=== PATIENT | female | born 1945 | race Caucasian/White ===

== ENCOUNTER 2020-01-17 14:00 | Inpatient (IN) | payer MEDICARE, SELFPAY ==
[2019-12-26 13:03] VITALS: BMI 31.5
--- NOTE | 2020-01-17 15:28 | PCM.HP.STD ---
Problem List (1) Debility Status: Acute (2) Fall with injury Status: Acute (3) Dislocation of right shoulder joint Status: Acute (4) Femur fracture, right Status: Acute (5) Muscle weakness Status: Acute (6) Breast cancer, left Status: Chronic (7) Hypertension Status: Chronic (8) Anemia Status: Chronic (9) Hypokalemia Status: Chronic History of Present Illness Date of Admission: 01/17/20 Chief Complaint: Here for rehabilitation, strengthening, radiation treatments, prior to discharge home alone. The patient is a 74 year old Female with below past medical history significant for left breast cancer status post surgery, status post chemotherapy, undergoing radiation treatments. Fell at home, tangled with dog, resulting in Right shoulder fracture/dislocation, treated with sling, nonweightbearing status. Right hip fracture status post open reduction internal fixation. Admitted to [facility] for PT/OT. 01/17/2020 Admit to TCU with debility, here for rehabilitation, strengthening. Transferred to TCU because logistically more convenient to have radiation treatment for left breast cancer. Past Medical History Past Medical History (Chronic Problems): Chronic Problems (Last Updated 12/26/19 @ 13:04 by Blanca Chapmion RN) Breast cancer, left (Chronic) Hypertension (Chronic) Anemia (Chronic) Hypokalemia (Chronic) Medical History: Medical History (Last Updated 12/26/19 @ 13:04 by Blanca Champion RN) Breast cancer C50.919 Allergies bacitracin [From Neosporin (mva-asl-ajbbm)] Allergy (Verified 12/26/19 13:02) Rash neomycin [From Neosporin (prn-oyj-zhami)] Allergy (Verified 12/26/19 13:02) Rash polymyxin B [From Neosporin (hpi-jjb-mimnk)] Allergy (Verified 12/26/19 13:02) Rash Home Medications: Ambulatory Orders Medication Instructions Recorded Calcium Carbonate [Calcium] 500 mg PO 12/26/19 Multivit-Minerals/Folic Acid 200 mcg PO 12/26/19 [Adult Multi Gummies] Potassium Chloride [K-Dur] 10 meq PO DAILY 12/26/19 Ascorbic Acid [Vitamin C] 500 mg PO DAILY 01/17/20 Enoxaparin Sodium [Lovenox] 30 mg SQ DAILY 01/17/20 Ferrous Sulfate 325 mg PO DAILY 01/17/20 Metoprolol Tartrate 12.5 mg PO BID 01/17/20 Multivitamin with Minerals 1 ea PO DAILY 01/17/20 [Multivitamins with Minerals] Oxycodone HCl 5 mg PO Q4H PRN PRN 01/17/20 Surgical History: Surgical History (Last Updated 12/26/19 @ 13:05 by Blanca Champion RN) H/O mastectomy Z90.10 H/O: hysterectomy Z90.710 1998 . FULL OF BENIGN TUMORS Tubal ligation status Z98.51 Surgical History: hysterectomy, mastectomy - Left., - - Tubal ligation, Right hip ORIF. 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 MUSIC history Lives: Alone Smoking Status: Current every day smoker Tobacco Use: Cigarettes Alcohol: None Drugs: None - *Family History Maternal Family History: Family History (Last Updated 12/26/19 @ 13:06 by Blanca Champion RN) Sister Breast cancer Sister Breast cancer Sister Breast cancer Sister Breast cancer History Items: Cancer Paternal Family History: Family History (Last Updated 12/26/19 @ 13:06 by Blanca Champion RN) Sister Breast cancer Sister Breast cancer Sister Breast cancer Sister Breast cancer History Items: No pertinent history Review of Systems Constitutional: Denies: Chills, Fever, Weight Change HEENT: Denies: Head Aches, Sinus Congestion, Sinus Drainage Cardiovascular: Denies: Chest Pain, Palpitations Respiratory: Denies: Cough, Shortness of breath at rest, Sputum production Gastrointestinal: Denies: Abdominal Pain, Nausea, Vomiting Genitourinary: Denies: Dysuria Musculoskeletal: Denies: Joint Pain, Joint Tenderness Skin: Denies: Rash, Wounds Neurological: Denies: Numbness, Tingling, Focal weakness Psychiatric: Denies: Anxiety, Depression, Homicidal Ideations, Suicidal Ideations Hematologic/ Lymphatic: Denies: Easy Bruising, Easy Bleeding VTE Information - Inpt Only VTE Present on Admission: No VTE Mechan Device Prophylaxis: Knee High RAEANN Hose VTE Pharm Prophylaxis ordered?: Yes Patient Problems: Active and Suspected Problems (Last Updated 12/26/19 @ 13:04 by Blanca Champion RN) Debility (Acute) Fall with injury (Acute) Dislocation of right shoulder joint (Acute) Femur fracture, right (Acute) Muscle weakness (Acute) - Physical Exam General: Alert, Oriented x3, Cooperative HEENT: Atraumatic, PERRLA, EOMI, Normocephalic Neck: Supple, No JVD, Negative Carotid Bruits Lungs: Clear to auscultation, Normal air movement Cardiovascular: Regular rate, No murmurs Abdomen: Bowel Sounds Present, Soft, Non Tender Extremities: No edema, Capillary Refill Less than 3 Seconds, - - Right upper extremity sling. Skin: No rashes, No breakdown Musculoskeletal: No Tenderness to Palpation of Joints or Extremities Neurological: Cranial nerves II-XII grossly intact Psych/Mental Status: Normal Affect, Appropriate Current Medications Ascorbic Acid (Vitamin C) 500 mg PO DAILY [facility] Calamine/Phenol (Calmoseptine Ointment) 1 applic TOPICAL DAILY [facility]; Protocol Enoxaparin Sodium (Lovenox) 30 mg SC DAILY [facility] Ferrous Sulfate (Ferrous Sulfate) 325 mg PO DAILYCM [facility] Metoprolol Tartrate (Lopressor (Beta Yvan)) 12.5 mg PO BID [facility] Multivitamins/Minerals (Multivitamin With Minerals (Bkc)) 1 tablet PO DAILY@0800 [facility] Oxycodone HCl (Oxyir) 5 mg PO Q4H PRN PRN PRN Reason: Pain Score 1-10/10 Potassium Chloride (K-Dur) 10 meq PO DAILY [facility] Tuberculin PPD (Tubersol, Aplisol, Ppd) 5 tu ID X1 ONE Stop: 01/17/20 17:01 Assessment/Plan All Active Problems (Last Updated 12/26/19 @ 13:04 by Blanca Champion RN) Debility (Acute) Fall with injury (Acute) Dislocation of right shoulder joint (Acute) Femur fracture, right (Acute) Muscle weakness (Acute) 74 year old female with below past medical history significant for left breast cancer, hospitalized for right shoulder fracture/dislocation, right femur fracture, underwent ORIF right hip, admitted to TCU with debility, here for rehabilitation, strengthening, radiation treatments, prior to discharge home alone. Debility - PT/OT. Pain - Tylenol 1000MG Q6H PRN pain (1-3), Oxycodone 5MG Q4H PRN pain (4-10). Bowel - Miralax 17GM daily, Senna/colace 1 tablet BID, Dulcolax 10MG daily PRN. Adult immunization - Administer Prevnar 13, Pneumovax 23, Fluzone as appropriate. DVT prophylaxis - Lovenox 30MG SC daily. Vitamin C deficiency - Vitamin C 500MG daily. Iron deficiency anemia - Ferrex 150MG daily. Skin irritation - Calmoseptine daily. Hypertension - Metoprolol 12.5MG twice daily. Nutrition - MVI daily. Hypokalemia - KCL 10MEQ daily. Left Breast cancer - Radiation per Dr. Noah Craig.
[2020-01-17 15:33] VITALS: BMI 30.3
[2020-01-17 15:36] VITALS: BMI 30.4
[2020-01-17 16:00] VITALS: BP 155/74; PULSE 70; RESP 16; TEMP 36.9; O2SAT 94
--- NOTE | 2020-01-17 17:02 | CASEMGMT ---
Social Work Reviewed and agreed with social work documentation on this date. Naty Dang, UPPER SHAPER SWIMMING COACH OR INSTRUCTOR
[2020-01-17] MEDS: Menthol/Lanolin/Calamine/Znox 113 GM Tube 1 APPLIC TOPICAL (17:36)
[2020-01-17 17:37] VITALS: PULSE 70
[2020-01-17] MEDS: Senna/Docusate Sodium 1 Tablet PO (17:37)
[2020-01-17] MEDS: Metoprolol Tartrate 25 MG Tablet 12.5 MG PO (17:37)
[2020-01-17] MEDS: Tuberculin,Purif.prot.deriv. 50 TU/ML Vial 5 ML ID (17:37)
[2020-01-18 06:07] VITALS: BP 146/52; PULSE 92
[2020-01-18] MEDS: Ascorbic Acid 500 MG Tablet PO (06:07)
[2020-01-18] MEDS: Polyethylene Glycol 3350 17 GM PACKET PO (06:07)
[2020-01-18] MEDS: Metoprolol Tartrate 25 MG Tablet 12.5 MG PO ×2 (06:07→22:52)
[2020-01-18] MEDS: Senna/Docusate Sodium 1 Tablet PO (06:07)
[2020-01-18] MEDS: Enoxaparin 30 MG/0.3 ML Syringe SC (06:08)
[2020-01-18] MEDS: Menthol/Lanolin/Calamine/Znox 113 GM Tube 1 APPLIC TOPICAL (06:09)
[2020-01-18 07:46] LABS: Anion Gap 2 (5-15); BUN 16 mg/dL (7-18); BUN/Creat Ratio 25.7 RATIO (10-20); Calcium,Total 9.4 mg/dL (8.5-10.1); Chloride 107 mmol/L (98-107); Creatinine, Serum 0.62 mg/dL (0.55-1.02); EST Glomerular Filtration Rate 100 mL/min (>60); Est Glom Filt Rate - Afr Amer 121 mL/min (>60); Estimated Creatinine Clearance 54.73 ml/min; Glucose 107 mg/dL (74-106); Potassium 4.2 mmol/L (3.5-5.1); Sodium Level 139 mmol/L (136-145)
[2020-01-18 07:58] LABS: Absolute Lymphocyte Count 1.25 X10^3/uL (0.83-4.51); Absolute Neutrophil Count 4.9 X10^3/uL (2.0-7.7); Basophil# 0.02 X10^3/uL; Basophil% 0.3 % (0-1); Eosinophil# 0.17 X10^3/uL; Eosinophils% 2.5 % (0-5); Hematocrit 34.6 % (37-47); Hemoglobin 10.8 g/dL (12.0-15.0); Lymphocyte # 1.25 X10^3/ul (4.0); Lymphocyte % 18.3 % (19-41); Mean Corp Hgb Conc 31.2 g/dL (32-36); Mean Corpuscular Hgb 29.8 pg (27.0-32.0); Mean Corpuscular Volume 95.3 fL (81-99); Mean Platelet Vol. 10.6 fl (6.2-12.0); Monocyte# 0.47 X10^3/uL; Monocyte% 6.9 % (0-10); NRBC Flagged by Analyzer 0 % (0-5); Neutrophil # 4.88 X10^3/uL (2.7-7.7); Neutrophil % 71.4 % (47-70); Platelet Count 189 K/mm3 (150-450); RBC Distribution Width CV 16.8 % (11.6-14.6); RBC Distribution Width SD 57.6 fl (35.1-43.9); Red Blood Count 3.63 M/mm3 (4.2-5.4); White Blood Count 6.8 K/mm3 (4.4-11.0)
[2020-01-18] MEDS: Multivitamins,Ther W-Minerals Tablet 1 TABLET PO (08:15)
[2020-01-18] MEDS: Iron Polysaccharide Complex 150 MG CAPSULE PO (08:15)
[2020-01-18 15:00] VITALS: BP 92/52; PULSE 108; RESP 16; TEMP 37.1; O2SAT 94
[2020-01-18 15:06] VITALS: PULSE 100; RESP 18; O2SAT 94
[2020-01-18 22:52] VITALS: BP 131/61; PULSE 96
[2020-01-19] MEDS: Menthol/Lanolin/Calamine/Znox 113 GM Tube 1 APPLIC TOPICAL (06:01)
[2020-01-19] MEDS: Enoxaparin 30 MG/0.3 ML Syringe SC (06:01)
[2020-01-19] MEDS: Ascorbic Acid 500 MG Tablet PO (06:01)
[2020-01-19 06:02] VITALS: BP 147/74; PULSE 90
[2020-01-19] MEDS: Metoprolol Tartrate 25 MG Tablet 12.5 MG PO ×2 (06:02→20:01)
[2020-01-19] MEDS: Iron Polysaccharide Complex 150 MG CAPSULE PO (07:53)
[2020-01-19] MEDS: Multivitamins,Ther W-Minerals Tablet 1 TABLET PO (07:53)
[2020-01-19 15:00] VITALS: BP 153/85; PULSE 93; RESP 24; TEMP 36.3; O2SAT 100
[2020-01-19] MEDS: Senna/Docusate Sodium 1 Tablet PO (17:19)
[2020-01-19 20:01] VITALS: BP 178/69; PULSE 84
[2020-01-19] MEDS: Acetaminophen 500 MG Tablet 1000 MG PO (20:01)
[2020-01-20 05:42] VITALS: BP 174/69; PULSE 86
[2020-01-20] MEDS: Enoxaparin 30 MG/0.3 ML Syringe SC (05:42)
[2020-01-20] MEDS: Ascorbic Acid 500 MG Tablet PO (05:42)
[2020-01-20] MEDS: Senna/Docusate Sodium 1 Tablet PO ×2 (05:42→17:25)
[2020-01-20] MEDS: Metoprolol Tartrate 25 MG Tablet 12.5 MG PO ×2 (05:42→21:05)
[2020-01-20] MEDS: Menthol/Lanolin/Calamine/Znox 113 GM Tube 1 APPLIC TOPICAL (05:44)
[2020-01-20] MEDS: Iron Polysaccharide Complex 150 MG CAPSULE PO (07:58)
[2020-01-20] MEDS: Multivitamins,Ther W-Minerals Tablet 1 TABLET PO (07:58)
[2020-01-20 10:00] VITALS: RESP 16
--- NOTE | 2020-01-20 15:58 | NURSING ---
Addendum entered by Cori Olmos 01/20/20 16:12: The order is to remove the brad to the R leg not the R arm. Original Note: Spoke with Dr. Moses's nurse. Received order to remove the brad to R arm on 01/27/20. She will speak with Dr. Moses and call us on back on the patient's weight bearing status. Will notify Dr. Harris
[2020-01-20 16:00] VITALS: BP 134/75; PULSE 84; RESP 16; TEMP 36.6; O2SAT 92
--- NOTE | 2020-01-20 18:26 | NURSING ---
Notified patient's daughter of appointment on 01/29 at 3:30
[2020-01-20 21:05] VITALS: BP 116/57; PULSE 99
[2020-01-21 06:10] VITALS: BP 149/81; PULSE 86
[2020-01-21] MEDS: Metoprolol Tartrate 25 MG Tablet 12.5 MG PO ×2 (06:10→20:05)
[2020-01-21] MEDS: Enoxaparin 30 MG/0.3 ML Syringe SC (06:11)
[2020-01-21] MEDS: Ascorbic Acid 500 MG Tablet PO (06:11)
[2020-01-21] MEDS: Menthol/Lanolin/Calamine/Znox 113 GM Tube 1 APPLIC TOPICAL (06:15)
--- NOTE | 2020-01-21 09:03 | PCM.PN.RX ---
<RhondaAureliano pearcei - Last Filed: 01/21/20 09:03> Progress Note - Pharmacy Subjective: TCU Admission Objective: Allergies bacitracin [From Neosporin (yjc-erj-pibow)] Allergy (Verified 12/26/19 13:02) Rash neomycin [From Neosporin (ris-xqr-szhlv)] Allergy (Verified 12/26/19 13:02) Rash polymyxin B [From Neosporin (cjn-jdw-rntvq)] Allergy (Verified 12/26/19 13:02) Rash Current Medications Generic Name Dose Route Start Last Admin Trade Name Freq PRN Reason Stop Dose Admin Acetaminophen 1,000 mg 01/17/20 15:44 01/19/20 20:01 Tylenol PO 1,000 mg Q6H PRN Administration Pain Score 1-3/10 Ascorbic Acid 500 mg 01/18/20 06:00 01/21/20 06:11 Vitamin C PO 500 mg DAILY [facility] Administration Bisacodyl 10 mg 01/17/20 15:45 Dulcolax PO DAILY PRN Constipation Calamine/Phenol 1 applic 01/17/20 15:00 01/21/20 06:15 Calmoseptine Ointment TOPICAL 1 applicatio DAILY [facility] Administration Protocol Enoxaparin Sodium 30 mg 01/18/20 06:00 01/21/20 06:11 Lovenox SC 30 mg DAILY [facility] Administration Metoprolol Tartrate 12.5 mg 01/18/20 21:00 01/21/20 06:10 Lopressor (Beta Yvan) PO 12.5 mg 0600,2100 [facility] Administration Multivitamins/Minerals 1 tablet 01/18/20 08:00 01/20/20 07:58 Multivitamin With Minerals (Bkc) PO 1 tablet DAILY@0800 [facility] Administration Oxycodone HCl 5 mg 01/17/20 14:36 Oxyir PO Q4H PRN PRN Pain Score 4-10/10 Polyethylene Glycol 17 gm 01/18/20 06:00 01/21/20 06:11 Miralax PO Not Given DAILY [facility] Polysaccharide Iron Complex 150 mg 01/18/20 08:00 01/20/20 07:58 Ferrex 150 PO 150 mg DAILYCM [facility] Administration Potassium Chloride 10 meq 01/18/20 06:00 01/21/20 06:11 K-Dur PO 10 meq DAILY [facility] Administration Senna/Docusate Sodium 1 tablet 01/17/20 18:00 01/21/20 06:11 Senokot-S, Alanis-Colace PO Not Given BID [facility] Problem List (Last Updated 12/26/19 @ 13:04 by Blanca Champion RN) Debility (Acute) Fall with injury (Acute) Dislocation of right shoulder joint (Acute) Femur fracture, right (Acute) Muscle weakness (Acute) Breast cancer, left (Chronic) Hypertension (Chronic) Anemia (Chronic) Hypokalemia (Chronic) Vital Signs Temp Pulse Resp BP Pulse Ox 97.8 F 86 16 149/81 H 92 01/20/20 16:00 01/21/20 06:10 01/20/20 16:00 01/21/20 06:10 01/20/20 16:00 Oxygen Delivery Method Room Air Weight: 68.181 kg Body Mass Index (BMI) 30.3 Sodium 139 mmol/L (136-145) 01/18/20 07:11 Potassium 4.2 mmol/L (3.5-5.1) 01/18/20 07:11 Chloride 107 mmol/L (98-107) 01/18/20 07:11 Carbon Dioxide 30.0 mmol/L (21.0-32.0) 01/18/20 07:11 Anion Gap 2 (5-15) L 01/18/20 07:11 BUN 16 mg/dL (7-18) 01/18/20 07:11 Creatinine 0.62 mg/dL (0.55-1.02) 01/18/20 07:11 Est GFR (MDRD) Af Amer 121 mL/min (>60) 01/18/20 07:11 Est GFR (MDRD) Non-Af 100 mL/min (>60) 01/18/20 07:11 BUN/Creatinine Ratio 25.7 RATIO (10-20) H 01/18/20 07:11 Glucose 107 mg/dL (74-106) H 01/18/20 07:11 Assessment/Plan: 1. Pain: acetaminophen 1000mg PO Q6H PRN pain (1-3/10) and oxycodone 5mg PO Q4H PRN pain (4-10/10). Please continue to monitor for increased pain and PRN usage. 2. DVT prophylaxis: enoxaparin 40mg SC daily. Increased from 30mg SC daily due to CrCl >30ml/min. Please continue to monitor for S/S of bleeding/DVT, renal function and platelets. 3. Hypertension: metoprolol tartrate 12.5mg PO BID. Please continue to monitor HR and BP. 4. Iron deficiency anemia: Ferrex 150mg PO DAILYCM. Please continue to monitor hemoglobin and for dark stools. 5. Hypokalemia: potassium chloride 10mEq PO daily. Please continue to monitor potassium levels. 6. Vitamin C deficiency/nutrition: ascorbic acid 500mg PO daily and multivitamin with minerals 1T PO daily. Please continue to monitor. Psychotropic Medications: None Unnecessary Medications: None *Bowel Regimen: Miralax 17gm PO daily, senna/docusate 1T PO BID, bisacodyl 10mg PO daily PRN constipation. Patient has refused 3/4 doses of Miralax. Please consider changing from scheduled to PRN constipation. Thanks. Please continue to monitor for constipation and PRN usage. Date of Note:: 01/21/20 - Provider Comments Provider responsibility: Provider responsible to enter orders to implement recommendations <Fish Harris Chi - Last Filed: 01/21/20 17:28> Progress Note - Pharmacy Subjective: [] Objective: Allergies bacitracin [From Neosporin (qry-lki-ytuzq)] Allergy (Verified 12/26/19 13:02) Rash neomycin [From Neosporin (vzg-nag-jpohn)] Allergy (Verified 12/26/19 13:02) Rash polymyxin B [From Neosporin (ajs-xri-usfiw)] Allergy (Verified 12/26/19 13:02) Rash Current Medications Generic Name Dose Route Start Last Admin Trade Name Freq PRN Reason Stop Dose Admin Acetaminophen 1,000 mg 01/17/20 15:44 01/19/20 20:01 Tylenol PO 1,000 mg Q6H PRN Administration Pain Score 1-3/10 Ascorbic Acid 500 mg 01/18/20 06:00 01/21/20 06:11 Vitamin C PO 500 mg DAILY [facility] Administration Bisacodyl 10 mg 01/17/20 15:45 Dulcolax PO DAILY PRN Constipation Calamine/Phenol 1 applic 01/17/20 15:00 01/21/20 06:15 Calmoseptine Ointment TOPICAL 1 applicatio DAILY [facility] Administration Protocol Enoxaparin Sodium 40 mg 01/22/20 06:00 Lovenox SC DAILY@0600 [facility] Metoprolol Tartrate 12.5 mg 01/18/20 21:00 01/21/20 06:10 Lopressor (Beta Yvan) PO 12.5 mg 0600,2100 [facility] Administration Multivitamins/Minerals 1 tablet 01/18/20 08:00 01/21/20 09:07 Multivitamin With Minerals (Bkc) PO 1 tablet DAILY@0800 [facility] Administration Oxycodone HCl 5 mg 01/17/20 14:36 Oxyir PO Q4H PRN PRN Pain Score 4-10/10 Polyethylene Glycol 17 gm 01/18/20 06:00 01/21/20 06:11 Miralax PO Not Given DAILY [facility] Polysaccharide Iron Complex 150 mg 01/18/20 08:00 01/21/20 09:07 Ferrex 150 PO 150 mg DAILYCM [facility] Administration Potassium Chloride 10 meq 01/18/20 06:00 01/21/20 06:11 K-Dur PO 10 meq DAILY [facility] Administration Senna/Docusate Sodium 1 tablet 01/17/20 18:00 01/21/20 06:11 Senokot-S, Alanis-Colace PO Not Given BID [facility] Problem List (Last Updated 12/26/19 @ 13:04 by Blanca Champion RN) Debility (Acute) Fall with injury (Acute) Dislocation of right shoulder joint (Acute) Femur fracture, right (Acute) Muscle weakness (Acute) Breast cancer, left (Chronic) Hypertension (Chronic) Anemia (Chronic) Hypokalemia (Chronic) Vital Signs Temp Pulse Resp BP Pulse Ox 98.2 F 105 H 16 156/84 H 95 01/21/20 14:40 01/21/20 14:40 01/21/20 14:40 01/21/20 14:40 01/21/20 14:40 Oxygen Delivery Method Room Air Weight: 68.719 kg Body Mass Index (BMI) 30.3 Sodium 139 mmol/L (136-145) 01/18/20 07:11 Potassium 4.2 mmol/L (3.5-5.1) 01/18/20 07:11 Chloride 107 mmol/L (98-107) 01/18/20 07:11 Carbon Dioxide 30.0 mmol/L (21.0-32.0) 01/18/20 07:11 Anion Gap 2 (5-15) L 01/18/20 07:11 BUN 16 mg/dL (7-18) 01/18/20 07:11 Creatinine 0.62 mg/dL (0.55-1.02) 01/18/20 07:11 Est GFR (MDRD) Af Amer 121 mL/min (>60) 01/18/20 07:11 Est GFR (MDRD) Non-Af 100 mL/min (>60) 01/18/20 07:11 BUN/Creatinine Ratio 25.7 RATIO (10-20) H 01/18/20 07:11 Glucose 107 mg/dL (74-106) H 01/18/20 07:11 Assessment/Plan: Psychotropic Medications: Unnecessary Medications: Bowel Regimen: - Provider Comments Provider responsibility: Provider responsible to enter orders to implement recommendations Provider Comments to Recommendations by Pharmacy: Agree
[2020-01-21] MEDS: Multivitamins,Ther W-Minerals Tablet 1 TABLET PO (09:07)
[2020-01-21] MEDS: Iron Polysaccharide Complex 150 MG CAPSULE PO (09:07)
--- NOTE | 2020-01-21 09:54 | CASEMGMT ---
Social Work Met with pt to discuss insurance setting a DC date for 01/24. Discussed with pt her appeal rights. Therapy recommending giovanni-walker. Pt to have daughter or sister transport at DC. Provided pt with list of [facility]. Pt requesting [facility]-PT/OT, referral made. Plan: DC home 01/24, giovanni walker, [facility]-PT/OT Ashly Forrest, social work product management internship Naty Dang, CRIME SPECIALIST ELECTRICIAN SUPERVISOR
--- NOTE | 2020-01-21 10:03 | CASEMGMT ---
Social Work Reviewed and agreed with social work documentation on this date. Naty Dang, SLITTING MACHINE FEEDER SENIOR PAINTER
--- NOTE | 2020-01-21 11:38 | RAD_ITS ---
STUDY: X-RAY - RIGHT SHOULDER REASON FOR EXAM: Female, 74 years old. Fracture follow up, right shoulder pain TECHNIQUE: 2 view(s) of the shoulder. COMPARISON: CT thorax 02/13/2019. FINDINGS: Normal glenohumeral articulation. There is degenerative arthrosis of the acromioclavicular joint without inferior osseous spur formation. Normal acromion. Generalized osteoporosis. Right internal jugular approach port. There is a sclerosed irregular fracture line through the humeral head/neck with fragmentation along the superior and medial humeral cortex. The humeral acromial distance is enlarged. Minimal indistinct fracture fragments particularly medial to the humeral head. The soft tissue structures are unremarkable. Normal visualized pulmonary apex. RAD/Shoulder min 2 Views IMPRESSION: Interval development of a fracture of the humeral head with avulsion injury involving the posterior medial cortex with indistinct contours. There is interposition of fragments causing widening of the humeral acromial distance. Degenerative changes. No dislocation. Electronically Signed: Amanda Funez MD at 5:53 EST , Service support ,
--- NOTE | 2020-01-21 11:45 | NURSING ---
received call from Dr. Micki Moses's office with n/o for 2 view R femur and 2 view shoulder. requesting images be sent to [facility] [id number] [facility] [id number]
--- NOTE | 2020-01-21 13:07 | CASEMGMT ---
Social Work IDT met with pt and pt daughter for care plan meeting. Pt able to walk 135ft with hemiwalker-CGA, pt transfers at SBA, pt abl to do 5 stairs with 1 HR-CGA. Pt able to do bathing at min assist, UE and LE dressing at mod assist. Toileting and clothing tasks at min assist. Discussed pt DC plans 01/24 to go home alone, daughter to set up friends/family to come in and help pt. HHC discussed, pt choosing [facility] PT/OT. Palliative care discussed, pt agreeable, referral made. Transport resources given to daughter. Ashly Forrest, social work internist medical doctor md Naty Dang, RETAIL BEAUTY SPECIALIST CVOR NURSE
--- NOTE | 2020-01-21 14:08 | CASEMGMT ---
Social Work Reviewed and agreed with social work internal review and audit compliance documentation on this date. Naty Dang, ELECTRICAL ACCESSORIES II ASSEMBLER BED TEACHER
[2020-01-21 14:40] VITALS: BP 156/84; PULSE 105; RESP 16; TEMP 36.8; O2SAT 95
--- NOTE | 2020-01-21 14:44 | CASEMGMT ---
Social Work [facility] palliative followed up with pt and pt daughter about palliative care. Pt and daughter chose to not use services at this time. Ashly Forrest, social work fashion buying internship Naty Dang, MIREYA WEB APPLICATIONS DEVELOPER
--- NOTE | 2020-01-21 15:00 | NURSING ---
Addendum entered by Lulu Conway 01/21/20 15:44: pt returned to room Original Note: pt off floor for Xray
--- NOTE | 2020-01-21 15:05 | RAD_ITS ---
STUDY: X-RAY - RIGHT FEMUR REASON FOR STUDY: Female, 74 years old. surgical follow up right femur TECHNIQUE: 4 view(s) of the femur. COMPARISON: None. FINDINGS: Postop changes status post open reduction internal fixation of intertrochanteric fracture with fracture fragments in anatomic alignment and position. There is callus deposition noted consistent with early healing. RAD/Femur Min 2 Views IMPRESSION: Early healing intertrochanteric fracture right hip status post ORIF Electronically Signed: Lm Salinas MD at 16:29 EST , Service support ,
[2020-01-21] MEDS: Acetaminophen 500 MG Tablet 1000 MG PO (17:40)
[2020-01-21 20:05] VITALS: BP 122/50; PULSE 94
--- NOTE | 2020-01-21 20:19 | DCINST_ITS ---
- Discharge Diagnoses Current Active Problems: Current Active and Chronic Problems (Last Updated 12/26/19 @ 13:04 by Blanca Champion RN) Debility (Acute) Fall with injury (Acute) Dislocation of right shoulder joint (Acute) Femur fracture, right (Acute) Muscle weakness (Acute) Breast cancer, left (Chronic) Hypertension (Chronic) Anemia (Chronic) Hypokalemia (Chronic) You will use the following diet at home:: No restrictions, Regular Your food should be the consistency of: Regular Your liquids should be the consistency of: Regular/Thin Discharge Activity: Return to Normal Activity, May Shower, Use Walker Weight Bearing Status: Weight bearing as tolerated Call your doctor if you observe: Fever of 101 or Higher, Inability to urinate, Inability to have a bowel movement, Shortness of breath, Chest pain, Uncontrolled pain Allergies/Adverse Reactions: Allergies bacitracin [From Neosporin ([id number]-[id number])] Allergy (Verified 12/26/19 13:02) Rash neomycin [From Neosporin (hif-com-soaxf)] Allergy (Verified 12/26/19 13:02) Rash polymyxin B [From Neosporin (kyj-cox-jznkx)] Allergy (Verified 12/26/19 13:02) Rash Medications to take at Discharge Ascorbic Acid [Vitamin C] 500 mg PO DAILY 01/17/20 Acetaminophen [Tylenol] 1,000 mg PO Q6H PRN tab 01/21/20 Iron Polysaccharide Complex [Ferrex 150] 150 mg PO DAILYCM #30 cap 01/21/20 Menthol/Lanolin/Calamine/Znox [Calmoseptine Ointment] 1 applic TOPICAL DAILY tube 01/21/20 Metoprolol Tartrate 12.5 mg PO BID #30 tab 01/21/20 Potassium Chloride [K-Dur] 10 meq PO DAILY #30 tab 01/21/20 The following prescriptions were given: Iron Polysaccharide Complex [Ferrex 150] 150 mg PO DAILYCM #30 cap Prescription Printed Potassium Chloride [K-Dur] 10 meq PO DAILY #30 tab Prescription Printed Metoprolol Tartrate 12.5 mg PO BID #30 tab Prescription Printed Primary Care Physician: Fish Harris Chi, MD [COURTESY STAFF PHYSICIAN] - Please follow up with your Primary Care Physician in: 1 week. Test Results: Test results from this visit will be discussed in further detail at your follow- up appointment, if applicable. Please Follow Up With: Giuliana Moses When: As scheduled. Please Follow Up With: Radiation When: As scheduled. Proposed Discharge Date: 01/24/20
--- NOTE | 2020-01-21 20:21 | PCM.DC.SUM ---
Discharge Date and Diagnosis - Problem List Patient Problems: Active and Suspected Problems (Last Updated 12/26/19 @ 13:04 by Blanca Champion RN) Debility (Acute) Fall with injury (Acute) Dislocation of right shoulder joint (Acute) Femur fracture, right (Acute) Muscle weakness (Acute) Date of Admission: 01/17/20 Date of Discharge: 01/24/20 - Primary Discharge Diagnosis Active and Suspected Problems (Last Updated 12/26/19 @ 13:04 by Blanca Champion RN) Debility (Acute) Fall with injury (Acute) Dislocation of right shoulder joint (Acute) Femur fracture, right (Acute) Muscle weakness (Acute) - Secondary Discharge Diagnosis Chronic Problems (Last Updated 12/26/19 @ 13:04 by Blanca Champion RN) Breast cancer, left (Chronic) Hypertension (Chronic) Anemia (Chronic) Hypokalemia (Chronic) Hospital Course and Treatment Imaging Results: 01/21/20 11:38 Xray Shoulder [Shoulder min 2 Views] [RAD] Routine 01/21/20 15:05 Femur Min 2 Views [RAD] Routine 01/17/20 14:57 Diet: Regular Diet Food consistency:: Regular Liquid Consistency:: Regular/Thin Clinical Impression(s) from Imaging Studies Femur X-Ray 01/21/20 15:05 IMPRESSION: Early healing intertrochanteric fracture right hip status post ORIF Electronically Signed: Lm Salinas MD at 16:29 EST , Service support , Consultations 01/18/20 15:03 Consult: Onc/Wound/outreach analyst Routine Comment: Reason for Consult:: LT buttock wound Operations: None Procedures: None Summary of Care Provided: The patient is a 74 year old Female with below past medical history significant for left breast cancer, hospitalized for right shoulder fracture/dislocation, right femur fracture, underwent ORIF right hip, admitted to TCU with debility, here for rehabilitation, strengthening, radiation treatments, prior to discharge home alone. Discharge home alone, daughter to set up friends/family to come in and help, [facility] for PT/OT. Patient Problems: Active and Suspected Problems (Last Updated 12/26/19 @ 13:04 by Blanca Champion RN) Debility (Acute) Fall with injury (Acute) Dislocation of right shoulder joint (Acute) Femur fracture, right (Acute) Muscle weakness (Acute) - Physical Exam Vitals/I&O's: Vital Signs Temp Pulse Resp BP Pulse Ox 98.2 F 94 16 122/50 H 95 01/21/20 14:40 01/21/20 20:05 01/21/20 14:40 01/21/20 20:05 01/21/20 14:40 Oxygen Delivery Method Room Air Weight: 68.719 kg Body Mass Index (BMI) 30.3 Intake and Output for Last 24 Hours 01/19/20 01/20/20 01/21/20 23:59 23:59 23:59 Intake Total 960 / 960 940 / 940 300 / 300 Balance 960 / 960 940 / 940 300 / 300 Current Medications Acetaminophen (Tylenol) 1,000 mg PO Q6H PRN PRN Reason: Pain Score 1-3/10 Last Admin: 01/21/20 17:40 Dose: 1,000 mg Documented by: Ascorbic Acid (Vitamin C) 500 mg PO DAILY [facility] Last Admin: 01/21/20 06:11 Dose: 500 mg Documented by: Bisacodyl (Dulcolax) 10 mg PO DAILY PRN PRN Reason: Constipation Calamine/Phenol (Calmoseptine Ointment) 1 applic TOPICAL DAILY [facility]; Protocol Last Admin: 01/21/20 06:15 Dose: 1 applicatio Documented by: Enoxaparin Sodium (Lovenox) 40 mg SC DAILY@0600 [facility] Metoprolol Tartrate (Lopressor (Beta Yvan)) 12.5 mg PO 0600,2100 [facility] Last Admin: 01/21/20 20:05 Dose: 12.5 mg Documented by: Multivitamins/Minerals (Multivitamin With Minerals (Bkc)) 1 tablet PO DAILY@0800 [facility] Last Admin: 01/21/20 09:07 Dose: 1 tablet Documented by: Oxycodone HCl (Oxyir) 5 mg PO Q4H PRN PRN PRN Reason: Pain Score 4-10/10 Polyethylene Glycol (Miralax) 17 gm PO DAILY [facility] Last Admin: 01/21/20 06:11 Dose: Not Given Documented by: [facility]accharide [facility] Last Admin: 02/25/20 09:07 Dose: 150 mg Documented by: Potassium Chloride (K-Dur) 10 meq PO DAILY [facility] Last Admin: 01/21/20 06:11 Dose: 10 meq Documented by: Senna/Docusate Sodium (Senokot-S, Alanis-Colace) 1 tablet PO BID [facility] Last Admin: 01/21/20 17:38 Dose: Not Given Documented by: Discharge Diet: No Restrictions Discharge Activity: Return to Normal Activity, May Shower, Use Walker Weight Bearing Status: Weight bearing as tolerated Call your doctor if you observe: Fever of 101 or Higher, Inability to urinate, Inability to have a bowel movement, Shortness of breath, Chest pain, Uncontrolled pain Home Medications: Medications to take at Discharge Ascorbic Acid [Vitamin C] 500 mg PO DAILY 01/17/20 Acetaminophen [Tylenol] 1,000 mg PO Q6H PRN tab 01/21/20 Iron Polysaccharide Complex [Ferrex 150] 150 mg PO DAILYCM #30 cap 01/21/20 Menthol/Lanolin/Calamine/Znox [Calmoseptine Ointment] 1 applic TOPICAL DAILY tube 01/21/20 Metoprolol Tartrate 12.5 mg PO BID #30 tab 01/21/20 Potassium Chloride [K-Dur] 10 meq PO DAILY #30 tab 01/21/20 Following Prescrptions Were Given to Patient: Iron Polysaccharide Complex [Ferrex 150] 150 mg PO DAILYCM #30 cap Prescription Printed Potassium Chloride [K-Dur] 10 meq PO DAILY #30 tab Prescription Printed Metoprolol Tartrate 12.5 mg PO BID #30 tab Prescription Printed Primary Care Physician: Fish Harris Chi, MD [COURTESY STAFF PHYSICIAN] - Please follow up with your Primary Care Physician in: 1 week. Please Follow Up With: Giuliana Moses When: As scheduled. Please Follow Up With: Radiation When: As scheduled. Disposition: Home with Home Health Minutes spent on discharge:: 35 Patient Condition:: Stable Medical Necessity - Tobacco Use Smoking Status: Light Smoker (<10/day) Tobacco Use: Cigarettes Meaningful Use Info Meaningful Use Diagnoses (Choose all that apply): None applicable
[2020-01-22] MEDS: Acetaminophen 500 MG Tablet 1000 MG PO ×2 (06:21→20:22)
[2020-01-22 06:22] VITALS: BP 136/84; PULSE 87
[2020-01-22] MEDS: Metoprolol Tartrate 25 MG Tablet 12.5 MG PO ×2 (06:22→20:18)
[2020-01-22] MEDS: Ascorbic Acid 500 MG Tablet PO (06:23)
[2020-01-22] MEDS: Enoxaparin 40 MG/0.4 ML Syringe SC (06:23)
[2020-01-22] MEDS: Menthol/Lanolin/Calamine/Znox 113 GM Tube 1 APPLIC TOPICAL (06:25)
[2020-01-22] MEDS: Multivitamins,Ther W-Minerals Tablet 1 TABLET PO (07:46)
[2020-01-22] MEDS: Iron Polysaccharide Complex 150 MG CAPSULE PO (07:46)
[2020-01-22 14:06] VITALS: BP 150/79; PULSE 91; RESP 18; TEMP 36.2; O2SAT 96
[2020-01-22 20:18] VITALS: PULSE 100
[2020-01-23 05:08] VITALS: BP 131/62; PULSE 89
[2020-01-23] MEDS: Menthol/Lanolin/Calamine/Znox 113 GM Tube 1 APPLIC TOPICAL (05:08)
[2020-01-23] MEDS: Ascorbic Acid 500 MG Tablet PO (05:08)
[2020-01-23] MEDS: Metoprolol Tartrate 25 MG Tablet 12.5 MG PO ×2 (05:08→19:54)
[2020-01-23] MEDS: Enoxaparin 40 MG/0.4 ML Syringe SC (05:13)
[2020-01-23] MEDS: Multivitamins,Ther W-Minerals Tablet 1 TABLET PO (07:48)
[2020-01-23] MEDS: Iron Polysaccharide Complex 150 MG CAPSULE PO (07:48)
--- NOTE | 2020-01-23 11:05 | NURSING ---
off unit to radiation via WC
--- NOTE | 2020-01-23 11:22 | NURSING ---
Addendum entered by Mary Ivory 01/23/20 13:27: new order WBAT RLE, but NWB to RT Upper arm. ok to remove brad 01/24 on TCU before DC home. Original Note: Left message with Dr Moses @ [facility] [phone] regarding pt WT bearing status of RT upper arm and RT femur fracture. Awaiting return call.
[2020-01-23 14:32] VITALS: BP 146/70; PULSE 85; RESP 16; TEMP 36.5; O2SAT 90
[2020-01-23] MEDS: Senna/Docusate Sodium 1 Tablet PO (17:18)
[2020-01-23 19:54] VITALS: BP 127/79; PULSE 105
[2020-01-23 19:56] VITALS: PULSE 105
[2020-01-24 05:37] VITALS: BP 114/69; PULSE 89
[2020-01-24] MEDS: Enoxaparin 40 MG/0.4 ML Syringe SC (05:37)
[2020-01-24] MEDS: Metoprolol Tartrate 25 MG Tablet 12.5 MG PO (05:37)
[2020-01-24] MEDS: Ascorbic Acid 500 MG Tablet PO (05:37)
[2020-01-24] MEDS: Menthol/Lanolin/Calamine/Znox 113 GM Tube 1 APPLIC TOPICAL (05:38)
--- NOTE | 2020-01-24 05:46 | NURSING ---
Per orders brad removed from RLE at this time. 15 brad removed. Patient tolerated procedure well.
[2020-01-24] MEDS: Iron Polysaccharide Complex 150 MG CAPSULE PO (07:49)
[2020-01-24] MEDS: Multivitamins,Ther W-Minerals Tablet 1 TABLET PO (07:49)
[2020-01-24 07:50] VITALS: PULSE 77; RESP 18; O2SAT 96
--- NOTE | 2020-01-24 09:36 | CASEMGMT ---
Social Work Reviewed and agreed with social work internship coordinator documentation on this date. Naty Dang, HEALTHCARE FACILITY ADMINISTRATOR ERECTOR OPERATOR
[2020-01-24 10:03] VITALS: BP 150/77; PULSE 83; RESP 18; TEMP 37.1; O2SAT 92
--- NOTE | 2020-01-24 11:56 | NURSING ---
mepilex removed from buttocks before dc home, pt had old healing pressure injury to LT buttocks. Left ANALY. pt advised to keep pressure offer area for continued healing and use of sana at home. pt & sister verbalized understanding.
--- NOTE | 2020-01-27 16:38 | CASEMGMT ---
Social Work Reviewed and agreed with social work manager internet documentation on this date. Naty Dang, VENETIAN BLIND MECHANIC VISION THERAPIST
--- NOTE | 2020-01-28 14:25 | MDS.RN ---
Information for the mds was obtained from review of the clinical record, interview of resident, staff, and direct observation of resident's care.
== END 2020-01-24 11:58 | disposition home health service (06) | DRG 561 ==
PROVIDERS: Admitting Provider Family Medicine Geriatric Medicine; Referring Provider Family Medicine Geriatric Medicine; Visit Provider Family Medicine Geriatric Medicine
DX: S72.001D Fracture of unspecified part of neck of right femur, subsequent encounter for closed fracture with routine healing (principal); S42.91XD Fracture of right shoulder girdle, part unspecified, subsequent encounter for fracture with routine healing; W19.XXXD Unspecified fall, subsequent encounter; C50.912 Malignant neoplasm of unspecified site of left female breast; I10 Essential (primary) hypertension; F17.210 Nicotine dependence, cigarettes, uncomplicated; D50.9 Iron deficiency anemia, unspecified; E87.6 Hypokalemia
CPT/HCPCS: 36415; 73030; 73552; 80048; 85025; 97110; 97116; 97162; 97165; 97530; 97535; 99406

== ENCOUNTER → 2020-08-11 15:52 | Outpatient (CLI) | payer MEDICARE, SELFPAY ==
[2019-12-26 13:03] VITALS: BMI 31.5
[2020-02-19 10:52] VITALS: BMI 30.1
[2020-08-11 17:08] LABS: Absolute Lymphocyte Count 1.59 X10^3/uL (0.83-4.51); Absolute Neutrophil Count 4.5 X10^3/uL (2.0-7.7); Basophil# 0.03 X10^3/uL; Basophil% 0.4 % (0-1); Eosinophil# 0.19 X10^3/uL; Eosinophils% 2.8 % (0-5); Hematocrit 42.9 % (37-47); Hemoglobin 14.1 g/dL (12.0-15.0); Lymphocyte # 1.59 X10^3/ul (4.0); Lymphocyte % 23.1 % (19-41); Mean Corp Hgb Conc 32.9 g/dL (32-36); Mean Corpuscular Hgb 30.7 pg (27.0-32.0); Mean Corpuscular Volume 93.5 fL (81-99); Mean Platelet Vol. 11.3 fl (6.2-12.0); Monocyte# 0.55 X10^3/uL; NRBC Flagged by Analyzer 0 % (0-5); Neutrophil % 65.3 % (47-70); Platelet Count 151 K/mm3 (150-450); RBC Distribution Width CV 13.8 % (11.6-14.6); RBC Distribution Width SD 47.2 fl (35.1-43.9); Red Blood Count 4.59 M/mm3 (4.2-5.4); White Blood Count 6.9 K/mm3 (4.4-11.0)
[2020-08-11 17:31] LABS: Vitamin D,25 Hydroxy 30.3 ng/mL
[2020-08-11 17:37] LABS: AST(SGOT) 24 U/L (15-37); Alanine Aminotransfer ALT/SGPT 31 U/L (13-56); Albumin, Serum 3.9 g/dL (3.2-5.0); Alkaline Phosphatase 95 U/L (45-117); Anion Gap 7 (5-15); BUN 17 mg/dL (7-18); BUN/Creat Ratio 23.6 RATIO (10-20); Calcium,Total 9.6 mg/dL (8.5-10.1); Chloride 108 mmol/L (98-107); Creatinine, Serum 0.72 mg/dL (0.55-1.02); EST Glomerular Filtration Rate 84 mL/min (>60); Est Glom Filt Rate - Afr Amer 102 mL/min (>60); Globulin 4.1 g/dL (2.2-4.2); Glucose 105 mg/dL (74-106); Potassium 3.7 mmol/L (3.5-5.1); Sodium Level 141 mmol/L (136-145); Thyroid Stim Hormone (TSH) 3.84 uIU/mL (0.358-3.74)
== END ==
PROVIDERS: PCP Family Medicine Geriatric Medicine; Visit Provider Family Medicine Geriatric Medicine
DX: E55.9 Vitamin D deficiency, unspecified (principal); I10 Essential (primary) hypertension
CPT/HCPCS: 36415; 80053; 82306; 84443; 85025

== ENCOUNTER → 2021-03-02 10:51 | Outpatient (CLI) | payer MEDICARE, SELFPAY ==
[2019-12-26 13:03] VITALS: BMI 31.5
[2020-02-19 10:52] VITALS: BMI 30.1
[2021-03-02 12:27] LABS: Absolute Lymphocyte Count 1.35 X10^3/uL (0.83-4.51); Absolute Neutrophil Count 2.7 X10^3/uL (2.0-7.7); Basophil# 0.04 X10^3/uL; Basophil% 0.8 % (0-1); Eosinophil# 0.21 X10^3/uL; Eosinophils% 4.3 % (0-5); Hemoglobin 12.4 g/dL (12.0-15.0); Lymphocyte # 1.35 X10^3/ul (4.0); Lymphocyte % 27.6 % (19-41); Mean Corp Hgb Conc 32.6 g/dL (32-36); Mean Corpuscular Hgb 31.4 pg (27.0-32.0); Mean Corpuscular Volume 96.2 fL (81-99); Mean Platelet Vol. 12.8 fl (6.2-12.0); Monocyte# 0.45 X10^3/uL; Monocyte% 9.2 % (0-10); NRBC Flagged by Analyzer 1.6 % (0-5); Neutrophil # 2.72 X10^3/uL (2.7-7.7); Neutrophil % 55.4 % (47-70); POSITIVE COUNT YES; Platelet Count 90 K/mm3 (150-450); RBC Distribution Width CV 15.3 % (11.6-14.6); RBC Distribution Width SD 50.7 fl (35.1-43.9); Red Blood Count 3.95 M/mm3 (4.2-5.4); White Blood Count 4.9 K/mm3 (4.4-11.0)
[2021-03-02 12:32] LABS: Differential Indicated SCAN CRITERIA MET
[2021-03-02 12:42] LABS: Vitamin D,25 Hydroxy 28.8 ng/mL
[2021-03-02 12:53] LABS: AST(SGOT) 31 U/L (15-37); Alanine Aminotransfer ALT/SGPT 40 U/L (13-56); Alkaline Phosphatase 74 U/L (45-117); Anion Gap 6 (5-15); BUN 17 mg/dL (7-18); BUN/Creat Ratio 19.3 RATIO (10-20); Chloride 103 mmol/L (98-107); Creatinine, Serum 0.88 mg/dL (0.55-1.02); EST Glomerular Filtration Rate 67 mL/min (>60); Est Glom Filt Rate - Afr Amer 81 mL/min (>60); Globulin 3.9 g/dL (2.2-4.2); Glucose 114 mg/dL (74-106); Potassium 4.2 mmol/L (3.5-5.1); Protein, Total 7.9 g/dL (6.4-8.2); Sodium Level 139 mmol/L (136-145); Thyroid Stim Hormone (TSH) 3.89 uIU/mL (0.358-3.74)
[2021-03-02 12:55] LABS: Platelet Estimate MOD DEC (ADEQ)
== END ==
PROVIDERS: PCP Family Medicine Geriatric Medicine; Visit Provider Family Medicine Geriatric Medicine
DX: E03.9 Hypothyroidism, unspecified (principal)
CPT/HCPCS: 36415; 80053; 82306; 84443; 85025

== ENCOUNTER → 2021-03-10 08:09 | Outpatient (CLI) | payer MEDICARE, SELFPAY ==
[2019-12-26 13:03] VITALS: BMI 31.5
[2020-02-19 10:52] VITALS: BMI 30.1
--- NOTE | 2021-03-10 08:17 | CT_ITS ---
STUDY: LOW DOSE CT LUNG CANCER SCREENING REASON FOR EXAM: Female, 75 years old. Smoking history. One pack per day for 40 years. History of breast cancer with left mastectomy RADIATION DOSAGE (If Supplied By Facility): CTDIvol = ( 3.02 ) mGy, DLP = ( 97.42 ) mGycm TECHNIQUE: No contrast was administered. Low dose technique was utilized (average mAS-38 and kVp 120). 1.25 mm axial source images with a slice interval of 1.25-mm were reconstructed in lung windows. 2.5 mm axial source images with a slice interval of 2.5-mm were reconstructed in lung windows. 5.0 mm axial source images with a slice interval of 5.0-mm were reconstructed in soft tissue windows. Nodule measured using lung windows on PACS and/or independent workstation with automated measurement of minimum and maximum diameter. Nodule measurement reported as average diameter rounded to the nearest whole number. Growth is defined as an increase ins size of greater than 1.5 mm. COMPARISON: CT chest 01/14/2020 and 02/13/2019. FINDINGS: Lung nodules Stable 3 mm peripheral right upper lobe nodule on series 2 image 101. Stable 2 mm posterior left upper lobe nodule on image 31. No new or enlarging pulmonary nodule. There is mild atelectasis in the posterior right lower lobe and left costophrenic angle. Lungs COPD: Mild. Fibrosis: There is mild biapical pleural-parenchymal scarring. Lymph nodes: None. Other findings: None. Pleural space Effusion: None. Calcification: None. Thickening: None. Heart Heart size: Normal. There is dense mitral annular calcification. There are calcifications of the aortic root. Mild aortic atherosclerotic disease. Coronary calcification: Mild. Pericardial effusion: None. Other findings: There is a right anterior chest wall Yatoye-p-Uipt with its tip in the SVC. There are surgical clips in the left axilla. There has been left mastectomy. There is no mediastinal or axillary adenopathy. Upper abdomen: There is a partially visualized left renal cyst. Thorax: Multilevel degenerative disc disease and exaggerated thoracic kyphosis. There is chronic fracture and/or collapse of the right humeral head. Base of neck: None. CT/Low Dose CT Lung Screening IMPRESSION: Lung-RADS category 2 - Continue annual screening with LDCT in 12 months. Chronic findings are described above. IMPORTANT NOTES FOR USE: ACR Lung-RADS Version 1.0 Assessment Categories Release Date: March 24, 2014 Category: Coded 0-4 bases on nodule(s) with highest degree of suspicion. Negative screen is defined as categories 1 and 2; a positive screen is defined as categories 3 and 4. Category 3 and 4A nodules that are unchanged on interval CT should be coded as category 2, and individuals returned to screening in 12 months. Category 4X: Category 3 or 4 nodules with additional imaging findings that increase the suspicion of lung cancer, such as spiculation, GGN that doubles in size in 1 year, enlarged lymph notes, etc. Category Modifiers: S (significant finding unrelated to lung cancer) and C (prior history of treated lung cancer) may be added to the 0-4 Lung-RADS Electronically Signed: Humera Peña MD at 10:42 EDT Tel , Service support ,
== END ==
PROVIDERS: PCP Family Medicine Geriatric Medicine; Referring Provider Family Medicine Geriatric Medicine; Visit Provider Family Medicine Geriatric Medicine
DX: Z12.2 Encounter for screening for malignant neoplasm of respiratory organs (principal); F17.210 Nicotine dependence, cigarettes, uncomplicated
CPT/HCPCS: 71271

== ENCOUNTER 2022-02-16 09:17 | Outpatient (CLI) | payer MEDICARE, SELFPAY ==
[2019-12-26 13:03] VITALS: BMI 31.5
[2022-02-16 12:29] LABS: Absolute Lymphocyte Count 0.76 X10^3/uL (0.83-4.51); Absolute Neutrophil Count 4.6 X10^3/uL (2.0-7.7); Basophil# 0.04 X10^3/uL; Basophil% 0.6 % (0-1); Eosinophil# 0.35 X10^3/uL; Eosinophils% 5.5 % (0-5); Hematocrit 40.8 % (37-47); Hemoglobin 14.1 g/dL (12.0-15.0); Lymphocyte # 0.76 X10^3/ul (0.83-4.51); Mean Corp Hgb Conc 34.6 g/dL (32-36); Mean Corpuscular Hgb 31.1 pg (27.0-32.0); Mean Corpuscular Volume 90.1 fL (81-99); Mean Platelet Vol. 12.3 fl (6.2-12.0); Monocyte# 0.51 X10^3/uL; Monocyte% 8.1 % (0-10); NRBC Flagged by Analyzer 0 % (0-5); Platelet Count 112 K/mm3 (150-450); RBC Distribution Width CV 13.7 % (11.6-14.6); RBC Distribution Width SD 44.8 fl (35.1-43.9); Red Blood Count 4.53 M/mm3 (4.2-5.4); White Blood Count 6.3 K/mm3 (4.4-11.0)
[2022-02-16 12:43] LABS: Vitamin D,25 Hydroxy 37.4 ng/mL
[2022-02-16 13:04] LABS: ALB/GLOB Ratio 0.8 RATIO (0.9-2.4); AST(SGOT) 18 U/L (15-37); Alanine Aminotransfer ALT/SGPT 23 U/L (13-56); Albumin, Serum 3.4 g/dL (3.2-5.0); Alkaline Phosphatase 85 U/L (45-117); Anion Gap 6 (5-15); BUN 16 mg/dL (7-18); BUN/Creat Ratio 17.9 RATIO (10-20); Calcium,Total 9.8 mg/dL (8.5-10.1); Chloride 104 mmol/L (98-107); Creatinine, Serum 0.89 mg/dL (0.55-1.02); EST Glomerular Filtration Rate 66 mL/min (>60); Est Glom Filt Rate - Afr Amer 79 mL/min (>60); Globulin 4.2 g/dL (2.2-4.2); Glucose 115 mg/dL (74-106); Potassium 4.4 mmol/L (3.5-5.1); Protein, Total 7.6 g/dL (6.4-8.2); Sodium Level 137 mmol/L (136-145); Thyroid Stim Hormone (TSH) 3.74 uIU/mL (0.358-3.74)
== END 2022-02-16 23:59 | disposition home or self-care (01) ==
LOC: POLAB3 09:19
PROVIDERS: PCP Family Medicine Geriatric Medicine; Visit Provider Family Medicine Geriatric Medicine
DX: I10 Essential (primary) hypertension (principal); E55.9 Vitamin D deficiency, unspecified; N39.0 Urinary tract infection, site not specified
CPT/HCPCS: 36415; 80053; 82306; 84443; 85025; 87086; 87088

== ENCOUNTER 2022-03-03 10:06 | Outpatient (CLI) | payer MEDICARE, SELFPAY ==
[2019-12-26 13:03] VITALS: BMI 31.5
[2022-03-03 11:55] LABS: Absolute Lymphocyte Count 1.35 X10^3/uL (0.83-4.51); Absolute Neutrophil Count 2.5 X10^3/uL (2.0-7.7); Basophil# 0.02 X10^3/uL; Basophil% 0.5 % (0-1); Eosinophil# 0.14 X10^3/uL; Eosinophils% 3.2 % (0-5); Hematocrit 41.6 % (37-47); Lymphocyte # 1.35 X10^3/ul (0.83-4.51); Lymphocyte % 30.9 % (19-41); Mean Corp Hgb Conc 33.7 g/dL (32-36); Mean Corpuscular Hgb 30.4 pg (27.0-32.0); Mean Corpuscular Volume 90.4 fL (81-99); Mean Platelet Vol. 11.8 fl (6.2-12.0); Monocyte# 0.32 X10^3/uL; Monocyte% 7.3 % (0-10); NRBC Flagged by Analyzer 0.5 % (0-5); Neutrophil # 2.52 X10^3/uL (2.7-7.7); Neutrophil % 57.6 % (47-70); POSITIVE COUNT YES; Platelet Count 93 K/mm3 (150-450); RBC Distribution Width CV 14.5 % (11.6-14.6); RBC Distribution Width SD 45.7 fl (35.1-43.9); White Blood Count 4.4 K/mm3 (4.4-11.0)
[2022-03-03 12:03] LABS: Vitamin D,25 Hydroxy 31.8 ng/mL
[2022-03-03 12:17] LABS: ALB/GLOB Ratio 0.9 RATIO (0.9-2.4); AST(SGOT) 25 U/L (15-37); Alanine Aminotransfer ALT/SGPT 31 U/L (13-56); Albumin, Serum 3.8 g/dL (3.2-5.0); Alkaline Phosphatase 71 U/L (45-117); Anion Gap 5 (5-15); BUN 16 mg/dL (7-18); BUN/Creat Ratio 19.7 RATIO (10-20); Calcium,Total 9.6 mg/dL (8.5-10.1); Chloride 104 mmol/L (98-107); Creatinine, Serum 0.81 mg/dL (0.55-1.02); EST Glomerular Filtration Rate 73 mL/min (>60); Est Glom Filt Rate - Afr Amer 89 mL/min (>60); Globulin 4.2 g/dL (2.2-4.2); Glucose 114 mg/dL (74-106); Potassium 4.3 mmol/L (3.5-5.1); Sodium Level 138 mmol/L (136-145); Thyroid Stim Hormone (TSH) 3.84 uIU/mL (0.358-3.74)
== END 2022-03-03 23:59 | disposition home or self-care (01) ==
LOC: POLAB3 10:07
PROVIDERS: PCP Family Medicine Geriatric Medicine; Visit Provider Family Medicine Geriatric Medicine
DX: I10 Essential (primary) hypertension (principal); E55.9 Vitamin D deficiency, unspecified
CPT/HCPCS: 36415; 80053; 82306; 84443; 85025

== ENCOUNTER → 2022-07-22 | Outpatient (CLI) | payer MEDICARE, SELFPAY ==
[2019-12-26 13:03] VITALS: BMI 31.5
== END | disposition home or self-care (01) ==
LOC: POLAB3 10:30 → LABSPEC 10:31
PROVIDERS: PCP Family Medicine Geriatric Medicine; Visit Provider Family Medicine Geriatric Medicine
DX: N39.0 Urinary tract infection, site not specified (principal)
CPT/HCPCS: 87086; 87088; 87186

== ENCOUNTER 2022-08-10 13:54 | Inpatient (IN) | payer MEDICARE, SELFPAY ==
[2019-12-26 13:03] VITALS: BMI 31.5
[2022-08-10] VITALS (14 sets, daily range): BP systolic 93–139; BP diastolic 47–118; PULSE 77–131; RESP 17–25; TEMP 36.4–37.7; O2SAT 87–93; BMI 31.8
--- NOTE | 2022-08-10 14:04 | EKG12_ITS ---
Test Reason : FEVER Blood Pressure : / mmHG Vent. Rate : 121 BPM Atrial Rate : 121 BPM P-R Int : 136 ms QRS Dur : 078 ms QT Int : 334 ms P-R-T Axes : 065 033 089 degrees QTc Int : 474 ms Sinus tachycardia Left ventricular hypertrophy with repolarization abnormality ( Sokolow-Sheets ) Abnormal ECG Confirmed by BERONICA GRIMES, GUILLERMINA ([id number]), market editor MARY LOW ([id number]) on 08/12/2022 10:02:25 AM Referred By: MIA Confirmed By:GUILLERMINA LOCO MD
--- NOTE | 2022-08-10 14:10 | RAD_ITS ---
STUDY: X-RAY CHEST REASON FOR EXAM: Female, 77 years old. SOB TECHNIQUE: Single AP portable view of the chest. COMPARISON: None. FINDINGS: A right-sided kelley catheter seen with the tip at the junction of the superior vena cava and right atrium. Surgical clips are seen in the left axillary region. The patient is status post prior left mastectomy. Hyperinflation. Mild increased markings at the right lung base suggests a possible early right lower lobe infiltrate. Follow-up is recommended. There is no demonstrated pleural abnormality. Normal size heart. Normal mediastinum and annika. Normal visualized pulmonary arteries. There is atherosclerotic calcification of the aortic arch with tortuosity. There are diffuse degenerative changes of the visualized thoracic spine. Deformity of the right humeral head. Metastasis should be ruled out. There is no demonstrated abnormality of the visualized soft tissue structures of the upper abdomen. RAD/Chest 1 View (Portable) IMPRESSION: Increased markings at the right lung base suggestive of early right basilar infiltrate. Electronically Signed: Saeed Lam MD at 14:46 EDT ,
[2022-08-10 14:18] LABS: Absolute Lymphocyte Count 0.45 X10^3/uL (0.83-4.51); Absolute Neutrophil Count 3.3 X10^3/uL (2.0-7.7); Basophil# 0.04 X10^3/uL; Eosinophils% 2.4 % (0-5); Hematocrit 37.2 % (37-47); Hemoglobin 12.3 g/dL (12.0-15.0); Lymphocyte # 0.45 X10^3/ul (0.83-4.51); Lymphocyte % 10.7 % (19-41); Mean Corp Hgb Conc 33.1 g/dL (32-36); Mean Corpuscular Hgb 32.9 pg (27.0-32.0); Mean Corpuscular Volume 99.5 fL (81-99); Monocyte# 0.32 X10^3/uL; Monocyte% 7.6 % (0-10); NRBC Flagged by Analyzer 0.7 % (0-5); Neutrophil # 3.25 X10^3/uL (2.7-7.7); Neutrophil % 77.1 % (47-70); POSITIVE COUNT YES; POSITIVE DIFFERENTIAL YES; Platelet Count 94 K/mm3 (150-450); RBC Distribution Width CV 17.2 % (11.6-14.6); RBC Distribution Width SD 61.2 fl (35.1-43.9); Red Blood Count 3.74 M/mm3 (4.2-5.4); White Blood Count 4.2 K/mm3 (4.4-11.0)
[2022-08-10 14:21] LABS: Differential Indicated SCAN CRITERIA MET
--- NOTE | 2022-08-10 14:25 | EX.ED.DYSGE1 ---
HPI History of Present Illness Chief Complaint: Fever Narrative Narrative: 77-year-old female presenting with a fever that started this morning. She took Tylenol for this and it went away. She states she has chills and body aches as well. She tried to drink coffee and her morning toast but vomited this up. She does have a mild headache. She states she does not have a significant cough but does feel little short of breath. She does not have chest pain. She does not have abdominal pain. No urinary complaints. [facility] Medical History Breast cancer Home Medications ascorbic acid (vitamin C) 500 mg capsule 500 mg PO DAILY supplement 01/17/20 [History Last Taken 08/09/22] acetaminophen 500 mg tablet 1,000 mg PO Q6H PRN Pain Score 1-3/10 01/21/20 [Rx Last Taken 08/10/22] metoprolol tartrate 25 mg tablet 12.5 mg PO BID BP #30 tabs 01/21/20 [Rx Last Taken 08/09/22] polysaccharide iron complex 150 mg iron capsule 150 mg PO DAILYCM #30 caps 01/21/20 [Rx Last Taken 08/09/22] potassium chloride 10 mEq tablet,extended release(part/cryst) 10 meq PO DAILY supplement #30 tabs 01/21/20 [Rx Last Taken 08/09/22] levothyroxine 50 mcg tablet (Synthroid) 50 mcg PO DAILY 08/10/22 [History Last Taken 08/09/22] multivitamin 1 tab PO DAILY 08/10/22 [History Last Taken 08/09/22] Allergy/AdvReac Type Severity Reaction Status Date / Time bacitracin Allergy Rash Verified 08/10/22 14:03 [From Neosporin ([id number])] neomycin Allergy Rash Verified 08/10/22 14:03 [From Neosporin ([id number])] polymyxin B Allergy Rash Verified 08/10/22 14:03 [From Neosporin ([id number])] Family History Sister Breast cancer Sister Breast cancer Sister Breast cancer Sister Breast cancer Surgical History H/O mastectomy H/O: hysterectomy Tubal ligation status Social History Smoking Status: Current every day smoker tobacco type: cigarettes ROS ROS ED Constitutional Constitutional ED: Reports chills and fever(s) Eyes Eyes: Denies change in vision or diplopia ENT ENT ED: Denies rhinorrhea or sore throat Cardiovascular Cardiovascular: Reports palpitations; Denies chest pain Respiratory/Chest Respiratory/Chest: Reports dyspnea Gastrointestinal Gastrointestinal: Reports nausea and vomiting; Denies abdominal pain Genitourinary Genitourinary ED: Denies dysuria or hematuria Musculoskeletal Musculoskeletal: Reports myalgias; Denies arthralgias Integumentary Denies abscess or Abrasions Neurologic Neurologic: Reports headache(s); Denies paresthesias or weakness Psychiatric Psychiatric: Denies anxiety or depression EXAM Physical Exam Const Vital Signs: 08/10/22 13:55 08/10/22 13:59 08/10/22 14:00 Temperature 99.2 F H 99.2 F H Temperature Source Oral Oral Pulse Rate 131 H 131 H Respiratory Rate 17 17 Respiratory Pattern Irregular Blood Pressure 139/118 H 113/62 Blood Pressure Mean 125 79 Pulse Ox 92 92 Oxygen Delivery Method Room Air Room Air 08/10/22 15:59 08/10/22 15:59 08/10/22 16:14 Temperature 98.2 F 98.2 F 98.3 F Temperature Source Oral Oral Oral Pulse Rate 116 H 116 H 119 H Respiratory Rate 23 H 23 H 25 H Respiratory Pattern Blood Pressure 106/47 L 106/47 L 104/51 L Blood Pressure Mean 66 66 68 Pulse Ox 92 92 90 Oxygen Delivery Method Room Air Room Air Room Air 08/10/22 16:34 08/10/22 16:34 08/10/22 17:20 Temperature 98.4 F Temperature Source Oral Pulse Rate 118 H Respiratory Rate 25 H Respiratory Pattern Blood Pressure 93/59 L Blood Pressure Mean 70 Pulse Ox 87 90 92 Oxygen Delivery Method Room Air Room Air 08/10/22 18:07 08/10/22 18:07 Temperature 97.5 F L 97.5 F L Temperature Source Temporal Temporal Pulse Rate 125 H 123 H Respiratory Rate 24 H 23 H Respiratory Pattern Blood Pressure 125/59 H 125/59 H Blood Pressure Mean 81 81 Pulse Ox 90 90 Oxygen Delivery Method Room Air Room Air Positive well nourished General Appearance ED: NAD; Negative for pallor HEENT Reports moist mucous membranes Negative for trauma Eyes PERRL and EOMs intact bilaterally Chest Wall inspection of chest normal and palpation of chest normal Resp normal respiratory effort and clear to auscultation bilaterally Auscultation: Negative for rales, rhonchi or wheezes Cardio regular rhythm Rate: tachycardic GI normal to inspection, nondistended, normoactive bowel sounds Extremity normal to inspection General Extremety ED: Negative for edema or tenderness General Extremity: Negative for edema Neuro oriented x3, CN's II-XII intact bilaterally and no sensory deficits noted Sensorium / Orientation: alert Motor Exam: strength 5/5 throughout Psych mental status grossly normal Skin no rashes or lesions noted, no wounds and skin turgor normal General Skin Exam: Negative for jaundice or pallor MDM MDM MDM Narrative Medical decision making narrative: Patient presenting with a fever earlier today which resolved with Tylenol. She was tachycardic with a rate of 131. She does not have any chest pain but does feel like she is dyspneic. EKG was obtained which shows a sinus tachycardia with a ventricular rate of 121 bpm on my interpretation. There are some depressions noted in leads V3 through V6. There are no previous EKGs for comparison. Chest x-ray interpreted by myself shows atelectasis versus infiltrate. The radiologist interpretation is right lower lobe infiltrate. Patient's CBC shows leukopenia and lymphopenia. Hemoglobin hematocrit are stable. Platelet count slightly low at 94. Renal function electrolytes are normal. High-sensitivity troponin is 20. Urinalysis is normal. Rapid COVID was negative. Patient ambulated on room air and desatted to 87%. Because of this COVID PCR was sent. Lactic acid within normal limits. Coagulation studies normal. Blood cultures and urine culture were obtained and are pending. I discussed this with the hospitalist for admission and he recommended a CTA of the chest. D-dimer age-adjusted is negative however. CTA was obtained and does not unify any pulmonary emboli or infiltrate. Her COVID PCR test came back negative. Given that she is still hypoxic she will need to be admitted to the hospital. Impression: 1. Hypoxic respiratory failure 2. Generalized weakness 3. Leukopenia 4. Lymphopenia Lab Data Attestation: I reviewed the patient's lab results. Labs: Laboratory Results - last 24 hr 08/10/22 08/10/22 08/10/22 14:07 14:07 14:07 WBC 4.2 L RBC 3.74 L Hgb 12.3 Hct 37.2 MCV 99.5 H MCH 32.9 H MCHC 33.1 RDW Std Deviation 61.2 H RDW Coeff of Kylie 17.2 H Plt Count 94 L Immature Gran % (Auto) 1.200 H Neut % (Auto) 77.1 H Lymph % (Auto) 10.7 L Mellette % (Auto) 7.6 Eos % (Auto) 2.4 Baso % (Auto) 1.0 Absolute Neuts (auto) 3.3 Absolute Lymphs (auto) 0.45 L Nucleated RBC % 0.7 Differential Comment Diff Path Review May foll Platelet Estimate MOD DEC RBC Morphology N CHROM Anisocytosis 1+ Ovalocytes 1+ PT INR D-Dimer Quant (PE/DVT) Sodium 135 L Potassium 3.9 Chloride 98 Carbon Dioxide 29.0 Anion Gap 8 BUN 15 Creatinine 0.96 Estim Creat Clear Calc 57.23 Est GFR (MDRD) Af Amer 73 Est GFR (MDRD) Non-Af 60 BUN/Creatinine Ratio 15.7 Glucose 159 H Lactic Acid Calcium 9.9 Troponin I High Sens 20 Urine Color Urine Clarity Urine pH Ur Specific [place] Urine Protein Urine Glucose (UA) Urine Ketones Urine Occult Blood Urine Nitrite Urine Bilirubin Urine Urobilinogen Ur Leukocyte Esterase Urine RBC Urine WBC Ur Squamous Epith Cells Urine Bacteria Urine Mucus COVID-19 (LISA) 08/10/22 08/10/22 08/10/22 14:07 15:21 15:30 WBC RBC Hgb Hct MCV MCH MCHC RDW Std Deviation RDW Coeff of Kylie Plt Count Immature Gran % (Auto) Neut % (Auto) Lymph % (Auto) Mellette % (Auto) Eos % (Auto) Baso % (Auto) Absolute Neuts (auto) Absolute Lymphs (auto) Nucleated RBC % Differential Comment Diff Path Review Platelet Estimate RBC Morphology Anisocytosis Ovalocytes PT INR D-Dimer Quant (PE/DVT) 0.60 H* Sodium Potassium Chloride Carbon Dioxide Anion Gap BUN Creatinine Estim Creat Clear Calc Est GFR (MDRD) Af Amer Est GFR (MDRD) Non-Af BUN/Creatinine Ratio Glucose Lactic Acid Calcium Troponin I High Sens Urine Color Straw Urine Clarity Clear Urine pH 6.0 Ur Specific [place] 1.010 Urine Protein Negative Urine Glucose (UA) Normal Urine Ketones Negative Urine Occult Blood 10 H Urine Nitrite Negative Urine Bilirubin Negative Urine Urobilinogen Normal Ur Leukocyte Esterase Negative Urine RBC 0-5 SEEN Urine WBC 0 SEEN Ur Squamous Epith Cells 0-5 SEEN Urine Bacteria RARE Urine Mucus 0 SEEN COVID-19 (LISA) Not Detected 08/10/22 08/10/22 15:40 15:57 WBC RBC Hgb Hct MCV MCH MCHC RDW Std Deviation RDW Coeff of Kylie Plt Count Immature Gran % (Auto) Neut % (Auto) Lymph % (Auto) Mellette % (Auto) Eos % (Auto) Baso % (Auto) Absolute Neuts (auto) Absolute Lymphs (auto) Nucleated RBC % Differential Comment Diff Path Review Platelet Estimate RBC Morphology Anisocytosis Ovalocytes PT 15.4 H INR 1.3 D-Dimer Quant (PE/DVT) Sodium Potassium Chloride Carbon Dioxide Anion Gap BUN Creatinine Estim Creat Clear Calc Est GFR (MDRD) Af Amer Est GFR (MDRD) Non-Af BUN/Creatinine Ratio Glucose Lactic Acid 1.2 Calcium Troponin I High Sens Urine Color Urine Clarity Urine pH Ur Specific [place] Urine Protein Urine Glucose (UA) Urine Ketones Urine Occult Blood Urine Nitrite Urine Bilirubin Urine Urobilinogen Ur Leukocyte Esterase Urine RBC Urine WBC Ur Squamous Epith Cells Urine Bacteria Urine Mucus COVID-19 (LISA) Radiography Diagnostic Testing: Clinical Impression(s) from Imaging Studies Chest X-Ray 08/10/22 14:10 IMPRESSION: Increased markings at the right lung base suggestive of early right basilar infiltrate. Electronically Signed: Saeed Lam MD at 14:46 EDT , Chest CTA 08/10/22 17:29 IMPRESSION: No demonstrated pulmonary embolism or arterial dissection. Electronically Signed: Ricky Banuelos MD at 18:13 EDT , Discharge Plan Disposition Disposition: Acute Care Hospital [facility] Discharge Date/Time: 08/10/22 18:40
[2022-08-10 14:28] LABS: Anion Gap 8 (5-15); BUN 15 mg/dL (7-18); BUN/Creat Ratio 15.7 RATIO (10-20); Calcium,Total 9.9 mg/dL (8.5-10.1); Chloride 98 mmol/L (98-107); Creatinine, Serum 0.96 mg/dL (0.55-1.02); EST Glomerular Filtration Rate 60 mL/min (>60); Est Glom Filt Rate - Afr Amer 73 mL/min (>60); Estimated Creatinine Clearance 57.23 ml/min; Glucose 159 mg/dL (74-106); Potassium 3.9 mmol/L (3.5-5.1); Sodium Level 135 mmol/L (136-145)
[2022-08-10 14:48] LABS: Anisocytosis 1+; Ovalocyte 1+; Platelet Estimate MOD DEC (ADEQ); Red Cell Morphology N CHROM NORMAL (NORM C&C)
[2022-08-10] MEDS: 0.9% Normal Saline 1,000 ML 999 ML IV (14:55)
[2022-08-10 14:57] LABS: Troponin-I HS 20 pg/mL (3.0-54.0)
[2022-08-10 15:30] LABS: Mucous, Urine 0 SEEN /hpf (<or=2+); White Blood Cells 0 SEEN /hpf (0-5)
[2022-08-10 15:32] LABS: Color, Urine Straw (Yellow); Glucose, Dipstick Normal (Normal); Ketone-Dipstick Negative (Negative); Leukocyte Esterase-Dipstick Negative /ul (Negative); Nitrite-Dipstick Negative (Negative); Occult Blood-Urine 10 /ul (Negative); Protein-Dipstick Negative (Negative); Urine Bilirubin Dipstick Negative (Negative); Urine Clarity Clear (Clear); Urine Urobilinogen Normal (Normal)
[2022-08-10 15:48] LABS: Bacteria RARE /hpf (None Seen); Red Blood Cells-Urine 0-5 SEEN /hpf (0-5); Squamous Epithelial Cells - UA 0-5 SEEN /hpf (5-10)
[2022-08-10 16:18] LABS: Lactic Acid 1.2 mmol/L (0.4-1.9)
[2022-08-10 16:20] LABS: International Normalized Ratio 1.3; Prothrombin Time (Protime)PT. 15.4 SECONDS (11.7-14.9)
--- NOTE | 2022-08-10 17:07 | NURSING ---
DR MOODY FOR DR FAIR
--- NOTE | 2022-08-10 17:16 | NURSING ---
PCU OBS TERELETSKY HYPOXIC RESP FAILURE
[2022-08-10] MEDS: dexAMETHasone 10 MG/ML Vial 6 MG IV (17:25)
--- NOTE | 2022-08-10 17:29 | CT_ITS ---
EXAM: CT ANGIOGRAPHY CHEST WITHOUT AND WITH INTRAVENOUS CONTRAST CLINICAL INDICATION: hypoxia TECHNIQUE: Helically acquired angiography images were obtained of the chest without and with intravenous contrast. This CT exam was performed using one or more of the following dose reduction techniques: automated exposure control, adjustment of the mA and/or kV according to patient size, and/or use of iterative reconstruction technique. This report was created using Rescale report generation technology. MIP reconstructed images were created and reviewed. CONTRAST: IV 100mL [id number]-[id number] RADIATION DOSE: CTDIvol = 9.57 mGy, DLP = 409.56 mGy-cm COMPARISON: 03/10/2021. FINDINGS: PULMONARY ARTERIES: No demonstrated pulmonary embolism or arterial dissection. AORTA: There is atherosclerotic calcification of the aortic arch with tortuosity and elongation of the aortic arch and descending thoracic aorta. Normal in caliber. No evidence of dissection. GREAT VESSELS OF AORTIC ARCH: Unremarkable. Normal in caliber. No evidence of dissection. LUNGS AND PLEURAL SPACES: There are scattered blebs and bullae. This can be seen in pulmonary emphysema. No mass. No pleural effusion or thickening. No pneumothorax. HEART: There are calcifications of the coronary arteries. No pericardial effusion. No signs of right heart strain, ratio of right ventricle to left ventricle measures less than 1. MEDIASTINUM: Unremarkable. No mediastinal or hilar adenopathy. Esophagus is unremarkable. No hiatal hernia. THYROID: Unremarkable. No thyroid lesions. BONES/JOINTS: There are degenerative changes of the shoulders. There are multi-level degenerative changes of the thoracic spine. No suspicious lytic or blastic abnormality. TUBES, LINES AND DEVICES: There is a right Port-A-Cath and/or mediport in place. The tip is in the superior vena cava. CT/CTA Chest W/WO Contrast IMPRESSION: No demonstrated pulmonary embolism or arterial dissection. Electronically Signed: Ricky Banuelos MD at 18:13 EDT ,
[2022-08-10] MEDS: Acetaminophen 500 MG Tablet 1000 MG PO (18:31)
--- NOTE | 2022-08-10 18:51 | HP.PCM_ITS ---
Documented by User: KIANA Ferrer 08/10/22 19:00 HPI - General General Date of Admission: 08/10/22 Date of Service: 08/10/22 Chief Complaint: SOB, Hypoxia HPI Narrative REBEKAH AVITIA, is a 77 F who presents with complaints of dyspnea. Patient was noted to be hypoxic in the ER with a pulse ox of 87% on room air. Patient states that she has been feeling unwell for past couple days and patient reports that she had a fever this morning however patient is afebrile at time of evaluation. Patient states that she generally feels unwell and has body aches. Patient COVID antigen and PCR negative in ER. Patient does not have a history of COPD however patient has been a smoker and continues to smoke 4 c igarettes/day. Patient reports a medical history of breast cancer which has been in remission for some time, hypothyroidism, hypertension. [facility] Medical History Breast cancer Home Medications ascorbic acid (vitamin C) 500 mg capsule 500 mg PO DAILY supplement 01/17/20 [History Last Taken 08/09/22] acetaminophen 500 mg tablet 1,000 mg PO Q6H PRN Pain Score 1-3/10 01/21/20 [Rx Last Taken 08/10/22] metoprolol tartrate 25 mg tablet 12.5 mg PO BID BP #30 tabs 01/21/20 [Rx Last Taken 08/09/22] polysaccharide iron complex 150 mg iron capsule 150 mg PO DAILYCM #30 caps 01/21/20 [Rx Last Taken 08/09/22] potassium chloride 10 mEq tablet,extended release(part/cryst) 10 meq PO DAILY supplement #30 tabs 01/21/20 [Rx Last Taken 08/09/22] levothyroxine 50 mcg tablet (Synthroid) 50 mcg PO DAILY 08/10/22 [History Last Taken 08/09/22] multivitamin 1 tab PO DAILY 08/10/22 [History Last Taken 08/09/22] Allergy/AdvReac Type Severity Reaction Status Date / Time bacitracin Allergy Rash Verified 08/10/22 14:03 [From Neosporin ([id number])] neomycin Allergy Rash Verified 08/10/22 14:03 [From Neosporin ([id number])] polymyxin B Allergy Rash Verified 08/10/22 14:03 [From Neosporin ([id number])] Family History Sister Breast cancer Sister Breast cancer Sister Breast cancer Sister Breast cancer Surgical History H/O mastectomy H/O: hysterectomy Tubal ligation status Social History Smoking Status: Current every day smoker tobacco type: cigarettes ROS Constitutional Constitutional: Reports chills, fever(s) and malaise; Denies anorexia or weakness Cardiovascular Cardiovascular: Denies chest pain, edema or syncope Respiratory/Chest Respiratory/Chest: Reports cough, shortness of breath at rest, shortness of breath with exertion and wheezing Gastrointestinal Gastrointestinal: Reports vomiting; Denies abdominal pain, constipation or diarrhea Genitourinary Genitourinary: Denies dysuria Musculoskeletal Musculoskeletal: Denies back pain, extremity pain or joint pain Integumentary Integumentary: Denies dry skin Neurologic Neurologic: Denies abnormal gait, abnormal speech or confusion Psychiatric Psychiatric: Denies anxiety or depression Endocrine Endocrinology: Denies change in body appearance Hematologic/Lymphatic Hematologic/Lymphatic: Denies anemia Vital Signs Vital Signs Vital Signs: 08/10/22 13:55 08/10/22 13:59 08/10/22 14:00 Temperature 99.2 F H 99.2 F H Temperature Source Oral Oral Pulse Rate 131 H 131 H Respiratory Rate 17 17 Respiratory Pattern Irregular Blood Pressure 139/118 H 113/62 Blood Pressure Mean 125 79 Pulse Ox 92 92 Oxygen Delivery Method Room Air Room Air 08/10/22 15:59 08/10/22 15:59 08/10/22 16:14 Temperature 98.2 F 98.2 F 98.3 F Temperature Source Oral Oral Oral Pulse Rate 116 H 116 H 119 H Respiratory Rate 23 H 23 H 25 H Respiratory Pattern Blood Pressure 106/47 L 106/47 L 104/51 L Blood Pressure Mean 66 66 68 Pulse Ox 92 92 90 Oxygen Delivery Method Room Air Room Air Room Air 08/10/22 16:34 08/10/22 16:34 08/10/22 17:20 Temperature 98.4 F Temperature Source Oral Pulse Rate 118 H Respiratory Rate 25 H Respiratory Pattern Blood Pressure 93/59 L Blood Pressure Mean 70 Pulse Ox 87 90 92 Oxygen Delivery Method Room Air Room Air 08/10/22 18:07 08/10/22 18:07 Temperature 97.5 F L 97.5 F L Temperature Source Temporal Temporal Pulse Rate 125 H 123 H Respiratory Rate 24 H 23 H Respiratory Pattern Blood Pressure 125/59 H 125/59 H Blood Pressure Mean 81 81 Pulse Ox 90 90 Oxygen Delivery Method Room Air Room Air Weight Weight: 157 lb 13.616 oz Body Mass Index (BMI) 31.8 Physical Exam Const alert, oriented x3 and no apparent distress General Appearance: cooperative HEENT HEENT Narrative: Hard of hearing Eyes conjunctivae normal and no scleral icterus Neck no lymphadenopathy and supple General: trachea midline Resp normal respiratory effort Effort and Inspection: tachypneic Auscultation: wheezes expiratory wheezes, anterior, posterior and throughout Cardio regular rate, regular rhythm, S1 normal heart sound, S2 normal heart sound and peripheral pulses 2+ throughout Rate: tachycardic GI normal to inspection, nondistended, normoactive bowel sounds, soft to palpation and non-tender Extremity normal capillary refill and no clubbing, cyanosis or edema Skin General Skin Exam: no breakdown Lesions: no lesions Rashes: no rashes Neuro no focal motor deficits and no sensory deficits noted Speech: speech normal Psych thought process normal, cooperative and affect normal Results Lab / Micro Data Result Diagrams: 08/10/22 14:07 08/10/22 14:07 Labs: Laboratory Results - last 24 hr 08/10/22 14:07: WBC 4.2 L, RBC 3.74 L, Hgb 12.3, Hct 37.2, MCV 99.5 H, MCH 32.9 H, MCHC 33.1, RDW Std Deviation 61.2 H, RDW Coeff of Kylie 17.2 H, Plt Count 94 L, Immature Gran % (Auto) 1.200 H, Neut % (Auto) 77.1 H, Lymph % (Auto) 10.7 L, [place] % (Auto) 7.6, Eos % (Auto) 2.4, Baso % (Auto) 1.0, Absolute Neuts (auto) 3.3, Absolute Lymphs (auto) 0.45 L, Nucleated RBC % 0.7, Differential Comment , Diff Path Review May foll, Platelet Estimate MOD DEC, RBC Morphology N CHROM, Anisocytosis 1+, Ovalocytes 1+ 08/10/22 14:07: Sodium 135 L, Potassium 3.9, Chloride 98, Carbon Dioxide 29.0, Anion Gap 8, BUN 15, Creatinine 0.96, Estim Creat Clear Calc 57.23, Est GFR (MDRD) Af Amer 73, Est GFR (MDRD) Non-Af 60, BUN/Creatinine Ratio 15.7, Glucose 159 H, Calcium 9.9 08/10/22 14:07: Troponin I High Sens 20 08/10/22 14:07: D-Dimer Quant (PE/DVT) 0.60 H* 08/10/22 15:21: Urine Color Straw, Urine Clarity Clear, Urine pH 6.0, Ur Specific [place] 1.010, Urine Protein Negative, Urine Glucose (UA) Normal, Urine Ketones Negative, Urine Occult Blood 10 H, Urine Nitrite Negative, Urine Bilirubin Negative, Urine Urobilinogen Normal, Ur Leukocyte Esterase Negative, Urine RBC 0-5 SEEN, Urine WBC 0 SEEN, Ur Squamous Epith Cells 0-5 SEEN, Urine Bacteria RARE, Urine Mucus 0 SEEN 08/10/22 15:30: COVID-19 (LISA) Not Detected 08/10/22 15:40: Lactic Acid 1.2 08/10/22 15:57: PT 15.4 H, INR 1.3 Micro: Microbiology 08/10/22 14:58 Nasal Secretion SARS-CoV-2 Antigen (Rapid) - Final Radiology Impression Chest X-Ray 08/10/22 14:10 IMPRESSION: Increased markings at the right lung base suggestive of early right basilar infiltrate. Electronically Signed: Saeed Lam MD at 14:46 EDT , Chest CTA 08/10/22 17:29 IMPRESSION: No demonstrated pulmonary embolism or arterial dissection. Electronically Signed: Ricky Banuelos MD at 18:13 EDT , Assessment & Plan Assessment/Plan (1) COPD exacerbation: PLAN: Plan 1. COPD exacerbation with hypoxia -Admit to [facility] -Oxygen per protocol -Scheduled DuoNeb nebulizer treatments along with as needed albuterol ordered -Encourage incentive spirometry and Pep therapy -CBC and BMP ordered in a.m. -Respiratory panel ordered, COVID antigen and PCR negative -Twice daily Mucinex ordered -IV Solu-Medrol -Consult pulmonary medicine 2. Elevated D-dimer -Normal when adjusted for age -CTA negative for PE 3. Leukopenia -Unclear etiology -CBC daily 4. Hypothyroidism -Continue Synthroid 5. Hypertension -Vital signs per protocol, currently stable -Continue metoprolol 6. Chronic anemia -Currently stable -Continue ferrous sulfate and vitamin C 7. History of breast cancer with mastectomy -In remission DVT prophylaxis-subcu Lovenox This patient was seen by Suyapa Perez NP-C under the supervision of Dr. Dyer. 30 minutes spent in clinical coordination of patient's plan of care. Documented by User: Dr. Ottoniel Dyer DO 08/10/22 22:16 HPI - General General Date of Admission: 08/10/22 [facility] Medical History Breast cancer Home Medications ascorbic acid (vitamin C) 500 mg capsule 500 mg PO DAILY supplement 01/17/20 [History Last Taken 08/09/22] acetaminophen 500 mg tablet 1,000 mg PO Q6H PRN Pain Score 1-301/21/20 [Rx Last Taken 08/10/22] metoprolol tartrate 25 mg tablet 12.5 mg PO BID BP #30 tabs 01/21/20 [Rx Last Taken 08/09/22] polysaccharide iron complex 150 mg iron capsule 150 mg PO DAILYCM #30 caps 01/21/20 [Rx Last Taken 08/09/22] potassium chloride 10 mEq tablet,extended release(part/cryst) 10 meq PO DAILY supplement #30 tabs 01/21/20 [Rx Last Taken 08/09/22] levothyroxine 50 mcg tablet (Synthroid) 50 mcg PO DAILY 08/10/22 [History Last Taken 08/09/22] multivitamin 1 tab PO DAILY 08/10/22 [History Last Taken 08/09/22] Allergy/AdvReac Type Severity Reaction Status Date / Time bacitracin Allergy Rash Verified 08/10/22 14:03 [From Neosporin ([id number])] neomycin Allergy Rash Verified 08/10/22 14:03 [From Neosporin ([id number])] polymyxin B Allergy Rash Verified 08/10/22 14:03 [From Neosporin ([id number])] Family History Sister Breast cancer Sister Breast cancer Sister Breast cancer Sister Breast cancer Surgical History H/O mastectomy H/O: hysterectomy Tubal ligation status Social History Smoking Status: Current every day smoker tobacco type: cigarettes Results Lab / Micro Data Result Diagrams: 08/10/22 14:07 08/10/22 14:07 Assessment & Plan Assessment/Plan (1) COPD exacerbation: Charges/Coding Addendum Addendum: Patient was seen and examined independently of Kajal Perez, she came to the emergency room today with complaints of fever, chills, and body aches. Patient also complained of slight shortness of breath. Work-up in the emergency room revealed her pulse ox to be 87% on room air, chest x-ray was performed which showed an area of infiltrate or atelectasis at the right lung base, patient's white blood cell count was slightly neutropenic. Patient's COVID antigen test was negative, patient's D-dimer was slightly elevated, she underwent a CTA of her chest which showed no evidence of PE but showed evidence of emphysematous changes. On examination she appeared in good health and spirits, she does not appear to be in any distress. Vital signs as documented. Skin warm and dry and without overt rashes. Neck without JVD, thyroid appears normal, trachea is midline, neck is supple. Lungs-expiratory wheezes were noted bilaterally, normal air movement was noted. Heart exam notable for regular rhythm, there was noted to be a significant 3/6 systolic murmur at the patient's left sternal border, right sternal border, and apex, rubs or gallops. Abdomen unremarkable and without evid ence of organomegaly, masses, or abdominal aortic enlargement, bowel sounds are present in all 4 quadrants, no abdominal tenderness was noted. Extremities nonedematous, no cyanosis was noted, no clubbing was noted. Neuro: Cranial nerves II through XII are grossly intact, no focal motor deficits were noted, sensation to light touch and pinprick is intact, motor exam 5/5 throughout. Psych: Patient is alert and oriented x3, she does not appear anxious or depressed, she does not appear agitated. Impression: #1 COPD exacerbation-patient will be placed into observation status on MedSurg 3, she will be given IV corticosteroids and aerosol treatments, pulse ox will be monitored. #2 hypoxia-secondary to #1, pulse ox will be monitored #3 systolic heart murmur-I am suspicious patient may have significant valvular heart disease such as mitral regurg or aortic stenosis, echocardiogram will be obtained #4 essential hypertension-continue patient's blood pressure medications #5 hypothyroidism-patient is on Synthroid, continue medication I have reviewed Kajal Perez's history and physical including her medical assessment and plan of care and endorse it with the above additions. Total clinical time spent by myself addressing the patient's medical issues, reviewing the data, and collaborating with patient's care team: 45 minutes Visit Charges OBSV E&M: 85868 Initial observation care L3
--- NOTE | 2022-08-10 20:00 | ECHOD_ITS ---
Reason For Study: MURMUR Procedure This was a 2D Doppler, Color Flow transthoracic echocardiogram. Exam performed portable in patient room. Left Ventricle Normal left ventricle. Left ventricular systolic function is normal. The estimated ejection fraction is 55-60 %. Right Ventricle Normal right ventricle. Normal systolic function. Atria Normal left atrium. Normal right atrium. Mitral Valve There is moderate to severe mitral annular calcification. Tricuspid Valve Normal tricuspid valve. Mild tricuspid valve insufficiency. Aortic Valve Moderate diffuse aortic valve calcification. SUDHEER 1.9 cm2 Peak systolic gradient 25.3 mmhg Ao mean PG 14.9 mmhg Calcific AV,No valvular vegetation seen. Pulmonic Valve The pulmonic valve is not well visualized. Great Vessels Normal aortic root. Pericardium/Pleural No pericardial effusion. MMode/2D Measurements & Calculations LVIDd: 4.6 cm IVSd: 0.86 cm LVOT diam: 2.0 cm LVIDs: 3.1 cm LVPWd: 0.98 cm LVOT area: 3.0 cm2 RVDd: 2.9 cm FS: 32.0 % Ao root diam: 3.0 cm LAV(MOD-bp): 63.8 ml LA A4 area: 19.3 cm2 LAV(MOD-bp) Indexed: 38.3 ml/m2 LAV(MOD-sp2): 65.1 ml LAV(MOD-sp4): 58.4 ml LA dimension(2D): 3.5 cm RA A4 area: 11.7 cm2 Doppler Measurements & Calculations Lat Peak E' Brandan: 2.7 cm/sec Med Peak E' Brandan: 3.8 cm/sec MV V2 max: 235.9 cm/sec MV max P.3 mmHg MV V2 mean: 142.3 cm/sec MV mean P.3 mmHg MV V2 VTI: 45.1 cm MVA(VTI): 1.9 cm2 Ao V2 max: 251.1 cm/sec LV V1 max: 163.1 cm/sec SV(LVOT): 84.2 ml Ao max P.3 mmHg LV V1 max P.6 mmHg Ao V2 mean: 183.8 cm/sec LV V1 mean P.1 mmHg Ao mean P.9 mmHg LV V1 mean: 116.9 cm/sec Ao V2 VTI: 43.4 cm LV V1 VTI: 27.7 cm SUDHEER(I,D): 1.9 cm2 SUDHEER(V,D): 2.0 cm2 PA V2 max: 106.2 cm/sec ECHO/Echo Complete Interpretation Summary The estimated ejection fraction is 55-60 %. SUDHEER 1.9 cm2 Peak systolic gradient 25.3 mmhg Ao mean PG 14.9 mmhg Calcific AV,No valvular vegetation seen Ordering Physician: Suyapa Perez Referring Physician: Fish Harris Chi Performed By: Sandra Alcala, SIA, RVT
[2022-08-10] MEDS: Ipratropium/Albuterol Sulfate 3 ML AMPUL.NEB INHALATION ×2 (20:01→23:12)
[2022-08-10] MEDS: Metoprolol Tartrate 25 MG Tablet 12.5 MG PO (21:32)
[2022-08-10] MEDS: guaiFENesin 1,200 MG Tablet 1200 MG PO (21:32)
[2022-08-11] VITALS (17 sets, daily range): BP systolic 109–135; BP diastolic 52–71; PULSE 78–108; RESP 16–22; TEMP 36.1–36.7; O2SAT 86–97
[2022-08-11] MEDS: Ipratropium/Albuterol Sulfate 3 ML AMPUL.NEB INHALATION ×6 (02:49→23:20)
[2022-08-11 05:07] LABS: Absolute Lymphocyte Count 0.41 X10^3/uL (0.83-4.51); Absolute Neutrophil Count 2.7 X10^3/uL (2.0-7.7); Hematocrit 35.3 % (37-47); Hemoglobin 11.4 g/dL (12.0-15.0); Lymphocyte # 0.41 X10^3/ul (0.83-4.51); Lymphocyte % 12.3 % (19-41); Mean Corp Hgb Conc 32.3 g/dL (32-36); Mean Corpuscular Hgb 32.8 pg (27.0-32.0); Mean Corpuscular Volume 101.4 fL (81-99); Monocyte# 0.18 X10^3/uL; Monocyte% 5.4 % (0-10); NRBC Flagged by Analyzer 0.6 % (0-5); Neutrophil # 2.69 X10^3/uL (2.7-7.7); Neutrophil % 80.8 % (47-70); POSITIVE COUNT YES; POSITIVE DIFFERENTIAL YES; POSITIVE MORPHOLOGY YES; Platelet Count 84 K/mm3 (150-450); RBC Distribution Width CV 17.2 % (11.6-14.6); RBC Distribution Width SD 62.5 fl (35.1-43.9); Red Blood Count 3.48 M/mm3 (4.2-5.4); White Blood Count 3.3 K/mm3 (4.4-11.0)
[2022-08-11 05:10] LABS: Differential Indicated SCAN CRITERIA MET
[2022-08-11 05:33] LABS: Anion Gap 5 (5-15); BUN 15 mg/dL (7-18); BUN/Creat Ratio 19.5 RATIO (10-20); Calcium,Total 9.1 mg/dL (8.5-10.1); Chloride 105 mmol/L (98-107); Creatinine, Serum 0.77 mg/dL (0.55-1.02); EST Glomerular Filtration Rate 78 mL/min (>60); Est Glom Filt Rate - Afr Amer 94 mL/min (>60); Estimated Creatinine Clearance 54.94 ml/min; Glucose 180 mg/dL (74-106); Potassium 4.2 mmol/L (3.5-5.1); Sodium Level 138 mmol/L (136-145)
[2022-08-11 05:51] LABS: Anisocytosis 1+; Differential Comment SCANNED; Macrocytosis RARE; Microcytosis RARE; Ovalocyte 1+; Platelet Estimate MOD DEC (ADEQ)
--- NOTE | 2022-08-11 05:53 | PCM.PN.BLA ---
Progress Note Two blood cultures positive for gram-positive cocci in chains. Patient with low-grade fever overnight. Also with leukopenia. Will start patient on ceftriaxone. Will obtain urine Streptococcus pneumoniae antigen
[2022-08-11] MEDS: Ceftriaxone 1 GM/50 ML BAG IV ×2 (06:23→21:15)
[2022-08-11] MEDS: Levothyroxine 50 MCG Tablet PO (06:23)
--- NOTE | 2022-08-11 08:34 | PN.HOSP_ITS ---
Subjective Subjective Feeling a little bit better but she still on 3 L nasal cannula when she does not wear any oxygen at home. Objective Data Objective Data Vital Signs: Vital Signs Temp Pulse Resp BP Pulse Ox O2 Del Method O2 Flow Rate 98 F 96 16 123/64 H 91 Nasal Cannula 3 08/11/22 07:40 08/11/22 07:40 08/11/22 07:40 08/11/22 07:40 08/11/22 07:40 08/11/22 07:40 08/11/22 07:40 Oxygen Flow Rate (L/min) 3 Oxygen Delivery Method Nasal Cannula Weight: 157 lb 13.616 oz Body Mass Index (BMI) 31.8 Intake & Output: Intake and Output for Last 24 Hours 08/10/22 08/11/22 08/12/22 03:59 03:59 03:59 Intake Total 1500 / 1500 200 / 200 Balance 1500 / 1500 200 / 200 Lab / Micro Data Result Diagrams: 08/11/22 03:46 08/11/22 03:46 Labs: Laboratory Results - last 24 hr 08/10/22 14:07: WBC 4.2 L, RBC 3.74 L, Hgb 12.3, Hct 37.2, MCV 99.5 H, MCH 32.9 H, MCHC 33.1, RDW Std Deviation 61.2 H, RDW Coeff of Kylie 17.2 H, Plt Count 94 L, Immature Gran % (Auto) 1.200 H, Neut % (Auto) 77.1 H, Lymph % (Auto) 10.7 L, [place] % (Auto) 7.6, Eos % (Auto) 2.4, Baso % (Auto) 1.0, Absolute Neuts (auto) 3.3, Absolute Lymphs (auto) 0.45 L, Nucleated RBC % 0.7, Differential Comment , Diff Path Review May foll, Platelet Estimate MOD DEC, RBC Morphology N CHROM, Anisocytosis 1+, Ovalocytes 1+ 08/10/22 14:07: Sodium 135 L, Potassium 3.9, Chloride 98, Carbon Dioxide 29.0, Anion Gap 8, BUN 15, Creatinine 0.96, Estim Creat Clear Calc 57.23, Est GFR (MDRD) Af Amer 73, Est GFR (MDRD) Non-Af 60, BUN/Creatinine Ratio 15.7, Glucose 159 H, Calcium 9.9 08/10/22 14:07: Troponin I High Sens 20 08/10/22 14:07: D-Dimer Quant (PE/DVT) 0.60 H* 08/10/22 15:21: Urine Color Straw, Urine Clarity Clear, Urine pH 6.0, Ur Specific [place] 1.010, Urine Protein Negative, Urine Glucose (UA) Normal, Urine Ketones Negative, Urine Occult Blood 10 H, Urine Nitrite Negative, Urine Bilirubin Negative, Urine Urobilinogen Normal, Ur Leukocyte Esterase Negative, Urine RBC 0-5 SEEN, Urine WBC 0 SEEN, Ur Squamous Epith Cells 0-5 SEEN, Urine Bacteria RARE, Urine Mucus 0 SEEN 08/10/22 15:30: COVID-19 (LISA) Not Detected 08/10/22 15:40: Lactic Acid 1.2 08/10/22 15:57: PT 15.4 H, INR 1.3 08/11/22 03:46: WBC 3.3 L, RBC 3.48 L, Hgb 11.4 L, Hct 35.3 L, MCV 101.4 H, MCH 32.8 H, MCHC 32.3, RDW Std Deviation 62.5 H, RDW Coeff of Kylie 17.2 H, Plt Count 84 L, MPV TNP, Immature Gran % (Auto) 1.500 H, Neut % (Auto) 80.8 H, Lymph % (Auto) 12.3 L, [place] % (Auto) 5.4, Eos % (Auto) 0.0, Baso % (Auto) 0.0, Absolute Neuts (auto) 2.7, Absolute Lymphs (auto) 0.41 L, Nucleated RBC % 0.6, Differential Comment SCANNED, Diff Path Review May lori, Platelet Estimate MOD DEC, Anisocytosis 1+, Microcytosis RARE, Macrocytosis RARE, Ovalocytes 1+ 08/11/22 03:46: Sodium 138, Potassium 4.2, Chloride 105, Carbon Dioxide 28.0, Anion Gap 5, BUN 15, Creatinine 0.77, Estim Creat Clear Calc 54.94, Est GFR (MDRD) Af Amer 94, Est GFR (MDRD) Non-Af 78, BUN/Creatinine Ratio 19.5, Glucose 180 H, Calcium 9.1 Micro: Microbiology 08/10/22 15:25 Urine, Clean Catch Streptococcus pneumoniae Antigen (M - Final 08/10/22 15:45 Blood Culture (Wb) - Left Hand Blood Culture - Preliminary 08/10/22 15:40 Blood Culture (Wb) - Anticubital Left Blood Culture - Preliminary 08/10/22 19:57 Interface Orders Respiratory Panel (PCR) - Final 08/10/22 14:58 Nasal Secretion SARS-CoV-2 Antigen (Rapid) - Final Radiography Diagnostic Testing: Radiology Impression Chest X-Ray 08/10/22 14:10 IMPRESSION: Increased markings at the right lung base suggestive of early right basilar infiltrate. Electronically Signed: Saeed Lam MD at 14:46 EDT , Chest CTA 08/10/22 17:29 IMPRESSION: No demonstrated pulmonary embolism or arterial dissection. Electronically Signed: Ricky Banuelos MD at 18:13 EDT , Physical Exam Narrative General: Alert, Oriented x3, Cooperative, No apparent distress HEENT: Atraumatic, PERRLA, EOMI, Normocephalic Oral: Moist Mucosa Neck: Supple, No JVD Lungs: Diminished, poor air movement, No rhonchi, No wheeze, No rales Cardiovascular: Regular rate, Regular Rhythm, Normal S1, Normal S2, No murmurs Abdomen: Soft, Non Tender, Non-Distended, No Hepato-splenomegaly Extremities: No edema, Capillary Refill Less than 3 Seconds Skin: No rashes, No breakdown Musculoskeletal: No Tenderness to Palpation of Joints or Extremities Neurological: Cranial nerves II-XII grossly intact, Motor Exam 5/5 strength th roughout, Sensory exam intact to light touch and pain Psych/Mental Status: Normal Affect, Appropriate Assessment & Plan Assessment/Plan (1) COPD exacerbation: PLAN: Plan 1. Acute hypoxic respiratory failure secondary to COPD exacerbation ? She did have an elevated D-dimer on admission so CTA was obtained which was negative for PE ? 3-4 blood culture vials recommend back positive for gram-positive cocci in chains, she was started on Rocephin overnight ? The strep pneumonia antigen is negative ? Continue with breathing treatments and steroids Pulmonology has been consulted 2. Hypothyroidism ? Stable ? Continue with Synthroid 3. Hypertension ? Stable ? Continue with her home blood pressure medications 4. Chronic anemia -Currently stable -Continue ferrous sulfate and vitamin C 5. History of breast cancer with mastectomy -In remission DVT: Lovenox Charges/Coding Visit Charges OBSV E&M: 80215 Subsequent observation care L2
[2022-08-11] MEDS: Ascorbic Acid 500 MG Tablet PO (09:13)
[2022-08-11] MEDS: Metoprolol Tartrate 25 MG Tablet 12.5 MG PO ×2 (09:13→21:15)
[2022-08-11] MEDS: Iron Polysaccharide Complex 150 MG CAPSULE PO (09:14)
[2022-08-11] MEDS: guaiFENesin 1,200 MG Tablet 1200 MG PO ×2 (09:14→21:15)
[2022-08-11] MEDS: Multivitamins,Therapeutic Tablet 1 TABLET PO (09:14)
[2022-08-11] MEDS: Potassium Chloride Oral Tablet 10 MEQ PO (09:14)
--- NOTE | 2022-08-11 09:39 | EX.PCM.CONCC ---
Assessment & Plan Assessment/Plan (1) COPD exacerbation: PLAN: Plan RECOMMENDATIONS: 1. Repeat blood cultures 2. Await echocardiogram for possible vegetation 3. Wean supplemental oxygen as tolerated. Keep saturations between 90 and 94% 4. Agree with mucolytic, bronchodilators and steroid therapy 5. Walking oximetry prior to discharge. ABG as needed for decreased mental status 6. Outpatient complete PFT and probable sleep study IMPRESSIONS: 1. Acute hypoxic respiratory insufficiency secondary to possible COPD exacerbation Patient does have significant emphysematous changes, especially in the right upper lobe, on CT scan. Patient has not been seen by geophysical prospecting surveyor or had pulmonary function test, so baseline status is unclear at this time. Patient is not reporting significant change in sputum, but does have hypoxia and shortness of breath. Reasonable to initiate bronchodilators, mucolytic and steroid therapy for now. Outpatient work-up for quantification clarification of lung function would be appropriate. Cannot exclude relatively advanced disease requiring supplemental oxygen with exertion at baseline. Await echocardiogram to evaluate for pulmonary artery pressures. No PE has been noted despite patient's history of cancer. Do not believe patient requires systemic anticoagulation. Patient does have an elevated bicarbonate, so CO2 retention is likely present at baseline. No indication for BiPAP at this time, but would keep saturations between 90 and 94% to avoid CO2 retention. No transfer to the intensive care unit at this time. 2. Positive blood cultures Clinical suspicion for skin contamination. However, patient does have a murmur on exam and subacute endocarditis cannot be excluded. Patient does not have a pattern suggestive of embolic pneumonia on CT scan. We will repeat blood cultures. Would not recommend addition of vancomycin at this time unless patient has a change in clinical status. If blood cultures remain positive, ANNA may be necessary for definitive assessment. No clear source for bacteremia at this time. 3. Hypothyroidism/hypertension/chronic anemia/breast cancer status postmastectomy/advanced age/anemia Complicates care, management, recovery and prognosis. Okay to continue with baseline medications from my perspective. Patient would likely benefit from iron supplementation. Work-up for iron deficiency anemia as an outpatient would be reasonable. Blood pressure appears to be well controlled at this time. Would not recommend thyroid work-up as continuation of Synthroid is likely appropriate. High clinical suspicion for obstructive sleep apnea, but this would have to be addressed as an outpatient. HPI Consult Data Date of Consult: 08/11/22 HPI Narrative Reason for Consultation: COPD exacerbation HPI Narrative: REBEKAH AVITIA is a 77 F, with past medical history listed below, who presents to [facility] on 08/10/2022 secondary to waking with a fever. Patient reportedly had taken Tylenol with good response. However, patient had some body aches, chills and emesis following breakfast. Patient also reported a mild headache. Patient reported some shortness of breath with exertion, but denied cough or chest pain. No abdominal or urinary complaints were reported. Patient does not use supplemental oxygen at baseline. In the ER, patient was noted to have a temperature of 99.2 ?F and tachycardic at 131 bpm. Patient did have an elevated blood pressure and was tolerating room air initially. Laboratory work-up showed a white blood cell count of 4.2, hemoglobin of 12.3 and platelets of 94. Chemistries were relatively unremarkable except for an elevated bicarbonate of 29 and glucose of 159. Troponins were within normal limits. COVID-19 testing was negative along with lactic acid and normal coagulation studies. A chest x-ray showed possible early right basilar infiltrate. However, a subsequent CT of the chest showed no PE, emphysematous changes and no infiltrates. Patient did have an EKG that demonstrated sinus tachycardia. During the ER stay, patient started to become hypoxic, so she was placed on supplemental oxygen and admitted to the hospital for further evaluation. Since being in the hospital, patient feels subjectively improved. Patient has required nasal cannula oxygen intermittently to maintain saturations. Patient is very hard of hearing and obtaining a history is somewhat difficult. Patient reports that she has smoked for over 28 years and recently started to cut back secondary to shortness of breath. Patient does report a cough productive of clear to white sputum on a daily basis. This is not significantly changed from baseline. Patient is not reporting any chest pain, hemoptysis or epistaxis. Patient denies any recent trauma. Patient has not seen a geophysical prospecting surveyor or had a pulmonary function test previously. Patient does not routinely check her oxygen saturations. Patient does report that she has been told that she has a murmur for quite some time. Patient does have a history of previous left breast cancer. Patient denies any occupational or environmental pulmonary insults. 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 Review of systems otherwise negative from a constitutional, HEENT, respiratory, cardiovascular, GI, genitourinary, musculoskeletal, skin, neurologic, psychiatric and hematologic system unless stated above. [facility] Medical History Breast cancer Home Medications ascorbic acid (vitamin C) 500 mg capsule 500 mg PO DAILY supplement 01/17/20 [History Last Taken 08/09/22] acetaminophen 500 mg tablet 1,000 mg PO Q6H PRN Pain Score 1-3/10 01/21/20 [Rx Last Taken 08/10/22] metoprolol tartrate 25 mg tablet 12.5 mg PO BID BP #30 tabs 01/21/20 [Rx Last Taken 08/09/22] polysaccharide iron complex 150 mg iron capsule 150 mg PO DAILYCM #30 caps 01/21/20 [Rx Last Taken 08/09/22] potassium chloride 10 mEq tablet,extended release(part/cryst) 10 meq PO DAILY supplement #30 tabs 01/21/20 [Rx Last Taken 08/09/22] levothyroxine 50 mcg tablet (Synthroid) 50 mcg PO DAILY 08/10/22 [History Last Taken 08/09/22] multivitamin 1 tab PO DAILY 08/10/22 [History Last Taken 08/09/22] Allergy/AdvReac Type Severity Reaction Status Date / Time bacitracin Allergy Rash Verified 08/10/22 14:03 [From Neosporin ([id number])] neomycin Allergy Rash Verified 08/10/22 14:03 [From Neosporin ([id number])] polymyxin B Allergy Rash Verified 08/10/22 14:03 [From Neosporin ([id number])] Family History Sister Breast cancer Sister Breast cancer Sister Breast cancer Sister Breast cancer Surgical History H/O mastectomy H/O: hysterectomy Tubal ligation status Social History Smoking Status: Current every day smoker tobacco type: cigarettes ROS ROS Narrative See HPI Physical Exam Const alert, oriented x3 and no apparent distress General Appearance: cooperative HEENT HEENT Narrative: Mallampati 3 General Ear: hearing grossly impaired diffuse Eyes conjunctivae normal and no scleral icterus Neck no lymphadenopathy and supple General: trachea midline Chest Chest: abnormal inspection of the chest increased A-P diameter Resp normal respiratory effort and no use of accessory muscles Resp Narrative: On 3 L nasal cannula during my evaluation Effort and Inspection: able to speak in complete sentences Auscultation: wheezes expiratory wheezes, anterior, posterior and throughout and diminished lung sounds; Negative for rhonchi Cardio regular rate, regular rhythm, S1 normal heart sound, S2 normal heart sound and peripheral pulses 2+ throughout Rate: tachycardic GI normal to inspection, nondistended, normoactive bowel sounds, soft to palpation and non-tender Extremity normal capillary refill and no clubbing, cyanosis or edema Skin General Skin Exam: no breakdown Lesions: no lesions Rashes: no rashes Neuro no focal motor deficits and no sensory deficits noted Speech: speech normal Psych thought process normal, cooperative and affect normal Lab / Micro Data Attestation: I reviewed the patient's lab results. Result Diagrams: 08/11/22 03:46 08/11/22 03:46 Labs: Laboratory Results - last 24 hr 08/10/22 14:07: WBC 4.2 L, RBC 3.74 L, Hgb 12.3, Hct 37.2, MCV 99.5 H, MCH 32.9 H, MCHC 33.1, RDW Std Deviation 61.2 H, RDW Coeff of Kylie 17.2 H, Plt Count 94 L, Immature Gran % (Auto) 1.200 H, Neut % (Auto) 77.1 H, Lymph % (Auto) 10.7 L, [place] % (Auto) 7.6, Eos % (Auto) 2.4, Baso % (Auto) 1.0, Absolute Neuts (auto) 3.3, Absolute Lymphs (auto) 0.45 L, Nucleated RBC % 0.7, Differential Comment , Diff Path Review May foll, Platelet Estimate MOD DEC, RBC Morphology N CHROM, Anisocytosis 1+, Ovalocytes 1+ 08/10/22 14:07: Sodium 135 L, Potassium 3.9, Chloride 98, Carbon Dioxide 29.0, Anion Gap 8, BUN 15, Creatinine 0.96, Estim Creat Clear Calc 57.23, Est GFR (MDRD) Af Amer 73, Est GFR (MDRD) Non-Af 60, BUN/Creatinine Ratio 15.7, Glucose 159 H, Calcium 9.9 08/10/22 14:07: Troponin I High Sens 20 08/10/22 14:07: D-Dimer Quant (PE/DVT) 0.60 H* 08/10/22 15:21: Urine Color Straw, Urine Clarity Clear, Urine pH 6.0, Ur Specific [place] 1.010, Urine Protein Negative, Urine Glucose (UA) Normal, Urine Ketones Negative, Urine Occult Blood 10 H, Urine Nitrite Negative, Urine Bilirubin Negative, Urine Urobilinogen Normal, Ur Leukocyte Esterase Negative, Urine RBC 0-5 SEEN, Urine WBC 0 SEEN, Ur Squamous Epith Cells 0-5 SEEN, Urine Bacteria RARE, Urine Mucus 0 SEEN 08/10/22 15:30: COVID-19 (LISA) Not Detected 08/10/22 15:40: Lactic Acid 1.2 08/10/22 15:57: PT 15.4 H, INR 1.3 08/11/22 03:46: WBC 3.3 L, RBC 3.48 L, Hgb 11.4 L, Hct 35.3 L, MCV 101.4 H, MCH 32.8 H, MCHC 32.3, RDW Std Deviation 62.5 H, RDW Coeff of Kylie 17.2 H, Plt Count 84 L, MPV TNP, Immature Gran % (Auto) 1.500 H, Neut % (Auto) 80.8 H, Lymph % (Auto) 12.3 L, [place] % (Auto) 5.4, Eos % (Auto) 0.0, Baso % (Auto) 0.0, Absolute Neuts (auto) 2.7, Absolute Lymphs (auto) 0.41 L, Nucleated RBC % 0.6, Differential Comment SCANNED, Diff Path Review May foll, Platelet Estimate MOD DEC, Anisocytosis 1+, Microcytosis RARE, Macrocytosis RARE, Ovalocytes 1+ 08/11/22 03:46: Sodium 138, Potassium 4.2, Chloride 105, Carbon Dioxide 28.0, Anion Gap 5, BUN 15, Creatinine 0.77, Estim Creat Clear Calc 54.94, Est GFR (MDRD) Af Amer 94, Est GFR (MDRD) Non-Af 78, BUN/Creatinine Ratio 19.5, Glucose 180 H, Calcium 9.1 Micro: Microbiology 08/10/22 15:25 Urine, Clean Catch Streptococcus pneumoniae Antigen (M - Final 08/10/22 15:45 Blood Culture (Wb) - Left Hand Blood Culture - Preliminary 08/10/22 15:40 Blood Culture (Wb) - Anticubital Left Blood Culture - Preliminary 08/10/22 19:57 Interface Orders Respiratory Panel (PCR) - Final 08/10/22 14:58 Nasal Secretion SARS-CoV-2 Antigen (Rapid) - Final Rhythm Strip Rhythm Strip: Sinus Rhythm Rate: 78 Radiology Impression Chest X-Ray 08/10/22 14:10 IMPRESSION: Increased markings at the right lung base suggestive of early right basilar infiltrate. Electronically Signed: Saeed Lam MD at 14:46 EDT , Chest CTA 08/10/22 17:29 IMPRESSION: No demonstrated pulmonary embolism or arterial dissection. Electronically Signed: Ricky Banuelos MD at 18:13 EDT , Charges/Coding Visit Charges Inpatient E&M: 48494 Init Hosp L3
--- NOTE | 2022-08-11 09:55 | CASEMGMT ---
RN CM Face to Face with patient for initial transition planning/care coordination assessment. RN CM introduced self and role at [facility]. Patient sitting in chair, alert and oriented. Patient willing to participate in assessment and is able to answer all questions appropriately. Care providers, pharmacy, and demographics verified. Patient wishes to discharge home, denies need for home health at this time. Patient states she has no further needs or concerns at this time. CM to follow for discharge planning needs that may arise. PCP: Steven Specialists: Oncologist in [place] Preferred Pharmacy: [facility]; [facility] retail at discharge. Insurance: [employer] [facility] [place] Prescription Benefit: yes Living Will/HPOA: yes, daughter Aisha Rondon LNOK: daughter Living Arrangements: Patient lives alone in a mobile home with 3 steps and railing to enter. Patient states she is independent at home. Transportation: self, daughter DME/HHC: patient states she has POC that son purchased, cane, and shower chair. Patient states she has been SNF in [place] in the past. Patient denies previous HHC Disposition Plan: Patient to discharge home with family support and follow-up plans in place. Rosenda COPELAND, RN, CM
--- NOTE | 2022-08-11 11:39 | CASEMGMT ---
RITU ROBISON NOTE: Pt currently on 3 l/m O2. Pt does not have her own home O2. Pt was provided with list of DME providers consistent with the patient's preferred geographic region, medical needs, and insurance network. Pt made aware [facility] is an affiliate of [facility] and she states [employer]. Pt states she does not have a pulse ox either. Kristy COPELAND RN CM
[2022-08-11 15:10] LABS: Pathologist Review Reviewed
[2022-08-11 15:13] LABS: Pathologist Review Reviewed
--- NOTE | 2022-08-11 15:58 | CASEMGMT ---
Social Work SW in to confirm AD with pt. Pt has LW on file but no HCPOA. Informed pt of this. Pt does not have copies of the documents but will check with family. Named Aisha Issa as agent. LORETTA Dominguez
--- NOTE | 2022-08-11 16:16 | CHAPLAIN ---
Type of Pastoral Visit _x__ Initial Visit ___ Follow-up Visit ___ On-call Visit ___ General Patient Visit ___ Spiritual Assessment ___ Family Conference ___ Bereavement ___ Rapid Response ___ Code Blue ___ Other (describe below) Pastoral Care Referral From _x__ Patient ___ Family ___ Nurse ___ Physician ___ Brine Purifier ___ Elevator Operator ___ Other (describe below) Sacrament/Intervention _x__ Active listening ___ Anointing ___ Buddhism ___ Bereavement ___ Communion ___ Tiffany exploration ___ ___ Life review ___ Prayer ___ Reconciliation ___ Sacrament of Sick ___ Supportive presence ___ Wedding ___ Other (describe below) Pastoral Comments patient did not address any particular needs and stated that she was 100% better now; pt says there are no concerns or anxiety; pt does talk about life and family and of casual matters;
[2022-08-11] MEDS: 0.9% Saline Lock 10 ML Syringe IV (21:16)
[2022-08-12] VITALS (14 sets, daily range): BP systolic 119–134; BP diastolic 56–73; PULSE 78–106; RESP 16–20; TEMP 36.6–37.1; O2SAT 85–96
[2022-08-12] MEDS: Ipratropium/Albuterol Sulfate 3 ML AMPUL.NEB INHALATION ×4 (03:48→19:34)
[2022-08-12] MEDS: 0.9% Saline Lock 10 ML Syringe IV ×2 (05:44→20:53)
[2022-08-12] MEDS: Levothyroxine 50 MCG Tablet PO (05:44)
[2022-08-12 06:07] LABS: Hematocrit 32.8 % (37-47); Hemoglobin 10.7 g/dL (12.0-15.0); Mean Corp Hgb Conc 32.6 g/dL (32-36); Mean Corpuscular Hgb 33.3 pg (27.0-32.0); Mean Corpuscular Volume 102.2 fL (81-99); POSITIVE COUNT YES; POSITIVE DIFFERENTIAL YES; POSITIVE MORPHOLOGY YES; Platelet Count 83 K/mm3 (150-450); RBC Distribution Width CV 17.1 % (11.6-14.6); RBC Distribution Width SD 63.2 fl (35.1-43.9); Red Blood Count 3.21 M/mm3 (4.2-5.4); White Blood Count 5.3 K/mm3 (4.4-11.0)
[2022-08-12 06:17] LABS: Differential Indicated MANUAL DIFF
[2022-08-12 06:29] LABS: Anion Gap 7 (5-15); BUN 24 mg/dL (7-18); BUN/Creat Ratio 30.7 RATIO (10-20); Calcium,Total 8.6 mg/dL (8.5-10.1); Chloride 106 mmol/L (98-107); Creatinine, Serum 0.78 mg/dL (0.55-1.02); EST Glomerular Filtration Rate 76 mL/min (>60); Est Glom Filt Rate - Afr Amer 92 mL/min (>60); Estimated Creatinine Clearance 54.94 ml/min; Glucose 164 mg/dL (74-106); Potassium 4.5 mmol/L (3.5-5.1); Sodium Level 140 mmol/L (136-145)
[2022-08-12 06:39] LABS: Metamyelocyte 1 % (0-1); Myelocyte 2 % (0-0); Neutrophil-Band 11 % (0-5); Neutrophil-Segmented 72 % (47-70); Total Cells Counted 100 (MANUAL DIFF)
[2022-08-12 06:40] LABS: Lymphocyte 10 % (19-41); Monocyte 4 % (0-10); Platelet Estimate MOD DEC (ADEQ)
[2022-08-12 06:41] LABS: Absolute Lymphocyte Count 0.53 X10^3/uL (0.83-4.51); Absolute Neutrophil Count 4.4 X10^3/uL (2.0-7.7); Anisocytosis 1+; Lymphocyte # 0.53 X10^3/ul (0.83-4.51); Macrocytosis RARE; Microcytosis RARE; Neutrophil # 4.37 X10^3/uL (2.7-7.7); Ovalocyte 1+
--- NOTE | 2022-08-12 08:17 | PCM.PN.INT ---
Assessment & Plan Assessment/Plan (1) COPD exacerbation: PLAN: Plan RECOMMENDATIONS: 1. Await repeat blood cultures 2. Transition to prednisone therapy and wean over 12 to 14 days 3. Wean supplemental oxygen as tolerated. Keep saturations between 90 and 94%. Obtain walking oximetry 4. Agree with mucolytic, bronchodilators. These can be continued as an outpatient 5. Walking oximetry prior to discharge. ABG as needed for decreased mental status 6. Outpatient complete PFT and probable sleep study 7. Follow-up with nurse practitioner 2 weeks after discharge IMPRESSIONS: 1. Acute hypoxic respiratory insufficiency secondary to possible COPD exacerbation Patient does have significant emphysematous changes, especially in the right upper lobe, on CT scan. Patient has not been seen by drawstring knotter or had pulmonary function test, so baseline status is unclear at this time. Patient is not reporting significant change in sputum, but does have hypoxia and shortness of breath. Reasonable to continue bronchodilators and mucolytic. Patient doing well, so we will transition to prednisone therapy and wean over the next 12 to 14 days.. Outpatient work-up for quantification clarification of lung function would be appropriate. Cannot exclude relatively advanced disease requiring supplemental oxygen with exertion at baseline. Echocardiogram did not suggest vegetation or increased pulmonary artery pressures. No PE has been noted despite patient's history of cancer. Do not believe patient requires systemic anticoagulation. Patient does have an elevated bicarbonate, so CO2 retention is likely present at baseline. No indication for BiPAP at this time, but would keep saturations between 90 and 94% to avoid CO2 retention. 2. Positive blood cultures Clinical suspicion for skin contamination. However, patient does have a murmur on exam and subacute endocarditis cannot be excluded. Patient does not have a pattern suggestive of embolic pneumonia on CT scan. We will repeat blood cultures. Would not recommend addition of vancomycin at this time unless patient has a change in clinical status. If blood cultures remain positive, ANNA may be necessary for definitive assessment. No clear source for bacteremia at this time. 3. Hypothyroidism/hypertension/chronic anemia/breast cancer status postmastectomy/advanced age/anemia Complicates care, management, recovery and prognosis. Okay to continue with baseline medications from my perspective. Patient would likely benefit from iron supplementation. Work-up for iron deficiency anemia as an outpatient would be reasonable. Blood pressure appears to be well controlled at this time. Would not recommend thyroid work-up as continuation of Synthroid is likely appropriate. High clinical suspicion for obstructive sleep apnea, but this would have to be addressed as an outpatient if patient is agreeable. Subjective Subjective Patient did well overnight. No acute issues were reported patient states she feels the best I have in a while. Patient does report a cough productive of clear to white sputum. No fevers or hemodynamic instability noted overnight. Objective Data Objective Data Vital Signs: Vital Signs Temp Pulse Resp BP Pulse Ox O2 Del Method O2 Flow Rate 36.7 C 106 H 20 H 119/60 92 Nasal Cannula 1 08/12/22 03:00 08/12/22 07:00 08/12/22 07:00 08/12/22 03:00 08/12/22 07:05 08/12/22 07:05 08/12/22 07:05 Oxygen Flow Rate (L/min) 1 Oxygen Delivery Method Nasal Cannula Weight: 71.6 kg Body Mass Index (BMI) 31.8 Intake & Output: Intake and Output for Last 24 Hours 08/10/22 08/11/22 08/12/22 23:59 23:59 23:59 Intake Total 1000 / 1500 1440 / 1590 150 / 150 Balance 1000 / 1500 1440 / 1590 150 / 150 Lab / Micro Data Attestation: I reviewed the patient's lab results. Result Diagrams: 08/12/22 05:20 08/12/22 05:20 Labs: Laboratory Results - last 24 hr 08/10/22 14:07: Diff Path Review Reviewed 08/11/22 03:46: Diff Path Review Reviewed 08/12/22 05:20: WBC 5.3, RBC 3.21 L, Hgb 10.7 L, Hct 32.8 L, MCV 102.2 H, MCH 33.3 H, MCHC 32.6, RDW Std Deviation 63.2 H, RDW Coeff of Kylie 17.1 H, Plt Count 83 L, MPV TNP, Neut % (Auto) Not Reportable, Absolute Neuts (auto) 4.4, Absolute Lymphs (auto) 0.53 L, Total Counted 100, Neutrophils % (Manual) 72 H, Band Neutrophils % 11 H, Lymphocytes % (Manual) 10 L, Monocytes % (Manual) 4, Metamyelocytes % 1, Myelocytes % 2 H, Diff Path Review May foll, Platelet Estimate MOD DEC, Anisocytosis 1+, Microcytosis RARE, Macrocytosis RARE, Ovalocytes 1+ 08/12/22 05:20: Sodium 140, Potassium 4.5, Chloride 106, Carbon Dioxide 27.0, Anion Gap 7, BUN 24 H, Creatinine 0.78, Estim Creat Clear Calc 54.94, Est GFR (MDRD) Af Amer 92, Est GFR (MDRD) Non-Af 76, BUN/Creatinine Ratio 30.7 H, Glucose 164 H, Calcium 8.6 Micro: Microbiology 08/10/22 15:25 Urine, Clean Catch Urine Culture - Preliminary Mixed Gram Positive Organisms 08/10/22 15:45 Blood Culture (Wb) - Left Hand Bacteria Detection (PCR) - Final Strep not Strep pneumo 08/10/22 15:45 Blood Culture (Wb) - Left Hand Blood Culture - Preliminary 08/10/22 15:25 Urine, Clean Catch Streptococcus pneumoniae Antigen (M - Final 08/10/22 15:40 Blood Culture (Wb) - Anticubital Left Blood Culture - Preliminary 08/10/22 19:57 Interface Orders Respiratory Panel (PCR) - Final 08/10/22 14:58 Nasal Secretion SARS-CoV-2 Antigen (Rapid) - Final Radiography Diagnostic Testing: Radiology Impression Echocardiogram 08/10/22 20:00 Interpretation Summary The estimated ejection fraction is 55-60 %. SUDHEER 1.9 cm2 Peak systolic gradient 25.3 mmhg Ao mean PG 14.9 mmhg Calcific AV,No valvular vegetation seen Ordering Physician: Suyapa Perez Referring Physician: Fish Harris Chi Performed By: Sandra Alcala, SIA, RVT Rhythm Strip Rhythm Strip: Sinus Rhythm Rate: 95 Physical Exam Const alert, oriented x3 and no apparent distress Constitutional Narrative: No conversational dyspnea. Nasal cannula in place General Appearance: cooperative HEENT normocephalic and head/scalp atraumatic General Ear: hearing grossly impaired diffuse Eyes conjunctivae normal and no scleral icterus Neck no lymphadenopathy and supple General: trachea midline Chest Chest: abnormal inspection of the chest increased A-P diameter Resp normal respiratory effort and no use of accessory muscles Resp Narrative: On 1L nasal cannula during my evaluation Effort and Inspection: able to speak in complete sentences Auscultation: wheezes expiratory wheezes, anterior, posterior and throughout and diminished lung sounds; Negative for rales or rhonchi Cardio regular rate, regular rhythm, S1 normal heart sound, S2 normal heart sound and peripheral pulses 2+ throughout GI normal to inspection, nondistended, normoactive bowel sounds, soft to palpation and non-tender Extremity normal capillary refill and no clubbing, cyanosis or edema Skin General Skin Exam: no breakdown Lesions: no lesions Rashes: no rashes Neuro no focal motor deficits and no sensory deficits noted Speech: speech normal Psych thought process normal, cooperative and affect normal Charges/Coding Visit Charges Inpatient E&M: 85896 Subs Hosp L2
--- NOTE | 2022-08-12 09:33 | CASEMGMT ---
Addendum entered by Soila Bauer 08/12/22 13:55: Green sheet on chart for oxygen and pox. Original Note: Referral to [facility] as pt is declining HHC at this time.
--- NOTE | 2022-08-12 09:43 | PN.HOSP_ITS ---
Subjective Subjective Doing well, no issues overnight. Breathing well today, she is down to room air. We will obtain an ambulatory pulse ox. Objective Data Objective Data Vital Signs: Vital Signs Temp Pulse Resp BP Pulse Ox O2 Del Method O2 Flow Rate 98.1 F 106 H 20 H 119/60 92 Nasal Cannula 1 08/12/22 03:00 08/12/22 07:00 08/12/22 07:00 08/12/22 03:00 08/12/22 07:05 08/12/22 07:05 08/12/22 07:05 Oxygen Flow Rate (L/min) 1 Oxygen Delivery Method Nasal Cannula Weight: 157 lb 13.616 oz Body Mass Index (BMI) 31.8 Intake & Output: Intake and Output for Last 24 Hours 08/11/22 08/12/22 08/13/22 03:59 03:59 03:59 Intake Total 1500 / 1500 1090 / 1090 Balance 1500 / 1500 1090 / 1090 Lab / Micro Data Result Diagrams: 08/12/22 05:20 08/12/22 05:20 Labs: Laboratory Results - last 24 hr 08/10/22 14:07: Diff Path Review Reviewed 08/11/22 03:46: Diff Path Review Reviewed 08/12/22 05:20: WBC 5.3, RBC 3.21 L, Hgb 10.7 L, Hct 32.8 L, MCV 102.2 H, MCH 33.3 H, MCHC 32.6, RDW Std Deviation 63.2 H, RDW Coeff of Kylie 17.1 H, Plt Count 83 L, MPV TNP, Neut % (Auto) Not Reportable, Absolute Neuts (auto) 4.4, Absolute Lymphs (auto) 0.53 L, Total Counted 100, Neutrophils % (Manual) 72 H, Band Neutrophils % 11 H, Lymphocytes % (Manual) 10 L, Monocytes % (Manual) 4, Metamyelocytes % 1, Myelocytes % 2 H, Diff Path Review May foll, Platelet Estimate MOD DEC, Anisocytosis 1+, Microcytosis RARE, Macrocytosis RARE, Ovalocytes 1+ 08/12/22 05:20: Sodium 140, Potassium 4.5, Chloride 106, Carbon Dioxide 27.0, Anion Gap 7, BUN 24 H, Creatinine 0.78, Estim Creat Clear Calc 54.94, Est GFR (MDRD) Af Amer 92, Est GFR (MDRD) Non-Af 76, BUN/Creatinine Ratio 30.7 H, Glucose 164 H, Calcium 8.6 Micro: Microbiology 08/10/22 15:40 Blood Culture (Wb) - Anticubital Left Blood Culture - Preliminary Alpha Hemolytic Streptococcus 08/10/22 15:45 Blood Culture (Wb) - Left Hand Bacteria Detection (PCR) - Final Strep not Strep pneumo 08/10/22 15:45 Blood Culture (Wb) - Left Hand Blood Culture - Preliminary Alpha Hemolytic Streptococcus 08/10/22 15:25 Urine, Clean Catch Urine Culture - Preliminary Mixed Gram Positive Organisms 08/10/22 15:25 Urine, Clean Catch Streptococcus pneumoniae Antigen (M - Fi nal 08/10/22 19:57 Interface Orders Respiratory Panel (PCR) - Final 08/10/22 14:58 Nasal Secretion SARS-CoV-2 Antigen (Rapid) - Final Radiography Diagnostic Testing: Radiology Impression Echocardiogram 08/10/22 20:00 Interpretation Summary The estimated ejection fraction is 55-60 %. SUDHEER 1.9 cm2 Peak systolic gradient 25.3 mmhg Ao mean PG 14.9 mmhg Calcific AV,No valvular vegetation seen Ordering Physician: Suyapa Perez Referring Physician: Fish Harris Chi Performed By: Sandra Alcala, SIA, RVT Rhythm Strip Rhythm Strip: Sinus Rhythm Rate: 95 Physical Exam Narrative General: Alert, Oriented x3, Cooperative, No apparent distress HEENT: Atraumatic, PERRLA, EOMI, Normocephalic Oral: Moist Mucosa Neck: Supple, No JVD Lungs: Diminished, normal air movement, No rhonchi, wheeze, No rales Cardiovascular: Regular rate, Regular Rhythm, Normal S1, Normal S2, No murmurs Abdomen: Soft, Non Tender, Non-Distended, No Hepato-splenomegaly Extremities: No edema, Capillary Refill Less than 3 Seconds Skin: No rashes, No breakdown Musculoskeletal: No Tenderness to Palpation of Joints or Extremities Neurological: Cranial nerves II-XII grossly intact, Motor Exam 5/5 strength throughout, Sensory exam intact to light touch and pain Psych/Mental Status: Normal Affect, Appropriate Assessment & Plan Assessment/Plan (1) COPD exacerbation: PLAN: Plan 1. Acute hypoxic respiratory failure secondary to COPD exacerbation/strep bacteremia ? She did have an elevated D-dimer on admission so CTA was obtained which was negative for PE ? 3-4 blood culture vials came back positive for gram-positive cocci in chains, she was started on Rocephin overnight, repeat blood cultures are pending ? The strep pneumonia antigen is negative ? Continue with breathing treatments and steroids ?Pulmonology has been consulted 2. Hypothyroidism ? Stable ? Continue with Synthroid 3. Hypertension ? Stable ? Continue with her home blood pressure medications 4. Chronic anemia -Currently stable -Continue ferrous sulfate and vitamin C 5. History of breast cancer with mastectomy -In remission DVT: Lovenox Charges/Coding Visit Charges Inpatient E&M: 50408 Subs Hosp L2
[2022-08-12] MEDS: Potassium Chloride Oral Tablet 10 MEQ PO (10:16)
[2022-08-12] MEDS: Iron Polysaccharide Complex 150 MG CAPSULE PO (10:16)
[2022-08-12] MEDS: Enoxaparin 40 MG/0.4 ML Syringe SC (10:16)
[2022-08-12] MEDS: Multivitamins,Therapeutic Tablet 1 TABLET PO (10:16)
[2022-08-12] MEDS: Metoprolol Tartrate 25 MG Tablet 12.5 MG PO ×2 (10:17→20:53)
[2022-08-12] MEDS: predniSONE 20 MG Tablet 40 MG PO (10:17)
[2022-08-12] MEDS: guaiFENesin 1,200 MG Tablet 1200 MG PO ×2 (10:18→20:53)
[2022-08-12] MEDS: Ascorbic Acid 500 MG Tablet PO (10:18)
[2022-08-12] MEDS: Ceftriaxone 1 GM/50 ML BAG IV (20:56)
[2022-08-13] VITALS (10 sets, daily range): BP systolic 117–138; BP diastolic 63–76; PULSE 82–111; RESP 17–20; TEMP 36.6–36.7; O2SAT 87–99
[2022-08-13] MEDS: Levothyroxine 50 MCG Tablet PO (05:14)
[2022-08-13] MEDS: Ipratropium/Albuterol Sulfate 3 ML AMPUL.NEB INHALATION ×2 (07:24→11:20)
[2022-08-13] MEDS: Potassium Chloride Oral Tablet 10 MEQ PO (08:54)
[2022-08-13] MEDS: Iron Polysaccharide Complex 150 MG CAPSULE PO (08:54)
[2022-08-13] MEDS: Enoxaparin 40 MG/0.4 ML Syringe SC (08:55)
[2022-08-13] MEDS: guaiFENesin 1,200 MG Tablet 1200 MG PO (08:55)
[2022-08-13] MEDS: Ascorbic Acid 500 MG Tablet PO (08:55)
[2022-08-13] MEDS: Metoprolol Tartrate 25 MG Tablet 12.5 MG PO (08:55)
[2022-08-13] MEDS: Multivitamins,Therapeutic Tablet 1 TABLET PO (08:56)
[2022-08-13] MEDS: predniSONE 20 MG Tablet 40 MG PO (08:56)
--- NOTE | 2022-08-13 12:51 | DCINST_ITS ---
Discharge Instructions Diet Discharge Diet: Low fat / Low cholesterol Activity Discharge Activity: Return to Normal Activity Dressing / Incision Call your doctor if you observe: Fever of 101 or Higher, Shortness of breath, Dizziness, Fainting spells, Swelling in the ankles, Chest pain and Increased palpitations (irregular heartbeat) Follow Up Care Test Results: Test results from this visit will be discussed in further detail at your follow- up appointment, if applicable. Discharge Plan Admission Admit Date/Time: 08/11/22 12:28 Attending Provider: Nima Heller Primary Care Provider: Fish Harris Chi Consulting Providers: Aric Pressley ; Ottoniel Dyer Discharge Orders/Prescriptions Prescriptions: New prednisone 20 mg Tablet 40 mg PO BREAKFAST Qty: 14 0RF cephalexin 500 mg capsule 500 mg PO TID 7 Days Qty: 21 0RF albuterol sulfate 90 mcg/actuation HFA aerosol inhaler 2 puff inhalation Q6H PRN (Reason: shortness of breath or wheezing) Qty: 8.5 0RF Continued ascorbic acid (vitamin C) 500 MG capsule 500 mg PO DAILY polysaccharide iron complex 150 MG capsule 150 mg PO DAILYCM Qty: 30 0RF acetaminophen 500 MG tablet 1,000 mg PO Q6H PRN (Reason: Pain Score 1-3/10) 0RF potassium chloride 10 MEQ tablet 10 meq PO DAILY Qty: 30 0RF metoprolol tartrate 25 MG tablet 12.5 mg PO BID Qty: 30 0RF Rx Instructions: Giv3e 12.5 every morning and at bedtime related to essential (primary) hypertension, check b/p before administering, hold for SBP <100 or HR <60 multivitamin Tablet 1 tab PO DAILY levothyroxine [Synthroid] 50 mcg tablet 50 mcg PO DAILY Label Comments: TAKE 1 TABLET ORALLY ONCE PER DAY FOR 90 DAYS Referrals / Follow Up: Fish Harris Chi, MD [Primary Care Provider] - Within 1 Week Disposition Disposition (needs filled in before D/C Order can be placed): Home, Self Care
--- NOTE | 2022-08-13 13:17 | DS.PCM_ITS ---
Providers Date of Admission: 08/11/22 Primary Care Physician: Dr. 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 Acute hypoxic respiratory failure secondary to COPD exacerbation/strep bacteremia ? She did have an elevated D-dimer on admission so CTA was obtained which was negative for PE ? 3-4 blood culture vials came back positive for gram-positive cocci in chains, she was started on Rocephin overnight, repeat blood cultures are pending ? The strep pneumonia antigen is negative ? Continue with breathing treatments and steroids ?Pulmonology has been consulted 2. Hypothyroidism ? Stable ? Continue with Synthroid 3. Hypertension ? Stable ? Continue with her home blood pressure medications 4. Chronic anemia -Currently stable -Continue ferrous sulfate and vitamin C 5. History of breast cancer with mastectomy -In remission DVT: Lovenox Medications at Discharge Home Medications ascorbic acid (vitamin C) 500 mg capsule 500 mg PO DAILY supplement 01/17/20 acetaminophen 500 mg tablet 1,000 mg PO Q6H PRN Pain Score 1-3/10 01/21/20 metoprolol tartrate 25 mg tablet 12.5 mg PO BID BP #30 tabs 01/21/20 polysaccharide iron complex 150 mg iron capsule 150 mg PO DAILYCM #30 caps 01/21 potassium chloride 10 mEq tablet,extended release(part/cryst) 10 meq PO DAILY supplement #30 tabs 01/21/20 levothyroxine 50 mcg tablet (Synthroid) 50 mcg PO DAILY 08/10/22 multivitamin 1 tab PO DAILY 08/10/22 albuterol sulfate 90 mcg/actuation aerosol inhaler 2 puff inhalation Q6H PRN shortness of breath or wheezing #8.5 grams 08/13/22 cephalexin 500 mg capsule 500 mg PO TID 7 days #21 caps 08/13/22 prednisone 20 mg tablet 40 mg PO BREAKFAST #14 tabs 08/13/22 Hospital Course Operations None Procedures 2-D Echocardiogram Summary of Care Provided Minutes Spent on Discharge: 38 Hospital Course: Per HPI: REBEKAH AVITIA, is a 77 F who presents with complaints of dyspnea.? Patient was noted to be hypoxic in the ER with a pulse ox of 87% on room air.? Patient states that she has been feeling unwell for past couple days and patient reports that she had a fever this morning however patient is afebrile at time of evaluation.? Patient states that she generally feels unwell and has body aches.? Patient COVID antigen and PCR negative in ER.? Patient does not have a history of COPD however patient has been a smoker and continues to smoke 4 cigarettes/day.? Patient reports a medical history of breast cancer which has been in remission for some time, hypothyroidism, hypertension. Hospital Course: 1.? Acute hypoxic respiratory failure secondary to COPD exacerbation/strep bacteremia ? She did have an elevated D-dimer on admission so CTA was obtained which was negative for PE ? 3-4 blood culture vials came back positive for gram-positive cocci in chains, she was started on Rocephin repeat blood cultures are negative ? The strep pneumonia antigen is negative ? Continue with breathing treatments and steroids ? I discussed with her and her daughter the plan for discharge today but they both expressed understanding of the risk benefits going home and would like to g o home today. I discussed with the daughter the issue of the blood cultures, and she felt that she would feel better if she was on some antibiotics to complete a 10-day course, we did discuss that alphahemolytic strep is generally a contaminant, however she should keep an eye on any fever curves at home once antibiotics are completed. She did have an echo during her stay secondary to her heart murmur which did show some aortic stenosis but otherwise EF was normal at 55 to 60%. I do recommend outpatient follow-up with her PCP and potentially transition to pulmonology as an outpatient for her COPD. She has not needed any oxygen with ambulation or at rest. We will provide her with 7 days of prednisone as well as an albuterol inhaler. 2.? Hypothyroidism ? Stable ? Continue with Synthroid 3.? Hypertension ? Stable ? Continue with her home blood pressure medications 4.? Chronic anemia -Currently stable -Continue ferrous sulfate and vitamin C 5.? History of breast cancer with mastectomy -In remission Physical Exam Narrative General: Alert, Oriented x3, Cooperative, No apparent distress HEENT: Atraumatic, PERRLA, EOMI, Normocephalic Oral: Moist Mucosa Neck: Supple, No JVD Lungs: Diminished, normal air movement, No rhonchi, wheeze, No rales Cardiovascular: Regular rate, Regular Rhythm, Normal S1, Normal S2, aortic stenosis murmur Abdomen: Soft, Non Tender, Non-Distended, No Hepato-splenomegaly Extremities: No edema, Capillary Refill Less than 3 Seconds Skin: No rashes, No breakdown Musculoskeletal: No Tenderness to Palpation of Joints or Extremities Neurological: Cranial nerves II-XII grossly intact, Motor Exam 5/5 strength throughout, Sensory exam intact to light touch and pain Psych/Mental Status: Normal Affect, Appropriate Weight / BMI Weight Weight: 157 lb 13.616 oz Body Mass Index (BMI) 31.8 ABG / Lab / Microbiology Data Result Diagrams: 08/12/22 05:20 08/12/22 05:20 Microbiology: Microbiology 08/11/22 10:10 Blood Culture (Wb) - Right Hand Blood Culture - Preliminary No growth in 48 hours. 08/11/22 09:59 Blood Culture (Wb) - Right Hand Blood Culture - Preliminary No growth in 48 hours. 08/10/22 15:25 Urine, Clean Catch Urine Culture - Final Mixed Gram Positive Organisms 08/10/22 15:40 Blood Culture (Wb) - Anticubital Left Blood Culture - Preliminary Alpha Hemolytic Streptococcus 08/10/22 15:45 Blood Culture (Wb) - Left Hand Bacteria Detection (PCR) - Final Strep not Strep pneumo 08/10/22 15:45 Blood Culture (Wb) - Left Hand Blood Culture - Preliminary Alpha Hemolytic Streptococcus 08/10/22 15:25 Urine, Clean Catch Streptococcus pneumoniae Antigen (M - Final 08/10/22 19:57 Interface Orders Respiratory Panel (PCR) - Final 08/10/22 14:58 Nasal Secretion SARS-CoV-2 Antigen (Rapid) - Final D/C Instructions Discharge Diet: Low fat / Low cholesterol Call your doctor if you observe: Fever of 101 or Higher, Shortness of breath, Dizziness, Fainting spells, Swelling in the ankles, Chest pain and Increased palpitations (irregular heartbeat) Meaningful Use Info Meaningful Use Diagnoses (Choose all that apply): None applicable Discharge Plan Admission Admit Date/Time: 08/11/22 12:28 Attending Provider: Nima Heller Primary Care Provider: Fish Harris Chi Consulting Providers: Aric Pressley ; Ottoniel Dyer Discharge Orders/Prescriptions Prescriptions: New prednisone 20 mg Tablet 40 mg PO BREAKFAST Qty: 14 0RF cephalexin 500 mg capsule 500 mg PO TID 7 Days Qty: 21 0RF albuterol sulfate 90 mcg/actuation HFA aerosol inhaler 2 puff inhalation Q6H PRN (Reason: shortness of breath or wheezing) Qty: 8.5 0RF Continued ascorbic acid (vitamin C) 500 MG capsule 500 mg PO DAILY polysaccharide iron complex 150 MG capsule 150 mg PO DAILYCM Qty: 30 0RF acetaminophen 500 MG tablet 1,000 mg PO Q6H PRN (Reason: Pain Score 1-3/10) 0RF potassium chloride 10 MEQ tablet 10 meq PO DAILY Qty: 30 0RF metoprolol tartrate 25 MG tablet 12.5 mg PO BID Qty: 30 0RF Rx Instructions: Giv3e 12.5 every morning and at bedtime related to essential (primary) hypertension, check b/p before administering, hold for SBP <100 or HR <60 multivitamin Tablet 1 tab PO DAILY levothyroxine [Synthroid] 50 mcg tablet 50 mcg PO DAILY Label Comments: TAKE 1 TABLET ORALLY ONCE PER DAY FOR 90 DAYS Referrals / Follow Up: Fish Harris Chi, MD [Primary Care Provider] - Within 1 Week Disposition Disposition (needs filled in before D/C Order can be placed): Home, Self Care Charges/Coding Visit Charges Inpatient E&M: 05106 Disch Hosp
[2022-08-15 09:03] LABS: Pathologist Review Reviewed
== END 2022-08-13 13:50 | disposition home or self-care (01) | DRG 192 ==
LOC: ED 18:32 → MS3 19:11
PROVIDERS: Nurse Practitioner Family; Admitting Provider Internal Medicine; Emergency Provider Student in an Organized Health Care Education/Training Program; PCP Family Medicine Geriatric Medicine; Visit Provider Family Medicine
DX: J44.1 Chronic obstructive pulmonary disease with (acute) exacerbation (principal); D64.9 Anemia, unspecified; E03.9 Hypothyroidism, unspecified; I10 Essential (primary) hypertension; I35.0 Nonrheumatic aortic (valve) stenosis; F17.210 Nicotine dependence, cigarettes, uncomplicated; D72.819 Decreased white blood cell count, unspecified; Z90.12 Acquired absence of left breast and nipple; Z79.899 Other long term (current) drug therapy; Z85.3 Personal history of malignant neoplasm of breast; R09.02 Hypoxemia
CPT/HCPCS: 36415; 71045; 71275; 80048; 81001; 83605; 84484; 85025; 85379; 85610; 87040; 87077; 87086; 87088; 87149; 87186; 87449; 87633; 87635; 87811; 93005; 93306; 94640; 94667; 94668; 94762; 97161; 97166; 99251; 99285; 99406; J7050; Q9967; A4216; G0463; U0003; U0005

== ENCOUNTER → 2022-09-08 | Outpatient (CLI) | payer MEDICARE, SELFPAY ==
[2019-12-26 13:03] VITALS: BMI 31.5
[2022-09-08 12:23] LABS: Basophil# 0.02 X10^3/uL; Basophil% 0.6 % (0-1); Eosinophil# 0.17 X10^3/uL; Eosinophils% 5.3 % (0-5); Hematocrit 33.2 % (37-47); Lymphocyte % 23.5 % (19-41); Mean Corp Hgb Conc 33.1 g/dL (32-36); Mean Corpuscular Hgb 34.1 pg (27.0-32.0); Mean Corpuscular Volume 102.8 fL (81-99); Monocyte# 0.27 X10^3/uL; Monocyte% 8.4 % (0-10); NRBC Flagged by Analyzer 1.9 % (0-5); Neutrophil % 55.4 % (47-70); POSITIVE COUNT YES; POSITIVE MORPHOLOGY YES; Platelet Count 98 K/mm3 (150-450); RBC Distribution Width CV 18.8 % (11.6-14.6); RBC Distribution Width SD 68.4 fl (35.1-43.9); Red Blood Count 3.23 M/mm3 (4.2-5.4)
[2022-09-08 12:42] LABS: Vitamin D,25 Hydroxy 41.1 ng/mL
[2022-09-08 12:48] LABS: ALB/GLOB Ratio 0.9 RATIO (0.9-2.4); AST(SGOT) 24 U/L (15-37); Alanine Aminotransfer ALT/SGPT 32 U/L (13-56); Albumin, Serum 3.5 g/dL (3.2-5.0); Alkaline Phosphatase 64 U/L (45-117); Anion Gap 5 (5-15); BUN 11 mg/dL (7-18); BUN/Creat Ratio 12.4 RATIO (10-20); Calcium,Total 9.4 mg/dL (8.5-10.1); Chloride 104 mmol/L (98-107); Creatinine, Serum 0.89 mg/dL (0.55-1.02); EST Glomerular Filtration Rate 66 mL/min (>60); Est Glom Filt Rate - Afr Amer 80 mL/min (>60); Globulin 3.7 g/dL (2.2-4.2); Glucose 132 mg/dL (74-106); Potassium 4.3 mmol/L (3.5-5.1); Protein, Total 7.2 g/dL (6.4-8.2); Sodium Level 138 mmol/L (136-145); Thyroid Stim Hormone (TSH) 5.58 uIU/mL (0.358-3.74)
[2022-09-08 13:48] LABS: Anisocytosis 2+; Eosinophil 6 % (0-5); Lymphocyte 35 % (19-41); Metamyelocyte 2 % (0-1); Monocyte 4 % (0-10); Myelocyte 1 % (0-0); Neutrophil-Band 10 % (0-5); Neutrophil-Segmented 42 % (47-70); Nucleated Red Bld Cells,Manual 9 % (0-5); Total Cells Counted 100 (MANUAL DIFF)
[2022-09-08 13:49] LABS: Auer Rods 1+; Ovalocyte RARE; Platelet Estimate SLT DEC (ADEQ); Rouleaux 1+
[2022-09-08 13:50] LABS: Neutrophil # 1.56 X10^3/uL (2.7-7.7)
[2022-09-08 13:51] LABS: Absolute Lymphocyte Count 1.05 X10^3/uL (0.83-4.51); Absolute Neutrophil Count 1.6 X10^3/uL (2.0-7.7); Lymphocyte # 1.05 X10^3/ul (0.83-4.51)
[2022-09-09 12:51] LABS: Pathologist Review Reviewed
== END | disposition home or self-care (01) ==
LOC: POLAB3 09:25
PROVIDERS: PCP Family Medicine Geriatric Medicine; Visit Provider Family Medicine Geriatric Medicine
DX: E55.9 Vitamin D deficiency, unspecified (principal); I10 Essential (primary) hypertension
CPT/HCPCS: 36415; 80053; 82306; 84443; 85025

== ENCOUNTER 2023-01-03 14:45 | Observation (INO) | payer MEDICARE, SELFPAY ==
[2019-12-26 13:03] VITALS: BMI 31.5
[2023-01-03] VITALS (13 sets, daily range): BP systolic 97–140; BP diastolic 49–117; PULSE 80–135; RESP 17–26; TEMP 36.1–37.6; O2SAT 92–97; BMI 27.6; BMI 26.1
--- NOTE | 2023-01-03 15:01 | RAD_ITS ---
STUDY: X-RAY CHEST REASON FOR EXAM: Female, 77 years old. Nonproductive cough, wheezing and shortness of edvin TECHNIQUE: PA and lateral views of the chest. COMPARISON: Comparison is made with prior study dated 08/10/2022. FINDINGS: A right-sided kelley catheter seen with the tip at the junction of the superior vena cava and right atrium. EKG electrodes are seen. Surgical clips are seen in the left axilla. The patient is status post left mastectomy. New small left pleural effusion with left basilar atelectasis. Normal size heart. Normal mediastinum and annika. Normal visualized pulmonary arteries. There is atherosclerotic calcification of the aortic arch with tortuosity. There are diffuse degenerative changes of the visualized thoracic spine. Normal visualized ribs, clavicles, and shoulders. There is no demonstrated abnormality of the visualized soft tissue structures of the upper abdomen. RAD/Chest PA and Lateral IMPRESSION: New small left pleural effusion with left basilar atelectasis. Status post left mastectomy and left axillary node dissection. Electronically Signed: Saeed Lam MD at 15:34 EST ,
--- NOTE | 2023-01-03 15:02 | EKG12_ITS ---
Test Reason : SOB Blood Pressure : / mmHG Vent. Rate : 128 BPM Atrial Rate : 128 BPM P-R Int : 130 ms QRS Dur : 080 ms QT Int : 330 ms P-R-T Axes : 065 046 091 degrees QTc Int : 481 ms Sinus tachycardia Possible Left atrial enlargement Left ventricular hypertrophy with repolarization abnormality ( Sokolow-Sheets ) Abnormal ECG Confirmed by BERONICA GRIMES, GUILLERMINA ([id number]), desk editor MARY LOW ([id number]) on 01/05/2023 11:36:52 AM Referred By: FRANCK Confirmed By:GUILLERMINA LOCO MD
--- NOTE | 2023-01-03 15:03 | EDS_ITS ---
HPI History of Present Illness Chief Complaint: Shortness of Breath Detail of Chief Complaint: Shortness of breath, nonproductive cough, wheezing and home oxygen Informant: patient Onset/Context/Timing Onset: Days (Onset 2 days ago) Context: sudden Timing: Continuous Quality: Positive for Dyspnea on exertion and Wheezing; Negative for Orthopnea or PND Current Severity: Mild Maximum Severity: Moderate Associated Symptoms cough, rhinorrhea and post nasal drip; Negative for ear pain, fever, sore throat, subjective, chills, sweats, clear sputum, white sputum, yellow sputum or green sputum Chest Pain: Positive for None Narrative Narrative: Patient is a 77-year-old woman with COPD on continuous oxygen at home 2 L. Patient stated shortness of breath got worse when her oxygen compressor malfunctioned. She does have history of breast cancer status post mastectomy on the left October 10, 2020. Patient denies history of PE or DVT. Patient denies fever or chills. She states the drainage and redness involving her eyes are due to allergies. She apparently has been out of her medication. She attributes the nasal congestion and rhinorrhea due to allergies as well. She denies sore throat. She denies myalgias or arthralgias. Denies joint swelling. She does endorse nonproductive cough, dyspnea and dyspnea on exertion. She denies orthopnea. She does endorse nausea without vomiting or diarrhea. She denies dysuria, frequency, urgency or hematuria. She denies leg pain, swelling or discoloration. She denies symptoms of claudication. She denies history of coronary artery disease. PE Risk Factors: Positive for Cancer; Negative for OCP + Smoking + > 35, Prior DVT or PE, Recent immobilization, Recent surgery or Recent travel Prior similar symptoms: Yes (COPD) Recent Illness/Hospitalization: No [facility] Medical History Breast cancer Home Medications ascorbic acid (vitamin C) 500 mg capsule 500 mg PO DAILY supplement 01/17/20 [History Last Taken 08/09/22] acetaminophen 500 mg tablet 1,000 mg PO Q6H PRN Pain Score 1-3/10 01/21/20 [Rx Last Taken 08/10/22] metoprolol tartrate 25 mg tablet 12.5 mg PO BID BP #30 tabs 01/21/20 [Rx Last Taken 08/09/22] polysaccharide iron complex 150 mg iron capsule 150 mg PO DAILYCM #30 caps 01/21/20 [Rx Last Taken 08/09/22] potassium chloride 10 mEq tablet,extended release(part/cryst) 10 meq PO DAILY supplement #30 tabs 01/21/20 [Rx Last Taken 08/09/22] levothyroxine 50 mcg tablet (Synthroid) 50 mcg PO DAILY 08/10/22 [History Last Taken 08/09/22] multivitamin 1 tab PO DAILY 08/10/22 [History Last Taken 08/09/22] albuterol sulfate 90 mcg/actuation aerosol inhaler 2 puff inhalation Q6H PRN shortness of breath or wheezing #8.5 grams 08/13/22 [Rx Last Taken Unknown] cephalexin 500 mg capsule 500 mg PO TID 7 days #21 caps 08/13/22 [Rx Last Taken Unknown] prednisone 20 mg tablet 40 mg PO BREAKFAST #14 tabs 08/13/22 [Rx Last Taken Unknown] Allergy/AdvReac Type Severity Reaction Status Date / Time bacitracin Allergy Rash Verified 08/10/22 14:03 [From Neosporin ([id number])] neomycin Allergy Rash Verified 08/10/22 14:03 [From Neosporin ([id number])] polymyxin B Allergy Rash Verified 08/10/22 14:03 [From Neosporin ([id number])] Family History Sister Breast cancer Sister Breast cancer Sister Breast cancer Sister Breast cancer Surgical History H/O mastectomy H/O: hysterectomy Tubal ligation status Social History (Updated 01/03/23 @ 15:[address] Alessandro Tomas MD) household members: none Smoking Status: Current every day smoker tobacco type: cigarettes substance use type: does not use ROS ROS ED Review of Systems ROS Unobtainable: other Details: Questions had to be repeated several times. Patient is very hard of hearing. Constitutional Constitutional ED: Denies chills, fever(s), sweats, weight loss or other Eyes Eyes: Reports other Details: Watery drainage due to allergies. ; Denies blurry vision, change in vision or diplopia ENT ENT ED: Reports rhinorrhea and sore throat; Denies ear pain Cardiovascular Cardiovascular: Denies chest pain, orthopnea, palpitations, paroxysmal nocturnal dyspnea or racing heartbeat Respiratory/Chest Respiratory/Chest: Reports cough, dyspnea and dyspnea on exertion; Denies orthopnea, paroxysmal nocturnal dyspnea or sputum Gastrointestinal Gastrointestinal: Reports nausea; Denies abdominal pain, constipation, diarrhea, melena or vomiting Genitourinary Genitourinary ED: Denies dysuria, hematuria or urinary frequency Musculoskeletal Musculoskeletal: Denies arthralgias, back pain, myalgias or neck pain Integumentary Denies abscess, Abrasions or rash Neurologic Neurologic: Denies headache(s), paresthesias or weakness Endocrine Endocrinology: Denies cold intolerance or heat intolerance Hematologic/Lymphatic Hematologic/Lymphatic: Denies easy bleeding or easy bruising EXAM Physical Exam Const Vital Signs: 01/03/23 14:48 01/03/23 14:53 01/03/23 14:54 Temperature 97 F L Temperature Source Temporal Pulse Rate 135 H 80 Respiratory Rate 19 H Respiratory Effort Short of Breath Labored Blood Pressure 140/117 H Blood Pressure Mean 124 Pulse Ox 92 Oxygen Delivery Method Room Air Nasal Cannula Oxygen Flow Rate (L/min) 2 01/03/23 15:51 01/03/23 15:48 01/03/23 15:57 Temperature 99.5 F H Temperature Source Oral Pulse Rate 131 H 131 H 120 H Respiratory Rate 24 H 24 H 17 Respiratory Effort Blood Pressure 126/58 H 126/58 H Blood Pressure Mean 80 80 Pulse Ox 97 96 Oxygen Delivery Method Nasal Cannula Nasal Cannula Oxygen Flow Rate (L/min) 2 2 01/03/23 15:57 01/03/23 16:48 01/03/23 18:05 Temperature 99.6 F H Temperature Source Oral Pulse Rate 126 H 126 H Respiratory Rate 22 H 26 H Respiratory Effort Blood Pressure 117/49 L 111/67 Blood Pressure Mean 71 81 Pulse Ox 97 97 97 Oxygen Delivery Method Nasal Cannula Nasal Cannula Nasal Cannula Oxygen Flow Rate (L/min) 2 2 2 Positive well developed and unkempt Constitutional Narrative: Patient is tachypneic at rest. She is not hypoxic. There is minimal use of accessory muscles. She is tachycardic. She is not hypoxic on 2 L of nasal cannula. General Appearance ED: unkempt, well developed and pallor HEENT Reports dry mucous membranes HEENT Narrative: Head is atraumatic normocephalic. Ears are normal. Nares patent with slight clear drainage. Posterior pharynx erythema or exudate. Uvula is midline. There is no erythema or exudate noted. Mouth ED: Yes dry mucous membranes Mouth: dry mucous membranes Eyes PERRL and EOMs intact bilaterally Eyes Narrative: Sclera is injected on the left. Conjunctive a is injected on the left. There is clear drainage bilateral. General Eye ED: Yes pale conjunctiva; Negative for scleral icterus Neck no lymphadenopathy, supple, no meningeal signs and no JVD Neck Narrative: Treat is midline. There is no cervical lymphadenopathy. Resp No normal respiratory effort Resp Narrative: Was increased expiratory phase with decreased air movement and expiratory wheezing noted throughout. There is end inspiratory rales noted at the bases. Cardio regular rhythm, S1 normal heart sound, S2 normal heart sound and no murmurs Rate: tachycardic GI non-tender, non-distended and no masses GI Narrative: There is no palpable pulsatile mass. There is no abdominal bruit. There is no hepatosplenomegaly. Auscultation: hypoactive bowel sounds Palpation: soft Back/Spine no CVA tenderness and normal to inspection Extremity Extremity Narrative: There is no asymmetry, swelling, discoloration, leg vein distention, palpable cords or tenderness along the distribution of the deep venous system. Patient has absence of hair on her toes. DP pulses palpable bilateral and 2+. Neuro oriented x3, CN's II-XII intact bilaterally and no sensory deficits noted Torrey Coma Scale: document GCS findings Spontaneous Obeys Commands Oriented 15 Sensorium / Orientation: alert Psych mental status grossly normal Appearance: unkempt Skin no wounds and skin turgor normal Skin Narrative: Patient is noted to have bruises to her torso. General Skin Exam: pallor; Negative for jaundice MDM MDM MDM Narrative Medical decision making narrative: Patient has exacerbation of COPD. Since she was recently on prednisone we will treat with IV Solu-Medrol. She also received DuoNeb and 3 albuterol treatments. Chest x-ray was obtained to evaluate for pneumonia. CBC to assess H&H since she has history of anemia as well as white count differential. BMP to assess renal function if a CTA of the test is needed. EKG was obtained that she is tachycardic and rule out cardiac ischemia. Patient has similar presentation in July 2022 and required admission for exacerbation COPD. She does have history of anemia. There is also history of hypothyroidism which she failed to mention. There is also history of hypertension. Prior records indicate that her breast cancer is in remission. Case was discussed with oncologist at [facility] Dr. Bejarano. She has more recent laboratory results that are available at [facility]. Last hemoglobin was 7.2. She believes this is due to her MDS and current infection. She also noted because of her core morbidities she is not a candidate for aggressive chemo induction. Treatment would be as an outpatient. In light of this information will contact hospitalist. She also recommended transfusing the patient. Lab Data Attestation: I reviewed the patient's lab results. Lab results narrative: Patient is anemic with an H&H of 6.9 and 22.6. There is a significant drop from prior. Defer ventral arc of 4 6% blasts, 6% nuke red, metamyelocytes, myelocytes and eosinophilia. According to daughter she has a history of MDS is. She is treated by Dr. Joyner at [facility]. Call was placed to him since patient require transfer. If she cannot be excepted at [facility] we will try [facility]. Basic metabolic panel is marked for creatinine of 1.31 with a GFR of 42. Like to know Stool for Hemoccult was negative. Labs: Laboratory Results - last 24 hr 01/03/23 01/03/23 01/03/23 15:45 15:45 15:45 WBC Cancelled Corrected WBC Cancelled RBC Cancelled Hgb Cancelled Hct Cancelled MCV Cancelled MCH Cancelled MCHC Cancelled RDW Std Deviation Cancelled RDW Coeff of Kylie Cancelled Plt Count Cancelled MPV Cancelled Immature Gran % (Auto) Cancelled Neut % (Auto) Cancelled Lymph % (Auto) Cancelled Independence % (Auto) Cancelled Eos % (Auto) Cancelled Baso % (Auto) Cancelled Absolute Neuts (auto) Cancelled Absolute Lymphs (auto) Cancelled Total Counted Cancelled Neutrophils % (Manual) Cancelled Band Neutrophils % Cancelled Lymphocytes % (Manual) Cancelled Monocytes % (Manual) Cancelled Eosinophils % (Manual) Cancelled Basophils % (Manual) Cancelled Metamyelocytes % Cancelled Myelocytes % Cancelled Promyelocytes % Cancelled Blast Cells % Cancelled Plasma Cell % (Manual) Cancelled Other Cells % Cancelled Nucleated RBC % Cancelled Nucleated RBCs/100 WBC Cancelled Differential Comment Cancelled Diff Path Review Cancelled Hypersegmented Neuts Cancelled Atypical Lymphocytes Cancelled Reactive Lymphocytes Cancelled Smudge Cells Cancelled Toxic Granulation Cancelled Toxic Vacuolation Cancelled Dohle Bodies Cancelled Valeria Rods Cancelled Platelet Estimate Cancelled Plt Morphology Comment Cancelled RBC Morphology Cancelled Polychromasia Cancelled Hypochromasia Cancelled Poikilocytosis Cancelled Basophilic Stippling Cancelled Anisocytosis Cancelled Microcytosis Cancelled Macrocytosis Cancelled Spherocytes Cancelled Sickle Cells Cancelled Target Cells Cancelled Tear Drop Cells Cancelled Ovalocytes Cancelled Stomatocytes Cancelled Tai-Shorter Bodies Cancelled Melody Cells Cancelled Bite Cells Cancelled Crenated Cell Cancelled Acanthocytes (Spur) Cancelled Rouleaux Cancelled Schistocytes Cancelled Sodium 136 Potassium 3.8 Chloride 100 Carbon Dioxide 26.0 Anion Gap 10 BUN 22 H Creatinine 1.31 H Estim Creat Clear Calc 26.65 Est GFR (MDRD) Af Amer 51 L Est GFR (MDRD) Non-Af 42 L BUN/Creatinine Ratio 16.8 Glucose 142 H Lactic Acid 1.9 Calcium 8.8 Blood Type Antibody Screen Crossmatch 01/03/23 01/03/23 15:45 16:24 WBC 6.1 Corrected WBC RBC 1.98 L Hgb 6.9 L Hct 22.6 L MCV 114.1 H MCH 34.8 H MCHC 30.5 L RDW Std Deviation 119.2 H RDW Coeff of Kylie 29.8 H Plt Count 89 L MPV Immature Gran % (Auto) Neut % (Auto) Not Reportable Lymph % (Auto) Independence % (Auto) Eos % (Auto) Baso % (Auto) Absolute Neuts (auto) 3.9 Absolute Lymphs (auto) 1.41 Total Counted 100 Neutrophils % (Manual) 38 L Band Neutrophils % 7 H Lymphocytes % (Manual) 23 Monocytes % (Manual) 1 Eosinophils % (Manual) 7 H Basophils % (Manual) Metamyelocytes % 6 H Myelocytes % 12 H Promyelocytes % Blast Cells % 6 H* Plasma Cell % (Manual) Other Cells % Nucleated RBC % Nucleated RBCs/100 WBC 6 H Differential Comment Diff Path Review May foll Hypersegmented Neuts Atypical Lymphocytes Reactive Lymphocytes Smudge Cells Toxic Granulation Toxic Vacuolation Dohle Bodies Valeria Rods Platelet Estimate MOD DEC Plt Morphology Comment RBC Morphology Polychromasia 1+ Hypochromasia Poikilocytosis Basophilic Stippling Anisocytosis 3+ Microcytosis 1+ Macrocytosis 1+ Spherocytes Sickle Cells Target Cells Tear Drop Cells Ovalocytes 1+ Stomatocytes Tai-Shorter Bodies [place] Cells Bite Cells Crenated Cell Acanthocytes (Spur) Rouleaux Schistocytes Sodium Potassium Chloride Carbon Dioxide Anion Gap BUN Creatinine Estim Creat Clear Calc Est GFR (MDRD) Af Amer Est GFR (MDRD) Non-Af BUN/Creatinine Ratio Glucose Lactic Acid Calcium Blood Type B POSITIVE Antibody Screen NEGATIVE Crossmatch See Detail Radiography Chest X-Ray - ED: 2 View and Read by ED Physician (2 view chest x-ray reveals port right side. Surgical clips left axillary region. Patient has an absent left breast. There is a small effusion noted on the left. There is atelectasis. There is increased interstitial markings on the right we will compare to prior films. There is no evidence of p) Diagnostic Testing: Clinical Impression(s) from Imaging Studies Chest X-Ray 01/03/23 15:01 IMPRESSION: New small left pleural effusion with left basilar atelectasis. Status post left mastectomy and left axillary node dissection. Electronically Signed: Saeed Lam MD at 15:34 EST , Rhythm Strip Rhythm Strip: Sinus Tach Rate: 129 Ectopy: None EKG Initial EKG: Attestation: I personally reviewed and interpreted this EKG as follows: Interpretation: Sinus Tachycardia (Rate is 128. NJ interval is 130 ms. Cures duration 80 ms. QT duration 330 ms. Britton is normal. There is evidence of left atrial enlargement. 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, Acute exacerbation of chronic obstructive pulmonary disease, Acute anemia, Acute bronchospasm, History of myelodysplastic syndrome, Sinus tachycardia, Symptomatic anemia, Signs and symptoms of anemia Prescriptions: No Action ascorbic acid (vitamin C) 500 MG capsule 500 mg PO DAILY polysaccharide iron complex 150 MG capsule 150 mg PO DAILYCM Qty: 30 0RF acetaminophen 500 MG tablet 1,000 mg PO Q6H PRN (Reason: Pain Score 1-3/10) 0RF potassium chloride 10 MEQ tablet 10 meq PO DAILY Qty: 30 0RF metoprolol tartrate 25 MG tablet 12.5 mg PO BID Qty: 30 0RF Rx Instructions: Giv3e 12.5 every morning and at bedtime related to essential (primary) hypertension, check b/p before administering, hold for SBP <100 or HR <60 multivitamin Tablet 1 tab PO DAILY levothyroxine [Synthroid] 50 mcg tablet 50 mcg PO DAILY Label Comments: TAKE 1 TABLET ORALLY ONCE PER DAY FOR 90 DAYS prednisone 20 mg Tablet 40 mg PO BREAKFAST Qty: 14 0RF cephalexin 500 mg capsule 500 mg PO TID 7 Days Qty: 21 0RF albuterol sulfate 90 mcg/actuation HFA aerosol inhaler 2 puff inhalation Q6H PRN (Reason: shortness of breath or wheezing) Qty: 8.5 0RF Primary Care Provider: Fish Harris Chi Referrals: Fish Harris Chi, MD [Primary Care Provider] - Disposition Disposition: Acute Care Hospital [facility]
[2023-01-03] MEDS: Ipratropium/Albuterol Sulfate 3 ML AMPUL.NEB INHALATION (15:35)
[2023-01-03] MEDS: Albuterol 2.5 MG/3 ML VIAL.NEB. INHALATION ×3 (15:35)
[2023-01-03] MEDS: MethylPREDNISolone 125 MG/2 ML Vial 60 MG IV (15:57)
[2023-01-03 16:16] LABS: Anion Gap 10 (5-15); BUN 22 mg/dL (7-18); BUN/Creat Ratio 16.8 RATIO (10-20); Calcium,Total 8.8 mg/dL (8.5-10.1); Chloride 100 mmol/L (98-107); Creatinine, Serum 1.31 mg/dL (0.55-1.02); EST Glomerular Filtration Rate 42 mL/min (>60); Est Glom Filt Rate - Afr Amer 51 mL/min (>60); Estimated Creatinine Clearance 26.65 ml/min; Glucose 142 mg/dL (74-106); Potassium 3.8 mmol/L (3.5-5.1); Sodium Level 136 mmol/L (136-145)
[2023-01-03 16:32] LABS: Lactic Acid 1.9 mmol/L (0.4-1.9)
[2023-01-03 16:34] LABS: Hematocrit 22.6 % (37-47); Hemoglobin 6.9 g/dL (12.0-15.0); Mean Corp Hgb Conc 30.5 g/dL (32-36); Mean Corpuscular Hgb 34.8 pg (27.0-32.0); Mean Corpuscular Volume 114.1 fL (81-99); POSITIVE COUNT YES; POSITIVE MORPHOLOGY YES; Platelet Count 89 K/mm3 (150-450); RBC Distribution Width CV 29.8 % (11.6-14.6); Red Blood Count 1.98 M/mm3 (4.2-5.4); White Blood Count 6.1 K/mm3 (4.4-11.0)
[2023-01-03 17:05] LABS: Blast 6 % (0-0); Eosinophil 7 % (0-5); Lymphocyte 23 % (19-41); Metamyelocyte 6 % (0-1); Monocyte 1 % (0-10); Myelocyte 12 % (0-0); Neutrophil-Band 7 % (0-5); Neutrophil-Segmented 38 % (47-70); Nucleated Red Bld Cells,Manual 6 % (0-5); Total Cells Counted 100 (MANUAL DIFF)
[2023-01-03 17:10] LABS: Differential Indicated MANUAL DIFF; RBC Distribution Width SD 119.2 fl (35.1-43.9)
[2023-01-03 17:12] LABS: Ovalocyte 1+; Platelet Estimate MOD DEC (ADEQ)
[2023-01-03 17:13] LABS: Anisocytosis 3+; Macrocytosis 1+; Microcytosis 1+
[2023-01-03 17:14] LABS: Polychromasia 1+
[2023-01-03 17:16] LABS: Absolute Neutrophil Count 3.9 X10^3/uL (2.0-7.7); Neutrophil # 3.86 X10^3/uL (2.7-7.7)
[2023-01-03 17:17] LABS: Absolute Lymphocyte Count 1.41 X10^3/uL (0.83-4.51); Lymphocyte # 1.41 X10^3/ul (0.83-4.51)
--- NOTE | 2023-01-03 19:26 | PCM.HP.STD ---
HPI - General General Date of Admission: 01/03/23 Date of Service: 01/03/23 Chief Complaint: sob HPI Narrative REBEKAH AVITIA, is a 77 F with a significant history of MDS and oxygen dependence COPD of 2 to 3 L who presents emergency department with 2-day history of shortness of breath. She reported her shortness of breath was actually improved. She reports runny nose and sore throat in the house since resolved. She denies fever or chills. She has a good appetite. At the emergency department she was found to be anemic. However patient denies any bloody discharge. Her stools are brown. A blast and other immature cells was found in patient's CBC. Emergency Department doctor discussed the case with Dr. Bejarano, oncologist at [facility] who stated that patient's current symptoms may be from infection and from MDS and the patient is not in a blast crisis. Patient reports mild dry cough. Emergency department and reports that patient was wheezing on auscultation. On presentation patient was on her normal home oxygen of 2 to 3 L. Reportedly patient was having tachycardia and tachypnea. [facility] Medical History Breast cancer Home Medications ascorbic acid (vitamin C) 500 mg capsule 500 mg PO DAILY supplement 01/17/20 [History Last Taken 08/09/22] acetaminophen 500 mg tablet 1,000 mg PO Q6H PRN Pain Score 1-3/10 01/21/20 [Rx Last Taken 08/10/22] metoprolol tartrate 25 mg tablet 12.5 mg PO BID BP #30 tabs 01/21/20 [Rx Last Taken 08/09/22] polysaccharide iron complex 150 mg iron capsule 150 mg PO DAILYCM #30 caps 01/21/20 [Rx Last Taken 08/09/22] potassium chloride 10 mEq tablet,extended release(part/cryst) 10 meq PO DAILY supplement #30 tabs 01/21/20 [Rx Last Taken 08/09/22] levothyroxine 50 mcg tablet (Synthroid) 50 mcg PO DAILY 08/10/22 [History Last Taken 08/09/22] multivitamin 1 tab PO DAILY 08/10/22 [History Last Taken 08/09/22] albuterol sulfate 90 mcg/actuation aerosol inhaler 2 puff inhalation Q6H PRN shortness of breath or wheezing #8.5 grams 08/13/22 [Rx Last Taken Unknown] cephalexin 500 mg capsule 500 mg PO TID 7 days #21 caps 08/13/22 [Rx Last Taken Unknown] prednisone 20 mg tablet 40 mg PO BREAKFAST #14 tabs 08/13/22 [Rx Last Taken Unknown] Allergy/AdvReac Type Severity Reaction Status Date / Time bacitracin Allergy Rash Verified 08/10/22 14:03 [From Neosporin ([id number])] neomycin Allergy Rash Verified 08/10/22 14:03 [From Neosporin ([id number])] polymyxin B Allergy Rash Verified 08/10/22 14:03 [From Neosporin ([id number])] Family History Sister Breast cancer Sister Breast cancer Sister Breast cancer Sister Breast cancer Surgical History H/O mastectomy H/O: hysterectomy Tubal ligation status Social History household members: none Smoking Status: Current every day smoker tobacco type: cigarettes substance use type: does not use ROS ROS Narrative Pertinent positives and pertinent negatives as noted in HPI. All other systems were reviewed and are negative Vital Signs Vital Signs Vital Signs: 01/03/23 14:48 01/03/23 14:53 01/03/23 14:54 Temperature 97 F L Temperature Source Temporal Pulse Rate 135 H 80 Respiratory Rate 19 H Respiratory Effort Short of Breath Labored Blood Pressure 140/117 H Blood Pressure Mean 124 Pulse Ox 92 Oxygen Delivery Method Room Air Nasal Cannula Oxygen Flow Rate (L/min) 2 01/03/23 15:51 01/03/23 15:48 01/03/23 15:57 Temperature 99.5 F H Temperature Source Oral Pulse Rate 131 H 131 H 120 H Respiratory Rate 24 H 24 H 17 Respiratory Effort Blood Pressure 126/58 H 126/58 H Blood Pressure Mean 80 80 Pulse Ox 97 96 Oxygen Delivery Method Nasal Cannula Nasal Cannula Oxygen Flow Rate (L/min) 2 2 01/03/23 15:57 01/03/23 16:48 01/03/23 18:05 Temperature 99.6 F H Temperature Source Oral Pulse Rate 126 H 126 H Respiratory Rate 22 H 26 H Respiratory Effort Blood Pressure 117/49 L 111/67 Blood Pressure Mean 71 81 Pulse Ox 97 97 97 Oxygen Delivery Method Nasal Cannula Nasal Cannula Nasal Cannula Oxygen Flow Rate (L/min) 2 2 2 Weight Weight: 64.3 kg Body Mass Index (BMI) 27.6 Physical Exam Narrative Physical exam: General: Well-nourished, well-developed. Head: Normocephalic, atraumatic, no tenderness Eyes: Vision is grossly intact. Conjunctival injection of the left eye. EOMI ENT, no trauma, dry mucous membranes, no rhinorrhea Neck: Nontender, No thyromegaly. CVS: Regular rate and rhythm. S1-S2 present. No murmur, gallop or rub. Respiratory : Diminished, chest wall nontender, no wheezing Abdomen: Soft, nontender, nondistended, normal bowel sounds, no masses : Deferred Back: Nontender, no CVA tenderness Extremities: Nontender full range of motion, no trauma Skin: Pale, no trauma, abrasions Neuro: Alert, oriented, cranial nerves II through XII grossly intact. Psychiatry: Normal mood. Normal affect. Not depressed. Not anxious. Results Lab / Micro Data Result Diagrams: 01/03/23 15:45 01/03/23 15:45 Labs: Laboratory Results - last 24 hr 01/03/23 15:45: WBC Cancelled, Corrected WBC Cancelled, RBC Cancelled, Hgb Cancelled, Hct Cancelled, MCV Cancelled, MCH Cancelled, MCHC Cancelled, RDW Std Deviation Cancelled, RDW Coeff of Kylie Cancelled, Plt Count Cancelled, MPV Cancelled, Immature Gran % (Auto) Cancelled, Neut % (Auto) Cancelled, Lymph % (Auto) Cancelled, [place] % (Auto) Cancelled, Eos % (Auto) Cancelled, Baso % (Auto) Cancelled, Absolute Neuts (auto) Cancelled, Absolute Lymphs (auto) Cancelled, Total Counted Cancelled, Neutrophils % (Manual) Cancelled, Band Neutrophils % Cancelled, Lymphocytes % (Manual) Cancelled, Monocytes % (Manual) Cancelled, Eosinophils % (Manual) Cancelled, Basophils % (Manual) Cancelled, Metamyelocytes % Cancelled, Myelocytes % Cancelled, Promyelocytes % Cancelled, Blast Cells % Cancelled, Plasma Cell % (Manual) Cancelled, Other Cells % Cancelled, Nucleated RBC % Cancelled, Nucleated RBCs/100 WBC Cancelled, Differential Comment Cancelled, Diff Path Review Cancelled, Hypersegmented Neuts Cancelled, Atypical Lymphocytes Cancelled, Reactive Lymphocytes Cancelled, Smudge Cells Cancelled, Toxic Granulation Cancelled, Toxic Vacuolation Cancelled, Dohle Bodies Cancelled, Valeria Rods Cancelled, Platelet Estimate Cancelled, Plt Morphology Comment Cancelled, RBC Morphology Cancelled, Polychromasia Cancelled, Hypochromasia Cancelled, Poikilocytosis Cancelled, Basophilic Stippling Cancelled, Anisocytosis Cancelled, Microcytosis Cancelled, Macrocytosis Cancelled, Spherocytes Cancelled, Sickle Cells Cancelled, Target Cells Cancelled, Tear Drop Cells Cancelled, Ovalocytes Cancelled, Stomatocytes Cancelled, [place] Bodies Cancelled, [place] Cells Cancelled, Bite Cells Cancelled, Crenated Cell Cancelled, Acanthocytes (Spur) Cancelled, Rouleaux Cancelled, Schistocytes Cancelled 01/03/23 15:45: Sodium 136, Potassium 3.8, Chloride 100, Carbon Dioxide 26.0, Anion Gap 10, BUN 22 H, Creatinine 1.31 H, Estim Creat Clear Calc 26.65, Est GFR (MDRD) Af Amer 51 L, Est GFR (MDRD) Non-Af 42 L, BUN/Creatinine Ratio 16.8, Glucose 142 H, Calcium 8.8 01/03/23 15:45: Lactic Acid 1.9 01/03/23 15:45: WBC 6.1, RBC 1.98 L, Hgb 6.9 L, Hct 22.6 L, MCV 114.1 H, MCH 34.8 H, MCHC 30.5 L, RDW Std Deviation 119.2 H, RDW Coeff of Kylie 29.8 H, Plt Count 89 L, Neut % (Auto) Not Reportable, Absolute Neuts (auto) 3.9, Absolute Lymphs (auto) 1.41, Total Counted 100, Neutrophils % (Manual) 38 L, Band Neutrophils % 7 H, Lymphocytes % (Manual) 23, Monocytes % (Manual) 1, Eosinophils % (Manual) 7 H, Metamyelocytes % 6 H, Myelocytes % 12 H, Blast Cells % 6 H*, Nucleated RBCs/100 WBC 6 H, Diff Path Review May foll, Platelet Estimate MOD DEC, Polychromasia 1+, Anisocytosis 3+, Microcytosis 1+, Macrocytosis 1+, Ovalocytes 1+ 01/03/23 16:24: Blood Type B POSITIVE, Antibody Screen NEGATIVE, Crossmatch See Detail Micro: Microbiology 01/03/23 16:20 Stool Stool Occult Blood (ECHO) - Final 01/03/23 15:46 Nasal Secretion SARS-CoV-2 & FLU Antigen (Rapid) - Final Rhythm Strip Rhythm Strip: Sinus Tach Rate: 129 Ectopy: None Radiology Impression Chest X-Ray 01/03/23 15:01 IMPRESSION: New small left pleural effusion with left basilar atelectasis. Status post left mastectomy and left axillary node dissection. Electronically Signed: Saeed Lam MD at 15:34 EST , Assessment & Plan Assessment/Plan (1) Symptomatic anemia: (2) ANALI (acute kidney injury): (3) COPD exacerbation: (4) MDS (myelodysplastic syndrome): PLAN: Plan Symptomatic anemia/MDS Review of CBC showed hemoglobin of 6.9. Reportedly patient's hemoglobin was 7.2 about a month ago in the [facility] system as reported by oncologist to emergency department doctor. Patient's hemoglobin in our hospital system ([facility]) in 2021 range from 10.7-14.1. Bandemia of 7%. Presence of metamyelocytes and myelocytes. Blast cells of 6 presents. Per recommendation from oncologist detailed emergency department Patient will be accepted to the hospital on observation status and transfusion of 2 units of blood. H&H 1 hour after transfusion. Trend CBC. COPD exacerbation Impression of chest x-ray by radiologist: New small left pleural effusion with left basilar atelectasis. Status post left mastectomy and left axillary node dissection. Chest x-ray was visualized and independently interpreted and I agree with radiologist interpretation. Doxycycline started at the emergency department and continue. As needed albuterol inhaler ordered. DuoNeb and Solu-Medrol around the clock ordered ordered. Continue oxygen supplementation to keep oxygen saturations at least 90% ANALI on CKD stage IIIa Patient with dry mucous membranes. Anemic. Creatinine presentation was 1.31. Baseline creatinine is around 0.9. Blood transfusion as above. Gentle IV hydration. Trend BMP. Chronic Thrombocytopenia Likely from MDS. Stable Trend CBC. DVT prophylaxis: SCDs ordered. Charges/Coding Visit Charges Inpatient E&M: 93450 Init Hosp L3
[2023-01-03] MEDS: Doxycycline 100 MG CAPSULE PO (20:46)
[2023-01-04] VITALS (15 sets, daily range): BP systolic 100–128; BP diastolic 42–66; PULSE 78–122; RESP 14–22; TEMP 36.4–37.1; O2SAT 20–98
[2023-01-04] MEDS: 0.9% Saline Lock 10 ML Syringe IV (00:13)
[2023-01-04] MEDS: 0.9% Normal Saline 1,000 ML 75 ML IV (02:26)
[2023-01-04 06:06] LABS: Hematocrit 29.7 % (37-47); Hemoglobin 9.4 g/dL (12.0-15.0); Mean Corp Hgb Conc 31.6 g/dL (32-36); POSITIVE COUNT YES; POSITIVE MORPHOLOGY YES; Platelet Count 92 K/mm3 (150-450); RBC Distribution Width CV 25.9 % (11.6-14.6); RBC Distribution Width SD 75.5 fl (35.1-43.9); Red Blood Count 2.94 M/mm3 (4.2-5.4)
[2023-01-04 06:10] LABS: Differential Indicated MANUAL DIFF
[2023-01-04 06:41] LABS: Anion Gap 8 (5-15); BUN 24 mg/dL (7-18); BUN/Creat Ratio 32.4 RATIO (10-20); Calcium,Total 8.8 mg/dL (8.5-10.1); Chloride 107 mmol/L (98-107); Creatinine, Serum 0.74 mg/dL (0.55-1.02); EST Glomerular Filtration Rate 81 mL/min (>60); Est Glom Filt Rate - Afr Amer 98 mL/min (>60); Estimated Creatinine Clearance 34.91 ml/min; Glucose 246 mg/dL (74-106); Sodium Level 141 mmol/L (136-145)
[2023-01-04 06:52] LABS: Anisocytosis 3+; Macrocytosis 1+; Platelet Estimate MOD DEC (ADEQ)
[2023-01-04 06:59] LABS: Absolute Lymphocyte Count 1.15 X10^3/uL (0.83-4.51); Absolute Neutrophil Count 4.5 X10^3/uL (2.0-7.7)
[2023-01-04 07:00] LABS: Blast 6 % (0-0); Lymphocyte 15 % (19-41); Monocyte 12 % (0-10); Myelocyte 8 % (0-0); Neutrophil-Band 13 % (0-5); Neutrophil-Segmented 46 % (47-70); Total Cells Counted 106 (MANUAL DIFF)
[2023-01-04 07:01] LABS: Atypical Lymphocyte 2+ %; Corrected WBC 7.7 K/mm3 (4.4-11.0); Nucleated Red Bld Cells,Manual 6 % (0-5)
[2023-01-04] MEDS: Ipratropium/Albuterol Sulfate 3 ML AMPUL.NEB INHALATION (07:03)
--- NOTE | 2023-01-04 07:35 | PN.HOSP_ITS ---
Reason for Visit Reason for Visit: Diagnoses Myelodysplastic syndrome, unspecified (01/03/23) Anemia, unspecified (01/03/23) Chronic obstructive pulmonary disease with (acute) exacerbation (01/03/23) Acute kidney failure, unspecified (01/03/23) Subjective Subjective Patient is a 77-year-old lady with history of myelodysplastic syndrome who prese nted with shortness of breath found to be anemic with hemoglobin of 6.9 Objective Data Objective Data Vital Signs: Vital Signs Temp Pulse Resp BP Pulse Ox O2 Del Method O2 Flow Rate 97.9 F 116 H 22 H 125/54 H 96 Nasal Cannula 2 01/04/23 02:16 01/04/23 02:16 01/04/23 02:30 01/04/23 02:16 01/04/23 02:16 01/04/23 02:30 01/04/23 02:30 Oxygen Flow Rate (L/min) 2 Oxygen Delivery Method Nasal Cannula Weight: 60.583 kg Body Mass Index (BMI) 26.1 Intake & Output: Intake and Output for Last 24 Hours 01/02/23 01/03/23 01/04/23 23:59 23:59 23:59 Intake Total 0 / 0 400 / 400 Balance 0 / 0 400 / 400 Lab / Micro Data Result Diagrams: 01/04/23 05:30 01/04/23 05:30 Labs: Laboratory Results - last 24 hr 01/03/23 15:45: WBC Cancelled, Corrected WBC Cancelled, RBC Cancelled, Hgb Cancelled, Hct Cancelled, MCV Cancelled, MCH Cancelled, MCHC Cancelled, RDW Std Deviation Cancelled, RDW Coeff of Kylie Cancelled, Plt Count Cancelled, MPV Cancelled, Immature Gran % (Auto) Cancelled, Neut % (Auto) Cancelled, Lymph % (Auto) Cancelled, [place] % (Auto) Cancelled, Eos % (Auto) Cancelled, Baso % (Auto) Cancelled, Absolute Neuts (auto) Cancelled, Absolute Lymphs (auto) Cancelled, Total Counted Cancelled, Neutrophils % (Manual) Cancelled, Band Neutrophils % Cancelled, Lymphocytes % (Manual) Cancelled, Monocytes % (Manual) Cancelled, Eosinophils % (Manual) Cancelled, Basophils % (Manual) Cancelled, Metamyelocytes % Cancelled, Myelocytes % Cancelled, Promyelocytes % Cancelled, Blast Cells % Cancelled, Plasma Cell % (Manual) Cancelled, Other Cells % Cancelled, Nucleated RBC % Cancelled, Nucleated RBCs/100 WBC Cancelled, Differential Comment Cancelled, Diff Path Review Cancelled, Hypersegmented Neuts Cancelled, Atypical Lymphocytes Cancelled, Reactive Lymphocytes Cancelled, Smudge Cells Cancelled, Toxic Granulation Cancelled, Toxic Vacuolation Cancelled, Dohle Bodies Cancelled, Valeria Rods Cancelled, Platelet Estimate Cancelled, Plt Morphology Comment Cancelled, RBC Morphology Cancelled, Polychromasia Cancelled, Hypochromasia Cancelled, Poikilocytosis Cancelled, Basophilic Stippling Cancelled, Anisocytosis Cancelled, Microcytosis Cancelled, Macrocytosis Cancelled, Spherocytes Cancelled, Sickle Cells Cancelled, Target Cells Cancelled, Tear Drop Cells Cancelled, Ovalocytes Cancelled, Stomatocytes Cancelled, [place] Bodies Cancelled, [place] Cells Cancelled, Bite Cells Can celled, Crenated Cell Cancelled, Acanthocytes (Spur) Cancelled, Rouleaux Cancelled, Schistocytes Cancelled 01/03/23 15:45: Sodium 136, Potassium 3.8, Chloride 100, Carbon Dioxide 26.0, Anion Gap 10, BUN 22 H, Creatinine 1.31 H, Estim Creat Clear Calc 26.65, Est GFR (MDRD) Af Amer 51 L, Est GFR (MDRD) Non-Af 42 L, BUN/Creatinine Ratio 16.8, Glucose 142 H, Calcium 8.8 01/03/23 15:45: Lactic Acid 1.9 01/03/23 15:45: WBC 6.1, RBC 1.98 L, Hgb 6.9 L, Hct 22.6 L, MCV 114.1 H, MCH 34.8 H, MCHC 30.5 L, RDW Std Deviation 119.2 H, RDW Coeff of Kylie 29.8 H, Plt Count 89 L, Neut % (Auto) Not Reportable, Absolute Neuts (auto) 3.9, Absolute Lymphs (auto) 1.41, Total Counted 100, Neutrophils % (Manual) 38 L, Band Neutrophils % 7 H, Lymphocytes % (Manual) 23, Monocytes % (Manual) 1, Eosinophils % (Manual) 7 H, Metamyelocytes % 6 H, Myelocytes % 12 H, Blast Cells % 6 H*, Nucleated RBCs/100 WBC 6 H, Diff Path Review May foll, Platelet Estimate MOD DEC, Polychromasia 1+, Anisocytosis 3+, Microcytosis 1+, Macrocytosis 1+, Ovalocytes 1+ 01/03/23 16:24: Blood Type B POSITIVE, Antibody Screen NEGATIVE, Crossmatch See Detail 01/04/23 05:30: WBC AUTO CAMP ATTENDANT, Corrected WBC 7.7, RBC 2.94 L, Hgb 9.4 L, Hct 29.7 L, MCV 101.0 H D, MCH 32.0, MCHC 31.6 L, RDW Std Deviation 75.5 H, RDW Coeff of Kylie 25.9 H, Plt Count 92 L, Neut % (Auto) Not Reportable, Absolute Neuts (auto) 4.5, Absolute Lymphs (auto) 1.15, Total Counted 106, Neutrophils % (Manual) 46 L, Band Neutrophils % 13 H, Lymphocytes % (Manual) 15 L, Monocytes % (Manual) 12 H, Myelocytes % 8 H, Blast Cells % 6 H*, Nucleated RBCs/100 WBC 6 H, Diff Path Review May lori, Atypical Lymphocytes 2+, Platelet Estimate MOD DEC, Anisocytosis 3+, Macrocytosis 1+ 01/04/23 05:30: Sodium 141, Potassium 4.0, Chloride 107, Carbon Dioxide 26.0, Anion Gap 8, BUN 24 H, Creatinine 0.74, Estim Creat Clear Calc 34.91, Est GFR (MDRD) Af Amer 98, Est GFR (MDRD) Non-Af 81, BUN/Creatinine Ratio 32.4 H, Glucose 246 H, Calcium 8.8 Micro: Microbiology 01/03/23 16:20 Stool Stool Occult Blood (ECHO) - Final 01/03/23 15:46 Nasal Secretion SARS-CoV-2 & FLU Antigen (Rapid) - Final Radiography Diagnostic Testing: Radiology Impression Chest X-Ray 01/03/23 15:01 IMPRESSION: New small left pleural effusion with left basilar atelectasis. Status post left mastectomy and left axillary node dissection. Electronically Signed: Saeed Lam MD at 15:34 EST , Rhythm Strip Rhythm Strip: Sinus Tach Rate: 129 Ectopy: None Physical Exam Narrative GENERAL: cooperative HEENT: Atraumatic; normocephalic EYES; Anicteric, Normal Conjunctiva NECK; supple, normal thyroid, RESPIRATORY: Diminished to auscultation CARDIOVASCULAR: Regular S1 S2, GI: soft, normoactive bowel sounds, : No Renal angle tenderness; EXTREMITIES: No edema, no clubbing, MUSCULOSKELETAL: no muscle wasting NEURO: Awake; no lateralizing signs. SKIN: No Rash PSYCH; Flat affect Assessment & Plan Assessment/Plan (1) Symptomatic anemia: (2) ANALI (acute kidney injury): (3) COPD exacerbation: (4) MDS (myelodysplastic syndrome): PLAN: Plan Patient is a 77-year-old lady with history of myelodysplastic syndrome who presented with shortness of breath found to be anemic with hemoglobin of 6.9 1. Symptomatic anemia ? Secondary to myelodysplastic syndrome. Admitted to regular nursing floor. An order was given for patient to be transfused with 2 unit PRBC. Post transfusion H&H ordered 2. COPD ? With acute exacerbation management aerosol treatment, systemic steroid and antibiotic therapy. Patient was also placed on supplemental oxygen titrated to keep saturation greater than 90 3. Acute kidney injury ? Creatinine on admission was 1.31 rehydrated back to baseline 0.74 4. Chronic thrombocytopenia ? Secondary to myelodysplastic syndrome monitoring with daily CBC with differential 5. Hypertension - Blood pressure controlled, home medications continued with dose adjustment as needed 6. DVT prophylaxis ? SCDs Time spent in the patient's overall evaluation,decision-making process, review of diagnostic data, adjustment of management, discussion with other providers, nursing nursing and ancillary staff involved in patient's care documentation, 38 Minutes Charges/Coding Visit Charges Inpatient E&M: 46475 Disch Hosp >30min
--- NOTE | 2023-01-04 08:12 | PN_ITS ---
Progress Note The patient would qualify for Outpatient Pulmonary Rehabilitation Services based on her current diagnosis and previous pulmonary history. The HI services would need to be ordered by her PCP or terrazzo grinder at the time of discharge. Thank you. MIGUEL Bello STRIPER SPRAY GUN, DINKEY BRAKEMAN Clinical Production Broacher Cardio-Pulmonary Rehabilitation
--- NOTE | 2023-01-04 08:12 | PCM.PN.BLA ---
Progress Note The patient would qualify for Outpatient Pulmonary Rehabilitation Services based on her current diagnosis and previous pulmonary history. The MO services would need to be ordered by her PCP or gear technician at the time of discharge. Thank you. MIGUEL Bello PAPER BALING MACHINE OPERATOR, CRA OFFICER Clinical [place] [facility] Lab Technician Cardio-Pulmonary Rehabilitation
--- NOTE | 2023-01-04 09:16 | DS.PCM_ITS ---
Providers Date of Admission: 01/03/23 Date of Discharge: 01/04/23 Primary Care Physician: Dr. Fish Harris MD Reason For Visit: COPD EXACERBATION Diagnosis Discharge Diagnosis (1) Symptomatic anemia: Status: Acute Code(s): D64.9 - Anemia, unspecified (2) ANALI (acute kidney injury): Status: Acute Code(s): N17.9 - Acute kidney failure, unspecified (3) COPD exacerbation: Status: Chronic Code(s): J44.1 - Chronic obstructive pulmonary disease with (acute) exacerbation (4) MDS (myelodysplastic syndrome): Status: Acute Code(s): D46.9 - Myelodysplastic syndrome, unspecified Plan Patient is a 77-year-old lady with history of myelodysplastic syndrome who presented with shortness of breath found to be anemic with hemoglobin of 6.9 1. Symptomatic anemia ? Secondary to myelodysplastic syndrome. Admitted to regular nursing floor. An order was given for patient to be transfused with 2 unit PRBC. Post transfusion H&H ordered 2. COPD ? With acute exacerbation management aerosol treatment, systemic steroid and antibiotic therapy. Patient was also placed on supplemental oxygen titrated to keep saturation greater than 90 3. Acute kidney injury ? Creatinine on admission was 1.31 rehydrated back to baseline 0.74 4. Chronic thrombocytopenia ? Secondary to myelodysplastic syndrome monitoring with daily CBC with differential 5. Hypertension - Blood pressure controlled, home medications continued with dose adjustment as needed 6. DVT prophylaxis ? SCDs Time spent in the patient's overall evaluation,decision-making process, review o f diagnostic data, adjustment of management, discussion with other providers, nursing nursing and ancillary staff involved in patient's care documentation, 38 Minutes Medications at Discharge Home Medications ascorbic acid (vitamin C) 500 mg capsule 500 mg PO DAILY supplement 01/17/20 acetaminophen 500 mg tablet 1,000 mg PO Q6H PRN Pain Score 1-3/10 01/21/20 metoprolol tartrate 25 mg tablet 12.5 mg PO BID BP #30 tabs 01/21/20 polysaccharide iron complex 150 mg iron capsule 150 mg PO DAILYCM #30 caps 01/21/20 potassium chloride 10 mEq tablet,extended release(part/cryst) 10 meq PO DAILY supplement #30 tabs 01/21/20 multivitamin 1 tab PO DAILY 08/10/22 albuterol sulfate 90 mcg/actuation aerosol inhaler 2 puff inhalation Q6H PRN shortness of breath or wheezing #8.5 grams 08/13/22 doxycycline monohydrate 100 mg capsule 100 mg PO BID #10 caps 01/04/23 prednisone 20 mg tablet 20 mg PO BID #10 tabs 01/04/23 Hospital Course Summary of Care Provided Minutes Spent on Discharge: 38 Physical Exam Narrative GENERAL: cooperative HEENT: Atraumatic; normocephalic EYES; Anicteric, Normal Conjunctiva NECK; supple, normal thyroid, RESPIRATORY: Diminished to auscultation CARDIOVASCULAR: Regular S1 S2, GI: soft, normoactive bowel sounds, : No Renal angle tenderness; EXTREMITIES: No edema, no clubbing, MUSCULOSKELETAL: no muscle wasting NEURO: Awake; no lateralizing signs. SKIN: No Rash PSYCH; Flat affect Weight / BMI Weight Weight: 60.583 kg Body Mass Index (BMI) 26.1 ABG / Lab / Microbiology Data Result Diagrams: 01/04/23 05:30 01/04/23 05:30 Laboratory: Laboratory Results - last 24 hr 01/03/23 15:45: WBC Cancelled, Corrected WBC Cancelled, RBC Cancelled, Hgb Cancelled, Hct Cancelled, MCV Cancelled, MCH Cancelled, MCHC Cancelled, RDW Std Deviation Cancelled, RDW Coeff of Kylie Cancelled, Plt Count Cancelled, MPV Cancelled, Immature Gran % (Auto) Cancelled, Neut % (Auto) Cancelled, Lymph % (Auto) Cancelled, [place] % (Auto) Cancelled, Eos % (Auto) Cancelled, Baso % (Auto) Cancelled, Absolute Neuts (auto) Cancelled, Absolute Lymphs (auto) Cancelled, Total Counted Cancelled, Neutrophils % (Manual) Cancelled, Band Neutrophils % Cancelled, Lymphocytes % (Manual) Cancelled, Monocytes % (Manual) Cancelled, Eosinophils % (Manual) Cancelled, Basophils % (Manual) Cancelled, Metamyelocytes % Cancelled, Myelocytes % Cancelled, Promyelocytes % Cancelled, Blast Cells % Ca ncelled, Plasma Cell % (Manual) Cancelled, Other Cells % Cancelled, Nucleated RBC % Cancelled, Nucleated RBCs/100 WBC Cancelled, Differential Comment Cancelled, Diff Path Review Cancelled, Hypersegmented Neuts Cancelled, Atypical Lymphocytes Cancelled, Reactive Lymphocytes Cancelled, Smudge Cells Cancelled, Toxic Granulation Cancelled, Toxic Vacuolation Cancelled, Dohle Bodies Cancelled, Valeria Rods Cancelled, Platelet Estimate Cancelled, Plt Morphology Comment Cancelled, RBC Morphology Cancelled, Polychromasia Cancelled, Hypochromasia Cancelled, Poikilocytosis Cancelled, Basophilic Stippling Ca ncelled, Anisocytosis Cancelled, Microcytosis Cancelled, Macrocytosis Cancelled, Spherocytes Cancelled, Sickle Cells Cancelled, Target Cells Cancelled, Tear Drop Cells Cancelled, Ovalocytes Cancelled, Stomatocytes Cancelled, Tai-Violet Bodies Cancelled, Trimont Cells Cancelled, Bite Cells Cancelled, Crenated Cell Cancelled, Acanthocytes (Spur) Cancelled, Rouleaux Cancelled, Schistocytes Cancelled 01/03/23 15:45: Sodium 136, Potassium 3.8, Chloride 100, Carbon Dioxide 26.0, Anion Gap 10, BUN 22 H, Creatinine 1.31 H, Estim Creat Clear Calc 26.65, Est GFR (MDRD) Af Amer 51 L, Est GFR (MDRD) Non-Af 42 L, BUN/Creatinine Ratio 16.8, Glucose 142 H, Calcium 8.8 01/03/23 15:45: Lactic Acid 1.9 01/03/23 15:45: WBC 6.1, RBC 1.98 L, Hgb 6.9 L, Hct 22.6 L, MCV 114.1 H, MCH 34.8 H, MCHC 30.5 L, RDW Std Deviation 119.2 H, RDW Coeff of Kylie 29.8 H, Plt Count 89 L, Neut % (Auto) Not Reportable, Absolute Neuts (auto) 3.9, Absolute Lymphs (auto) 1.41, Total Counted 100, Neutrophils % (Manual) 38 L, Band Neutrophils % 7 H, Lymphocytes % (Manual) 23, Monocytes % (Manual) 1, Eosinophils % (Manual) 7 H, Metamyelocytes % 6 H, Myelocytes % 12 H, Blast Cells % 6 H*, Nucleated RBCs/100 WBC 6 H, Diff Path Review March foll, Platelet Estimate MOD DEC, Polychromasia 1+, Anisocytosis 3+, Microcytosis 1+, Macrocytosis 1+, Ovalocytes 1+ 01/03/23 16:24: Blood Type B POSITIVE, Antibody Screen NEGATIVE, Crossmatch See Detail 01/04/23 05:30: WBC TRAFFIC SIGN ERECTION SUPERVISOR, Corrected WBC 7.7, RBC 2.94 L, Hgb 9.4 L, Hct 29.7 L, MCV 101.0 H D, MCH 32.0, MCHC 31.6 L, RDW Std Deviation 75.5 H, RDW Coeff of Kylie 25.9 H, Plt Count 92 L, Neut % (Auto) Not Reportable, Absolute Neuts (auto) 4.5, Absolute Lymphs (auto) 1.15, Total Counted 106, Neutrophils % (Manual) 46 L, Band Neutrophils % 13 H, Lymphocytes % (Manual) 15 L, Monocytes % (Manual) 12 H, Myelocytes % 8 H, Blast Cells % 6 H*, Nucleated RBCs/100 WBC 6 H, Diff Path Review May foll, Atypical Lymphocytes 2+, Platelet Estimate MOD DEC, Aniso cytosis 3+, Macrocytosis 1+ 01/04/23 05:30: Sodium 141, Potassium 4.0, Chloride 107, Carbon Dioxide 26.0, Anion Gap 8, BUN 24 H, Creatinine 0.74, Estim Creat Clear Calc 34.91, Est GFR (MDRD) Af Amer 98, Est GFR (MDRD) Non-Af 81, BUN/Creatinine Ratio 32.4 H, Glucose 246 H, Calcium 8.8 Microbiology: Microbiology 01/03/23 16:20 Stool Stool Occult Blood (ECHO) - Final 01/03/23 15:46 Nasal Secretion SARS-CoV-2 & FLU Antigen (Rapid) - Final Radiography Diagnostic Testing: Radiology Impression Chest X-Ray 01/03/23 15:01 IMPRESSION: New small left pleural effusion with left basilar atelectasis. Status post left mastectomy and left axillary node dissection. Electronically Signed: Saeed Lam MD at 15:34 EST , D/C Instructions Discharge Diet: No restrictions Discharge Activity: Return to Normal Activity Call your doctor if you observe: Fever of 101 or Higher, Shortness of breath, Fainting spells and Chest pain Meaningful Use Info Meaningful Use Diagnoses (Choose all that apply): None applicable Discharge Plan Admission Admit Date/Time: 01/03/23 19:14 Attending Provider: Gary Guerra Primary Care Provider: Fish Harris Chi Consulting Providers: Sukhjinder Wade Discharge Orders/Prescriptions Prescriptions: New doxycycline monohydrate 100 mg Capsule 100 mg PO BID Qty: 10 0RF prednisone 20 mg tablet 20 mg PO BID Qty: 10 0RF Continued ascorbic acid (vitamin C) 500 MG capsule 500 mg PO DAILY polysaccharide iron complex 150 MG capsule 150 mg PO DAILYCM Qty: 30 0RF acetaminophen 500 MG tablet 1,000 mg PO Q6H PRN (Reason: Pain Score 1-3/10) 0RF potassium chloride 10 MEQ tablet 10 meq PO DAILY Qty: 30 0RF metoprolol tartrate 25 MG tablet 12.5 mg PO BID Qty: 30 0RF Rx Instructions: Giv3e 12.5 every morning and at bedtime related to essential (primary) hypertension, check b/p before administering, hold for SBP <100 or HR <60 multivitamin Tablet 1 tab PO DAILY albuterol sulfate 90 mcg/actuation HFA aerosol inhaler 2 puff inhalation Q6H PRN (Reason: shortness of breath or wheezing) Qty: 8.5 0RF Discontinued cephalexin 500 mg capsule 500 mg PO TID 7 Days Qty: 21 0RF Referrals / Follow Up: Fish Harris Chi, MD [Primary Care Provider] - Disposition Disposition (needs filled in before D/C Order can be placed): Home, Self Care Charges/Coding Visit Charges Inpatient E&M: 07972 Disch Hosp >30min
[2023-01-04] MEDS: Furosemide 100 MG/10 ML Vial 60 MG IV (10:17)
[2023-01-04] MEDS: Doxycycline 100 MG CAPSULE PO (10:17)
--- NOTE | 2023-01-04 10:56 | PHA.DC.MC ---
Pharmacy Service has performed discharge medication reconciliation and counseling for this patient. 1. DOXYCYCLINE 100MG PO BID X 5 DAYS 2. PREDNISONE 20MG PO BID X 5 DAYS The patient's discharge medication list was reviewed for discrepancies and discrepancies were resolved. Home Medications ascorbic acid (vitamin C) 500 mg capsule 500 mg PO DAILY supplement 01/17/20 acetaminophen 500 mg tablet 1,000 mg PO Q6H PRN Pain Score 1-3/10 01/21/20 metoprolol tartrate 25 mg tablet 12.5 mg PO BID BP #30 tabs 01/21/20 polysaccharide iron complex 150 mg iron capsule 150 mg PO DAILYCM #30 caps 01/21/20 potassium chloride 10 mEq tablet,extended release(part/cryst) 10 meq PO DAILY supplement #30 tabs 01/21/20 multivitamin 1 tab PO DAILY 08/10/22 albuterol sulfate 90 mcg/actuation aerosol inhaler 2 puff inhalation Q6H PRN shortness of breath or wheezing #8.5 grams 08/13/22 doxycycline monohydrate 100 mg capsule 100 mg PO BID #10 caps 01/04/23 prednisone 20 mg tablet 20 mg PO BID #10 tabs 01/04/23 The patient was counseled on the following discharge medications and changes in medications for homegoing were reviewed. The Reason for Use, instructions for use, and potential side effects were reviewed for all new medications. The patient's questions regarding all of their medications were answered. The patient was able to verbally demonstrate an understanding of their discharge medications.
--- NOTE | 2023-01-04 13:15 | CASEMGMT ---
Addendum entered by Carla Nolen 01/04/23 14:19: Home ambulatory oxygen testing completed. Pt does not qualify for home O2. Per Samara, pulse ox maintained 95/96% on RA w/ambulation. Dr Guerra was notified pt does not have home O2 orders and that she was using her late 's oxygen. He was also made aware ambulatory O2 testing completed and pt does not qualify for Home O2 at this time. Original Note: RITU ROBISON NOTE: Pt being discharged home. RITU ROBISON to room. Met w/pt and dtr, Aisha, who is at bedside. Introduced self and role. Pt lives alone in a mobile home w/3 steps to enter. She is active w/[facility]. Call to Livia @ [facility], who states pt receives SN and PT. Discharge summary faxed to [facility] at this time, per Livia request. Per pt and dtr, pt is doing well @ home. Pt states she drives and does her own grocery shopping. Pt states she wears oxygen @ home. RITU ROBISON inquired what physician ordered the oxygen and what co she gets her oxygen thru. Initially pt stated they bought the tank, but then dtr stated pt has been using her late 's oxygen and they do not have orders from a physician for oxygen. Dtr states she does not know if pt even needs to wear it. Pt will need home ambulatory oxygen testing completed. Samara CHANEY, made aware. Pt does not have a pulse ox, but they would like to her to have one. Dtr states she is on a limited/fixed income. She was made aware one can be provided to her. Samara CHANEY, to provide to pt and instruct them on use. Pt and dtr made aware of [facility] and provided information/contact card. They were made aware this may be beneficial to pt after [facility] has discharged pt. Dtr states will consider it and voices appreciation. Pt and dtr deny having other discharge planning needs or concerns. Kristy RIVERAN RITU ROBISON
[2023-01-05 13:37] LABS: Pathologist Review Reviewed
[2023-01-05 13:38] LABS: Pathologist Review Reviewed
== END 2023-01-04 14:16 | disposition home or self-care (01) ==
LOC: ED 19:19 → MS3 20:37
PROVIDERS: Admitting Provider Hospitalist; Emergency Provider Emergency Medicine; PCP Family Medicine Geriatric Medicine; Visit Provider Internal Medicine
DX: D46.9 Myelodysplastic syndrome, unspecified (principal); C92.10 Chronic myeloid leukemia, BCR/ABL-positive, not having achieved remission; N17.9 Acute kidney failure, unspecified; J44.1 Chronic obstructive pulmonary disease with (acute) exacerbation; D69.6 Thrombocytopenia, unspecified; N18.31 Chronic kidney disease, stage 3a; F17.210 Nicotine dependence, cigarettes, uncomplicated; J98.01 Acute bronchospasm; I12.9 Hypertensive chronic kidney disease with stage 1 through stage 4 chronic kidney disease, or unspecified chronic kidney disease; Z79.899 Other long term (current) drug therapy; Z99.81 Dependence on supplemental oxygen; E03.9 Hypothyroidism, unspecified; Z79.890 Hormone replacement therapy; D63.1 Anemia in chronic kidney disease
CPT/HCPCS: 36415; 36430; 71046; 80048; 82274; 83605; 85025; 86850; 86900; 86901; 86920; 86922; 87428; 93005; 94640; 96361; 96374; 96375; 96376; 99221; 99285; J7030; J7040; P9016; A4216; G0378; J1940

== ENCOUNTER → 2023-01-19 | Outpatient (CLI) | payer MEDICARE, SELFPAY ==
[2019-12-26 13:03] VITALS: BMI 31.5
== END | disposition home or self-care (01) ==
LOC: POLAB3 14:05
PROVIDERS: PCP Family Medicine Geriatric Medicine; Visit Provider Family Medicine Geriatric Medicine
DX: E03.9 Hypothyroidism, unspecified (principal)
CPT/HCPCS: 36415; 84443

== ENCOUNTER → 2023-01-25 | Outpatient (CLI) | payer MEDICARE, SELFPAY ==
[2019-12-26 13:03] VITALS: BMI 31.5
== END | disposition home or self-care (01) ==
LOC: POLAB3 13:44
PROVIDERS: PCP Family Medicine Geriatric Medicine; Visit Provider Family Medicine Geriatric Medicine
DX: K92.1 Melena (principal)
CPT/HCPCS: 36415

== ENCOUNTER 2023-01-28 05:17 | Inpatient (IN) | payer MEDICARE, SELFPAY ==
[2019-12-26 13:03] VITALS: BMI 31.5
[2023-01-28] VITALS (19 sets, daily range): BP systolic 95–129; BP diastolic 37–71; PULSE 104–150; RESP 18–34; TEMP 36.3–37.2; O2SAT 94–153; BMI 28.2; BMI 26.9
--- NOTE | 2023-01-28 05:36 | EKG12_ITS ---
Test Reason : DYSRHYTHMIA Blood Pressure : / mmHG Vent. Rate : 149 BPM Atrial Rate : 149 BPM P-R Int : 122 ms QRS Dur : 068 ms QT Int : 332 ms P-R-T Axes : 067 037 086 degrees QTc Int : 522 ms Sinus tachycardia with occasional Premature ventricular complexes Left ventricular hypertrophy with repolarization abnormality Abnormal ECG Confirmed by LUIS GRIMES, THOMAS ([id number]), supervising editor news reel MARY LOW ([id number]) on 01/30/2023 1:46:18 PM Referred By: JEANINE Confirmed By:THOMAS SMITH MD
--- NOTE | 2023-01-28 05:37 | ED.VIS.DYS ---
HPI History of Present Illness Chief Complaint: Shortness of Breath Narrative Narrative: 77-year-old female, past medical history of COPD wears oxygen at home per nasal cannula presents via EMS with increased shortness of breath over the last 3-1/2 hours. She states it started around 2 AM. She felt very short of breath. She has a headache. She is requesting an aspirin to help with her headache. History and physical is limited secondary to her being hard of hearing. She denies any chest pain. She feels short of breath. No fevers or chills. No cough. It was reported by EMS that she was hypoxic on her home oxygen of 6 L at 82%., And not satting well on nonrebreather. Patient states she sees a vp product management but cannot remember his name. [facility] Medical History Breast cancer Cancer Chronic pain Former smoker Hypothyroidism Irregular heart beat Kidney stones Osteoporosis Symptomatic anemia Home Medications ascorbic acid (vitamin C) 500 mg capsule 500 mg PO DAILY supplement 01/17/20 [History Last Taken 01/28/23] acetaminophen 500 mg tablet 1,000 mg PO Q6H PRN Pain Score 1-3/10 01/21/20 [Rx Last Taken 08/10/22] metoprolol tartrate 25 mg tablet 12.5 mg PO BID BP #30 tabs 01/21/20 [Rx Last Taken 01/28/23] polysaccharide iron complex 150 mg iron capsule 150 mg PO DAILYCM #30 caps 01/21/20 [Rx Last Taken 01/28/23] potassium chloride 10 mEq tablet,extended release(part/cryst) 10 meq PO DAILY supplement #30 tabs 01/21/20 [Rx Last Taken 01/28/23] multivitamin 1 tab PO DAILY 08/10/22 [History Last Taken 01/28/23] albuterol sulfate 90 mcg/actuation aerosol inhaler 2 puff inhalation Q6H PRN shortness of breath or wheezing #8.5 grams 08/13/22 [Rx Last Taken 01/28/23] fluticasone 250 mcg-salmeterol 50 mcg/dose blistr powdr for inhalation 1 inh inhalation BID . 01/28/23 [History Last Taken 01/28/23] levothyroxine 50 mcg tablet 50 mcg PO DAILY THYROID 01/28/23 [History Last Taken 01/28/23] pantoprazole 20 mg tablet,delayed release 20 mg PO DAILY GERD 01/28/23 [History Last Taken 01/28/23] prednisone 10 mg tablet See Rx Instructions .Route .COMPLEX . 01/28/23 [History Last Taken 01/28/23] Allergy/AdvReac Type Severity Reaction Status Date / Time bacitracin Allergy Rash Verified 08/10/22 14:03 [From Neosporin ([id number])] neomycin Allergy Rash Verified 08/10/22 14:03 [From Neosporin ([id number])] polymyxin B Allergy Rash Verified 08/10/22 14:03 [From Neosporin ([id number])] Family History Sister Breast cancer Sister Breast cancer Sister Breast cancer Sister Breast cancer Surgical History H/O mastectomy H/O: hysterectomy Tubal ligation status Social History household members: none Smoking Status: Current every day smoker tobacco type: cigarettes substance use type: does not use ROS ROS ED ROS Narrative Constitutional: No fever, no chills. HEENT: No sore throat. No neck pain. No loss of vision. No rhinorrhea. Cardiovascular: No chest pain. No palpitations. No pedal edema. Respiratory: No cough, positive shortness of breath. Abdominal: No abdominal pain. No nausea. No vomiting. Genitourinary: No dysuria. No hematuria. Musculoskeletal: No myalgias. No arthralgias. Neurologic: Positive headaches. No dizziness. No lightheadedness. Skin: No rash. No change in color. Psychiatric: No depression. No anxiety. EXAM Physical Exam Narrative Exam Narrative: Afebrile. Vital signs noted. HEENT: Normocephalic. Atraumatic. PERRL, EOMI. Neck soft and supple. No point tenderness or step off. Cardiovascular: Regular rate and rhythm. No murmurs, rubs, or gallops appreciated. Respiratory: No tachypnea. Decreased breath sounds bilateral bases. Moving a fair amount of air. Gastrointestinal: Abdomen soft, nontender, with normoactive bowel sounds. No rebound or guarding. Neurological: Awake. Alert. Nonfocal, nonlateralizing. Skin: No rash. Normal color. No pallor. Musculoskeletal: No pedal edema. Full range of motion extremities. Const Vital Signs: 01/28/23 05:18 01/28/23 05:18 01/28/23 05:23 Temperature 98.7 F Temperature Source Temporal Pulse Rate 150 H Respiratory Rate 22 H Respiratory Effort Labored Respiratory Depth Respiratory Pattern Blood Pressure Blood Pressure Mean Pulse Ox 153 99 Oxygen Delivery Method Nasal Cannula Room Air Nasal Cannula Oxygen Flow Rate (L/min) 6 01/28/23 05:53 01/28/23 05:53 01/28/23 07:26 Temperature Temperature Source Pulse Rate 149 H 137 H Respiratory Rate 30 H 34 H 24 H Respiratory Effort Short of Breath Labored Accessory Muscle Use Respiratory Depth Shallow Respiratory Pattern Tachypnea Tachypnea Blood Pressure 106/55 L Blood Pressure Mean 72 Pulse Ox 94 98 Oxygen Delivery Method Nasal Cannula Nasal Cannula Oxygen Flow Rate (L/min) 6 6 MDM MDM MDM Narrative Medical decision making narrative: According to the RN, she was placed back on her 6 L nasal cannula and is doing well with her oxygen saturation at 94%. Patient was given an aerosol treatment and Solu-Medrol 125 mg intravenously. I reviewed her laboratory work, she has a normal white count of 8.3, hemoglobin stable at 8.6, she has a chronic anemia. I do not feel that she requires transfusion as her hemoglobin is not less than 7. Platelet count normal at 202. She does have metamyelocytes and myelocytes elevated at 12 and 5, but in review of her problem list, she does have myelodysplastic disease. I reviewed her BMP and she has an elevated glucose of 132 with a normal anion gap of 7. Normal sodium of 138, normal potassium of 4.3. Her EKG was obtained and interpreted by myself as sinus tachycardia with occasional PVCs at 149 bpm, no acute ST changes. BNP is elevated at 565. She was given Lasix 40 mg intravenously, but I do feel that this may be more of a COPD exacerbation with reported hypoxia. My interpretation of her chest x-ray in 1 view shows COPD, but no discrete infiltrate, no significant change from previous with exception of decrease in left pleural effusion. Radiology report was reviewed which states that in the right lower lobe there is interstitial edema versus infiltration. I will defer antibiotics as she does not have a fever or an elevated white count currently. Given her tachycardia and reported hypoxia, and the fact that she lives alone, I will discuss patient with the hospitalist for at least observation. I discussed the patient with Dr. Heller who is familiar with the patient, and recall that the patient was down to 2 L nasal cannula oxygen. She was recently discharged the beginning of December. It was not felt that patient required antibiotics, but she will continue receiving aerosol treatments and steroids. She will be admitted to the medical surgical floor. Patient is in stable condition currently. History & Record Review Discussion w/independent historian: Patient Additional record(s) reviewed:: Prior ED visit Lab Data Attestation: I reviewed the patient's lab results. Labs: Laboratory Results - last 24 hr 01/28/23 01/28/23 01/28/23 05:44 05:44 05:44 WBC 8.3 RBC 2.85 L Hgb 8.6 L Hct 29.8 L MCV 104.6 H MCH 30.2 MCHC 28.9 L RDW Std Deviation 79.5 H RDW Coeff of Kylie 22.8 H Plt Count 202 MPV TNP Neut % (Auto) Not Reportable Absolute Neuts (auto) 5.2 Absolute Lymphs (auto) 1.08 Total Counted 100 Neutrophils % (Manual) 38 L Band Neutrophils % 25 H Lymphocytes % (Manual) 13 L Monocytes % (Manual) 5 Eosinophils % (Manual) 1 Metamyelocytes % 12 H Myelocytes % 5 H Nucleated RBCs/100 WBC 1 Differential Comment COMMENT Diff Path Review May foll Atypical Lymphocytes RARE Smudge Cells RARE Toxic Vacuolation 1+ Platelet Estimate ADEQUATE Plt Morphology Comment LARGE Hypochromasia 2+ Anisocytosis 2+ Microcytosis 1+ Macrocytosis 1+ Spherocytes RARE H Schistocytes RARE Sodium 138 Potassium 4.3 Chloride 101 Carbon Dioxide 30.0 Anion Gap 7 BUN 14 Creatinine 0.83 Estim Creat Clear Calc 42.07 Est GFR (MDRD) Af Amer 87 Est GFR (MDRD) Non-Af 72 BUN/Creatinine Ratio 16.9 Glucose 132 H Calcium 9.1 B-Natriuretic Peptide 565.5 H Radiography Diagnostic Testing: Clinical Impression(s) from Imaging Studies Chest X-Ray 01/28/23 06:45 IMPRESSION: Interval decrease in the small left pleural effusion. Left lower lobe subsegmental atelectasis. Interstitial edema or infiltration within the right lung. Electronically Signed: Dennis Singh MD at 7:48 EST , Discharge Plan Dx/Rx/DC Orders Clinical Impression: COPD exacerbation, Tachycardia, Elevated brain natriuretic peptide (BNP) level, Hypoxia Disposition Disposition: Acute Care Hospital [facility]
[2023-01-28 05:52] LABS: Hematocrit 29.8 % (37-47); Hemoglobin 8.6 g/dL (12.0-15.0); Mean Corp Hgb Conc 28.9 g/dL (32-36); Mean Corpuscular Hgb 30.2 pg (27.0-32.0); Mean Corpuscular Volume 104.6 fL (81-99); POSITIVE COUNT YES; POSITIVE MORPHOLOGY YES; Platelet Count 202 K/mm3 (150-450); RBC Distribution Width CV 22.8 % (11.6-14.6); RBC Distribution Width SD 79.5 fl (35.1-43.9); Red Blood Count 2.85 M/mm3 (4.2-5.4); White Blood Count 8.3 K/mm3 (4.4-11.0)
[2023-01-28] MEDS: Ipratropium/Albuterol Sulfate 3 ML AMPUL.NEB INHALATION (05:53)
[2023-01-28 05:54] LABS: Differential Indicated MANUAL DIFF
[2023-01-28 06:03] LABS: Anion Gap 7 (5-15); BUN 14 mg/dL (7-18); BUN/Creat Ratio 16.9 RATIO (10-20); Calcium,Total 9.1 mg/dL (8.5-10.1); Chloride 101 mmol/L (98-107); Creatinine, Serum 0.83 mg/dL (0.55-1.02); EST Glomerular Filtration Rate 72 mL/min (>60); Est Glom Filt Rate - Afr Amer 87 mL/min (>60); Estimated Creatinine Clearance 42.07 ml/min; Glucose 132 mg/dL (74-106); Potassium 4.3 mmol/L (3.5-5.1); Sodium Level 138 mmol/L (136-145)
[2023-01-28 06:06] LABS: BNP,B-Type NATRIURETIC PEPTIDE 565.5 pg/mL (0-100)
[2023-01-28] MEDS: MethylPREDNISolone 125 MG/2 ML Vial IV (06:09)
[2023-01-28 06:19] LABS: Neutrophil-Band 25 % (0-5); Neutrophil-Segmented 38 % (47-70); Total Cells Counted 100 (MANUAL DIFF)
[2023-01-28 06:20] LABS: Eosinophil 1 % (0-5); Lymphocyte 13 % (19-41); Metamyelocyte 12 % (0-1); Monocyte 5 % (0-10); Myelocyte 5 % (0-0); Nucleated Red Bld Cells,Manual 1 % (0-5); Smudge Cells RARE; Vacuolated Cells 1+
[2023-01-28 06:21] LABS: Atypical Lymphocyte RARE %
[2023-01-28 06:25] LABS: Platelet Estimate ADEQUATE (ADEQ); Platelet Morphology LARGE
[2023-01-28 06:26] LABS: Anisocytosis 2+; Hypochromasia 2+; Macrocytosis 1+; Microcytosis 1+; Schistocytes RARE
[2023-01-28 06:27] LABS: Absolute Lymphocyte Count 1.08 X10^3/uL (0.83-4.51); Absolute Neutrophil Count 5.2 X10^3/uL (2.0-7.7); Neutrophil # 5.22 X10^3/uL (2.7-7.7)
[2023-01-28 06:28] LABS: Lymphocyte # 1.08 X10^3/ul (0.83-4.51)
[2023-01-28 06:31] LABS: Spherocyte RARE
--- NOTE | 2023-01-28 06:45 | RAD_ITS ---
EXAM: XR CHEST, 1 VIEW CLINICAL INDICATION: Shortness of Breath TECHNIQUE: Frontal view of the chest. This report was created using [employer] report generation technology. COMPARISON: XR Chest dated 01/03/2023 FINDINGS: LUNGS AND PLEURAL SPACES: Small left pleural effusion has decreased in size. Atelectatic change present at the left lung base. Mild interstitial thickening of the right lung which may represent edema or fibrosis. No pneumothorax. HEART: Normal heart size. MEDIASTINUM: No mediastinal or hilar mass. BONES/JOINTS: Deformity of the proximal right humeral head and glenoid process which is suggestive of arthritic change related to prior trauma. SOFT TISSUES: Surgical changes of left mastectomy and axillary node dissection again seen. TUBES, LINES AND DEVICES: Right IJ infusion catheter remains in place with the tip along the proximal superior vena cava. RAD/Chest 1 View (Portable) IMPRESSION: Interval decrease in the small left pleural effusion. Left lower lobe subsegmental atelectasis. Interstitial edema or infiltration within the right lung. Electronically Signed: Dennis Singh MD at 7:48 EST ,
[2023-01-28] MEDS: Furosemide 40 MG/4 ML Vial IV ×2 (07:23→17:24)
--- NOTE | 2023-01-28 07:58 | HP.PCM.HOS_ITS ---
HPI - General General Date of Admission: 01/28/23 HPI Narrative REBEKAH AVITIA, is a 77 F who presents to the hospital with increased lower dry extremity swelling as well as increased shortness of breath. She says that the leg swelling started about a week ago and the shortness of breath started this morning prior to admission. She does have a history of COPD but no formal diagnosis of heart failure. Her BNP was elevated to 565. She did have an echo back in July with a normal EF and no mention of diastolic dysfunction though given her age and current findings she likely does have diastolic dysfunction. She denies any fevers or chills or any cough to indicate an infection. She would did receive a dose of Lasix in the ER. [facility] Medical History (Updated 01/28/23 @ 09:02 by Viviana Pizano) Breast cancer Cancer Chronic pain Former smoker Hypothyroidism Irregular heart beat Kidney stones Osteoporosis Symptomatic anemia Home Medications ascorbic acid (vitamin C) 500 mg capsule 500 mg PO DAILY supplement 01/17/20 [History Last Taken 01/28/23] acetaminophen 500 mg tablet 1,000 mg PO Q6H PRN Pain Score 1-3/10 01/21/20 [Rx Last Taken 08/10/22] metoprolol tartrate 25 mg tablet 12.5 mg PO BID BP #30 tabs 01/21/20 [Rx Last Taken 01/28/23] polysaccharide iron complex 150 mg iron capsule 150 mg PO DAILYCM #30 caps 01/21/20 [Rx Last Taken 01/28/23] potassium chloride 10 mEq tablet,extended release(part/cryst) 10 meq PO DAILY supplement #30 tabs 01/21/20 [Rx Last Taken 01/28/23] multivitamin 1 tab PO DAILY 08/10/22 [History Last Taken 01/28/23] albuterol sulfate 90 mcg/actuation aerosol inhaler 2 puff inhalation Q6H PRN shortness of breath or wheezing #8.5 grams 08/13/22 [Rx Last Taken 01/28/23] fluticasone 250 mcg-salmeterol 50 mcg/dose blistr powdr for inhalation 1 inh inhalation BID . 01/28/23 [History Last Taken 01/28/23] levothyroxine 50 mcg tablet 50 mcg PO DAILY THYROID 01/28/23 [History Last Taken 01/28/23] pantoprazole 20 mg tablet,delayed release 20 mg PO DAILY GERD 01/28/23 [History Last Taken 01/28/23] prednisone 10 mg tablet See Rx Instructions .Route .COMPLEX . 01/28/23 [History Last Taken 01/28/23] Allergy/AdvReac Type Severity Reaction Status Date / Time bacitracin Allergy Rash Verified 08/10/22 14:03 [From Neosporin ([id number])] neomycin Allergy Rash Verified 08/10/22 14:03 [From Neosporin ([id number])] polymyxin B Allergy Rash Verified 08/10/22 14:03 [From Neosporin ([id number])] Family History Sister Breast cancer Sister Breast cancer Sister Breast cancer Sister Breast cancer Surgical History H/O mastectomy H/O: hysterectomy Tubal ligation status Social History household members: none Smoking Status: Former smoker substance use type: does not use ROS Constitutional Constitutional: Denies chills, fatigue, fever(s) or malaise Eyes Eyes: Denies blurry vision ENT HEENT: Denies headache(s) or nasal discharge Cardiovascular Cardiovascular: Reports edema; Denies chest pain, dyspnea on exertion or syncope Respiratory/Chest Respiratory/Chest: Reports shortness of breath at rest and shortness of breath with exertion; Denies cough Gastrointestinal Gastrointestinal: Denies constipation, diarrhea, nausea or vomiting Genitourinary Genitourinary: Denies dysuria Neurologic Neurologic: Denies focal weakness, numbness or tremor(s) Psychiatric Psychiatric: Denies anxiety or depression Vital Signs Vital Signs Vital Signs: 01/28/23 05:18 01/28/23 05:18 01/28/23 05:23 Temperature 98.7 F Temperature Source Temporal Pulse Rate 150 H Respiratory Rate 22 H Respiratory Effort Labored Respiratory Depth Respiratory Pattern Blood Pressure Blood Pressure Mean Pulse Ox 153 99 Oxygen Delivery Method Nasal Cannula Room Air Nasal Cannula Oxygen Flow Rate (L/min) 6 01/28/23 05:53 01/28/23 05:53 01/28/23 07:26 Temperature Temperature Source Pulse Rate 149 H 137 H Respiratory Rate 30 H 34 H 24 H Respiratory Effort Short of Breath Labored Accessory Muscle Use Respiratory Depth Shallow Respiratory Pattern Tachypnea Tachypnea Blood Pressure 106/55 L Blood Pressure Mean 72 Pulse Ox 94 98 Oxygen Delivery Method Nasal Cannula Nasal Cannula Oxygen Flow Rate (L/min) 6 6 Weight Weight: 144 lb 6.444 oz Body Mass Index (BMI) 28.2 Physical Exam Narrative General: Alert, Oriented x3, Cooperative, No apparent distress HEENT: Atraumatic, PERRLA, EOMI, Normocephalic, hard of hearing Oral: Moist Mucosa Neck: Supple, No JVD Lungs: Diminished, poor air movement, No rhonchi, No wheeze, No rales Cardiovascular: Regular rate, Regular Rhythm, Normal S1, Normal S2, No murmurs Abdomen: Soft, Non Tender, Non-Distended, No Hepato-splenomegaly Extremities: Bilateral 1+ pitting edema, Capillary Refill Less than 3 Seconds Skin: No rashes, No breakdown Musculoskeletal: No Tenderness to Palpation of Joints or Extremities Neurological: Cranial nerves II-XII grossly intact, Motor Exam 5/5 strength throughout, Sensory exam intact to light touch and pain Psych/Mental Status: Normal Affect, Appropriate Results Lab / Micro Data Result Diagrams: 01/28/23 05:44 01/28/23 05:44 Labs: Laboratory Results - last 24 hr 01/28/23 05:44: WBC 8.3, RBC 2.85 L, Hgb 8.6 L, Hct 29.8 L, MCV 104.6 H, MCH 30.2, MCHC 28.9 L, RDW Std Deviation 79.5 H, RDW Coeff of Kylie 22.8 H, Plt Count 202, MPV TNP, Neut % (Auto) Not Reportable, Absolute Neuts (auto) 5.2, Absolute Lymphs (auto) 1.08, Total Counted 100, Neutrophils % (Manual) 38 L, Band Neutrophils % 25 H, Lymphocytes % (Manual) 13 L, Monocytes % (Manual) 5, Eosinophils % (Manual) 1, Metamyelocytes % 12 H, Myelocytes % 5 H, Nucleated RBCs/100 WBC 1, Differential Comment COMMENT, Diff Path Review May foll, Atypical Lymphocytes RARE, Smudge Cells RARE, Toxic Vacuolation 1+, Platelet Estimate ADEQUATE, Plt Morphology Comment LARGE, Hypochromasia 2+, Anisocytosis 2+, Microcytosis 1+, Macrocytosis 1+, Spherocytes RARE H, Schistocytes RARE 01/28/23 05:44: Sodium 138, Potassium 4.3, Chloride 101, Carbon Dioxide 30.0, Anion Gap 7, BUN 14, Creatinine 0.83, Estim Creat Clear Calc 42.07, Est GFR (MDRD) Af Amer 87, Est GFR (MDRD) Non-Af 72, BUN/Creatinine Ratio 16.9, Glucose 132 H, Calcium 9.1 01/28/23 05:44: B-Natriuretic Peptide 565.5 H Micro: Microbiology 01/28/23 06:25 Nasal Secretion SARS-CoV-2 & FLU Antigen (Rapid) - Final Radiology Impression Chest X-Ray 01/28/23 06:45 IMPRESSION: Interval decrease in the small left pleural effusion. Left lower lobe subsegmental atelectasis. Interstitial edema or infiltration within the right lung. Electronically Signed: Dennis Singh MD at 7:48 EST , Assessment & Plan Assessment/Plan (1) Acute exacerbation of chronic obstructive pulmonary disease: (2) Hypoxia: PLAN: Plan 1.? Acute on chronic hypoxic secondary to COPD exacerbation ? Continue with breathing treatments and steroids ? We will obtain an echo given her new swelling and place her on Lasix twice daily ? In the ER she was requiring 6 L nasal cannula to maintain her oxygen sats but after the dose of Lasix we were able to titrate her back down to 3 L nasal cannula, her baseline oxygen is 2 to 3 L nasal cannula at all times 2.? Hypothyroidism ? Stable ? Continue with Synthroid 3.? Hypertension ? Stable ? Continue with her home blood pressure medications 4.? Chronic anemia/GERD -Currently stable -Continue ferrous sulfate and vitamin C ? Continue with PPI 5.? History of breast cancer with mastectomy -In remission DVT: Lovenox Charges/Coding Visit Charges Inpatient E&M: 92347 Init Hosp L2
--- NOTE | 2023-01-28 08:49 | NURSING ---
pt arrived to unit on Er cart. noted to be very KASHIA. noted on 6lnc spo2 96% HR 130's. pt states normally wears 3lnc. O2 decreased to 3lnc. pt transferred to bed. spo2 noted to maintain 94% at lowest. HR maintained in 130's. SOB noted but pt able to complete short sentences. pt states was just in [facility] for same.
--- NOTE | 2023-01-28 09:06 | ECHOD_ITS ---
Reason For Study: CHF Procedure This was a 2D Doppler, Color Flow transthoracic echocardiogram. The study was technically difficult. Due to scarring from left mastectomy. Exam performed portable in patient room. Left Ventricle Normal LV size. Mild concentric left ventricular hypertrophy. Left ventricular systolic function is hyperdynamic. The estimated ejection fraction is 75 %. Diastolic function is indeterminate. No regional wall motion abnormalities noted. Right Ventricle Normal RV size. Normal systolic function. Atria The left atrium is mildly enlarged. Normal right atrium. No doppler evidence for ASD. Mitral Valve There is moderate to severe mitral annular calcification. Extension of the mitral annular calcification onto the base of the mitral valve leaflets. Mild (1+) mitral valve insufficiency. Tricuspid Valve Normal tricuspid valve. Mild tricuspid valve insufficiency. Right ventricular systolic pressure estimated to be 61 mmHg. Severe pulmonary hypertension. Aortic Valve Trisinus/trileaflet aortic valve. Moderate diffuse aortic valve calcification. Moderate aortic stenosis. Pulmonic Valve The pulmonic valve is not well visualized. Great Vessels Normal sized aortic root. Pericardium/Pleural No pericardial effusion. MMode/2D Measurements & Calculations LVIDd: 3.4 cm IVSd: 1.4 cm LVOT diam: 2.0 cm LVIDs: 2.4 cm LVPWd: 1.4 cm LVOT area: 3.1 cm2 RVDd: 3.2 cm FS: 27.3 % Ao root diam: 3.2 cm LAV(MOD-bp): 85.2 ml LA A4 area: 24.7 cm2 LAV(MOD-bp) Indexed: 52.0 ml/m2 LAV(MOD-sp2): 81.5 ml LAV(MOD-sp4): 84.1 ml LA dimension(2D): 5.1 cm RA A4 area: 14.7 cm2 Doppler Measurements & Calculations Lat Peak E' Brandan: 10.2 cm/sec Med Peak E' Brandan: 7.4 cm/sec MV V2 max: 234.7 cm/sec MV max P.1 mmHg MV V2 mean: 164.4 cm/sec MV mean P.0 mmHg MV V2 VTI: 48.0 cm MVA(VTI): 1.8 cm2 Ao V2 max: 346.8 cm/sec LV V1 max: 167.3 cm/sec SV(LVOT): 84.7 ml Ao max P.1 mmHg LV V1 max P.2 mmHg Ao V2 mean: 268.0 cm/sec LV V1 mean P.2 mmHg Ao mean P.1 mmHg LV V1 mean: 104.1 cm/sec Ao V2 VTI: 60.7 cm LV V1 VTI: 27.4 cm AV (velocity ratio): 0.45 SUDHEER(I,D): 1.4 cm2 SUDHEER(V,D): 1.5 cm2 PA V2 max: 121.1 cm/sec TR max brandan: 365.2 cm/sec TR max P.3 mmHg ECHO/Echo Complete Interpretation Summary Left ventricular systolic function is hyperdynamic. The estimated ejection fraction is 75 %. Mild concentric left ventricular hypertrophy. The left atrium is mildly enlarged. There is moderate to severe mitral annular calcification. Extension of the mitral annular calcification onto the base of the mitral valve leaflets. Mild (1+) mitral valve insufficiency. Mild tricuspid valve insufficiency. Moderate diffuse aortic valve calcification. Moderate aortic stenosis. Right ventricular systolic pressure estimated to be 61 mmHg. Severe pulmonary hypertension. Diastolic function is indeterminate. Ordering Physician: Nima Heller Referring Physician: Fish Harris Chi Performed By: Sandra Alcala, BRADLEYCS, RVT
[2023-01-28] MEDS: Enoxaparin 40 MG/0.4 ML Syringe SC (09:29)
[2023-01-28] MEDS: Metoprolol Tartrate 25 MG Tablet 12.5 MG PO ×2 (09:29→21:01)
[2023-01-28] MEDS: Iron Polysaccharide Complex 150 MG CAPSULE PO (09:30)
[2023-01-28] MEDS: Levothyroxine 50 MCG Tablet PO (09:33)
--- NOTE | 2023-01-28 11:20 | CASEMGMT ---
Addendum entered by Soila Bauer 01/28/23 12:37: Referral sent to [facility] via careport at this time. Original Note: RITU ROBISON Assessment: Face to Face with pt for initial transition planning/care coordination assessment. RN RICKI introduced self and role at [facility], pt voices understanding and consents to assessment. Pt is A/O x4 and answers all questions appropriately at this time. Pt sitting up in bed with oxygen on in no distress. Pt dtr at bedside. Care providers, pharmacy, and demographics verified/updated. Admitting Dx: COPD exac PCP:Steven Specialists:jax Joyner Preferred Pharmacy: [facility] Retail Insurance: [employer] Prescription Benefit: yes LNOK: Aisha Rondon, dtr Living Arrangements: Pt lives alone in a mobile home with 3 steps to enter with 2 rails. Pt reports that she sometimes needs help with ADL's and her dtr or sister assists. Pt inquires on [employer] added to [facility], will add. Transportation: Pt drives self and denies concerns with transportation. DME/HHC/SNF: Pt is using her late 's oxygen, she did not qualify for oxygen at last dc. Pt has a pox. She does not have any AD at home and denies need for. Pt states she is active with [facility] with SN and PT and would like to resume this. She denies need for a list of other agencies. Pt has been to a SNF in [place] but cannot recall the name. Pt states no concerns with going home at time of dc. Discussed oxygen need and that pt will be tested upon dc. Provided pt with a verbal local in network of DME companies, pt chose [employer]. Discussed homegoing oxygen process should she qualify. Pt verbalizes understanding. Green sheet on the chart for oxygen. Pt states no further concerns/needs. CM to follow. Advised pt to ask CM if any further question/concerns/needs arise, voices understanding. Pt Goal: Home with [facility] Plan: Home with [facility]
[2023-01-28 11:27] LABS: Ferritin 472 ng/mL (8-252); Iron 22 ug/dL (50-170); Iron Binding Capacity,Total 335 ug/dL (250-450); PERCENT IRON SATURATION 6.6 % (15.0-55.0)
[2023-01-28] MEDS: Albuterol 2.5 MG/3 ML VIAL.NEB. INHALATION ×2 (13:49→19:51)
[2023-01-28] MEDS: 0.9% Saline Lock 10 ML Syringe IV ×3 (14:19→21:02)
[2023-01-28] MEDS: Acetaminophen 325 MG Tablet 650 MG PO (21:02)
[2023-01-29] VITALS (12 sets, daily range): BP systolic 102–140; BP diastolic 48–85; PULSE 92–115; RESP 16–24; TEMP 36.3–36.8; O2SAT 93–98
[2023-01-29] MEDS: 0.9% Saline Lock 10 ML Syringe IV ×3 (05:50→17:58)
[2023-01-29] MEDS: Levothyroxine 50 MCG Tablet PO (05:50)
[2023-01-29 07:02] LABS: Hematocrit 24.9 % (37-47); Hemoglobin 7.4 g/dL (12.0-15.0); Mean Corp Hgb Conc 29.7 g/dL (32-36); Mean Corpuscular Hgb 30.6 pg (27.0-32.0); Mean Corpuscular Volume 102.9 fL (81-99); POSITIVE COUNT YES; POSITIVE DIFFERENTIAL YES; POSITIVE MORPHOLOGY YES; Platelet Count 143 K/mm3 (150-450); RBC Distribution Width CV 22.4 % (11.6-14.6); Red Blood Count 2.42 M/mm3 (4.2-5.4); White Blood Count 6.1 K/mm3 (4.4-11.0)
[2023-01-29] MEDS: Albuterol 2.5 MG/3 ML VIAL.NEB. INHALATION ×3 (07:05→20:00)
[2023-01-29 07:14] LABS: Differential Indicated MANUAL DIFF
[2023-01-29 07:36] LABS: Anion Gap 6 (5-15); BUN 27 mg/dL (7-18); BUN/Creat Ratio 43.5 RATIO (10-20); Calcium,Total 8.7 mg/dL (8.5-10.1); Chloride 103 mmol/L (98-107); Creatinine, Serum 0.62 mg/dL (0.55-1.02); EST Glomerular Filtration Rate 99 mL/min (>60); Est Glom Filt Rate - Afr Amer 120 mL/min (>60); Estimated Creatinine Clearance 34.91 ml/min; Glucose 168 mg/dL (74-106); Potassium 4.3 mmol/L (3.5-5.1); Sodium Level 143 mmol/L (136-145)
[2023-01-29 08:59] LABS: Eosinophil 1 % (0-5); Lymphocyte 14 % (19-41); Metamyelocyte 4 % (0-1); Monocyte 12 % (0-10); Myelocyte 3 % (0-0); Neutrophil-Band 15 % (0-5); Neutrophil-Segmented 51 % (47-70); Total Cells Counted 100 (MANUAL DIFF)
[2023-01-29 09:00] LABS: Anisocytosis 2+; Hypochromasia 1+; Platelet Estimate ADEQUATE (ADEQ); Platelet Morphology LARGE
[2023-01-29 09:01] LABS: Macrocytosis 1+; Microcytosis 1+
[2023-01-29 09:02] LABS: Absolute Lymphocyte Count 0.85 X10^3/uL (0.83-4.51)
[2023-01-29] MEDS: Enoxaparin 40 MG/0.4 ML Syringe SC (09:22)
[2023-01-29] MEDS: Iron Polysaccharide Complex 150 MG CAPSULE PO (09:22)
[2023-01-29] MEDS: Potassium Chloride Oral Tablet 10 MEQ PO (09:22)
[2023-01-29] MEDS: Pantoprazole Sodium 20 MG Tablet PO (09:23)
[2023-01-29] MEDS: Metoprolol Tartrate 25 MG Tablet 12.5 MG PO ×2 (09:23→22:00)
[2023-01-29] MEDS: Furosemide 40 MG/4 ML Vial IV ×2 (09:35→17:58)
--- NOTE | 2023-01-29 09:47 | PCM.PN.HOSP ---
Subjective Subjective Feels like she is breathing a little bit better today Objective Data Objective Data Vital Signs: Vital Signs Temp Pulse Resp BP Pulse Ox O2 Del Method O2 Flow Rate 97.4 F L 108 H 24 H 114/51 L 95 Nasal Cannula 2 01/29/23 05:00 01/29/23 09:23 01/29/23 05:00 01/29/23 09:23 01/29/23 05:00 01/29/23 05:00 01/29/23 09:29 Oxygen Flow Rate (L/min) 2 Oxygen Delivery Method Nasal Cannula Weight: 137 lb 12.8 oz Body Mass Index (BMI) 26.9 Intake & Output: Intake and Output for Last 24 Hours 01/28/23 01/29/23 01/30/23 03:59 03:59 03:59 Intake Total 400 / 400 400 / 400 Output Total 1900 / 1900 600 / 600 Balance -1500 / -1500 -200 / -200 Lab / Micro Data Result Diagrams: 01/29/23 05:50 01/29/23 05:50 Labs: Laboratory Results - last 24 hr 01/28/23 05:44: Iron 22 L, TIBC 335, Iron Saturation 6.6 L, Ferritin 472 H 01/29/23 05:50: WBC 6.1, RBC 2.42 L, Hgb 7.4 L, Hct 24.9 L, MCV 102.9 H, MCH 30.6, MCHC 29.7 L, RDW Std Deviation 78.0 H, RDW Coeff of Kylie 22.4 H, Plt Count 143 L, Neut % (Auto) Not Reportable, Absolute Neuts (auto) 4.0, Absolute Lymphs (auto) 0.85, Total Counted 100, Neutrophils % (Manual) 51, Band Neutrophils % 15 H, Lymphocytes % (Manual) 14 L, Monocytes % (Manual) 12 H, Eosinophils % (Manual) 1, Metamyelocytes % 4 H, Myelocytes % 3 H, Diff Path Review May , Platelet Estimate ADEQUATE, Plt Morphology Comment LARGE, Hypochromasia 1+, Anisocytosis 2+, Microcytosis 1+, Macrocytosis 1+ 01/29/23 05:50: Sodium 143, Potassium 4.3, Chloride 103, Carbon Dioxide 34.0 H, Anion Gap 6, BUN 27 H, Creatinine 0.62, Estim Creat Clear Calc 34.91, Est GFR (MDRD) Af Amer 120, Est GFR (MDRD) Non-Af 99, BUN/Creatinine Ratio 43.5 H, Glucose 168 H, Calcium 8.7 Micro: Microbiology 01/28/23 06:25 Nasal Secretion SARS-CoV-2 & FLU Antigen (Rapid) - Final Radiography Diagnostic Testing: Radiology Impression Echocardiogram 01/28/23 09:06 Interpretation Summary Left ventricular systolic function is hyperdynamic. The estimated ejection fraction is 75 %. Mild concentric left ventricular hypertrophy. The left atrium is mildly enlarged. There is moderate to severe mitral annular calcification. Extension of the mitral annular calcification onto the base of the mitral valve leaflets. Mild (1+) mitral valve insufficiency. Mild tricuspid valve insufficiency. Moderate diffuse aortic valve calcification. Moderate aortic stenosis. Right ventricular systolic pressure estimated to be 61 mmHg. Severe pulmonary hypertension. Diastolic function is indeterminate. Ordering Physician: Nima Heller Referring Physician: Fish Harris Chi Performed By: Sandra Alcala RDCS, RVT Physical Exam Narrative General: Alert, Oriented x3, Cooperative, No apparent distress HEENT: Atraumatic, PERRLA, EOMI, Normocephalic, hard of hearing Oral: Moist Mucosa Neck: Supple, No JVD Lungs: Diminished, poor air movement, No rhonchi, No wheeze, No rales Cardiovascular: Regular rate, Regular Rhythm, Normal S1, Normal S2, No murmurs Abdomen: Soft, Non Tender, Non-Distended, No Hepato-splenomegaly Extremities: Bilateral 1+ pitting edema, Capillary Refill Less than 3 Seconds Skin: No rashes, No breakdown Musculoskeletal: No Tenderness to Palpation of Joints or Extremities Neurological: Cranial nerves II-XII grossly intact, Motor Exam 5/5 strength throughout, Sensory exam intact to light touch and pain Psych/Mental Status: Normal Affect, Appropriate Assessment & Plan Assessment/Plan (1) Acute exacerbation of chronic obstructive pulmonary disease: (2) Hypoxia: PLAN: Plan 1.? Acute on chronic hypoxia secondary to COPD exacerbation complicated by pulmonary hypertension ? Continue with breathing treatments and steroids ?Will place her on Lasix twice daily ? In the ER she was requiring 6 L nasal cannula to maintain her oxygen sats but after the dose of Lasix we were able to titrate her back down to 3 L nasal cannula, her baseline oxygen is 2 to 3 L nasal cannula at all times ? Echo demonstrates normal EF with an RVSP of 61 mmHg consistent with severe pulmonary hypertension she will need outpatient follow-up with pulmonology or cardiology 2.? Hypothyroidism ? Stable ? Continue with Synthroid 3.? Hypertension ? Stable ? Continue with her home blood pressure medications 4.? Chronic anemia/GERD -Currently stable -Continue ferrous sulfate and vitamin C ? Continue with PPI, will check a stool guaiac as she continues to drop below 8 5.? History of breast cancer with mastectomy -In remission DVT: SCDs Charges/Coding Visit Charges Inpatient E&M: 86128 Subs Hosp L2
--- NOTE | 2023-01-29 18:13 | NURSING ---
pt's daughter charley called in and wanting to talk with dr. nguyen regarding pt dc jennifer d/t not wanting to miss sched injection for her myleodyspastic syndrome per brush finisher dr. velez at [facility]. pt's daughter a nurse and very involved in care. will be here at 1200 to pick her up. dr. nguyen asked to pass it on to oncoming drJc davis thinks is approp if o2 baseline and does not need more o2 poss could be dc'd. daughter frustrated and not hearing that was in chf or that could be anything other than circulatory problem from her MDs and not pulmonary despite being read echo report.
[2023-01-30] VITALS (10 sets, daily range): BP systolic 109–158; BP diastolic 46–66; PULSE 118–123; RESP 24–32; TEMP 36.7–37.6; O2SAT 87–97
[2023-01-30] MEDS: Acetaminophen 325 MG Tablet 650 MG PO (02:20)
[2023-01-30] MEDS: Albuterol 2.5 MG/3 ML VIAL.NEB. INHALATION ×2 (02:42→07:16)
--- NOTE | 2023-01-30 03:04 | EKG12_ITS ---
Test Reason : TACHY/SOB Blood Pressure : / mmHG Vent. Rate : 117 BPM Atrial Rate : 117 BPM P-R Int : 126 ms QRS Dur : 078 ms QT Int : 316 ms P-R-T Axes : 055 025 065 degrees QTc Int : 440 ms Sinus tachycardia Left ventricular hypertrophy Abnormal ECG When compared with ECG of 28-JAN-2023 05:48, MANUAL COMPARISON REQUIRED, DATA IS UNCONFIRMED Confirmed by BERONICA GRIMES, GUILLERMINA ([id number]), story editor MARY LOW ([id number]) on 01/31/2023 8:02:48 AM Referred By: DR BOWER Confirmed By:GUILLERMINA LOCO MD
--- NOTE | 2023-01-30 03:06 | RAD_ITS ---
EXAM: XR CHEST, 1 VIEW CLINICAL INDICATION: sob TECHNIQUE: Frontal view of the chest. This report was created using [employer] report generation technology. COMPARISON: 01/28/2023 FINDINGS: LUNGS AND PLEURAL SPACES: Small left pleural effusion and left basilar airspace disease. No pneumothorax. HEART: Unremarkable. Cardiac silhouette not enlarged. MEDIASTINUM: Central airways and mediastinal contour are unremarkable. BONES/JOINTS: Degenerative changes of the right shoulder. SOFT TISSUES: Surgical clips in the left axilla. TUBES, LINES AND DEVICES: Right chest port. RAD/Chest 1 View (Portable) IMPRESSION: Small left pleural effusion and left basilar airspace disease. Findings may indicate atelectasis or infection. Electronically Signed: Ricky Murray MD at 4:14 EST ,
[2023-01-30] MEDS: LORazepam 1 MG Tablet PO (03:21)
[2023-01-30] MEDS: Levothyroxine 50 MCG Tablet PO (03:22)
[2023-01-30 03:58] LABS: Hematocrit 26.9 % (37-47); Mean Corp Hgb Conc 29.7 g/dL (32-36); Mean Corpuscular Hgb 30.2 pg (27.0-32.0); Mean Corpuscular Volume 101.5 fL (81-99); POSITIVE COUNT YES; POSITIVE MORPHOLOGY YES; Platelet Count 168 K/mm3 (150-450); RBC Distribution Width CV 23.1 % (11.6-14.6); RBC Distribution Width SD 79.1 fl (35.1-43.9); Red Blood Count 2.65 M/mm3 (4.2-5.4); White Blood Count 8.8 K/mm3 (4.4-11.0)
[2023-01-30 04:01] LABS: Differential Indicated MANUAL DIFF
[2023-01-30 04:03] LABS: Anion Gap 8 (5-15); BUN 31 mg/dL (7-18); BUN/Creat Ratio 41.4 RATIO (10-20); Calcium,Total 8.3 mg/dL (8.5-10.1); Chloride 96 mmol/L (98-107); Creatinine, Serum 0.75 mg/dL (0.55-1.02); EST Glomerular Filtration Rate 80 mL/min (>60); Est Glom Filt Rate - Afr Amer 97 mL/min (>60); Estimated Creatinine Clearance 34.91 ml/min; Glucose 90 mg/dL (74-106); Potassium 3.9 mmol/L (3.5-5.1); Sodium Level 137 mmol/L (136-145)
[2023-01-30 04:06] LABS: Allen Test Positive; Base Excess 11 mmol/L (-2 to +2); Bicarbonate 33.5 mmol/L (22-26); Blood Gas Specimen Type ART; O2 Delivery Device Cannula; PO2 82 mmHG (75-100); SITE R Radial; SO2 97 % (95-99); Total Carbon Dioxide 35 mmol/L; pCO2 41.4 mmHg (35-45); pH 7.52 (7.35-7.45)
[2023-01-30 04:29] LABS: Anisocytosis 3+; Macrocytosis 1+; Microcytosis 1+; Platelet Estimate ADEQUATE (ADEQ)
[2023-01-30 04:30] LABS: Absolute Lymphocyte Count 2.45 X10^3/uL (0.83-4.51); Absolute Neutrophil Count 4.5 X10^3/uL (2.0-7.7); Lymphocyte 28 % (19-41); Myelocyte 8 % (0-0); Neutrophil-Band 12 % (0-5); Neutrophil-Segmented 39 % (47-70); Promyelocyte 1 % (0-0); Total Cells Counted 100 (MANUAL DIFF)
[2023-01-30 04:31] LABS: Atypical Lymphocyte 2+ %; Eosinophil 4 % (0-5); Monocyte 7 % (0-10)
[2023-01-30] MEDS: Ceftriaxone 1 GM/50 ML BAG IV (05:49)
--- NOTE | 2023-01-30 05:56 | PCM.PN.BLA ---
Progress Note Antibiotics started for possible pneumonia at the left base.
[2023-01-30] MEDS: levoFLOXacin IV 750 MG/150 ML BAG 100 MG IV (06:20)
--- NOTE | 2023-01-30 08:07 | DCINST_ITS ---
Discharge Instructions Diet Discharge Diet: No restrictions Activity Discharge Activity: Return to Normal Activity Weight Bearing Status: Weight bearing as tolerated Dressing / Incision Call your doctor if you observe: Fever of 101 or Higher, Coldness, Increased Pain, Numbness or Tingling, Change in Color, Inability to urinate, Inability to have a bowel movement, Using more than 1 pad per hour, Shortness of breath, Dizziness, Fainting spells, Swelling in the ankles, Chest pain, Prolonged hiccupping, Increased palpitations (irregular heartbeat) and Calf discomfort Follow Up Care When: IN 2 WEEKS Test Results: Test results from this visit will be discussed in further detail at your follow- up appointment, if applicable. Discharge Plan Admission Admit Date/Time: 01/28/23 07:55 Primary Reason for Your Visit: COPD exacerbation Attending Provider: Geronimo Mackey Primary Care Provider: Fish Harris Chi Consulting Providers: Nima Heller Discharge Orders/Prescriptions Prescriptions: New levofloxacin 500 mg tablet 500 mg PO DAILY Qty: 6 0RF dextromethorphan-guaifenesin [Mucinex DM] 60-1,200 mg tablet extended release 12 hr 1 tab PO Q12H Qty: 14 0RF prednisone 10 mg tablet See Taper PO DAILY Qty: 30 0RF Taper: Prednisone Taper 40 mg WITH BREAKFAST for 3 Days and 0 Hour 30 mg WITH BREAKFAST for 3 Days and 0 Hour 20 mg WITH BREAKFAST for 3 Days and 0 Hour 10 mg WITH BREAKFAST for 3 Days and 0 Hour Rx Instructions: 40 mg with breakfast for 3 Days; 30 mg for 3 Days; 20 mg for 3 Days; 10 mg for 3 Days pantoprazole [Protonix] 40 mg tablet,delayed release (DR/EC) 40 mg PO DAILY Qty: 30 2RF Continued ascorbic acid (vitamin C) 500 MG capsule 500 mg PO DAILY polysaccharide iron complex 150 MG capsule 150 mg PO DAILYCM Qty: 30 0RF acetaminophen 500 MG tablet 1,000 mg PO Q6H PRN (Reason: Pain Score 1-3/10) 0RF potassium chloride 10 MEQ tablet 10 meq PO DAILY Qty: 30 0RF metoprolol tartrate 25 MG tablet 12.5 mg PO BID Qty: 30 0RF Rx Instructions: Giv3e 12.5 every morning and at bedtime related to essential (primary) hypertension, check b/p before administering, hold for SBP <100 or HR <60 multivitamin Tablet 1 tab PO DAILY albuterol sulfate 90 mcg/actuation HFA aerosol inhaler 2 puff inhalation Q6H PRN (Reason: shortness of breath or wheezing) Qty: 8.5 0RF fluticasone propion-salmeterol 250-50 mcg/dose blister with device 1 inh INHALATION BID levothyroxine 50 mcg tablet 50 mcg PO DAILY Label Comments: TAKE 1 TABLET BY MOUTH EVERY DAY Discontinued prednisone 10 mg tablet See Rx Instructions .ROUTE .COMPLEX Label Comments: TAKE 3 TABS BY MOUTH DAILY FOR 2 DAYS, 2 TABS DAILY FOR 2 DAYS, 1 TAB DAILY FOR 2 DAYS, THEN STOP. Rx Instructions: TAKE 3 TABS BY MOUTH DAILY FOR 2 DAYS, 2 TABS DAILY FOR 2 DAYS, 1 TAB DAILY FOR 2 DAYS, THEN STOP. START DATE 01/25 pantoprazole 20 mg tablet,delayed release (DR/EC) 20 mg PO DAILY Label Comments: TAKE 1 TABLET BY MOUTH EVERY DAY Referrals / Follow Up: Fish Harris Chi, MD [Primary Care Provider] - Gautam Cloud DO [Med Staff - Active Staff] - Within 2 Weeks Disposition Disposition (needs filled in before D/C Order can be placed): Home, Self Care
[2023-01-30] MEDS: predniSONE 20 MG Tablet 40 MG PO (08:48)
[2023-01-30] MEDS: Potassium Chloride Oral Tablet 10 MEQ PO (08:49)
[2023-01-30] MEDS: Iron Polysaccharide Complex 150 MG CAPSULE PO (08:49)
[2023-01-30 09:47] LABS: M R Staph aureus DNA By PCR Negative (Negative); Probe Check PASS; Specimen Processing Control PASS
[2023-01-30] MEDS: Pantoprazole Sodium 20 MG Tablet PO (11:03)
[2023-01-30] MEDS: Metoprolol Tartrate 25 MG Tablet 12.5 MG PO (11:03)
[2023-01-30] MEDS: Furosemide 40 MG/4 ML Vial IV (11:04)
--- NOTE | 2023-01-30 11:45 | DS.PCM_ITS ---
Providers Date of Admission: 01/28/23 Date of Discharge: 01/30/23 Primary Care Physician: Dr. Fish Harris MD Reason For Visit: COPD EXACERBATION Diagnosis Discharge Diagnosis (1) Acute exacerbation of chronic obstructive pulmonary disease: Status: Chronic Code(s): J44.1 - Chronic obstructive pulmonary disease with (acute) exacerbation (2) Hypoxia: Status: Acute Code(s): R09.02 - Hypoxemia Plan This is 77-year-old female was admitted with progressive worsening of shortness of breath, increased lower extremity swelling started about 1 week ago. BNP was elevated 565. Patient was further admitted. 1.? Acute on chronic hypoxia secondary to COPD exacerbation, precipitated by right lower lobe pneumonia, complicated by pulmonary hypertension and acute on chronic HFpEF ? Continue with breathing treatments and steroids, incentive spirometry and Pep. Patient was treated with Lasix. Her shortness of breath and oxygen requirement improved with Lasix from 6 L to 2 to 3 L oxygen, her baseline requirement. Ch est x-ray shows interstitial edema in right lung with interval decrease in the small left pleural effusion. Left lower lobe subsegmental atelectasis. Repeat chest x-ray shows left lower lobe atelectasis/pneumonia. Patient was given prescription of Levaquin.Rapid SARS-CoV-2 and flu antigen negative. 2. Acute on chronic HFpEF and pulmonary hypertension and right lower lobe pneumonia: Prescription for Lasix given with holding parameter. ? Echo demonstrates normal EF with an RVSP of 61 mmHg consistent with severe pulmonary hypertension. Follow-up cardiology as an outpatient 3.? Hypothyroidism ? Stable ? Continue with Synthroid 3.? Hypertension ? Stable ? Continue with her home blood pressure medications 4.? Chronic anemia/GERD She has chronic macrocytic anemia with hemoglobin 8, improved from 7.4. -Continue ferrous sulfate and vitamin C ? Continue with PPI 5.? History of breast cancer with mastectomy -In remission DVT: SCDs The patient is discharged on Levaquin for total of 7 days, tapering dose of prednisone, pantoprazole and Lasix. Patient on iron supplement and ascorbic acid. Discharge medication reconciliation done. Discharge follow-up instructions completed. Discharge process discussed with the patient and all questions were answered to patient's satisfaction. Total time spent, exact 35 minutes on discharge meds reconciliation, examination, coordination of care with nurses and ancillary staff, review of imaging and blood test and discussion with the patient on follow-up instructions. Medications at Discharge Home Medications ascorbic acid (vitamin C) 500 mg capsule 500 mg PO DAILY supplement 01/17/20 acetaminophen 500 mg tablet 1,000 mg PO Q6H PRN Pain Score 1-3/10 01/21/20 metoprolol tartrate 25 mg tablet 12.5 mg PO BID BP #30 tabs 01/21/20 polysaccharide iron complex 150 mg iron capsule 150 mg PO DAILYCM #30 caps 01/21/20 potassium chloride 10 mEq tablet,extended release(part/cryst) 10 meq PO DAILY supplement #30 tabs 01/21/20 multivitamin 1 tab PO DAILY 08/10/22 albuterol sulfate 90 mcg/actuation aerosol inhaler 2 puff inhalation Q6H PRN shortness of breath or wheezing #8.5 grams 08/13/22 fluticasone 250 mcg-salmeterol 50 mcg/dose blistr powdr for inhalation 1 inh inhalation BID . 01/28/23 levothyroxine 50 mcg tablet 50 mcg PO DAILY THYROID 01/28/23 dextromethorphan-guaifenesin ER 60 mg-1,200 mg tab,extend release,12hr (Mucinex DM) 1 tab PO Q12H #14 tabs 01/30/23 furosemide 40 mg tablet 40 mg PO DAILY #30 tabs 01/30/23 levofloxacin 500 mg tablet 500 mg PO DAILY #6 tabs 01/30/23 pantoprazole 40 mg tablet,delayed release (Protonix) 40 mg PO DAILY #30 tabs 01/30/23 prednisone 10 mg tablet See Taper PO DAILY #30 tabs 01/30/23 Physical Exam Narrative Seen and examined. Physical exam General: Alert, Oriented x3, Cooperative HEENT: Atraumatic, PERRLA, EOMI, Normocephalic Oral: No Gingival or Mucosal Lesions/ Ulcerations Neck: Supple, No JVD, Negative Carotid Bruits Lungs: Air entry diminished in bilateral lung bases. Mild bibasilar expiratory rhonchi. Cardiovascular: Regular rate, Regular Rhythm, Normal S1, Normal S2, No murmurs Abdomen: Bowel Sounds Present, Soft, Non Tender, Non-Distended : No renal angle tenderness. No suprapubic tenderness. Extremities: Pedal edema has improved capillary Refill Less than 3 Seconds Skin: No rashes, No breakdown Musculoskeletal: No Tenderness to Palpation of Joints or Extremities, muscle strength 4+/5 at major lower extremity joints. Neurological: Cranial nerves II-XII grossly intact, DTR 2+/4 and Symmetrical, Neuro grossly intact Psych/Mental Status: Flat affect. Weight / BMI Weight Weight: 137 lb 12.8 oz Body Mass Index (BMI) 26.9 ABG / Lab / Microbiology Data Result Diagrams: 01/30/23 01:33 01/30/23 01:33 Laboratory: Laboratory Results - last 24 hr 01/30/23 01:33: WBC 8.8, RBC 2.65 L, Hgb 8.0 L, Hct 26.9 L, MCV 101.5 H, MCH 30.2, MCHC 29.7 L, RDW Std Deviation 79.1 H, RDW Coeff of Kylie 23.1 H, Plt Count 168, Neut % (Auto) Not Reportable, Absolute Neuts (auto) 4.5, Absolute Lymphs (auto) 2.45, Total Counted 100, Neutrophils % (Manual) 39 L, Band Neutrophils % 12 H, Lymphocytes % (Manual) 28, Monocytes % (Manual) 7, Eosinophils % (Manual) 4, Myelocytes % 8 H, Promyelocytes % 1 H, Diff Path Review May foll, Atypical Lymphocytes 2+, Platelet Estimate ADEQUATE, Anisocytosis 3+, Microcytosis 1+, Macrocytosis 1+ 01/30/23 01:33: Sodium 137, Potassium 3.9, Chloride 96 L, Carbon Dioxide 33.0 H, Anion Gap 8, BUN 31 H, Creatinine 0.75, Estim Creat Clear Calc 34.91, Est GFR (MDRD) Af Amer 97, Est GFR (MDRD) Non-Af 80, BUN/Creatinine Ratio 41.4 H, Glucose 90, Calcium 8.3 L 01/30/23 05:45: MRSA (PCR) Negative Microbiology: Microbiology 01/28/23 06:25 Nasal Secretion SARS-CoV-2 & FLU Antigen (Rapid) - Final ABG: ABG 01/30/23 04:01 Specimen Type ART Sample Site R Radial pH 7.52 H Bicarbonate Actual 33.5 H Total CO2 35 Base Excess 11 H O2 Saturation 97 ABG pCO2 41.4 ABG pO2 82 Rafael Test Positive O2 Delivery Device Cannula Liter Flow 4.0 Radiography Diagnostic Testing: Radiology Impression Chest X-Ray 01/30/23 03:06 IMPRESSION: Small left pleural effusion and left basilar airspace disease. Findings may indicate atelectasis or infection. Electronically Signed: Ricky Murray MD at 4:14 EST , D/C Instructions Discharge Diet: No restrictions Weight Bearing Status: Weight bearing as tolerated Call your doctor if you observe: Fever of 101 or Higher, Coldness, Increased Pain, Numbness or Tingling, Change in Color, Inability to urinate, Inability to have a bowel movement, Using more than 1 pad per hour, Shortness of breath, Dizziness, Fainting spells, Swelling in the ankles, Chest pain, Prolonged hiccupping, Increased palpitations (irregular heartbeat) and Calf discomfort When: IN 2 WEEKS Meaningful Use Info Meaningful Use Diagnoses (Choose all that apply): None applicable Discharge Plan Admission Admit Date/Time: 01/28/23 07:55 Primary Reason for Your Visit: COPD exacerbation Attending Provider: Geronimo Mackey Primary Care Provider: Fish Harris Chi Consulting Providers: Nima Heller Discharge Orders/Prescriptions Prescriptions: New levofloxacin 500 mg tablet 500 mg PO DAILY Qty: 6 0RF dextromethorphan-guaifenesin [Mucinex DM] 60-1,200 mg tablet extended release 12 hr 1 tab PO Q12H Qty: 14 0RF prednisone 10 mg tablet See Taper PO DAILY Qty: 30 0RF Taper: Prednisone Taper 40 mg WITH BREAKFAST for 3 Days and 0 Hour 30 mg WITH BREAKFAST for 3 Days and 0 Hour 20 mg WITH BREAKFAST for 3 Days and 0 Hour 10 mg WITH BREAKFAST for 3 Days and 0 Hour Rx Instructions: 40 mg with breakfast for 3 Days; 30 mg for 3 Days; 20 mg for 3 Days; 10 mg for 3 Days pantoprazole [Protonix] 40 mg tablet,delayed release (DR/EC) 40 mg PO DAILY Qty: 30 2RF furosemide 40 mg tablet 40 mg PO DAILY Qty: 30 0RF Rx Instructions: Hold if systolic blood pressure less than 100 mmHg Continued ascorbic acid (vitamin C) 500 MG capsule 500 mg PO DAILY polysaccharide iron complex 150 MG capsule 150 mg PO DAILYCM Qty: 30 0RF acetaminophen 500 MG tablet 1,000 mg PO Q6H PRN (Reason: Pain Score 1-3/10) 0RF potassium chloride 10 MEQ tablet 10 meq PO DAILY Qty: 30 0RF metoprolol tartrate 25 MG tablet 12.5 mg PO BID Qty: 30 0RF Rx Instructions: Giv3e 12.5 every morning and at bedtime related to essential (primary) hypertension, check b/p before administering, hold for SBP <100 or HR <60 multivitamin Tablet 1 tab PO DAILY albuterol sulfate 90 mcg/actuation HFA aerosol inhaler 2 puff inhalation Q6H PRN (Reason: shortness of breath or wheezing) Qty: 8.5 0RF fluticasone propion-salmeterol 250-50 mcg/dose blister with device 1 inh INHALATION BID levothyroxine 50 mcg tablet 50 mcg PO DAILY Label Comments: TAKE 1 TABLET BY MOUTH EVERY DAY Discontinued prednisone 10 mg tablet See Rx Instructions .ROUTE .COMPLEX Label Comments: TAKE 3 TABS BY MOUTH DAILY FOR 2 DAYS, 2 TABS DAILY FOR 2 DAYS, 1 TAB DAILY FOR 2 DAYS, THEN STOP. Rx Instructions: TAKE 3 TABS BY MOUTH DAILY FOR 2 DAYS, 2 TABS DAILY FOR 2 DAYS, 1 TAB DAILY FOR 2 DAYS, THEN STOP. START DATE 01/25 pantoprazole 20 mg tablet,delayed release (DR/EC) 20 mg PO DAILY Label Comments: TAKE 1 TABLET BY MOUTH EVERY DAY Referrals / Follow Up: Gautam Cloud DO [Med Staff - Active Staff] - Within 2 Weeks Fish Harris Chi, MD [Primary Care Provider] - Cassandra Bass MD [Med Staff - Active Staff] - Within 1 Month (Follow-up for heart failure and pulmonary hypertension) Disposition Disposition (needs filled in before D/C Order can be placed): Home, Self Care Charges/Coding Visit Charges Inpatient E&M: 56955 Disch Hosp >30min
--- NOTE | 2023-01-30 11:50 | CASEMGMT ---
Nurse made RITU ROBISON aware that pt will be going to a medical appt in [place] prior to going home. Pt qualifies for home oxygen at 2L cont. Referral sent to [facility] [place] via [facility]. Spoke with Jasmina who requests that portable tank be taken from stock. She states the tank will last 5.7 hours and that pt will need to provide credit/debit card at time of delivery of concentrator. DC instructions attached and sent to [facility] via [facility] at this time. RITU ROBISON in to pt room, provided portable oxygen tank. Pt states that she has a pox at home. She is aware of how long this tank will last, pt states she will be home before then. She is aware to call [facility] [place] when she is almost home to deliver concentrator and that she will need a debit or credit card to provide as well. She is aware that [facility] will be in touch with her to resume care. Pt denies further needs.
--- NOTE | 2023-01-30 12:34 | CASEMGMT ---
Social Work Pt indicated to admitting RN has LW/POA but is not able to bring in the documents. LW is scanned into the summary tab of the echart, but the POA is not. As per pt, Aisha Calvo is pt's POA. STEPHON Burnett
[2023-01-30 13:10] LABS: Pathologist Review Reviewed
[2023-01-30 13:11] LABS: Pathologist Review Reviewed
[2023-01-30 13:17] LABS: Pathologist Review Reviewed
== END 2023-01-30 13:15 | disposition home or self-care (01) | DRG 190 ==
LOC: ED 06:55 → MS3 08:18
PROVIDERS: Hospitalist; Admitting Provider Family Medicine; Emergency Provider Emergency Medicine; PCP Family Medicine Geriatric Medicine; Visit Provider Internal Medicine
DX: J44.1 Chronic obstructive pulmonary disease with (acute) exacerbation (principal); J18.9 Pneumonia, unspecified organism; I50.33 Acute on chronic diastolic (congestive) heart failure; J96.11 Chronic respiratory failure with hypoxia; I27.20 Pulmonary hypertension, unspecified; I11.0 Hypertensive heart disease with heart failure; Z99.81 Dependence on supplemental oxygen; J44.0 Chronic obstructive pulmonary disease with (acute) lower respiratory infection; E03.9 Hypothyroidism, unspecified; K21.9 Gastro-esophageal reflux disease without esophagitis; D53.9 Nutritional anemia, unspecified; Z79.899 Other long term (current) drug therapy; Z85.3 Personal history of malignant neoplasm of breast; Z87.891 Personal history of nicotine dependence
CPT/HCPCS: 36600; 71045; 80048; 82728; 82803; 83540; 83550; 83880; 85025; 87428; 87641; 93005; 93306; 94640; 94668; 97110; 97162; 97165; 97535; 99252; 99285; A4216; G0463; J1940

== ENCOUNTER → 2023-02-06 | Outpatient (CLI) | payer MEDICARE, SELFPAY ==
[2019-12-26 13:03] VITALS: BMI 31.5
[2023-02-06 13:23] LABS: Hematocrit 23.7 % (37-47); Mean Corp Hgb Conc 29.5 g/dL (32-36); Mean Corpuscular Hgb 30.4 pg (27.0-32.0); POSITIVE COUNT YES; POSITIVE DIFFERENTIAL YES; POSITIVE MORPHOLOGY YES; RBC Distribution Width CV 23.6 % (11.6-14.6); White Blood Count 14.1 K/mm3 (4.4-11.0)
[2023-02-06 13:46] LABS: BNP,B-Type NATRIURETIC PEPTIDE 525.3 pg/mL (0-100)
[2023-02-06 13:53] LABS: Differential Indicated MANUAL DIFF
[2023-02-06 13:54] LABS: Anion Gap 10 (5-15); BUN 22 mg/dL (7-18); BUN/Creat Ratio 22.6 RATIO (10-20); Calcium,Total 8.8 mg/dL (8.5-10.1); Chloride 93 mmol/L (98-107); Creatinine, Serum 0.97 mg/dL (0.55-1.02); EST Glomerular Filtration Rate 59 mL/min (>60); Est Glom Filt Rate - Afr Amer 72 mL/min (>60); Glucose 140 mg/dL (74-106); Potassium 4.4 mmol/L (3.5-5.1); Sodium Level 131 mmol/L (136-145); Thyroid Stim Hormone (TSH) 1.89 uIU/mL (0.358-3.74)
[2023-02-06 13:58] LABS: Blast 6 % (0-0); Lymphocyte 8 % (19-41); Metamyelocyte 23 % (0-1); Monocyte 7 % (0-10); Neutrophil-Band 17 % (0-5); Neutrophil-Segmented 39 % (47-70); Total Cells Counted 100 (MANUAL DIFF)
[2023-02-06 13:59] LABS: Anisocytosis 3+; Hypochromasia 2+; Polychromasia 1+
[2023-02-06 14:00] LABS: Platelet Estimate SLT DEC (ADEQ); Platelet Morphology GIANT
[2023-02-06 14:01] LABS: Absolute Neutrophil Count 7.8 X10^3/uL (2.0-7.7)
[2023-02-07 12:14] LABS: Pathologist Review Reviewed
== END | disposition home or self-care (01) ==
LOC: POLAB3 11:59
PROVIDERS: PCP Family Medicine Geriatric Medicine; Visit Provider Family Medicine Geriatric Medicine
DX: K92.1 Melena (principal); I50.33 Acute on chronic diastolic (congestive) heart failure
CPT/HCPCS: 36415; 80048; 83880; 84443; 85025

== ENCOUNTER 2023-02-13 14:15 | Inpatient (IN) | payer MEDICARE, SELFPAY ==
[2019-12-26 13:03] VITALS: BMI 31.5
[2023-02-13] VITALS (27 sets, daily range): BP systolic 91–114; BP diastolic 40–79; PULSE 116–132; RESP 18–39; TEMP 36.6–37.6; O2SAT 86–100; BMI 26.9; BMI 24.9
--- NOTE | 2023-02-13 14:33 | EKG12_ITS ---
Test Reason : Blood Pressure : / mmHG Vent. Rate : 127 BPM Atrial Rate : 127 BPM P-R Int : 134 ms QRS Dur : 072 ms QT Int : 308 ms P-R-T Axes : 063 027 074 degrees QTc Int : 447 ms Sinus tachycardia Minimal voltage criteria for LVH, may be normal variant ( Sokolow-Sheets ) Nonspecific ST and T wave abnormality Abnormal ECG Confirmed by BERONICA GRIMES, GUILLERMINA ([id number]), senior editor MARY LOW ([id number]) on 02/14/2023 8:42:34 AM Referred By: BIANCA Confirmed By:GUILLERMINA LOCO MD
--- NOTE | 2023-02-13 14:36 | EX.ED.CRITCA ---
HPI History of Present Illness Chief Complaint: Alt LOC Informant: patient and EMS Narrative Narrative: History is quite limited as the patient is alert to herself and she knows she is at [facility]. The report from EMS is that neighbors called because this patient has been home alone for the last few days. She tells me she lives alone at home. I reviewed inpatient records that did not mention any mental incapability or dysfunction that would require her to have others at home. When I ask if she has pain she says yes but she had does not know where it is. She does admit to being short of breath. She does admit to not feeling well but cannot elaborate in any way beyond that. No other information is available at this time. We are trying to contact family members to get further information. I also reviewed her past family social surgical history on the computer. It lists none as other people living with her. [facility] Medical History (Updated 02/13/23 @ 22:[address] Lm Quintanilla MD) Breast cancer Cancer Chronic pain COPD (chronic obstructive pulmonary disease) Former smoker Hypothyroidism Irregular heart beat Kidney stones Osteoporosis Symptomatic anemia Home Medications ascorbic acid (vitamin C) 500 mg capsule 500 mg PO DAILY supplement 01/17/20 [History Last Taken 01/28/23] acetaminophen 500 mg tablet 1,000 mg PO Q6H PRN Pain Score 1-3/10 01/21/20 [Rx Last Taken 08/10/22] potassium chloride 10 mEq tablet,extended release(part/cryst) 10 meq PO DAILY supplement #30 tabs 01/21/20 [Rx Last Taken 01/28/23] multivitamin 1 tab PO DAILY HEALTH SUPPLEMENT 08/10/22 [History Last Taken 01/28/23] albuterol sulfate 90 mcg/actuation aerosol inhaler 2 puff inhalation Q6H PRN shortness of breath or wheezing #8.5 grams 08/13/22 [Rx Last Taken 01/28/23] levothyroxine 50 mcg tablet 50 mcg PO DAILY THYROID 01/28/23 [History Last Taken 01/28/23] furosemide 40 mg tablet 40 mg PO BID WATER PILL 02/13/23 [History Last Taken Unknown] levofloxacin 500 mg tablet 500 mg PO DAILY PNEUMONIA 02/13/23 [History Last Taken Unknown] metoprolol tartrate 25 mg tablet 12.5 mg PO DAILY BP 02/13/23 [History Last Taken Unknown] pantoprazole 40 mg tablet,delayed release (Protonix) 40 mg PO DAILY ACID REFLUX 02/13/23 [History Last Taken Unknown] polysaccharide iron complex 150 mg iron capsule 150 mg PO DAILYCM ANEMIA 02/13/23 [History Last Taken Unknown] prednisone 10 mg tablet See Taper PO DAILY COPD 02/13/23 [History Last Taken Unknown] Allergy/AdvReac Type Severity Reaction Status Date / Time bacitracin Allergy Rash Verified 02/13/23 15:22 [From Neosporin ([id number])] neomycin Allergy Rash Verified 02/13/23 15:22 [From Neosporin ([id number])] polymyxin B Allergy Rash Verified 02/13/23 15:22 [From Neosporin ([id number])] Family History (Updated 02/13/23 @ 14:[address] Lm Quintanilla MD) Sister Breast cancer Surgical History H/O mastectomy H/O: hysterectomy Tubal ligation status Social History household members: none Smoking Status: Former smoker substance use type: does not use ROS ROS ED ROS Narrative Patient admits to not feeling well. She admits to having pain but cannot state where. She does admit to dyspnea. She denies all the other complaints. But she is also alert and oriented x1 may be slightly more and her review of systems is not really reliably obtainable. EXAM Physical Exam Narrative Exam Narrative: Patient is in bed. She does look dyspneic. She is awake alert and responds quickly. She is also very hard of hearing but with a loud voice this is not a hindrance to history. HEENT shows no trauma. Mucous membranes are still moist. Eyes are pupils about 2 mm and reactive. Neck does not show any obvious JVD Lungs: She does have increased respiratory rate. She desaturates easily with talking. She has coarse breath sounds mostly at the left base more than any other area. She has some overall poor air motion. She has a Mediport in the right upper chest that is clean and not infected Heart rate is tachycardic anywhere from about upper 120s to upper 130s. It does appear to be sinus though. Abdomen is nontender Extremities do show +2 edema that looks relatively new as the skin is somewhat taut. No asymmetry. No tenderness on exam. Neurologically she is awake. She is alert. She is oriented to herself. She knows she is at [facility]. I cannot get that she is in a hospital. She cannot tell me the year the month or the president. When I asked her who the president is she is able to tell me that that is the vice president. But she cannot give me a name. Const Vital Signs: 02/13/23 14:17 02/13/23 14:23 02/13/23 14:24 Temperature 99.1 F 99.1 F Temperature Source Temporal Temporal Pulse Rate 131 H 132 H 131 H Respiratory Rate 18 31 H 32 H Respiratory Effort Respiratory Depth Respiratory Pattern Blood Pressure 114/59 L 105/40 L 105/40 L Blood Pressure Mean 77 61 61 Blood Pressure Source Blood Pressure Position Blood Pressure Location Pulse Ox 90 94 94 Oxygen Delivery Method Nasal Cannula Nasal Cannula Nasal Cannula Oxygen Flow Rate (L/min) 6 6 6 02/13/23 14:52 02/13/23 15:20 02/13/23 15:22 Temperature 99.0 F Temperature Source Temporal Pulse Rate 125 H 124 H Respiratory Rate 26 H 24 H Respiratory Effort Short of Breath Labored Respiratory Depth Shallow Respiratory Pattern Tachypnea Blood Pressure 100/42 L 100/42 L Blood Pressure Mean 61 61 Blood Pressure Source Blood Pressure Position Blood Pressure Location Pulse Ox 99 99 Oxygen Delivery Method Nasal Cannula Non-Rebreather Non-Rebreather Oxygen Flow Rate (L/min) 6 15 14 02/13/23 14:42 02/13/23 15:39 02/13/23 16:01 Temperature Temperature Source Pulse Rate 116 H 128 H 125 H Respiratory Rate 24 H 30 H 29 H Respiratory Effort Respiratory Depth Respiratory Pattern Tachypnea Blood Pressure 101/49 L 108/45 L Blood Pressure Mean 66 66 Blood Pressure Source Blood Pressure Position Blood Pressure Location Pulse Ox 95 93 Oxygen Delivery Method Nasal Cannula Nasal Cannula Oxygen Flow Rate (L/min) 8 6 02/13/23 16:03 02/13/23 16:50 02/13/23 17:02 Temperature 99.7 F H 98.2 F Temperature Source Temporal Temporal Pulse Rate 125 H 128 H 127 H Respiratory Rate 29 H 29 H 39 H Respiratory Effort Respiratory Depth Respiratory Pattern Blood Pressure 108/45 L 96/53 L 107/48 L Blood Pressure Mean 66 67 67 Blood Pressure Source Blood Pressure Position Blood Pressure Location Pulse Ox 93 88 86 Oxygen Delivery Method Nasal Cannula Nasal Cannula Nasal Cannula Oxygen Flow Rate (L/min) 6 8 10 02/13/23 17:04 02/13/23 17:05 02/13/23 17:06 Temperature 98.3 F 98.2 F 98.2 F Temperature Source Temporal Temporal Temporal Pulse Rate 124 H 124 H 123 H Respiratory Rate 29 H 34 H 25 H Respiratory Effort Respiratory Depth Respiratory Pattern Blood Pressure 107/48 L 107/48 L 107/48 L Blood Pressure Mean 67 67 67 Blood Pressure Source Blood Pressure Position Blood Pressure Location Pulse Ox 91 92 92 Oxygen Delivery Method Nasal Cannula Nasal Cannula Nasal Cannula Oxygen Flow Rate (L/min) 10 10 10 02/13/23 17:17 02/13/23 17:40 Temperature 99.5 F H Temperature Source Oral Pulse Rate 124 H 125 H Respiratory Rate 28 H 30 H Respiratory Effort Respiratory Depth Respiratory Pattern Blood Pressure 91/79 96/45 L Blood Pressure Mean 83 62 Blood Pressure Source Monitor Blood Pressure Position Semi-Fowlers Blood Pressure Location Right Arm Pulse Ox 91 94 Oxygen Delivery Method Nasal Cannula High Flow Oxygen Flow Rate (L/min) 10 11 MDM MDM MDM Narrative Medical decision making narrative: My independent interpretation of her single view chest x-ray does show infiltrate/effusion on the left which seems more than prior. Labs show slight elevation white count at 12 2. She is anemic at 7.4 but this is higher than her recent check. Per her daughter she had had a transfusion at 6.6 just 5 days ago. I have no report of acute GI bleeding. She has a history of a chronic small bowel bleed that causes anemia and transfusion need. Electrolytes showed mild elevation of carbon dioxide 33. Lactic acid was up at 2.5. Bili Gume was slightly L of BNP was high for her at 728. This patient is now oxygenating reasonably well at 6 L. Blood pressure is really been stable at about 105-110. She did receive a small bolus of fluid initially as she had a initial trend down and blood pressure. But were going to try to hold off because of the high BNP and her history of CHF. This complex patient has multiple issues. She has multiple reasons for dyspnea including COPD, acute infiltrate, and CHF. Although her heart rate is fast, when I look back she commonly runs a heart rate of about 115 or more. Patient has been given antibiotics. Case was discussed with hospitalist and the patient will be admitted. Lab Data Attestation: I reviewed the patient's lab results. Labs: Laboratory Results - last 24 hr 02/13/23 02/13/23 02/13/23 14:45 14:45 14:45 WBC 12.2 H RBC 2.42 L Hgb 7.4 L Hct 24.0 L MCV 99.2 H MCH 30.6 MCHC 30.8 L RDW Std Deviation 75.0 H RDW Coeff of Kylie 23.0 H Plt Count 77 L Neut % (Auto) Not Reportable Absolute Neuts (auto) 5.7 Absolute Lymphs (auto) 3.05 Total Counted 100 Neutrophils % (Manual) 27 L Band Neutrophils % 20 H Lymphocytes % (Manual) 25 Monocytes % (Manual) 24 H Eosinophils % (Manual) 1 Metamyelocytes % 1 Myelocytes % 2 H Diff Path Review May foll Reactive Lymphocytes [employer] Sodium 136 Potassium 4.3 Chloride 95 L Carbon Dioxide 33.0 H Anion Gap 8 BUN 21 H Creatinine 0.90 Estim Creat Clear Calc 38.79 Est GFR (MDRD) Af Amer 79 Est GFR (MDRD) Non-Af 65 BUN/Creatinine Ratio 23.4 H Glucose 130 H Lactic Acid 2.5 H* Calcium 8.3 L Total Bilirubin 2.60 H AST 20 ALT 17 Alkaline Phosphatase 46 Troponin I High Sens 22 B-Natriuretic Peptide Total Protein 5.7 L Albumin 2.4 L Globulin 3.3 Albumin/Globulin Ratio 0.7 L 02/13/23 14:45 WBC RBC Hgb Hct MCV MCH MCHC RDW Std Deviation RDW Coeff of Kylie Plt Count Neut % (Auto) Absolute Neuts (auto) Absolute Lymphs (auto) Total Counted Neutrophils % (Manual) Band Neutrophils % Lymphocytes % (Manual) Monocytes % (Manual) Eosinophils % (Manual) Metamyelocytes % Myelocytes % Diff Path Review Reactive Lymphocytes Sodium Potassium Chloride Carbon Dioxide Anion Gap BUN Creatinine Estim Creat Clear Calc Est GFR (MDRD) Af Amer Est GFR (MDRD) Non-Af BUN/Creatinine Ratio Glucose Lactic Acid Calcium Total Bilirubin AST ALT Alkaline Phosphatase Troponin I High Sens B-Natriuretic Peptide 728.2 H Total Protein Albumin Globulin Albumin/Globulin Ratio Radiography Diagnostic Testing: Clinical Impression(s) from Imaging Studies Chest X-Ray 02/13/23 15:15 IMPRESSION: Progressive left lower lobe infiltration and left pleural effusion. Mild increased markings are also seen at the right lung base. Electronically Signed: Saeed Lam MD at 15:35 EDT , EKG Initial EKG: Comments: My independent interpretation of the patient's EKG done for tachycardia and dyspnea shows sinus rhythm with tachycardic rate at 127. No ventricular ectopy is seen. She does have a diffuse nonspecific changes and changes consistent with LVH. NH interval QRS duration and QTc are normal. This EKG is similar to prior of 30 January of this year. Discharge Plan Dx/Rx/DC Orders Clinical Impression: Left lower lobe pneumonia, Hypoxia, Congestive heart failure (CHF), COPD (chronic obstructive pulmonary disease) Disposition Disposition: Acute Care Hospital [facility] Discharge Date/Time: 02/13/23 17:23
[2023-02-13] MEDS: Ipratropium/Albuterol Sulfate 3 ML AMPUL.NEB INHALATION ×2 (14:42→19:35)
[2023-02-13 14:56] LABS: Hemoglobin 7.4 g/dL (12.0-15.0); Mean Corp Hgb Conc 30.8 g/dL (32-36); Mean Corpuscular Hgb 30.6 pg (27.0-32.0); Mean Corpuscular Volume 99.2 fL (81-99); POSITIVE COUNT YES; POSITIVE DIFFERENTIAL YES; POSITIVE MORPHOLOGY YES; Platelet Count 77 K/mm3 (150-450); Red Blood Count 2.42 M/mm3 (4.2-5.4); White Blood Count 12.2 K/mm3 (4.4-11.0)
[2023-02-13 15:12] LABS: ALB/GLOB Ratio 0.7 RATIO (0.9-2.4); AST(SGOT) 20 U/L (15-37); Alanine Aminotransfer ALT/SGPT 17 U/L (13-56); Albumin, Serum 2.4 g/dL (3.2-5.0); Alkaline Phosphatase 46 U/L (45-117); Anion Gap 8 (5-15); BUN 21 mg/dL (7-18); BUN/Creat Ratio 23.4 RATIO (10-20); Calcium,Total 8.3 mg/dL (8.5-10.1); Chloride 95 mmol/L (98-107); EST Glomerular Filtration Rate 65 mL/min (>60); Est Glom Filt Rate - Afr Amer 79 mL/min (>60); Estimated Creatinine Clearance 38.79 ml/min; Globulin 3.3 g/dL (2.2-4.2); Glucose 130 mg/dL (74-106); Potassium 4.3 mmol/L (3.5-5.1); Protein, Total 5.7 g/dL (6.4-8.2); Sodium Level 136 mmol/L (136-145); Troponin-I HS 22 pg/mL (3.0-54.0)
[2023-02-13 15:13] LABS: Differential Indicated MANUAL DIFF
--- NOTE | 2023-02-13 15:15 | RAD_ITS ---
STUDY: X-RAY CHEST REASON FOR EXAM: Female, 77 years old. SOB TECHNIQUE: Single AP portable view of the chest. COMPARISON: Comparison is made with prior study dated January 30, 2023. FINDINGS: A right-sided portacatheter is seen with the tip in the right atrium. EKG electrodes are seen. Surgical clips are seen in the left axillary region. Since prior study, there has been progressive infiltration in the left lower lobe with a small left pleural effusion. Mild increased markings at the right lung base as well. There is calcification of the mitral valve annulus. Normal mediastinum and annika. Normal visualized pulmonary arteries. Normal visualized aortic arch and descending thoracic aorta. There are diffuse degenerative changes of the visualized thoracic spine. Sclerosis and deformity of the right humeral head. There is no demonstrated abnormality of the visualized soft tissue structures of the upper abdomen. RAD/Chest 1 View (Portable) IMPRESSION: Progressive left lower lobe infiltration and left pleural effusion. Mild increased markings are also seen at the right lung base. Electronically Signed: Saeed Lam MD at 15:35 EDT ,
--- NOTE | 2023-02-13 15:16 | ED.RN ---
THIS RN ATTEMPTED TO CALL PT DAUGHTER (ARMOND MARTINEZ) ON THE CHART FOR THE PT. BOTH TIMES PHONE NUMBER WENT STRAIGHT TO VOICEMAIL. THIS RN ATTEMPTED TO CALL AT 1517.
--- NOTE | 2023-02-13 15:22 | ED.RN ---
PT UNSURE OF ANY OTHER ALLERGIES.
[2023-02-13 15:56] LABS: BNP,B-Type NATRIURETIC PEPTIDE 728.2 pg/mL (0-100)
[2023-02-13 15:58] LABS: Eosinophil 1 % (0-5); Lactic Acid 2.5 mmol/L (0.4-1.9); Lymphocyte 25 % (19-41); Metamyelocyte 1 % (0-1); Monocyte 24 % (0-10); Myelocyte 2 % (0-0); Neutrophil-Band 20 % (0-5); Neutrophil-Segmented 27 % (47-70); Total Cells Counted 100 (MANUAL DIFF)
[2023-02-13 16:02] LABS: Absolute Lymphocyte Count 3.05 X10^3/uL (0.83-4.51); Absolute Neutrophil Count 5.7 X10^3/uL (2.0-7.7)
--- NOTE | 2023-02-13 16:25 | ED.RN ---
THIS RN CALLED PTS DAUGHTER AT 1625. PT DAUGHTER EXPLAINED THE PT HAS A SMALL BOWEL BLEED THAT STARTED IN 2020. PT WAS TREATED AT [facility]. PT DAUGHTER STATES NOTHING WAS DONE AT [facility] ABOUT THE BLEED. PT HAD A BLOOD TRANSFUSION MONDAY FOR A HEMOGLOBIN OF 6.6. DAUGHTER CALLED THE [facility] TODAY DUE TO PT HAVING N/V AND NOT BEING ABLE TO GET OUT OF BED. PT DAUGHTER IS OUT OF THE STATE BUT IS ON HER WAY BACK. PT DAUGHTER ALSO STATES SHE IS ON AN ANTIBIOTIC AT HOME, BUT IS UNSURE WHY. PT ALSO WEAR 2L NC AT HOME.
--- NOTE | 2023-02-13 16:28 | ED.RN ---
PT DAUGHTER CONFIRMED THE ONLY ALLERGY THE PT HAS IS NEOSPORIN.
--- NOTE | 2023-02-13 17:21 | ED.RN ---
THIS RN CALLED PTS DAUGHTER AT 1722 TO LET HER KNOW THE PT IS BEING ADMITTED TO PCU. THE PT REQUESTED THIS RN CALL HER DAUGHTER. PT DAUGHTER IS ON HER WAY TO THE HOSPITAL NOW.
--- NOTE | 2023-02-13 17:34 | PCM.HP.STD ---
HPI - General General Date of Admission: 02/13/23 HPI Narrative REBEKAH AVITIA, is a 77 F who presents to the hospital with confusion and altered mental status. She is also hypoxic more so than she is at baseline where she needs 3 L nasal cannula, she is requiring initially on presentation 15 L nonrebreather and she did come down to 86% on 10 L nasal cannula temporarily. Unfortunately she is confused and cannot provide much history and there is no family in the room so history is obtained from chart review and discussions with the ER physician. She was brought in by EMS after neighbors called because aide noticed that she had been home alone for a few days. On admission she was found to have an elevated white count of 12.2 with a chest x-ray that demonstrates a worsening left lower lobe infiltrate. She was given a dose of Zosyn in the ER given her recent admissions to the hospital 2 weeks ago for a COPD exacerbation. She was also given a liter of fluid because of her tachycardia and her borderline blood pressures. [facility] Medical History (Updated 02/13/23 @ 18:07 by Jen Calderon) Breast cancer Cancer Chronic pain COPD (chronic obstructive pulmonary disease) Former smoker Hypothyroidism Irregular heart beat Kidney stones Osteoporosis Symptomatic anemia Home Medications ascorbic acid (vitamin C) 500 mg capsule 500 mg PO DAILY supplement 01/17/20 [History Last Taken 01/28/23] acetaminophen 500 mg tablet 1,000 mg PO Q6H PRN Pain Score 1-3/10 01/21/20 [Rx Last Taken 08/10/22] potassium chloride 10 mEq tablet,extended release(part/cryst) 10 meq PO DAILY supplement #30 tabs 01/21/20 [Rx Last Taken 01/28/23] multivitamin 1 tab PO DAILY HEALTH SUPPLEMENT 08/10/22 [History Last Taken 01/28/23] albuterol sulfate 90 mcg/actuation aerosol inhaler 2 puff inhalation Q6H PRN shortness of breath or wheezing #8.5 grams 08/13/22 [Rx Last Taken 01/28/23] levothyroxine 50 mcg tablet 50 mcg PO DAILY THYROID 01/28/23 [History Last Taken 01/28/23] furosemide 40 mg tablet 40 mg PO BID WATER PILL 02/13/23 [History Last Taken Unknown] levofloxacin 500 mg tablet 500 mg PO DAILY PNEUMONIA 02/13/23 [History Last Taken Unknown] metoprolol tartrate 25 mg tablet 12.5 mg PO DAILY BP 02/13/23 [History Last Taken Unknown] pantoprazole 40 mg tablet,delayed release (Protonix) 40 mg PO DAILY ACID REFLUX 02/13/23 [History Last Taken Unknown] polysaccharide iron complex 150 mg iron capsule 150 mg PO DAILYCM ANEMIA 02/13/23 [History Last Taken Unknown] prednisone 10 mg tablet See Taper PO DAILY COPD 02/13/23 [History Last Taken Unknown] Allergy/AdvReac Type Severity Reaction Status Date / Time bacitracin Allergy Rash Verified 02/13/23 15:22 [From Neosporin ([id number])] neomycin Allergy Rash Verified 02/13/23 15:22 [From Neosporin ([id number])] polymyxin B Allergy Rash Verified 02/13/23 15:22 [From Neosporin ([id number])] Family History (Updated 02/13/23 @ 14:[address] Lm Quintanilla MD) Sister Breast cancer Surgical History H/O mastectomy H/O: hysterectomy Tubal ligation status Social History household members: none Smoking Status: Former smoker substance use type: does not use ROS Review of Systems ROS Unobtainable: due to mental status Vital Signs Vital Signs Vital Signs: 02/13/23 14:17 02/13/23 14:23 02/13/23 14:24 Temperature 99.1 F 99.1 F Temperature Source Temporal Temporal Pulse Rate 131 H 132 H 131 H Respiratory Rate 18 31 H 32 H Respiratory Effort Respiratory Depth Respiratory Pattern Blood Pressure 114/59 L 105/40 L 105/40 L Blood Pressure Mean 77 61 61 Pulse Ox 90 94 94 Oxygen Delivery Method Nasal Cannula Nasal Cannula Nasal Cannula Oxygen Flow Rate (L/min) 6 6 6 02/13/23 14:52 02/13/23 15:20 02/13/23 15:22 Temperature 99.0 F Temperature Source Temporal Pulse Rate 125 H 124 H Respiratory Rate 26 H 24 H Respiratory Effort Short of Breath Labored Respiratory Depth Shallow Respiratory Pattern Tachypnea Blood Pressure 100/42 L 100/42 L Blood Pressure Mean 61 61 Pulse Ox 99 99 Oxygen Delivery Method Nasal Cannula Non-Rebreather Non-Rebreather Oxygen Flow Rate (L/min) 6 15 14 02/13/23 14:42 02/13/23 15:39 02/13/23 16:01 Temperature Temperature Source Pulse Rate 116 H 128 H 125 H Respiratory Rate 24 H 30 H 29 H Respiratory Effort Respiratory Depth Respiratory Pattern Tachypnea Blood Pressure 101/49 L 108/45 L Blood Pressure Mean 66 66 Pulse Ox 95 93 Oxygen Delivery Method Nasal Cannula Nasal Cannula Oxygen Flow Rate (L/min) 8 6 02/13/23 16:03 02/13/23 16:50 02/13/23 17:02 Temperature 99.7 F H 98.2 F Temperature Source Temporal Temporal Pulse Rate 125 H 128 H 127 H Respiratory Rate 29 H 29 H 39 H Respiratory Effort Respiratory Depth Respiratory Pattern Blood Pressure 108/45 L 96/53 L 107/48 L Blood Pressure Mean 66 67 67 Pulse Ox 93 88 86 Oxygen Delivery Method Nasal Cannula Nasal Cannula Nasal Cannula Oxygen Flow Rate (L/min) 6 8 10 02/13/23 17:04 02/13/23 17:05 02/13/23 17:06 Temperature 98.3 F 98.2 F 98.2 F Temperature Source Temporal Temporal Temporal Pulse Rate 124 H 124 H 123 H Respiratory Rate 29 H 34 H 25 H Respiratory Effort Respiratory Depth Respiratory Pattern Blood Pressure 107/48 L 107/48 L 107/48 L Blood Pressure Mean 67 67 67 Pulse Ox 91 92 92 Oxygen Delivery Method Nasal Cannula Nasal Cannula Nasal Cannula Oxygen Flow Rate (L/min) 10 10 10 02/13/23 17:17 Temperature Temperature Source Pulse Rate 124 H Respiratory Rate 28 H Respiratory Effort Respiratory Depth Respiratory Pattern Blood Pressure 91/79 Blood Pressure Mean 83 Pulse Ox 91 Oxygen Delivery Method Nasal Cannula Oxygen Flow Rate (L/min) 10 Weight Weight: 137 lb 9.095 oz Body Mass Index (BMI) 26.9 Physical Exam Narrative General: Alert, disoriented, Cooperative, No apparent distress HEENT: Atraumatic, PERRLA, EOMI, Normocephalic Oral: Moist Mucosa Neck: Supple, No JVD Lungs: Diminished, poor air movement, No rhonchi, No wheeze, No rales, crackles in her left base, tachypneic with retractions Cardiovascular: Tachycardic, Regular Rhythm, Normal S1, Normal S2, No murmurs Abdomen: Soft, Non Tender, Non-Distended, No Hepato-splenomegaly Extremities: Edema, Capillary Refill Less than 3 Seconds Skin: No rashes, No breakdown Musculoskeletal: No Tenderness to Palpation of Joints or Extremities Neurological: Moves all extremities Psych/Mental Status: Flat affect Results Lab / Micro Data Result Diagrams: 02/13/23 14:45 02/13/23 14:45 Labs: Laboratory Results - last 24 hr 02/13/23 14:45: WBC 12.2 H, RBC 2.42 L, Hgb 7.4 L, Hct 24.0 L, MCV 99.2 H, MCH 30.6, MCHC 30.8 L, RDW Std Deviation 75.0 H, RDW Coeff of Kylie 23.0 H, Plt Count 77 L, Neut % (Auto) Not Reportable, Absolute Neuts (auto) 5.7, Absolute Lymphs (auto) 3.05, Total Counted 100, Neutrophils % (Manual) 27 L, Band Neutrophils % 20 H, Lymphocytes % (Manual) 25, Monocytes % (Manual) 24 H, Eosinophils % (Manual) 1, Metamyelocytes % 1, Myelocytes % 2 H, Diff Path Review May foll, Reactive Lymphocytes TRADING MANAGER 02/13/23 14:45: Sodium 136, Potassium 4.3, Chloride 95 L, Carbon Dioxide 33.0 H, Anion Gap 8, BUN 21 H, Creatinine 0.90, Estim Creat Clear Calc 38.79, Est GFR (MDRD) Af Amer 79, Est GFR (MDRD) Non-Af 65, BUN/Creatinine Ratio 23.4 H, Glucose 130 H, Calcium 8.3 L, Total Bilirubin 2.60 H, AST 20, ALT 17, Alkaline Phosphatase 46, Troponin I High Sens 22, Total Protein 5.7 L, Albumin 2.4 L, Globulin 3.3, Albumin/Globulin Ratio 0.7 L 02/13/23 14:45: Lactic Acid 2.5 H* 02/13/23 14:45: B-Natriuretic Peptide 728.2 H Micro: Microbiology 02/13/23 14:49 Nasal Secretion SARS-CoV-2 & FLU Antigen (Rapid) - Final Radiology Impression Chest X-Ray 02/13/23 15:15 IMPRESSION: Progressive left lower lobe infiltration and left pleural effusion. Mild increased markings are also seen at the right lung base. Electronically Signed: Saeed Lam MD at 15:35 EDT , Assessment & Plan Assessment/Plan (1) Acute and chronic respiratory failure with hypoxia: (2) Pneumonia: PLAN: Plan 1.? Acute on chronic hypoxic respiratory failure secondary to COPD exacerbation complicated by pulmonary hypertension and sepsis due to left lower lobe pneumonia/thrombocytopenia ? Continue with breathing treatments and steroids ? She just received a liter bolus, despite her BNP being elevated given the concerns for possible sepsis. If she continues to have increased oxygen requirements, we will trial her on a dose of Lasix ? We will obtain an ABG for better clarification of her pulmonary status ? Echo demonstrates normal EF with an RVSP of 61 mmHg consistent with severe pulmonary hypertension on her echo on her last admission ? We will continue with Zosyn and vancomycin, blood cultures are pending ? Lactic acid is elevated 2.5 but her renal function is stable ? Thrombocytopenia today, she 79 this is likely reactive to her infection 2.? HTN/severe pulmonary hypertension ? Her blood pressures on admission were stable though soft, will continue to monitor ? Depending on her progress may need to reinitiate Lasix ? Will not provide her any IV fluids at this time 3. Hypothyroidism ? Stable ? Continue with Synthroid 4.? Chronic anemia/GERD ?She was transfused last Monday for hemoglobin of 6.6 she is now 7.4 ? During her last admission she had a stool guaiac which was negative, she did have iron studies that demonstrated a low iron as well as a normal TIBC and a very low iron saturation at 6.6 however her ferritin at that time was elevated to above 400 ? Continue with PPI, as well as iron supplementation 5.? History of breast cancer with mastectomy -In remission DVT: SCDs Sepsis Attestation Sepsis Attestation: Agree w/Sepsis Date exam was performed: 02/13/23 Time exam was performed: 17:20 Possible Source of Sepsis: Pulmonary Sepsis Organ Dysfunction Criteria Present: Total Bilirubin > 2 mg/dl, Platelets <100,000 / uL, Lactic Acid > 2 mmol/L, PaO2/FiO2 ratio < 300 and New/Unexplained change in mental status Charges/Coding Visit Charges Inpatient E&M: 65259 Init Hosp L3
[2023-02-13 18:10] LABS: Allen Test Positive; Base Excess 10 mmol/L (-2 to +2); Bicarbonate 32.8 mmol/L (22-26); Blood Gas Specimen Type ART; O2 Delivery Device Cannula; PO2 84 mmHG (75-100); SITE R Radial; SO2 97 % (95-99); Total Carbon Dioxide 34 mmol/L; pCO2 38.6 mmHg (35-45); pH 7.54 (7.35-7.45)
[2023-02-13 18:50] LABS: Reflex Lactate? Y
--- NOTE | 2023-02-13 19:09 | PCM.RX.CS ---
Consult Pharmacy has been consulted to manage selected antiobiotic: Vancomycin Type of Consult: Follow-up Labs: Sodium 136 mmol/L (136-145) 02/13/23 14:45 Potassium 4.3 mmol/L (3.5-5.1) 02/13/23 14:45 Chloride 95 mmol/L (98-107) L 02/13/23 14:45 Carbon Dioxide 33.0 mmol/L (21.0-32.0) H 02/13/23 14:45 Anion Gap 8 (5-15) 02/13/23 14:45 BUN 21 mg/dL (7-18) H 02/13/23 14:45 Creatinine 0.90 mg/dL (0.55-1.02) 02/13/23 14:45 Est GFR (MDRD) Af Amer 79 mL/min (>60) 02/13/23 14:45 Est GFR (MDRD) Non-Af 65 mL/min (>60) 02/13/23 14:45 BUN/Creatinine Ratio 23.4 RATIO (10-20) H 02/13/23 14:45 Glucose 130 mg/dL (74-106) H 02/13/23 14:45 Microbiology: Microbiology 02/13/23 14:49 Nasal Secretion SARS-CoV-2 & FLU Antigen (Rapid) - Final Goal Trough: 15-20 mcg/mL Pharmacy Plan for Drug Dosing: NEW START IV VANCOMYCIN Consulting Physician: Dr. Heller Indication: Pneumonia Goal Trough: 15-20 SrCr: 0.9 CrCl: 39 mL/min Comments: Loading dose of 1500mg IV x1 ordered and administered 02/13/23 @1834 Vancomycin Dose: 750mg IV Q24hr to start 02/14/23 @1800 Pending Level: 02/15/23 @1730, prior to 3rd total dose per protocol Pharmacy Service will continue to monitor and adjust dosing as required.
[2023-02-13 20:06] LABS: Lactic Acid 2.2 mmol/L (0.4-1.9)
[2023-02-13] MEDS: Menthol/Lanolin/Calamine/Znox 113 GM Tube 1 APPLIC TOPICAL (21:30)
[2023-02-13] MEDS: Furosemide 40 MG/4 ML Vial IV (22:18)
[2023-02-14] VITALS (38 sets, daily range): BP systolic 78–121; BP diastolic 38–62; PULSE 101–123; RESP 12–35; TEMP 36.2–37.2; O2SAT 77–100
[2023-02-14] MEDS: LORazepam 2 MG/ML Syringe IV (01:48)
[2023-02-14 06:29] LABS: Hemoglobin 6.7 g/dL (12.0-15.0); Mean Corp Hgb Conc 30.5 g/dL (32-36); Mean Corpuscular Hgb 30.5 pg (27.0-32.0); POSITIVE COUNT YES; POSITIVE MORPHOLOGY YES; Platelet Count 63 K/mm3 (150-450); RBC Distribution Width CV 23.2 % (11.6-14.6); RBC Distribution Width SD 76.9 fl (35.1-43.9); White Blood Count 12.7 K/mm3 (4.4-11.0)
[2023-02-14 06:37] LABS: Scan Indicated on CBC? Y/N YES- FLAGS NOTED
[2023-02-14 06:47] LABS: ALB/GLOB Ratio 0.6 RATIO (0.9-2.4); AST(SGOT) 16 U/L (15-37); Alanine Aminotransfer ALT/SGPT 15 U/L (13-56); Albumin, Serum 2.1 g/dL (3.2-5.0); Alkaline Phosphatase 40 U/L (45-117); Anion Gap 9 (5-15); BUN 26 mg/dL (7-18); BUN/Creat Ratio 24.8 RATIO (10-20); Chloride 100 mmol/L (98-107); Creatinine, Serum 1.05 mg/dL (0.55-1.02); EST Glomerular Filtration Rate 54 mL/min (>60); Est Glom Filt Rate - Afr Amer 66 mL/min (>60); Estimated Creatinine Clearance 33.25 ml/min; Globulin 3.3 g/dL (2.2-4.2); Glucose 254 mg/dL (74-106); Potassium 4.1 mmol/L (3.5-5.1); Protein, Total 5.4 g/dL (6.4-8.2); Sodium Level 140 mmol/L (136-145)
[2023-02-14] MEDS: Ipratropium/Albuterol Sulfate 3 ML AMPUL.NEB INHALATION ×3 (07:20→19:09)
--- NOTE | 2023-02-14 07:36 | NURSING ---
Pt very anxious, respirations increased in the 30s, tachycardic and BP soft. Pt yelling out, trying to crawl of bed, and pull off oxygen. MD in room and this RN was given verbal order to put in 2mg Ativan IV push.
--- NOTE | 2023-02-14 07:45 | PCM.PN.HOSP ---
Reason for Visit Reason for Visit: Diagnoses Pneumonia, unspecified organism (02/13/23) Acute and chronic respiratory failure with hypoxia (02/13/23) Subjective Subjective Patient is a 77-year-old lady with history of myelodysplastic syndrome with recent admission for symptomatic anemia admitted with shortness of breath and assessment of pneumonia made patient admitted to a monitored bed for further management. Objective Data Objective Data Vital Signs: Vital Signs Temp Pulse Resp BP Pulse Ox O2 Del Method O2 Flow Rate 97.5 F L 101 H 18 93/38 L 94 High Flow 8 02/14/23 07:00 02/14/23 07:20 02/14/23 07:20 02/14/23 07:00 02/14/23 07:43 02/14/23 07:43 02/14/23 07:43 Oxygen Flow Rate (L/min) 8 Oxygen Delivery Method High Flow Weight: 57.9 kg Body Mass Index (BMI) 24.9 Intake & Output: Intake and Output for Last 24 Hours 02/12/23 02/13/23 02/14/23 23:59 23:59 23:59 Intake Total 1130 / 1130 196.25 / 196.25 Output Total 600 / 600 300 / 300 Balance 530 / 530 -103.75 / -103.75 Lab / Micro Data Result Diagrams: 02/14/23 05:30 02/14/23 05:30 Labs: Laboratory Results - last 24 hr 02/13/23 14:45: WBC 12.2 H, RBC 2.42 L, Hgb 7.4 L, Hct 24.0 L, MCV 99.2 H, MCH 30.6, MCHC 30.8 L, RDW Std Deviation 75.0 H, RDW Coeff of Kylie 23.0 H, Plt Count 77 L, Neut % (Auto) Not Reportable, Absolute Neuts (auto) 5.7, Absolute Lymphs (auto) 3.05, Total Counted 100, Neutrophils % (Manual) 27 L, Band Neutrophils % 20 H, Lymphocytes % (Manual) 25, Monocytes % (Manual) 24 H, Eosinophils % (Manual) 1, Metamyelocytes % 1, Myelocytes % 2 H, Diff Path Review May foll, Reactive Lymphocytes WELDER SHIELDED METAL ARC 02/13/23 14:45: Sodium 136, Potassium 4.3, Chloride 95 L, Carbon Dioxide 33.0 H, Anion Gap 8, BUN 21 H, Creatinine 0.90, Estim Creat Clear Calc 38.79, Est GFR (MDRD) Af Amer 79, Est GFR (MDRD) Non-Af 65, BUN/Creatinine Ratio 23.4 H, Glucose 130 H, Calcium 8.3 L, Total Bilirubin 2.60 H, AST 20, ALT 17, Alkaline Phosphatase 46, Troponin I High Sens 22, Total Protein 5.7 L, Albumin 2.4 L, Globulin 3.3, Albumin/Globulin Ratio 0.7 L 02/13/23 14:45: Lactic Acid 2.5 H* 02/13/23 14:45: B-Natriuretic Peptide 728.2 H 02/13/23 19:26: Lactic Acid 2.2 H* 02/14/23 05:30: WBC 12.7 H, RBC 2.20 L, Hgb 6.7 L, Hct 22.0 L, MCV 100.0 H, MCH 30.5, MCHC 30.5 L, RDW Std Deviation 76.9 H, RDW Coeff of Kylie 23.2 H, Plt Count 63 L 02/14/23 05:30: Sodium 140, Potassium 4.1, Chloride 100, Carbon Dioxide 31.0, Anion Gap 9, BUN 26 H, Creatinine 1.05 H, Estim Creat Clear Calc 33.25, Est GFR (MDRD) Af Amer 66, Est GFR (MDRD) Non-Af 54 L, BUN/Creatinine Ratio 24.8 H, Glucose 254 H, Calcium 8.0 L, Total Bilirubin 2.40 H, AST 16, ALT 15, Alkaline Phosphatase 40 L, Total Protein 5.4 L, Albumin 2.1 L, Globulin 3.3, Albumin/Globulin Ratio 0.6 L Micro: Microbiology 02/13/23 14:49 Nasal Secretion SARS-CoV-2 & FLU Antigen (Rapid) - Final ABG Data ABG results: ABG 02/13/23 18:03 Specimen Type ART Sample Site R Radial pH 7.54 H Bicarbonate Actual 32.8 H Total CO2 34 Base Excess 10 H O2 Saturation 97 ABG pCO2 38.6 ABG pO2 84 Rafael Test Positive O2 Delivery Device Cannula Liter Flow 11.0 Radiography Diagnostic Testing: Radiology Impression Chest X-Ray 02/13/23 15:15 IMPRESSION: Progressive left lower lobe infiltration and left pleural effusion. Mild increased markings are also seen at the right lung base. Electronically Signed: Saeed Lam MD at 15:35 EDT , Physical Exam Narrative GENERAL: cooperative HEENT: Atraumatic; normocephalic EYES; Anicteric, Normal Conjunctiva NECK; supple, normal thyroid, RESPIRATORY: Diminished to auscultation CARDIOVASCULAR: Regular S1 S2, GI: soft, normoactive bowel sounds, : No Renal angle tenderness; EXTREMITIES: No edema, no clubbing, MUSCULOSKELETAL: no muscle wasting NEURO: Awake; no lateralizing signs. SKIN: No Rash PSYCH; Flat affect Assessment & Plan Assessment/Plan (1) Acute and chronic respiratory failure with hypoxia: (2) Pneumonia: PLAN: Plan Patient is a 77-year-old lady with history of myelodysplastic syndrome with recent admission for symptomatic anemia admitted with shortness of breath and assessment of pneumonia made patient admitted to a monitored bed for further management. 1. Acute hypoxia (acute hypoxic respiratory failure ruled out). -Secondary to combination of COPD with acute exacerbation as well as community-acquired pneumonia admitted to monitored bed for treatment of underlying condition 2. Pneumonia ? With suspected gram-negative organisms given patient recent hospitalization patient was started on Zosyn and vancomycin cultures sent 3. COPD? With acute exacerbation ? Managed with antibiotics as well as aerosol treatments and supplemental oxygen 4. Severe pulmonary hypertension ? Complicating patient care patient was on supplemental oxygen 6.? Symptomatic anemia ? Secondary to myelodysplastic syndrome.? An order given for patient to be transfused with 1 unit PRBC post transfusion H&H ordered 7.? Chronic thrombocytopenia ? Secondary to myelodysplastic syndrome monitoring with daily CBC with differential 8.? Hypertension - Blood pressure controlled, home medications continued with dose adjustment as needed 9. Hypothyroidism - Patient is on levothyroxine home dose continued 10.? History of breast cancer ? Status post left breast mastectomy and axillary lymph node dissection?with subsequent radiation therapy patient has since remained in remission 11. DVT prophylaxis ? SCDs Time spent in the patient's overall evaluation,decision-making process, review of diagnostic data, adjustment of management, discussion with other providers, nursing nursing and ancillary staff involved in patient's care documentation, 58 Minutes Charges/Coding Visit Charges Inpatient E&M: 86064 Subs Hosp L3
[2023-02-14] MEDS: Menthol/Lanolin/Calamine/Znox 113 GM Tube 1 APPLIC TOPICAL ×2 (11:12→21:41)
[2023-02-14 13:23] LABS: Pathologist Review Reviewed
[2023-02-14] MEDS: 0.9% Saline Lock 10 ML Syringe IV (14:30)
[2023-02-14] MEDS: Furosemide 40 MG/4 ML Vial IV ×2 (14:32→22:30)
[2023-02-14 15:17] LABS: Ammonia < 10.0 umol/L (11-32)
--- NOTE | 2023-02-14 17:13 | CON.PCM.ON_ITS ---
Assessment & Plan Assessment/Plan (1) Acute and chronic respiratory failure with hypoxia: Status: Chronic Code(s): J96.21 - Acute and chronic respiratory failure with hypoxia (2) Pneumonia: Status: Acute Code(s): J18.9 - Pneumonia, unspecified organism (3) MDS (myelodysplastic syndrome): Status: Acute Code(s): D46.9 - Myelodysplastic syndrome, unspecified Plan: To do supportive PRBC as needed. Continue supportive care. Case discussed with Dr. Joyner her primary Oncology, she should follow up with him after discharge. Will not follow further on this admission. HPI Consult Data Date of Service:: 02/14/23 PCP / Referring Provider: Dr. Fish Harris MD Attending: Dr. Gary Guerra MD Chief Complaint Chief Complaint: Asked to see Pt with MDS History of Present Illness History of Present Illness: 77-year-old woman with history of left breast cancer status post neoadjuvant chemotherapy followed by left mastectomy, L axillary dissection, adjuvant Radiation, adjuvant monoclonal therapy in 2019. She was recently diagnosed with MDS with 5% blast, had bone marrow biopsy in [facility]. Has been getting PRC transfusions as needed. She now admitted at [facility] shortness of breath and pneumonia. Advanced Directives Power of Direct Support Staff Member: Yes Living Will: Yes [facility] Medical History (Updated 02/13/23 @ 22:[address] Lm Quintanilla MD) Breast cancer Cancer Chronic pain COPD (chronic obstructive pulmonary disease) Former smoker Hypothyroidism Irregular heart beat Kidney stones Osteoporosis Symptomatic anemia Home Medications ascorbic acid (vitamin C) 500 mg capsule 500 mg PO DAILY supplement 01/17/20 [History Last Taken 01/28/23] acetaminophen 500 mg tablet 1,000 mg PO Q6H PRN Pain Score 1-3/10 01/21/20 [Rx Last Taken 08/10/22] potassium chloride 10 mEq tablet,extended release(part/cryst) 10 meq PO DAILY supplement #30 tabs 01/21/20 [Rx Last Taken 01/28/23] multivitamin 1 tab PO DAILY HEALTH SUPPLEMENT 08/10/22 [History Last Taken 01/28/23] albuterol sulfate 90 mcg/actuation aerosol inhaler 2 puff inhalation Q6H PRN shortness of breath or wheezing #8.5 grams 08/13/22 [Rx Last Taken 01/28/23] levothyroxine 50 mcg tablet 50 mcg PO DAILY THYROID 01/28/23 [History Last Taken 01/28/23] furosemide 40 mg tablet 40 mg PO BID WATER PILL 02/13/23 [History Last Taken Unknown] levofloxacin 500 mg tablet 500 mg PO DAILY PNEUMONIA 02/13/23 [History Last Elias en Unknown] metoprolol tartrate 25 mg tablet 12.5 mg PO DAILY BP 02/13/23 [History Last Taken Unknown] pantoprazole 40 mg tablet,delayed release (Protonix) 40 mg PO DAILY ACID REFLUX 02/13/23 [History Last Taken Unknown] polysaccharide iron complex 150 mg iron capsule 150 mg PO DAILYCM ANEMIA 02/13/23 [History Last Taken Unknown] prednisone 10 mg tablet See Taper PO DAILY COPD 02/13/23 [History Last Taken Unknown] Allergy/AdvReac Type Severity Reaction Status Date / Time bacitracin Allergy Rash Verified 02/13/23 15:22 [From Neosporin ([id number])] neomycin Allergy Rash Verified 02/13/23 15:22 [From Neosporin ([id number])] polymyxin B Allergy Rash Verified 02/13/23 15:22 [From Neosporin ([id number])] Family History (Updated 02/13/23 @ 14:[address] Lm Quintanilla MD) Sister Breast cancer Surgical History H/O mastectomy H/O: hysterectomy Tubal ligation status Social History household members: none Smoking Status: Former smoker substance use type: does not use Physical Exam Const alert, oriented x3 and no apparent distress HEENT normocephalic Eyes PERRL and conjunctivae normal Chest Chest Narrative: L mastectomy Resp normal respiratory effort and clear to auscultation bilaterally Cardio regular rate, regular rhythm, S1 normal heart sound and S2 normal heart sound GI normal to inspection, nondistended, normoactive bowel sounds Extremity normal to inspection and no clubbing, cyanosis or edema Vital Signs Temperature 98.3 F 02/14/23 14:00 Temperature Source Oral 02/14/23 14:00 Pulse Rate 115 H 02/14/23 14:00 Pulse Strength Weak (1+) 02/14/23 08:00 Respiratory Rate 30 H 02/14/23 14:00 Respiratory Effort Non-Labored 02/14/23 11:15 Respiratory Depth Normal 02/14/23 11:15 Respiratory Pattern Normal 02/14/23 11:15 Blood Pressure 94/46 L 02/14/23 14:00 Blood Pressure Mean 62 02/14/23 14:00 Blood Pressure Source Monitor 02/14/23 14:00 Blood Pressure Position Semi-Fowlers 02/14/23 14:00 Blood Pressure Location Right Arm 02/14/23 14:00 Pulse Ox 96 02/14/23 15:54 Oxygen Delivery Method High Flow 02/14/23 14:00 Oxygen Flow Rate (L/min) 11 02/14/23 15:54 Laboratory Results - last 24 hr 02/13/23 14:45: Diff Path Review Reviewed 02/13/23 19:26: Lactic Acid 2.2 H* 02/14/23 05:30: WBC 12.7 H, RBC 2.20 L, Hgb 6.7 L, Hct 22.0 L, MCV 100.0 H, MCH 30.5, MCHC 30.5 L, RDW Std Deviation 76.9 H, RDW Coeff of Kylie 23.2 H, Plt Count 63 L 02/14/23 05:30: Sodium 140, Potassium 4.1, Chloride 100, Carbon Dioxide 31.0, Anion Gap 9, BUN 26 H, Creatinine 1.05 H, Estim Creat Clear Calc 33.25, Est GFR (MDRD) Af Amer 66, Est GFR (MDRD) Non-Af 54 L, BUN/Creatinine Ratio 24.8 H, Glucose 254 H, Calcium 8.0 L, Total Bilirubin 2.40 H, AST 16, ALT 15, Alkaline Phosphatase 40 L, Total Protein 5.4 L, Albumin 2.1 L, Globulin 3.3, Albumin/Globulin Ratio 0.6 L 02/14/23 12:22: Blood Type B POSITIVE, Crossmatch See Detail 02/14/23 14:45: Ammonia < 10.0 L Microbiology 02/13/23 14:49 Nasal Secretion SARS-CoV-2 & FLU Antigen (Rapid) - Final Diagnostic Data Chest X-Ray 02/13/23 15:15 IMPRESSION: Progressive left lower lobe infiltration and left pleural effusion. Mild increased markings are also seen at the right lung base. Electronically Signed: Saeed Lam MD at 15:35 EDT , Charges/Coding Visit Charges Office Visits / Consults: 62059 IP Consult L3
--- NOTE | 2023-02-14 22:05 | PCM.HOSP.N ---
Hospitalist Note Patient s/p PRBC administration, crackles on exam noted, on high flow, will dose with repeat lasix 40 mg x 1 now, BP normal low range currently with planned continued close monitoring.
[2023-02-14 22:51] LABS: Hematocrit 26.2 % (37-47); Hemoglobin 8.1 g/dL (12.0-15.0); POSITIVE COUNT YES
[2023-02-15] VITALS (29 sets, daily range): BP systolic 95–136; BP diastolic 37–96; PULSE 99–125; RESP 16–35; TEMP 36.3–36.6; O2SAT 90–100
[2023-02-15] MEDS: MELATONIN 3 MG TABLET PO ×2 (00:05→21:28)
[2023-02-15] MEDS: Acetaminophen 325 MG Tablet 650 MG PO ×2 (00:05→21:29)
[2023-02-15 05:13] LABS: Differential Indicated MANUAL DIFF; Hematocrit 25.7 % (37-47); Hemoglobin 8.1 g/dL (12.0-15.0); Mean Corp Hgb Conc 31.5 g/dL (32-36); Mean Corpuscular Hgb 29.7 pg (27.0-32.0); Mean Corpuscular Volume 94.1 fL (81-99); POSITIVE COUNT YES; POSITIVE DIFFERENTIAL YES; POSITIVE MORPHOLOGY YES; Platelet Count 48 K/mm3 (150-450); RBC Distribution Width CV 21.8 % (11.6-14.6); RBC Distribution Width SD 65.2 fl (35.1-43.9); Red Blood Count 2.73 M/mm3 (4.2-5.4); White Blood Count 13.2 K/mm3 (4.4-11.0)
[2023-02-15 05:16] LABS: Anisocytosis 2+; Platelet Estimate MKD DEC (ADEQ)
[2023-02-15 05:19] LABS: Absolute Lymphocyte Count 1.05 X10^3/uL (0.83-4.51); Absolute Neutrophil Count 6.9 X10^3/uL (2.0-7.7); Lymphocyte 8 % (19-41); Metamyelocyte 4 % (0-1); Myelocyte 8 % (0-0); Neutrophil-Band 23 % (0-5); Neutrophil-Segmented 29 % (47-70); Promyelocyte 1 % (0-0); Total Cells Counted 100 (MANUAL DIFF)
[2023-02-15 05:20] LABS: Atypical Lymphocyte 2+ %; Monocyte 27 % (0-10)
[2023-02-15 05:27] LABS: ALB/GLOB Ratio 0.7 RATIO (0.9-2.4); AST(SGOT) 18 U/L (15-37); Alanine Aminotransfer ALT/SGPT 16 U/L (13-56); Albumin, Serum 2.3 g/dL (3.2-5.0); Alkaline Phosphatase 40 U/L (45-117); Anion Gap 9 (5-15); BUN 37 mg/dL (7-18); BUN/Creat Ratio 32.7 RATIO (10-20); Calcium,Total 7.9 mg/dL (8.5-10.1); Chloride 99 mmol/L (98-107); Creatinine, Serum 1.13 mg/dL (0.55-1.02); EST Glomerular Filtration Rate 50 mL/min (>60); Est Glom Filt Rate - Afr Amer 60 mL/min (>60); Globulin 3.3 g/dL (2.2-4.2); Glucose 185 mg/dL (74-106); Potassium 3.9 mmol/L (3.5-5.1); Protein, Total 5.6 g/dL (6.4-8.2); Sodium Level 140 mmol/L (136-145)
--- NOTE | 2023-02-15 06:05 | NURSING ---
Dr. Rae made aware of critical platelets at this time
[2023-02-15] MEDS: Ipratropium/Albuterol Sulfate 3 ML AMPUL.NEB INHALATION ×4 (06:45→19:20)
--- NOTE | 2023-02-15 08:04 | PN.HOSP_ITS ---
Reason for Visit Reason for Visit: Diagnoses Myelodysplastic syndrome, unspecified (02/13/23) Pneumonia, unspecified organism (02/13/23) Acute and chronic respiratory failure with hypoxia (02/13/23) Subjective Subjective Patient seen, much more awake and interactive compared to the day prior. Hemoglobin up to 8.1. Patient was found to have blast cells. Case discussed with Dr Lin with oncology. Patient's blast cells is consistent with her MDS. Apparently being monitored by her oncologist at [facility] in [place] Objective Data Objective Data Vital Signs: Vital Signs Temp Pulse Resp BP Pulse Ox O2 Del Method O2 Flow Rate 97.5 F L 108 H 26 H 114/63 91 Nasal Cannula 8 02/15/23 07:00 02/15/23 07:12 02/15/23 07:12 02/15/23 07:00 02/15/23 07:12 02/15/23 07:12 02/15/23 07:12 Oxygen Flow Rate (L/min) 8 Oxygen Delivery Method Nasal Cannula Weight: 57.9 kg Body Mass Index (BMI) 24.9 Intake & Output: Intake and Output for Last 24 Hours 02/13/23 02/14/23 02/15/23 23:59 23:59 23:59 Intake Total 1130 / 1130 1781.25 / 1781.25 50 / 50 Output Total 600 / 600 1700 / 1700 300 / 300 Balance 530 / 530 81.25 / 81.25 -250 / -250 Medical Nutrition Assessment Dietitian: Malnutrition Criteria Met Start: 02/14/23 11:57 Freq: Status: Active Protocol: Document 02/14/23 11:57 RMA (Rec: 02/14/23 11:57 RMA [id number]) Nutrition Malnutrition Evidence of Malnutrition Exists Yes Malnutrition (severe): Chronic Evidenced By Suboptimal Energy Intake ( Severe),Weight Loss (Severe) Clinical Problem Chronic Disease or Condition Related Malnutrition Etiology Severe protein-calorie malnutrition in the context of chronic disease/debility related to inadequate oral intake/acute illness and increased energy expenditure Signs/Symptoms as evidenced by 6% wt loss x 2 -3 weeks with fluid/edema likely masking additional weight loss and PO meeting less than 50% estimated nutrition needs x past 2 weeks Status Active Problem Recommendation Dietitian Recommendations/Changes Will liberalize diet to regular/no added salt given signs/symptoms of malnutrition . Will add 120ml ensure plus high protein 4 times per day w / medpass. Ensure pudding 1 time daily w/ dinner meal. Adjust ONS as needed to optimize PO and prevent further energy depletion. Lab / Micro Data Result Diagrams: 02/15/23 04:18 02/15/23 04:18 Labs: Laboratory Results - last 24 hr 02/13/23 14:45: Diff Path Review Reviewed 02/14/23 12:22: Blood Type B POSITIVE, Antibody Screen NEGATIVE, Crossmatch See Detail 02/14/23 14:45: Ammonia < 10.0 L 02/14/23 22:40: Hgb 8.1 L, Hct 26.2 L 02/15/23 04:18: WBC 13.2 H, RBC 2.73 L, Hgb 8.1 L, Hct 25.7 L, MCV 94.1 D, MCH 29.7, MCHC 31.5 L, RDW Std Deviation 65.2 H, RDW Coeff of Kylie 21.8 H, Plt Count 48 L*, Neut % (Auto) Not Reportable, Absolute Neuts (auto) 6.9, Absolute Lymphs (auto) 1.05, Total Counted 100, Neutrophils % (Manual) 29 L, Band Neutrophils % 23 H, Lymphocytes % (Manual) 8 L, Monocytes % (Manual) 27 H, Metamyelocytes % 4 H, Myelocytes % 8 H, Promyelocytes % 1 H, Diff Path Review May foll, Atypical Ly mphocytes 2+, Platelet Estimate MKD DEC, Anisocytosis 2+ 02/15/23 04:18: Sodium 140, Potassium 3.9, Chloride 99, Carbon Dioxide 32.0, Anion Gap 9, BUN 37 H, Creatinine 1.13 H, Estim Creat Clear Calc 30.90, Est GFR (MDRD) Af Amer 60, Est GFR (MDRD) Non-Af 50 L, BUN/Creatinine Ratio 32.7 H, Glucose 185 H, Calcium 7.9 L, Total Bilirubin 2.30 H, AST 18, ALT 16, Alkaline Phosphatase 40 L, Total Protein 5.6 L, Albumin 2.3 L, Globulin 3.3, Albumin/Globulin Ratio 0.7 L Micro: Microbiology 02/14/23 23:18 Urine, Clean Catch Legionella Antigen - Final 02/14/23 23:18 Urine, Clean Catch Streptococcus pneumoniae Antigen (M - Final 02/13/23 14:49 Nasal Secretion SARS-CoV-2 & FLU Antigen (Rapid) - Final Physical Exam Narrative GENERAL: cooperative HEENT: Atraumatic; normocephalic EYES; Anicteric, Normal Conjunctiva NECK; supple, normal thyroid, RESPIRATORY: Diminished to auscultation CARDIOVASCULAR: Regular S1 S2, GI: soft, normoactive bowel sounds, : No Renal angle tenderness; EXTREMITIES: No edema, no clubbing, MUSCULOSKELETAL: no muscle wasting NEURO: Awake; no lateralizing signs. SKIN: No Rash PSYCH; Flat affect Assessment & Plan Assessment/Plan (1) Acute and chronic respiratory failure with hypoxia: (2) Pneumonia: PLAN: Plan Patient is a 77-year-old lady with history of myelodysplastic syndrome with recent admission for symptomatic anemia admitted with shortness of breath and assessment of pneumonia made patient admitted to a monitored bed for further management. 1. Acute hypoxia (acute hypoxic respiratory failure ruled out). -Secondary to combination of COPD with acute exacerbation as well as community- acquired pneumonia admitted to monitored bed for treatment of underlying condition 2. Pneumonia with sepsis present on admission ? With suspected gram-negative organisms given patient recent hospitalization patient was started on Zosyn and vancomycin cultures sent Evidence of sepsis on admission Sepsis Organ Dysfunction Criteria Present: Total Bilirubin > 2 mg/dl, Platelets <100,000 / uL, Lactic Acid > 2 mmol/L, PaO2/FiO2 ratio < 300 and New/Unexplained change in mental status 3. COPD? With acute exacerbation ? Managed with antibiotics as well as aerosol treatments and supplemental oxygen 4. Severe pulmonary hypertension ? Complicating patient care patient was on supplemental oxygen 5. Moderate global dysplastic syndrome ? Patient was found to have blast cells on her peripheral film. Apparently consistent with a diagnosis. Oncology consulted Case discussed with Dr Lin his notes and recommendations reviewed 6.? Symptomatic anemia ? Secondary to myelodysplastic syndrome.? An order given for patient to be transfused with 1 unit PRBC post transfusion H&H ordered ? 02/15/2023; hemoglobin came up to 8.1 7.? Chronic thrombocytopenia ? Secondary to myelodysplastic syndrome monitoring with daily CBC with differential ? 02/15/2023;platelet count down from 77 on admission to 48 we will continue with daily monitoring with CBC 8.? Hypertension - Blood pressure controlled, home medications continued with dose adjustment as needed 9. Hypothyroidism - Patient is on levothyroxine home dose continued 10.? History of breast cancer ? Status post left breast mastectomy and axillary lymph node dissection?with subsequent radiation therapy patient has since remained in remission 11. DVT prophylaxis ? SCDs Time spent in the patient's overall evaluation,decision-making process, review of diagnostic data, adjustment of management, discussion with other providers, nursing nursing and ancillary staff involved in patient's care documentation, 55 Minutes Charges/Coding Visit Charges Inpatient E&M: 96090 Subs Hosp L2
[2023-02-15] MEDS: Menthol/Lanolin/Calamine/Znox 113 GM Tube 1 APPLIC TOPICAL ×2 (08:31→21:28)
[2023-02-15] MEDS: Ensure Plus High Protein 120 ML LIQUID PO ×3 (08:33→21:27)
--- NOTE | 2023-02-15 14:33 | CASEMGMT ---
RN CM chart review: Patient was admitted 01/28-01/30/23 for COPD exacerbation. See RN CM assessment from 01/29/23. Patient was discharged home with resumption of HHC through [facility]. Patient was setup with home oxygen through [employer] with portability at 2lpm continuously. Patient returned 02/13/23 to [facility] ED after neighbors called EMS stating patient was confused. Patient admitted for altered LOC, pneumonia, and COPD exacerbation. Per nursing patient is confused at times. Patient is currently requiring 11lpm of oxygen. No family at bedside. RN CM to complete discharge planning when patient is more alert and orient. CM will continue to follow this patient and plan for a safe discharge.
[2023-02-15 15:50] LABS: Hematocrit 29.1 % (37-47); POSITIVE COUNT YES
[2023-02-15 18:25] LABS: Vancomycin, Trough Level 10.3 ug/mL (5.0-15.0)
--- NOTE | 2023-02-15 19:49 | PCM.RX.CS ---
Consult Pharmacy has been consulted to manage selected antiobiotic: Vancomycin Type of Consult: Follow-up Suspected Infection: Pneumonia Prior Doses of Antibiotics Received/Current Regimen: Currently on 750mg iv q24h. Labs: Sodium 140 mmol/L (136-145) 02/15/23 04:18 Potassium 3.9 mmol/L (3.5-5.1) 02/15/23 04:18 Chloride 99 mmol/L (98-107) 02/15/23 04:18 Carbon Dioxide 32.0 mmol/L (21.0-32.0) 02/15/23 04:18 Anion Gap 9 (5-15) 02/15/23 04:18 BUN 37 mg/dL (7-18) H 02/15/23 04:18 Creatinine 1.13 mg/dL (0.55-1.02) H 02/15/23 04:18 Est GFR (MDRD) Af Amer 60 mL/min (>60) 02/15/23 04:18 Est GFR (MDRD) Non-Af 50 mL/min (>60) L 02/15/23 04:18 BUN/Creatinine Ratio 32.7 RATIO (10-20) H 02/15/23 04:18 Glucose 185 mg/dL (74-106) H 02/15/23 04:18 Vancomycin Trough 10.3 ug/mL (5.0-15.0) 02/15/23 17:03 Microbiology: Microbiology 02/13/23 15:36 Blood Culture (Wb) #2 - Anticubital Left Blood Culture - Preliminary No growth in 48 hours. 02/13/23 14:45 Blood Culture (Wb) - Right Wrist Blood Culture - Preliminary No growth in 48 hours. 02/14/23 23:18 Urine, Clean Catch Legionella Antigen - Final 02/14/23 23:18 Urine, Clean Catch Streptococcus pneumoniae Antigen (M - Final 02/13/23 14:49 Nasal Secretion SARS-CoV-2 & FLU Antigen (Rapid) - Final Weight used for dosin.9 kg Estimated Creatinine Clearance: 31 ml/min Goal Trough: 15-20 mcg/mL Pharmacy Plan for Drug Dosing: Trough today was 10.3 and below goal range of 15-20mcg/ml. Will change dose to 500mg iv q12h and get another trough level before 4th dose per policy. Pharmacy Service will continue to monitor and adjust dosing as required. Follow-Up Labs: Trough Vancomycin - 3.24.23 @1730 before 1800 dose
[2023-02-15] MEDS: 0.9% Saline Lock 10 ML Syringe IV (21:27)
--- NOTE | 2023-02-15 21:35 | NURSING ---
PT'S SPO2 96-98% AFTER USE OF I.S. AND ADJUSTING HI-FLOW TUBING. O2 REDUCED TO 9L. WILL MONITOR.
[2023-02-16] VITALS (15 sets, daily range): BP systolic 106–142; BP diastolic 51–77; PULSE 117–134; RESP 20–30; TEMP 36.3–36.8; O2SAT 91–97
--- NOTE | 2023-02-16 02:15 | CASEMGMT ---
SW called patient's daughter and discussed d/c plan. Patient's daughter would like patient to go to [facility] TCU. SW told her SW will check on bed availability. 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 SW will check on this. Edwina YOUNGBLOOD
[2023-02-16] MEDS: Ipratropium/Albuterol Sulfate 3 ML AMPUL.NEB INHALATION ×6 (03:54→23:20)
[2023-02-16] MEDS: Vancomycin IV 500 MG/100 ML BAG 100 MG IV ×2 (04:53→17:24)
--- NOTE | 2023-02-16 07:16 | PN.HOSP_ITS ---
Reason for Visit Reason for Visit: Diagnoses Myelodysplastic syndrome, unspecified (02/13/23) Pneumonia, unspecified organism (02/13/23) Acute and chronic respiratory failure with hypoxia (02/13/23) Subjective Subjective Patient seen breathing still remains labored at rest. Currently on 7 L flow per minute. Patient has significant bipedal edema added Lasix to her treatment regimen Objective Data Objective Data Vital Signs: Vital Signs Temp Pulse Resp BP Pulse Ox O2 Del Method O2 Flow Rate 97.8 F 120 H 23 H 129/71 H 94 High Flow 7 02/16/23 06:00 02/16/23 06:00 02/16/23 06:00 02/16/23 06:00 02/16/23 06:00 02/16/23 06:00 02/16/23 06:00 Oxygen Flow Rate (L/min) 7 Oxygen Delivery Method High Flow Weight: 57.9 kg Body Mass Index (BMI) 24.9 Intake & Output: Intake and Output for Last 24 Hours 02/14/23 02/15/23 02/16/23 23:59 23:59 23:59 Intake Total 1781.25 / 1781.25 1465 / 1585 270 / 270 Output Total 1700 / 1700 1150 / 1650 1350 / 1350 Balance 81.25 / 81.25 315 / -65 -1080 / -1080 Medical Nutrition Assessment Dietitian: Malnutrition Criteria Met Start: 02/14/23 11:57 Freq: Status: Active Protocol: Document 02/14/23 11:57 RMA (Rec: 02/14/23 11:57 RMA [id number]) Nutrition Malnutrition Evidence of Malnutrition Exists Yes Malnutrition (severe): Chronic Evidenced By Suboptimal Energy Intake ( Severe),Weight Loss (Severe) Clinical Problem Chronic Disease or Condition Related Malnutrition Etiology Severe protein-calorie malnutrition in the context of chronic disease/debility related to inadequate oral intake/acute illness and increased energy expenditure Signs/Symptoms as evidenced by 6% wt loss x 2 -3 weeks with fluid/edema likely masking additional weight loss and PO meeting less than 50% estimated nutrition needs x past 2 weeks Status Active Problem Recommendation Dietitian Recommendations/Changes Will liberalize diet to regular/no added salt given signs/symptoms of malnutrition . Will add 120ml ensure plus high protein 4 times per day w / medpass. Ensure pudding 1 time daily w/ dinner meal. Adjust ONS as needed to optimize PO and prevent further energy depletion. Lab / Micro Data Result Diagrams: 02/15/23 15:36 02/15/23 04:18 Labs: Laboratory Results - last 24 hr 02/15/23 15:36: Hgb 9.0 L, Hct 29.1 L 02/15/23 17:03: Vancomycin Trough 10.3 Micro: Microbiology 02/13/23 15:36 Blood Culture (Wb) #2 - Anticubital Left Blood Culture - Preliminary No growth in 48 hours. 02/13/23 14:45 Blood Culture (Wb) - Right Wrist Blood Culture - Preliminary No growth in 48 hours. 02/14/23 23:18 Urine, Clean Catch Legionella Antigen - Final 02/14/23 23:18 Urine, Clean Catch Streptococcus pneumoniae Antigen (M - Fi nal 02/13/23 14:49 Nasal Secretion SARS-CoV-2 & FLU Antigen (Rapid) - Final Physical Exam Narrative GENERAL: cooperative HEENT: Atraumatic; normocephalic EYES; Anicteric, Normal Conjunctiva NECK; supple, normal thyroid, RESPIRATORY: Diminished to auscultation CARDIOVASCULAR: Regular S1 S2, loud systolic murmur GI: soft, normoactive bowel sounds, : No Renal angle tenderness; EXTREMITIES: edema, no clubbing, MUSCULOSKELETAL: no muscle wasting NEURO: Awake; no lateralizing signs. SKIN: No Rash PSYCH; Flat affect Assessment & Plan Assessment/Plan (1) Acute and chronic respiratory failure with hypoxia: (2) Pneumonia: PLAN: Plan Patient is a 77-year-old lady with history of myelodysplastic syndrome with recent admission for symptomatic anemia admitted with shortness of breath and assessment of pneumonia made patient admitted to a monitored bed for further management. 1. Acute hypoxia (acute hypoxic respiratory failure ruled out). -Secondary to combination of COPD with acute exacerbation as well as community- acquired pneumonia admitted to monitored bed for treatment of underlying condit ion 2. Pneumonia with sepsis present on admission ? With suspected gram-negative organisms given patient recent hospitalization patient was started on Zosyn and vancomycin cultures sent Evidence of sepsis on admission Sepsis Organ Dysfunction Criteria Present: Total Bilirubin > 2 mg/dl, Platelets <100,000 / uL, Lactic Acid > 2 mmol/L, PaO2/FiO2 ratio < 300 and New/Unexplained change in mental status 3. COPD? With acute exacerbation ? Managed with antibiotics as well as aerosol treatments and supplemental oxygen 4. Severe pulmonary hypertension ? Complicating patient care patient was on supplemental oxygen 5. Moderate global dysplastic syndrome ? Patient was found to have blast cells on her peripheral film. Apparently consistent with a diagnosis. Oncology consulted Case discussed with Dr Lin his notes and recommendations reviewed 6.? Symptomatic anemia ? Secondary to myelodysplastic syndrome.? An order given for patient to be transfused with 1 unit PRBC post transfusion H&H ordered ? 02/15/2023; hemoglobin came up to 8.1 7.? Chronic thrombocytopenia ? Secondary to myelodysplastic syndrome monitoring with daily CBC with differential ? 02/15/2023;platelet count down from 77 on admission to 48 we will continue with daily monitoring with CBC 8.? Hypertension - Blood pressure controlled, home medications continued with dose adjustment as needed 9. Hypothyroidism - Patient is on levothyroxine home dose continued 10.? History of breast cancer ? Status post left breast mastectomy and axillary lymph node dissection?with subsequent radiation therapy patient has since remained in remission 11. DVT prophylaxis ? SCDs 12. Acute on chronic congestive heart failure with preserved ejection fraction echo obtained on 08/10/2022 demonstrated EF of 55 to 60% ? Patient started on Lasix 13. Severe protein-calorie malnutrition ? In the context of chronic disease/debility related to inadequate oral intake/acute illness and increased energy expenditure as evidenced by 6% wt loss x 2-3 weeks with fluid/edema likely masking additional weight loss and PO meeting less than 50% estimated nutrition needs x past 2 weeks. Will liberalize diet to regular/no added salt given signs/symptoms of malnutrition. Will add 120ml ensure plus high protein 4 times per day w/ medpass. Ensure pudding 1 time daily w/ dinner meal. Adjust ONS as needed to optimize PO and prevent further energy depletion. Time spent in the patient's overall evaluation,decision-making process, review of diagnostic data, adjustment of management, discussion with other providers, nursing nursing and ancillary staff involved in patient's care documentation, 55 Minutes Charges/Coding Visit Charges Inpatient E&M: 75013 Subs Hosp L3
[2023-02-16 09:45] LABS: Hemoglobin 7.5 g/dL (12.0-15.0); Mean Corp Hgb Conc 31.3 g/dL (32-36); Mean Corpuscular Hgb 29.8 pg (27.0-32.0); Mean Corpuscular Volume 95.2 fL (81-99); POSITIVE COUNT YES; POSITIVE MORPHOLOGY YES; RBC Distribution Width CV 21.6 % (11.6-14.6); RBC Distribution Width SD 67.5 fl (35.1-43.9); Red Blood Count 2.52 M/mm3 (4.2-5.4); White Blood Count 6.5 K/mm3 (4.4-11.0)
[2023-02-16 09:47] LABS: Pathologist Review Reviewed
[2023-02-16 09:49] LABS: Platelet Count 30 K/mm3 (150-450); Scan Indicated on CBC? Y/N YES- FLAGS NOTED
[2023-02-16] MEDS: Furosemide 100 MG/10 ML Vial 60 MG IV (09:55)
[2023-02-16] MEDS: Menthol/Lanolin/Calamine/Znox 113 GM Tube 1 APPLIC TOPICAL ×2 (09:55→21:53)
[2023-02-16] MEDS: 0.9% Saline Lock 10 ML Syringe IV ×2 (09:55→21:53)
[2023-02-16] MEDS: Ensure Plus High Protein 120 ML LIQUID PO ×2 (09:56→13:35)
[2023-02-16 10:09] LABS: Anion Gap 12 (5-15); BUN 35 mg/dL (7-18); BUN/Creat Ratio 36.1 RATIO (10-20); Calcium,Total 8.4 mg/dL (8.5-10.1); Chloride 102 mmol/L (98-107); Creatinine, Serum 0.97 mg/dL (0.55-1.02); EST Glomerular Filtration Rate 59 mL/min (>60); Est Glom Filt Rate - Afr Amer 72 mL/min (>60); Estimated Creatinine Clearance 35.99 ml/min; Glucose 309 mg/dL (74-106); Magnesium 2.4 mg/dL (1.6-2.6); Phosphorus 2.1 mg/dL (2.5-4.9); Potassium 3.5 mmol/L (3.5-5.1); Sodium Level 141 mmol/L (136-145)
[2023-02-16 10:31] LABS: Differential Comment S
[2023-02-16] MEDS: Furosemide 40 MG Tablet PO (17:23)
[2023-02-16] MEDS: MELATONIN 3 MG TABLET PO (21:53)
[2023-02-17] VITALS (16 sets, daily range): BP systolic 114–135; BP diastolic 62–81; PULSE 12–130; RESP 19–28; TEMP 36.6–37.1; O2SAT 85–97
[2023-02-17] MEDS: Ipratropium/Albuterol Sulfate 3 ML AMPUL.NEB INHALATION ×5 (03:08→20:12)
[2023-02-17] MEDS: Vancomycin IV 500 MG/100 ML BAG 100 MG IV ×2 (05:21→17:14)
[2023-02-17 07:05] LABS: Hematocrit 23.4 % (37-47); Hemoglobin 7.2 g/dL (12.0-15.0); Mean Corp Hgb Conc 30.8 g/dL (32-36); Mean Corpuscular Hgb 29.5 pg (27.0-32.0); Mean Corpuscular Volume 95.9 fL (81-99); POSITIVE COUNT YES; POSITIVE DIFFERENTIAL YES; POSITIVE MORPHOLOGY YES; RBC Distribution Width CV 21.3 % (11.6-14.6); RBC Distribution Width SD 65.5 fl (35.1-43.9); Red Blood Count 2.44 M/mm3 (4.2-5.4)
[2023-02-17 07:14] LABS: Platelet Count 30 K/mm3 (150-450)
[2023-02-17 07:26] LABS: Anion Gap 8 (5-15); BUN 28 mg/dL (7-18); BUN/Creat Ratio 32.9 RATIO (10-20); Calcium,Total 8.4 mg/dL (8.5-10.1); Chloride 101 mmol/L (98-107); Creatinine, Serum 0.85 mg/dL (0.55-1.02); EST Glomerular Filtration Rate 69 mL/min (>60); Est Glom Filt Rate - Afr Amer 84 mL/min (>60); Estimated Creatinine Clearance 41.08 ml/min; Glucose 243 mg/dL (74-106); Potassium 3.2 mmol/L (3.5-5.1); Sodium Level 142 mmol/L (136-145)
[2023-02-17 07:37] LABS: Differential Indicated MANUAL DIFF
--- NOTE | 2023-02-17 07:49 | CASEMGMT ---
TCU is able to take patient pending pre-cert. Bed would be available Monday vs Monday. will check in with TCU to clarify today. Plan: [facility] TCU pending insurance approval. Edwina YOUNGBLOOD
[2023-02-17 08:19] LABS: Anisocytosis 1+; Blast 3 % (0-0); Eosinophil 1 % (0-5); Lymphocyte 11 % (19-41); Metamyelocyte 6 % (0-1); Monocyte 25 % (0-10); Myelocyte 4 % (0-0); Neutrophil-Segmented 48 % (47-70); Nucleated Red Bld Cells,Manual 4 % (0-5); Platelet Estimate MKD DEC (ADEQ); Promyelocyte 2 % (0-0); Reactive Lymphocyte 1+; Total Cells Counted 100 (MANUAL DIFF)
[2023-02-17] MEDS: Menthol/Lanolin/Calamine/Znox 113 GM Tube 1 APPLIC TOPICAL (08:29)
[2023-02-17 08:30] LABS: Scan Smear per Review Criteria MANUAL DIFF
[2023-02-17] MEDS: Ensure Plus High Protein 120 ML LIQUID PO (08:30)
[2023-02-17] MEDS: Furosemide 40 MG Tablet PO ×2 (08:30→17:12)
[2023-02-17 08:35] LABS: Corrected WBC 7.2 K/mm3 (4.4-11.0)
[2023-02-17 08:37] LABS: Absolute Neutrophil Count 3.5 X10^3/uL (2.0-7.7)
--- NOTE | 2023-02-17 08:41 | PN.HOSP_ITS ---
Reason for Visit Reason for Visit: Diagnoses Myelodysplastic syndrome, unspecified (02/13/23) Pneumonia, unspecified organism (02/13/23) Acute and chronic respiratory failure with hypoxia (02/13/23) Subjective Subjective Seen platelet count continues to drop. Platelet count on admission was 112 now down to 30. May be attributed to patient myelodysplastic syndrome or however ordered platelet antibody to rule out HIT Objective Data Objective Data Vital Signs: Vital Signs Temp Pulse Resp BP Pulse Ox O2 Del Method O2 Flow Rate 98.4 F 126 H 22 H 124/63 H 92 High Flow 5 02/17/23 08:38 02/17/23 08:38 02/17/23 08:38 02/17/23 08:38 02/17/23 08:38 02/17/23 08:38 02/17/23 08:38 Oxygen Flow Rate (L/min) 5 Oxygen Delivery Method High Flow Weight: 57.9 kg Body Mass Index (BMI) 24.9 Intake & Output: Intake and Output for Last 24 Hours 02/15/23 02/16/23 02/17/23 23:59 23:59 23:59 Intake Total 1465 / 1585 1128.33 / 1128.33 150 / 150 Output Total 1150 / 1650 4500 / 4500 800 / 800 Balance 315 / -65 -3371.67 / -3371.67 -650 / -650 Medical Nutrition Assessment Dietitian: Malnutrition Criteria Met Start: 02/14/23 11:57 Freq: Status: Active Protocol: Document 02/14/23 11:57 RMA (Rec: 02/14/23 11:57 RMA [id number]) Nutrition Malnutrition Evidence of Malnutrition Exists Yes Malnutrition (severe): Chronic Evidenced By Suboptimal Energy Intake ( Severe),Weight Loss (Severe) Clinical Problem Chronic Disease or Condition Related Malnutrition Etiology Severe protein-calorie malnutrition in the context of chronic disease/debility related to inadequate oral intake/acute illness and increased energy expenditure Signs/Symptoms as evidenced by 6% wt loss x 2 -3 weeks with fluid/edema likely masking additional weight loss and PO meeting less than 50% estimated nutrition needs x past 2 weeks Status Active Problem Recommendation Dietitian Recommendations/Changes Will liberalize diet to regular/no added salt given signs/symptoms of malnutrition . Will add 120ml ensure plus high protein 4 times per day w / medpass. Ensure pudding 1 time daily w/ dinner meal. Adjust ONS as needed to optimize PO and prevent further energy depletion. Lab / Micro Data Result Diagrams: 02/17/23 06:28 02/17/23 06:28 Labs: Laboratory Results - last 24 hr 02/15/23 04:18: Diff Path Review Reviewed 02/16/23 09:36: WBC 6.5, RBC 2.52 L, Hgb 7.5 L, Hct 24.0 L, MCV 95.2, MCH 29.8, MCHC 31.3 L, RDW Std Deviation 67.5 H, RDW Coeff of Kylie 21.6 H, Plt Count 30 L*, Differential Comment S, Diff Path Review May foll 02/16/23 09:36: Sodium 141, Potassium 3.5, Chloride 102, Carbon Dioxide 27.0, Anion Gap 12, BUN 35 H, Creatinine 0.97, Estim Creat Clear Calc 35.99, Est GFR (MDRD) Af Amer 72, Est GFR (MDRD) Non-Af 59 L, BUN/Creatinine Ratio 36.1 H, Glucose 309 H, Calcium 8.4 L, Phosphorus 2.1 L, Magnesium 2.4 02/17/23 06:28: WBC [employer], Corrected WBC 7.2, RBC 2.44 L, Hgb 7.2 L, Hct 23.4 L, MCV 95.9, MCH 29.5, MCHC 30.8 L, RDW Std Deviation 65.5 H, RDW Coeff of Kylie 21.3 H, Plt Count 30 L*, MPV TNP, Immature Gran % (Auto) [employer], Neut % (Auto) [employer]UMENT [employer], Lymph % (Auto) [employer]UMENT [employer]ER, Casey % (Auto) ELECT[employer]ICAL [employer]STRUMENT [employer]KER, Eos % (Auto) [employer]UMENT [employer]KER, Baso % (Auto) [employer]UMENT [employer]ER, Absolute Neuts (auto) 3.5, Absolute Lymphs (auto) 0.80 L, Total Counted 100, Neutrophils % (Manual) 48, Lymphocytes % (Manual) 11 L, Monocytes % (Manual) 25 H, Eosinophils % (Manual) 1, Metamyelocytes % 6 H, Myelocytes % 4 H, Promyelocytes % 2 H, Blast Cells % 3 H*, Nucleated RBC % [employer]UMENT [employer]ER, Nucleated RBCs/100 WBC 4, Diff Path Review March foll, Reactive Lymphocytes 1+, Platelet Estimate MKD DEC, Anisocytosis 1+ 02/17/23 06:28: Sodium 142, Potassium 3.2 L, Chloride 101, Carbon Dioxide 33.0 H , Anion Gap 8, BUN 28 H, Creatinine 0.85, Estim Creat Clear Calc 41.08, Est GFR (MDRD) Af Amer 84, Est GFR (MDRD) Non-Af 69, BUN/Creatinine Ratio 32.9 H, Glucose 243 H, Calcium 8.4 L Micro: Microbiology 02/13/23 15:36 Blood Culture (Wb) #2 - Anticubital Left Blood Culture - Preliminary No growth in 48 hours. 02/13/23 14:45 Blood Culture (Wb) - Right Wrist Blood Culture - Preliminary No growth in 48 hours. 02/14/23 23:18 Urine, Clean Catch Legionella Antigen - Final 02/14/23 23:18 Urine, Clean Catch Streptococcus pneumoniae Antigen (M - Final 02/13/23 14:49 Nasal Secretion SARS-CoV-2 & FLU Antigen (Rapid) - Final Physical Exam Narrative GENERAL: cooperative HEENT: Atraumatic; normocephalic EYES; Anicteric, Normal Conjunctiva NECK; supple, normal thyroid, RESPIRATORY: Diminished to auscultation CARDIOVASCULAR: Regular S1 S2, loud systolic murmur GI: soft, normoactive bowel sounds, : No Renal angle tenderness; EXTREMITIES: edema, no clubbing, MUSCULOSKELETAL: no muscle wasting NEURO: Awake; no lateralizing signs. SKIN: No Rash PSYCH; Flat affect Assessment & Plan Assessment/Plan (1) Acute and chronic respiratory failure with hypoxia: (2) Pneumonia: PLAN: Plan Patient is a 77-year-old lady with history of myelodysplastic syndrome with recent admission for symptomatic anemia admitted with shortness of breath and assessment of pneumonia made patient admitted to a monitored bed for further management. 1. Acute hypoxia (acute hypoxic respiratory failure ruled out). -Secondary to combination of COPD with acute exacerbation as well as community- acquired pneumonia admitted to monitored bed for treatment of underlying condition 2. Pneumonia with sepsis present on admission ? With suspected gram-negative organisms given patient recent hospitalization patient was started on Zosyn and vancomycin cultures sent Evidence of sepsis on admission Sepsis Organ Dysfunction Criteria Present: Total Bilirubin > 2 mg/dl, Platelets <100,000 / uL, Lactic Acid > 2 mmol/L, PaO2/FiO2 ratio < 300 and New/Unexplained change in mental status 3. COPD? With acute exacerbation ? Managed with antibiotics as well as aerosol treatments and supplemental oxygen 4. Severe pulmonary hypertension ? Complicating patient care patient was on supplemental oxygen 5. Moderate global dysplastic syndrome ? Patient was found to have blast cells on her peripheral film. Apparently consistent with a diagnosis. Oncology consulted Case discussed with Dr Lin his notes and recommendations reviewed 6.? Symptomatic anemia ? Secondary to myelodysplastic syndrome.? An order given for patient to be transfused with 1 unit PRBC post transfusion H&H ordered ? 02/15/2023; hemoglobin came up to 8.1 7.? Chronic thrombocytopenia ? Secondary to myelodysplastic syndrome monitoring with daily CBC with differential ? 02/15/2023;platelet count down from 77 on admission to 48 we will continue with daily monitoring with CBC -02/17/2023; platelet count on admission was 112 now down to 30. May be attributed to patient myelodysplastic syndrome or however ordered platelet antibody to rule out HIT 8.? Hypertension - Blood pressure controlled, home medications continued with dose adjustment as needed 9. Hypothyroidism - Patient is on levothyroxine home dose continued 10.? History of breast cancer ? Status post left breast mastectomy and axillary lymph node dissection?with subsequent radiation therapy patient has since remained in remission 11. DVT prophylaxis ? SCDs 12. Acute on chronic congestive heart failure with preserved ejection fraction echo obtained on 08/10/2022 demonstrated EF of 55 to 60% ? Patient started on Lasix 13. Severe protein-calorie malnutrition ? In the context of chronic disease/debility related to inadequate oral intake/acute illness and increased energy expenditure as evidenced by 6% wt loss x 2-3 weeks with fluid/edema likely masking additional weight loss and PO meeting less than 50% estimated nutrition needs x past 2 weeks. Will liberalize diet to regular/no added salt given signs/symptoms of malnutrition. Will add 120ml ensure plus high protein 4 times per day w/ medpass. Ensure pudding 1 time daily w/ dinner meal. Adjust ONS as needed to optimize PO and prevent further energy depletion. Time spent in the patient's overall evaluation,decision-making process, review of diagnostic data, adjustment of management, discussion with other providers, nursing nursing and ancillary staff involved in patient's care documentation, 40 Minutes Charges/Coding Visit Charges Inpatient E&M: 64891 Subs Hosp L2
[2023-02-17 09:41] LABS: Pathologist Review Reviewed
--- NOTE | 2023-02-17 11:15 | CASEMGMT ---
YURIY notified patient's daughter Aisha that patient was accepted in TCU pending insurance approval. YURIY also gave Aisha information on [employer] to contact them regarding how to get her daughter approved to take care of patient. Plan: d/c to [facility] TCU pending insurance approval and patient being medically ready. Ewdina YOUNGBLOOD
[2023-02-17 12:45] LABS: Pathologist Review Reviewed
--- NOTE | 2023-02-17 16:45 | CASEMGMT ---
Patient was approved to go to TCU. Green sheet on chart. Plan: [facility] TCU when medically ready. Edwina YOUNGBLOOD
[2023-02-17 17:36] LABS: Vancomycin, Trough Level 14.2 ug/mL (5.0-15.0)
--- NOTE | 2023-02-17 17:54 | PCM.RX.CS ---
Consult Pharmacy has been consulted to manage selected antiobiotic: Vancomycin Type of Consult: Follow-up Labs: Sodium 142 mmol/L (136-145) 02/17/23 06:28 Potassium 3.2 mmol/L (3.5-5.1) L 02/17/23 06:28 Chloride 101 mmol/L (98-107) 02/17/23 06:28 Carbon Dioxide 33.0 mmol/L (21.0-32.0) H 02/17/23 06:28 Anion Gap 8 (5-15) 02/17/23 06:28 BUN 28 mg/dL (7-18) H 02/17/23 06:28 Creatinine 0.85 mg/dL (0.55-1.02) 02/17/23 06:28 Est GFR (MDRD) Af Amer 84 mL/min (>60) 02/17/23 06:28 Est GFR (MDRD) Non-Af 69 mL/min (>60) 02/17/23 06:28 BUN/Creatinine Ratio 32.9 RATIO (10-20) H 02/17/23 06:28 Glucose 243 mg/dL (74-106) H 02/17/23 06:28 Vancomycin Trough 14.2 ug/mL (5.0-15.0) 02/17/23 17:06 Microbiology: Microbiology 02/13/23 15:36 Blood Culture (Wb) #2 - Anticubital Left Blood Culture - Preliminary No growth in 48 hours. 02/13/23 14:45 Blood Culture (Wb) - Right Wrist Blood Culture - Preliminary No growth in 48 hours. 02/14/23 23:18 Urine, Clean Catch Legionella Antigen - Final 02/14/23 23:18 Urine, Clean Catch Streptococcus pneumoniae Antigen (M - Final 02/13/23 14:49 Nasal Secretion SARS-CoV-2 & FLU Antigen (Rapid) - Final Pharmacy Plan for Drug Dosing: VANCOMYCIN LEVEL RECEIVED Current Vancomycin Dose: 500MG Q12 Number of Doses Received: 3- 500MG, 2 - 750MG, 1- 1500MG Vancomycin Level: 14.2 MG/DL Hours Since Last Dose: 12 Renal Function: SCR 0.85 MG/DL, CRCL 41.1 ML/MIN Renal Function Trend: IMPROVING Lab/Micro: BLOOD CX - NO GROWTH Vancomycin Plan/Comments: 12 HOUR TROUGH IS SLIGHTLY SUBTHERAPEUTIC AT 14.2MG/DL (GOAL 15-20). DOSE FOR THIS EVENING WAS ALREADY HUNG. SINCE THE TROUGH IS WITHIN 1 MG/DL OF GOAL AND MAY NOT BE AT STEADY STATE YET BOTH FREQUENCY AND DOSE WERE CHANGED WITH THE LAST TROUGH. WILL SCHEDULE A TROUGH IN 24 HOURS TO SEE IF IT IS STILL BELOW GOAL. Pending Level: 02/18/23 @ 4420 Pharmacy Service will continue to monitor and adjust dosing as required.
--- NOTE | 2023-02-17 19:00 | NURSING ---
emergency documentation starting at this time
[2023-02-17] MEDS: 0.9% Saline Lock 10 ML Syringe IV (22:38)
[2023-02-17] MEDS: MELATONIN 3 MG TABLET PO (22:38)
[2023-02-18] VITALS (18 sets, daily range): BP systolic 98–142; BP diastolic 60–88; PULSE 96–126; RESP 16–28; TEMP 36.3–36.8; O2SAT 84–100
[2023-02-18] MEDS: Vancomycin IV 500 MG/100 ML BAG 100 MG IV (05:02)
[2023-02-18] MEDS: 0.9% Saline Lock 10 ML Syringe IV (05:02)
[2023-02-18 06:26] LABS: Hematocrit 23.4 % (37-47); Hemoglobin 7.4 g/dL (12.0-15.0); Mean Corp Hgb Conc 31.6 g/dL (32-36); Mean Corpuscular Hgb 29.8 pg (27.0-32.0); Mean Corpuscular Volume 94.4 fL (81-99); POSITIVE COUNT YES; POSITIVE MORPHOLOGY YES; RBC Distribution Width SD 65.1 fl (35.1-43.9); Red Blood Count 2.48 M/mm3 (4.2-5.4); White Blood Count 9.4 K/mm3 (4.4-11.0)
[2023-02-18 06:46] LABS: Anion Gap 7 (5-15); BUN 29 mg/dL (7-18); BUN/Creat Ratio 35.2 RATIO (10-20); Calcium,Total 8.1 mg/dL (8.5-10.1); Chloride 99 mmol/L (98-107); Creatinine, Serum 0.82 mg/dL (0.55-1.02); EST Glomerular Filtration Rate 72 mL/min (>60); Est Glom Filt Rate - Afr Amer 87 mL/min (>60); Estimated Creatinine Clearance 42.58 ml/min; Glucose 210 mg/dL (74-106); Potassium 3.6 mmol/L (3.5-5.1); Sodium Level 140 mmol/L (136-145)
[2023-02-18 06:52] LABS: Differential Indicated MANUAL DIFF; Platelet Count 37 K/mm3 (150-450)
[2023-02-18] MEDS: Ipratropium/Albuterol Sulfate 3 ML AMPUL.NEB INHALATION ×5 (07:18→23:13)
[2023-02-18 07:24] LABS: Blast 6 % (0-0); Eosinophil 2 % (0-5); Lymphocyte 36 % (19-41); Metamyelocyte 1 % (0-1); Monocyte 8 % (0-10); Myelocyte 3 % (0-0); Neutrophil-Band 1 % (0-5); Neutrophil-Segmented 39 % (47-70); Promyelocyte 4 % (0-0); Total Cells Counted 100 (MANUAL DIFF)
[2023-02-18 07:25] LABS: Platelet Estimate MKD DEC (ADEQ)
[2023-02-18 07:26] LABS: Anisocytosis 3+; Ovalocyte 1+; Stomatocyte 1+
[2023-02-18 07:29] LABS: Absolute Lymphocyte Count 3.38 X10^3/uL (0.83-4.51); Absolute Neutrophil Count 3.8 X10^3/uL (2.0-7.7); Lymphocyte # 3.38 X10^3/ul (0.83-4.51); Neutrophil # 3.76 X10^3/uL (2.7-7.7)
[2023-02-18] MEDS: Menthol/Lanolin/Calamine/Znox 113 GM Tube 1 APPLIC TOPICAL ×2 (08:38→22:10)
[2023-02-18] MEDS: Furosemide 40 MG Tablet PO ×2 (08:39→17:48)
[2023-02-18] MEDS: Ensure Plus High Protein 120 ML LIQUID PO ×2 (08:42→22:06)
--- NOTE | 2023-02-18 16:52 | PN.HOSP_ITS ---
Reason for Visit Reason for Visit: Diagnoses Myelodysplastic syndrome, unspecified (02/13/23) Pneumonia, unspecified organism (02/13/23) Acute and chronic respiratory failure with hypoxia (02/13/23) Subjective Subjective Patient was seen and examined today, according to nursing, there is a bed available for the patient on Monday in TCU, if the patient is medically stable tomorrow she will be transferred over to TCU for inpatient rehab services. Objective Data Objective Data Vital Signs: Vital Signs Temp Pulse Resp BP Pulse Ox O2 Del Method O2 Flow Rate 97.4 F L 126 H 26 H 138/67 H 94 Nasal Cannula 4.5 02/18/23 16:16 02/18/23 16:16 02/18/23 16:16 02/18/23 16:16 02/18/23 16:37 02/18/23 16:16 02/18/23 16:37 Oxygen Flow Rate (L/min) 4.5 Oxygen Delivery Method Nasal Cannula Weight: 57.9 kg Body Mass Index (BMI) 24.9 Intake & Output: Intake and Output for Last 24 Hours 02/16/23 02/17/23 02/18/23 23:59 23:59 23:59 Intake Total 1128.33 / 1128.33 1070 / 1070 720 / 720 Output Total 4500 / 4500 3150 / 3150 1100 / 1100 Balance -3371.67 / -3371.67 -2080 / -2080 -380 / -380 Medical Nutrition Assessment Dietitian: Malnutrition Criteria Met Start: 02/14/23 11:57 Freq: Status: Active Protocol: Document 02/17/23 14:08 PANCHO (Rec: 02/17/23 14:08 PANCHO [id number]) Nutrition Malnutrition Evidence of Malnutrition Exists Yes Malnutrition (severe): Chronic Evidenced By Suboptimal Energy Intake ( Severe),Weight Loss (Severe) Clinical Problem Chronic Disease or Condition Related Malnutrition Etiology Severe protein-calorie malnutrition in the context of chronic disease/debility related to inadequate oral intake/acute illness and increased energy expenditure Signs/Symptoms as evidenced by 6% wt loss x 2 -3 weeks with fluid/edema likely masking additional weight loss and PO meeting less than 50% estimated nutrition needs x past 2 weeks [employer] Status Active Problem Recommendation Dietitian Recommendations/Changes Will continue liberalized diet of regular/no added salt given signs/symptoms of malnutrition. Will continue 120ml ensure plus high protein 4 times per day w/ medpass. Will continue Ensure pudding 1 time daily w/ dinner meal. Consider appetite stimulant to help encourage increased po intake. Adjust ONS as needed to optimize PO and prevent further energy depletion. Lab / Micro Data Result Diagrams: 02/18/23 05:51 02/18/23 05:51 Labs: Laboratory Results - last 24 hr 02/17/23 17:06: Vancomycin Trough 14.2 02/18/23 05:51: WBC 9.4, RBC 2.48 L, Hgb 7.4 L, Hct 23.4 L, MCV 94.4, MCH 29.8, MCHC 31.6 L, RDW Std Deviation 65.1 H, RDW Coeff of Kylie 21.0 H, Plt Count 37 L*, MPV TNP, Neut % (Auto) Not Reportable, Absolute Neuts (auto) 3.8, Absolute Lymphs (auto) 3.38, Total Counted 100, Neutrophils % (Manual) 39 L, Band Neutrophils % 1, Lymphocytes % (Manual) 36, Monocytes % (Manual) 8, Eosinophils % (Manual) 2, Metamyelocytes % 1, Myelocytes % 3 H, Promyelocytes % 4 H, Blast Cells % 6 H*, Diff Path Review May foll, Platelet Estimate MKD DEC, Anisocytosis 3+, Ovalocytes 1+, Stomatocytes 1+ 02/18/23 05:51: Sodium 140, Potassium 3.6, Chloride 99, Carbon Dioxide 34.0 H, Anion Gap 7, BUN 29 H, Creatinine 0.82, Estim Creat Clear Calc 42.58, Est GFR (MDRD) Af Amer 87, Est GFR (MDRD) Non-Af 72, BUN/Creatinine Ratio 35.2 H, Glucose 210 H, Calcium 8.1 L Micro: Microbiology 02/13/23 14:45 Blood Culture (Wb) - Right Wrist Blood Culture - Final No growth in 5 days. 02/13/23 15:36 Blood Culture (Wb) #2 - Anticubital Left Blood Culture - Preliminary No growth in 48 hours. 02/14/23 23:18 Urine, Clean Catch Legionella Antigen - Final 02/14/23 23:18 Urine, Clean Catch Streptococcus pneumoniae Antigen (M - Final 02/13/23 14:49 Nasal Secretion SARS-CoV-2 & FLU Antigen (Rapid) - Final Physical Exam Const alert and no apparent distress HEENT head/scalp atraumatic and moist oral mucous membranes Neck supple and no JVD Resp normal respiratory effort and no retractions Resp Narrative: breath sounds distant bilaterally Cardio regular rate, regular rhythm, S1 normal heart sound and S2 normal heart sound GI normal to inspection, nondistended, normoactive bowel sounds, soft to palpation and non-tender Extremity no clubbing, cyanosis or edema Neuro CN's II-XII intact bilaterally and moves all extremities Sensorium / Orientation: awake, oriented to person and oriented to place Psych affect normal Assessment & Plan Assessment/Plan (1) COPD (chronic obstructive pulmonary disease): PLAN: Plan 1. Acute hypoxia on a backdrop of chronic hypoxic respiratory failure-patient is currently on 4 L via nasal cannula, it is anticipated if she is medically stable she may be able to go to TCU tomorrow. Platelet count today was 37,000, hemoglobin was 7.4. CBC will be repeated tomorrow #2 myelodysplastic syndrome with thrombocytopenia and anemia-CBC will be repeated tomorrow #3 severe chronic protein and caloric malnutrition in the context of chronic disease/debility-related to inadequate oral intake/acute illness and increased energy expenditure as evidenced by a 6% weight loss over 2 to 3 weeks with p.o. meeting less than 50% of estimated nutritional needs over the past 2 weeks-diet was liberalized to regular/no added salt, patient will receive 120 cc Ensure Plus high-protein 4 times a day with med Pass and Ensure pudding 1 time a day with dinner meal. #4 chronic obstructive pulmonary disease with acute exacerbation-patient is chronically on oxygen at home at 3 to 4 L according to her, continue present medications, patient is currently on IV Solu-Medrol, this will be changed over to oral prednisone when she goes to TCU #5 left lower lobe community-acquired pneumonia-patient is currently on Zosyn and vancomycin, I will stop her vancomycin today and continue Zosyn, her two b lood cultures have shown no growth in 5 days and no growth in 48 hours. #6 severe pulmonary hypertension-complicates care, medical course, recovery, and prognosis Total clinical time spent by myself addressing the patient's medical issues, reviewing all of her data, and collaborating with patient's care team: 35 minutes Charges/Coding Visit Charges Inpatient E&M: 01237 Subs Hosp L2
[2023-02-18 18:37] LABS: Vancomycin, Trough Level 12.5 ug/mL (5.0-15.0)
[2023-02-18] MEDS: MELATONIN 3 MG TABLET PO (22:06)
[2023-02-18] MEDS: Acetaminophen 325 MG Tablet 650 MG PO (22:06)
[2023-02-19] VITALS (37 sets, daily range): BP systolic 92–140; BP diastolic 41–81; PULSE 89–151; RESP 18–34; TEMP 36.4–36.7; O2SAT 78–100
[2023-02-19] MEDS: Ipratropium/Albuterol Sulfate 3 ML AMPUL.NEB INHALATION ×6 (02:42→22:55)
[2023-02-19 05:28] LABS: Hemoglobin 7.8 g/dL (12.0-15.0); Mean Corp Hgb Conc 31.2 g/dL (32-36); Mean Corpuscular Hgb 31.1 pg (27.0-32.0); Mean Corpuscular Volume 99.6 fL (81-99); POSITIVE COUNT YES; POSITIVE DIFFERENTIAL YES; POSITIVE MORPHOLOGY YES; RBC Distribution Width CV 21.5 % (11.6-14.6); RBC Distribution Width SD 70.1 fl (35.1-43.9); Red Blood Count 2.51 M/mm3 (4.2-5.4)
[2023-02-19 05:36] LABS: Differential Indicated MANUAL DIFF
[2023-02-19 05:38] LABS: Platelet Count 45 K/mm3 (150-450)
--- NOTE | 2023-02-19 07:57 | TREXTCAR_ITS ---
Diet Diet Order/Speech Therapy: 02/14/23 11:58 Diet: Regular - No Added Salt Food consistency:: Regular Liquid Consistency:: Regular/Thin Type of Dietary Supplement:: Ensure Pudding Diet Comments: ensure pudding w/ dinner Routine Orders/Code Status O2 Liters per Minute: 3 O2 Frequency: Continuous Routine Lab Work: CBC (02/19/23) Code Status: Full Code Therapies Weight Bearing: Full weight bearing Physical Therapy: Eval and Treat Occupational Therapy: Eval and Treat Problem/Diagnosis (1) COPD (chronic obstructive pulmonary disease): Status: Chronic Code(s): J44.9 - Chronic obstructive pulmonary disease, unspecified Plan 1. Acute hypoxia on a backdrop of chronic hypoxic respiratory failure-patient is currently on 4 L via nasal cannula, it is anticipated if she is medically stable she may be able to go to TCU tomorrow. Platelet count today was 37,000, hemoglobin was 7.4. CBC will be repeated tomorrow #2 myelodysplastic syndrome with thrombocytopenia and anemia-CBC will be repeated tomorrow #3 severe chronic protein and caloric malnutrition in the context of chronic disease/debility-related to inadequate oral intake/acute illness and increased energy expenditure as evidenced by a 6% weight loss over 2 to 3 weeks with p.o. meeting less than 50% of estimated nutritional needs over the past 2 weeks-diet was liberalized to regular/no added salt, patient will receive 120 cc Ensure Plus high-protein 4 times a day with med Pass and Ensure pudding 1 time a day with dinner meal. #4 chronic obstructive pulmonary disease with acute exacerbation-patient is chronically on oxygen at home at 3 to 4 L according to her, continue present medications, patient is currently on IV Solu-Medrol, this will be changed over to oral prednisone when she goes to TCU #5 left lower lobe community-acquired pneumonia-patient is currently on Zosyn and vancomycin, I will stop her vancomycin today and continue Zosyn, her two blood cultures have shown no growth in 5 days and no growth in 48 hours. #6 severe pulmonary hypertension-complicates care, medical course, recovery, and prognosis #7 Moderate aortic stenosis Total clinical time spent by myself addressing the patient's medical issues, reviewing all of her data, and collaborating with patient's care team: 35 minutes Allergies/Procedures Done in Hospital Allergies influenza virus vaccine tv split 2012- (5 yr,up) [From Afluria] Allergy (Unknown, Verified 02/16/23 11:25) Other bacitracin [From Neosporin ([id number])] Allergy (Verified 02/13/23 15:22) Rash neomycin [From Neosporin ([id number])] Allergy (Verified 02/13/23 15:22) Rash polymyxin B [From Neosporin ([id number])] Allergy (Verified 02/13/23 15:22) Rash Procedures: None Type of Care/Length of Stay Estimated LOS: Convalescent Care Less Than 30 days Type of Care Needed: Skilled Rehab Potential: Good Prognosis: Good Additional Orders/Day of Discharge Day of Discharge: 02/19/23 Dietary and Speech Recommendations Dietitian Recommendations/Changes: Will continue liberalized diet of regular/no added salt given signs/symptoms of malnutrition. Will continue 120ml ensure plus high protein 4 times per day w/ medpass. Will continue Ensure pudding 1 time daily w/ dinner meal. Consider appetite stimulant to help encourage increased po intake. Adjust ONS as needed to optimize PO and prevent further energy depletion. Discharge Plan Admission Admit Date/Time: 02/13/23 17:47 Primary Reason for Your Visit: hypoxia, copd,MDS Attending Provider: Ottoniel Dyer Primary Care Provider: Fish Harris Chi Consulting Providers: Nima Heller ; Gary Schneider ; Sukhjinder Lin ; Suzanne Amezcua ; Robin Nava ; Daniel Fuentes ; Jacky Fragoso ; Noah Craig ; Sofya Marquez [employer] ; Gary Guerra Discharge Orders/Prescriptions Prescriptions: New acetaminophen 325 mg Tablet 650 mg PO Q6H PRN PRN (Reason: Fever, pain 1-10) Qty: 0 0RF albuterol sulfate 2.5 mg /3 mL (0.083 %) Solution For Nebulization 2.5 mg inhalation Q2H PRN PRN (Reason: Dyspnea, wheezing) Qty: 0 0RF melatonin 3 mg Tablet 3 mg PO QHS Qty: 0 0RF menthol-zinc oxide [Calmoseptine] 0.44-20.6 % Ointment 1 applic topical BID Qty: 0 0RF Protocol: *Topical Application Instructions APPLICATION INSTRUCTIONS: apply to affected areas Ensure Plus High Protein 0.08 gram-1.5 kcal/mL Liquid 120 ml PO 4X/DAY Qty: 0 0RF prednisone 20 mg Tablet 20 mg PO BIDCM Qty: 0 0RF Rx Instructions: one twice a day for 3 days, then one daily for three days, then 1/2 daily for 3 days, then stop amoxicillin-pot clavulanate 875-125 mg tablet 1 tab PO BID Qty: 8 0RF Rx Instructions: start on 02/19/23 ipratropium-albuterol 0.5 mg-3 mg(2.5 mg base)/3 mL solution for nebulization 3 ml inhalation .Q6HRT Qty: 90 0RF Continued ascorbic acid (vitamin C) 500 MG capsule 500 mg PO DAILY multivitamin Tablet 1 tab PO DAILY levothyroxine 50 mcg tablet 50 mcg PO DAILY Label Comments: TAKE 1 TABLET BY MOUTH EVERY DAY furosemide 40 mg tablet 40 mg PO BID Rx Instructions: Hold if systolic blood pressure less than 100 mmHg pantoprazole [Protonix] 40 mg tablet,delayed release (DR/EC) 40 mg PO DAILY metoprolol tartrate 25 MG tablet 12.5 mg PO DAILY Rx Instructions: Giv3e 12.5 every morning and at bedtime related to essential (primary) hypertension, check b/p before administering, hold for SBP <100 or HR <60 Discontinued acetaminophen 500 MG tablet 1,000 mg PO Q6H PRN (Reason: Pain Score 1-3/10) 0RF potassium chloride 10 MEQ tablet 10 meq PO DAILY Qty: 30 0RF albuterol sulfate 90 mcg/actuation HFA aerosol inhaler 2 puff inhalation Q6H PRN (Reason: shortness of breath or wheezing) Qty: 8.5 0RF prednisone 10 mg tablet See Taper PO DAILY Taper: Prednisone Taper 40 mg WITH BREAKFAST for 3 Days and 0 Hour 30 mg WITH BREAKFAST for 3 Days and 0 Hour 20 mg WITH BREAKFAST for 3 Days and 0 Hour 10 mg WITH BREAKFAST for 3 Days and 0 Hour Rx Instructions: 40 mg with breakfast for 3 Days; 30 mg for 3 Days; 20 mg for 3 Days; 10 mg for 3 Days polysaccharide iron complex 150 MG capsule 150 mg PO DAILYCM levofloxacin 500 mg tablet 500 mg PO DAILY Referrals / Follow Up: Fish Harris Chi, MD [Primary Care Provider] - Disposition Disposition (needs filled in before D/C Order can be placed): Residential Facility
--- NOTE | 2023-02-19 07:57 | EKG12_ITS ---
Test Reason : Blood Pressure : / mmHG Vent. Rate : 133 BPM Atrial Rate : 133 BPM P-R Int : 122 ms QRS Dur : 080 ms QT Int : 312 ms P-R-T Axes : 066 033 104 degrees QTc Int : 464 ms Sinus tachycardia Left ventricular hypertrophy with repolarization abnormality ( Sokolow-Sheets , Romhilt-Pelaez ) Abnormal ECG When compared with ECG of 13-FEB-2023 14:43, No significant change was found Confirmed by BERONICA GRIMES, GUILLERMINA ([id number]), editor managing director MARY LOW ([id number]) on 02/21/2023 9:05:31 AM Referred By: DIMAS Confirmed By:GUILLERMINA LOCO MD
[2023-02-19 08:16] LABS: White Blood Count 12.5 K/mm3 (4.4-11.0)
[2023-02-19 08:18] LABS: Anisocytosis 3+; Blast 21 % (0-0); Eosinophil 3 % (0-5); Lymphocyte 20 % (19-41); Metamyelocyte 14 % (0-1); Monocyte 3 % (0-10); Myelocyte 1 % (0-0); Neutrophil-Band 13 % (0-5); Neutrophil-Segmented 22 % (47-70); Nucleated Red Bld Cells,Manual 4 % (0-5); Promyelocyte 3 % (0-0); Total Cells Counted 100 (MANUAL DIFF)
[2023-02-19 08:19] LABS: Platelet Estimate MKD DEC (ADEQ); Smudge Cells 1+; Vacuolated Cells 1+
[2023-02-19 08:20] LABS: Absolute Neutrophil Count 6.9 X10^3/uL (2.0-7.7)
[2023-02-19] MEDS: Metoprolol Tartrate 25 MG Tablet PO ×2 (09:10→10:57)
--- NOTE | 2023-02-19 09:16 | PCM.DC.SUM ---
Providers Date of Admission: 02/13/23 Date of Discharge: 02/20/23 Primary Care Physician: Dr. 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 Acute hypoxia on a backdrop of chronic hypoxic respiratory failure-patient is currently on 4 L via nasal cannula, it is anticipated if she is medically stable she may be able to go to TCU tomorrow. Platelet count today was 37,000, hemoglobin was 7.4. CBC will be repeated tomorrow #2 myelodysplastic syndrome with thrombocytopenia and anemia-CBC will be repeated tomorrow #3 severe chronic protein and caloric malnutrition in the context of chronic disease/debility-related to inadequate oral intake/acute illness and increased energy expenditure as evidenced by a 6% weight loss over 2 to 3 weeks with p.o. meeting less than 50% of estimated nutritional needs over the past 2 weeks-diet was liberalized to regular/no added salt, patient will receive 120 cc Ensure Plus high-protein 4 times a day with med Pass and Ensure pudding 1 time a day with dinner meal. #4 chronic obstructive pulmonary disease with acute exacerbation-patient is chronically on oxygen at home at 3 to 4 L according to her, continue present medications, patient is currently on IV Solu-Medrol, this will be changed over to oral prednisone when she goes to TCU #5 left lower lobe community-acquired pneumonia-patient is currently on Zosyn and vancomycin, I will stop her vancomycin today and continue Zosyn, her two blood cultures have shown no growth in 5 days and no growth in 48 hours. #6 severe pulmonary hypertension-complicates care, medical course, recovery, and prognosis #7 Moderate aortic stenosis #8 chronic anemia secondary to myelodysplastic syndrome requiring blood transfusion #9 acute encephalopathy secondary to multiple medical problems including mild dysplastic syndrome, acute hypoxia, chronic obstructive pulmonary disease, left lower lobe community-acquired pneumonia #10 acute on chronic diastolic congestive heart failure Total clinical time spent by myself addressing the patient's medical issues, reviewing all of her data, and collaborating with patient's care team: 35 minutes Medications at Discharge Home Medications ascorbic acid (vitamin C) 500 mg capsule 500 mg PO DAILY supplement 01/17/20 levothyroxine 50 mcg tablet 50 mcg PO DAILY THYROID 01/28/23 metoprolol tartrate 25 mg tablet 12.5 mg PO DAILY BP 02/13/23 pantoprazole 40 mg tablet,delayed release (Protonix) 40 mg PO DAILY ACID REFLUX 02/13/23 amoxicillin 875 mg-potassium clavulanate 125 mg tablet 1 tab PO BID Antibiotic 02/20/23 furosemide 40 mg tablet 40 mg PO BIDLX Heart 02/20/23 ipratropium 0.5 mg-albuterol 3 mg (2.5 mg base)/3 mL nebulization soln 3 ml inhalation .Q6HRT SOB 02/20/23 melatonin 3 mg tablet 3 mg PO QHS Sleep 02/20/23 menthol 0.44 %-zinc oxide 20.6 % topical ointment (Calmoseptine) 1 applic topical BID Skin 02/20/23 potassium chloride 20 mEq tablet,extended release(part/cryst) (Klor-Con M) 20 meq PO BIDCM Supplement 02/20/23 polysaccharide iron complex 150 mg iron capsule (Ferrex) 150 mg PO DAILY SUPPLEMENT 02/21/23 prednisone 20 mg tablet 20 mg PO BID 02/21/23 sennosides 8.6 mg-docusate sodium 50 mg tablet (Senokot-S) 1 tab-cap PO BID STOOL SOFTNER 02/21/23 Hospital Course Operations None Procedures None Summary of Care Provided Minutes Spent on Discharge: 31 Hospital Course: This 77-year-old white female was seen in the emergency room at [facility] with confusion and altered mental status, she appeared to be more hypoxic than her baseline-patient was on 3 L of nasal cannula oxygen at home. Work-up in the emergency room showed the patient had an elevated white blood cell count and a chest x-ray that demonstrated worsening left lower lobe infiltrate, she was given IV antibiotics and fluid due to tachycardia and borderline blood pressures. Patient was admitted to PCU, IV antibiotics were continued, she was seen by PT and OT, her oxygenation improved somewhat but she required higher supplemental oxygen than she did as an outpatient. Arrangements were made for the patient to be admitted to TCU for inpatient skilled services. Patient did have a blood transfusion during her hospitalization. On 02/19/2023, patient was seen and examined: On examination she appeared alert, she does not appear to be in any distress. Vital signs as documented. Skin warm and dry and without overt rashes. Neck without JVD, thyroid appears normal, trachea is midline, neck is supple. Lungs clear, there was diminished air movement. Heart exam notable for regular rhythm, normal sounds and absence of murmurs, rubs or gallops. Abdomen unremarkable and without evidence of organomegaly, masses, or abdominal aortic enlargement, bowel sounds are present in all 4 quadrants, no abdominal tenderness was noted. Extremities nonedematous, no cyanosis was noted, no clubbing was noted. Neuro: Cranial nerves II through XII are grossly intact, no focal motor deficits were noted, sensation to light touch and pinprick is intact, motor exam 5/5 throughout. Psych: Patient is alert and oriented x3, she does not appear anxious or depressed, she does not appear agitated. Patient appears stable for transfer to TCU for inpatient rehab services on 02/19/2023 Medical Records Data Medical Nutrition Assessment Dietitian: Malnutrition Criteria Met Start: 02/14/23 11:57 Freq: Status: Active Protocol: Document 02/17/23 14:08 PANCHO (Rec: 02/17/23 14:08 PANCHO [id number]) Nutrition Malnutrition Evidence of Malnutrition Exists Yes Malnutrition (severe): Chronic Evidenced By Suboptimal Energy Intake ( Severe),Weight Loss (Severe) Clinical Problem Chronic Disease or Condition Related Malnutrition Etiology Severe protein-calorie malnutrition in the context of chronic disease/debility related to inadequate oral intake/acute illness and increased energy expenditure Signs/Symptoms as evidenced by 6% wt loss x 2 -3 weeks with fluid/edema likely masking additional weight loss and PO meeting less than 50% 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 Will continue 120ml ensure plus high protein 4 times per day w/ medpass. Will continue Ensure pudding 1 time daily w/ dinner meal. Consider appetite stimulant to help encourage increased po intake. Adjust ONS as needed to optimize PO and prevent further energy depletion. Weight / BMI Weight Weight: 57.9 kg Body Mass Index (BMI) 24.9 ABG / Lab / Microbiology Data Result Diagrams: 02/20/23 05:15 02/20/23 05:15 Laboratory: Laboratory Results - last 24 hr 02/18/23 17:55: Vancomycin Trough 12.5 02/19/23 04:10: WBC 12.5 H, RBC 2.51 L, Hgb 7.8 L, Hct 25.0 L, MCV 99.6 H D, MCH 31.1, MCHC 31.2 L, RDW Std Deviation 70.1 H, RDW Coeff of Kylie 21.5 H, Plt Count 45 L*, Neut % (Auto) Not Reportable, Absolute Neuts (auto) 6.9, Absolute Lymphs (auto) 2.50, Total Counted 100, Neutrophils % (Manual) 22 L, Band Neutrophils % 13 H, Lymphocytes % (Manual) 20, Monocytes % (Manual) 3, Eosinophils % (Manual) 3, Metamyelocytes % 14 H, Myelocytes % 1 H, Promyelocytes % 3 H, Blast Cells % 21 H*, Nucleated RBCs/100 WBC 4, Diff Path Review May foll, Smudge Cells 1+ H, Toxic Vacuolation 1+, Platelet Estimate MKD DEC, Anisocytosis 3+ Microbiology: Microbiology 02/13/23 15:36 Blood Culture (Wb) #2 - Anticubital Left Blood Culture - Final No growth. 02/13/23 14:45 Blood Culture (Wb) - Right Wrist Blood Culture - Final No growth in 5 days. 02/14/23 23:18 Urine, Clean Catch Legionella Antigen - Final 02/14/23 23:18 Urine, Clean Catch Streptococcus pneumoniae Antigen (M - Final 02/13/23 14:49 Nasal Secretion SARS-CoV-2 & FLU Antigen (Rapid) - Final Meaningful Use Info Meaningful Use Diagnoses (Choose all that apply): CHF CHF SPARKLE/ARB ordered at discharge?: No Reason SPARKLE/ARB not ordered?: Not indicated Documented LVEF (%): 75 Discharge Plan Admission Admit Date/Time: 02/13/23 17:47 Primary Reason for Your Visit: hypoxia, copd,MDS Attending Provider: Ottoniel Dyer Primary Care Provider: Fish Harris Chi Consulting Providers: Nima Heller ; Gary Schneider ; Sukhjinder Lin ; Suzanne Amezcua ; Robin Nava ; Daniel Fuentes ; Jacky Fragoso ; Noah Craig ; Sofya Marquez NP ; Gary Guerra Instructions Additional Instructions / Restrictions: Do not administer Ativan- patient had adverse reaction with confusion with Ativan Discharge Orders/Prescriptions Prescriptions: Continued ascorbic acid (vitamin C) 500 MG capsule 500 mg PO DAILY levothyroxine 50 mcg tablet 50 mcg PO DAILY Label Comments: TAKE 1 TABLET BY MOUTH EVERY DAY pantoprazole [Protonix] 40 mg tablet,delayed release (DR/EC) 40 mg PO DAILY metoprolol tartrate 25 MG tablet 12.5 mg PO DAILY Rx Instructions: Giv3e 12.5 every morning and at bedtime related to essential (primary) hypertension, check b/p before administering, hold for SBP <100 or HR <60 Discontinued acetaminophen 500 MG tablet 1,000 mg PO Q6H PRN (Reason: Pain Score 1-3/10) 0RF potassium chloride 10 MEQ tablet 10 meq PO DAILY Qty: 30 0RF albuterol sulfate 90 mcg/actuation HFA aerosol inhaler 2 puff inhalation Q6H PRN (Reason: shortness of breath or wheezing) Qty: 8.5 0RF furosemide 40 mg tablet 40 mg PO BID Rx Instructions: Hold if systolic blood pressure less than 100 mmHg prednisone 10 mg tablet See Taper PO DAILY Taper: Prednisone Taper 40 mg WITH BREAKFAST for 3 Days and 0 Hour 30 mg WITH BREAKFAST for 3 Days and 0 Hour 20 mg WITH BREAKFAST for 3 Days and 0 Hour 10 mg WITH BREAKFAST for 3 Days and 0 Hour Rx Instructions: 40 mg with breakfast for 3 Days; 30 mg for 3 Days; 20 mg for 3 Days; 10 mg for 3 Days polysaccharide iron complex 150 MG capsule 150 mg PO DAILYCM levofloxacin 500 mg tablet 500 mg PO DAILY No Action furosemide 40 mg tablet 40 mg PO BIDLX ipratropium-albuterol 0.5 mg-3 mg(2.5 mg base)/3 mL solution for nebulization 3 ml inhalation .Q6HRT melatonin 3 mg tablet 3 mg PO QHS potassium chloride [Klor-Con M20] 20 mEq tablet,ER particles/crystals 20 meq PO BIDCM amoxicillin-pot clavulanate 875-125 mg tablet 1 tab PO BID Rx Instructions: start on 02/21/23-take for three days, administer with food menthol-zinc oxide [Calmoseptine] 0.44-20.6 % ointment 1 applic topical BID Protocol: *Topical Application Instructions APPLICATION INSTRUCTIONS: apply to affected areas polysaccharide iron complex [Ferrex 150] 150 mg iron Capsule 150 mg PO DAILY prednisone 20 mg Tablet 20 mg PO BID sennosides-docusate sodium [Senokot-S] 8.6-50 mg Tablet 1 tab-cap PO BID Referrals / Follow Up: Fish Harris Chi, MD [Primary Care Provider] - Disposition Disposition (needs filled in before D/C Order can be placed): Half-Way Facility Charges/Coding Visit Charges Inpatient E&M: 71078 Disch Hosp >30min
[2023-02-19] MEDS: Ondansetron 4 MG/2 ML Vial IV (09:41)
[2023-02-19] MEDS: Acetaminophen 325 MG Tablet 650 MG PO (10:01)
[2023-02-19 10:15] LABS: Allen Test Positive; Base Excess 7 mmol/L (-2 to +2); Bicarbonate 30.4 mmol/L (22-26); Blood Gas Specimen Type ART; O2 Delivery Device Cannula; PO2 69 mmHG (75-100); SITE R Brach; SO2 94 % (95-99); Total Carbon Dioxide 32 mmol/L; pCO2 42.9 mmHg (35-45); pH 7.46 (7.35-7.45)
--- NOTE | 2023-02-19 10:15 | RAD_ITS ---
INDICATION: pneumonia EXAMINATION/TECHNIQUE: X-RAY - XR Chest 1 View COMPARISON: 02/13/2023. FINDINGS: LINES/DEVICES: Mediport catheter with tip at SVC/RA junction is again noted. LUNGS: Moderate right lower lobe infiltrate progressive. Decreased left lower lobe infiltrate and/or effusion. MEDIASTINUM AND CARDIOVASCULAR STRUCTURES: Cardiac silhouette not enlarged. Central airways and mediastinal contour are unremarkable. BONES AND SOFT TISSUES: Severe glenohumeral joint osteoarthritis bilaterally with moderate bilateral acromioclavicular hypertrophy. RAD/Chest 1 View (Portable) IMPRESSION: Moderate right lower lobe infiltrate. Decreased left lower lobe infiltrate and/or effusion. Mediport catheter. Electronically Signed: Ottoniel Peres MD, GAVI at 10:38 EDT ,
[2023-02-19 10:21] LABS: Magnesium 1.7 mg/dL (1.6-2.6)
[2023-02-19] MEDS: predniSONE 20 MG Tablet PO (10:57)
[2023-02-19] MEDS: Furosemide 40 MG Tablet PO (10:57)
--- NOTE | 2023-02-19 14:03 | PN.HOSP_ITS ---
Reason for Visit Reason for Visit: Diagnoses Myelodysplastic syndrome, unspecified (02/13/23) Pneumonia, unspecified organism (02/13/23) Chronic obstructive pulmonary disease, unspecified (02/13/23) Acute and chronic respiratory failure with hypoxia (02/13/23) Subjective Subjective Patient was seen and examined today, she became more confused today than yesterday, she required increased oxygen administration for a brief period of time today, I ordered a blood gas and the patient was not hypercapnic, PO2 level was adequate on nasal cannula oxygen, patient was tachycardic today and I reinstituted administration of her beta-fernanda which she had been off of. I had a brief discussion with her daughter by phone, her daughter confirmed that t he patient is usually not confused, I have made the decision to stop her prednisone, I am not absolutely sure what is causing her confusion at this point. Patient's white blood cell count was slightly elevated today however she had been on IV and oral steroids over the last week, I will repeat her CBC tomorrow. Patient's hemoglobin this morning was 7.8, her platelet count was 45,000. Due to the patient's hypoxia, I decided to transfuse 1 unit of packed red blood cells. Initially I had decided that the patient was stable to go to TCU for rehab services but when her status changed today, I canceled her discharge and I will reevaluate her tomorrow for possible discharge to TCU. Objective Data Objective Data Vital Signs: Vital Signs Temp Pulse Resp BP Pulse Ox O2 Del Method O2 Flow Rate 97.9 F 125 H 24 H 104/81 H 94 Nasal Cannula 4 02/19/23 10:26 02/19/23 11:16 02/19/23 11:16 02/19/23 10:57 02/19/23 13:38 02/19/23 13:38 02/19/23 13:38 Oxygen Flow Rate (L/min) 4 Oxygen Delivery Method Nasal Cannula Weight: 57.9 kg Body Mass Index (BMI) 24.9 Intake & Output: Intake and Output for Last 24 Hours 02/17/23 02/18/23 02/19/23 23:59 23:59 23:59 Intake Total 1070 / 1070 1370 / 1370 1150 / 1150 Output Total 3150 / 3150 1600 / 3100 2450 / 2450 Balance -2079 / -2079 -230 / -1730 -1300 / -1300 Medical Nutrition Assessment Dietitian: Malnutrition Criteria Met Start: 02/14/23 11:57 Freq: Status: Active Protocol: Document 02/17/23 14:08 PANCHO (Rec: 02/17/23 14:08 PANCHO [id number]) Nutrition Malnutrition Evidence of Malnutrition Exists Yes Malnutrition (severe): Chronic Evidenced By Suboptimal Energy Intake ( Severe),Weight Loss (Severe) Clinical Problem Chronic Disease or Condition Related Malnutrition Etiology Severe protein-calorie malnutrition in the context of chronic disease/debility related to inadequate oral intake/acute illness and increased energy expenditure Signs/Symptoms as evidenced by 6% wt loss x 2 -3 weeks with fluid/edema likely masking additional weight loss and 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 Will continue 120ml ensure plus high protein 4 times per day w/ medpass. Will continue Ensure pudding 1 time daily w/ dinner meal. Consider appetite stimulant to help encourage increased po intake. Adjust ONS as needed to optimize PO and prevent further energy depletion. Lab / Micro Data Result Diagrams: 02/19/23 04:10 02/18/23 05:51 Labs: Laboratory Results - last 24 hr 02/18/23 17:55: Vancomycin Trough 12.5 02/19/23 04:10: WBC 12.5 H, RBC 2.51 L, Hgb 7.8 L, Hct 25.0 L, MCV 99.6 H D, MCH 31.1, MCHC 31.2 L, RDW Std Deviation 70.1 H, RDW Coeff of Kylie 21.5 H, Plt Count 45 L*, Neut % (Auto) Not Reportable, Absolute Neuts (auto) 6.9, Absolute Lymphs (auto) 2.50, Total Counted 100, Neutrophils % (Manual) 22 L, Band Neutrophils % 13 H, Lymphocytes % (Manual) 20, Monocytes % (Manual) 3, Eosinophils % (Manual) 3, Metamyelocytes % 14 H, Myelocytes % 1 H, Promyelocytes % 3 H, Blast Cells % 21 H*, Nucleated RBCs/100 WBC 4, Diff Path Review May foll, Smudge Cells 1+ H, Toxic Vacuolation 1+, Platelet Estimate MKD DEC, Anisocytosis 3+ 02/19/23 09:53: Magnesium 1.7 02/19/23 11:10: Crossmatch See Detail Micro: Microbiology 02/13/23 15:36 Blood Culture (Wb) #2 - Anticubital Left Blood Culture - Final No growth. 02/13/23 14:45 Blood Culture (Wb) - Right Wrist Blood Culture - Final No growth in 5 days. 02/14/23 23:18 Urine, Clean Catch Legionella Antigen - Final 02/14/23 23:18 Urine, Clean Catch Streptococcus pneumoniae Antigen (M - Final 02/13/23 14:49 Nasal Secretion SARS-CoV-2 & FLU Antigen (Rapid) - Final ABG Data ABG results: ABG 02/19/23 10:08 Specimen Type ART Sample Site R Brach pH 7.46 H Bicarbonate Actual 30.4 H Total CO2 32 Base Excess 7 H O2 Saturation 94 L ABG pCO2 42.9 ABG pO2 69 L Rafael Test Positive O2 Delivery Device Cannula Liter Flow 8.0 Radiography Diagnostic Testing: Radiology Impression Chest X-Ray 02/19/23 10:15 IMPRESSION: Moderate right lower lobe infiltrate. Decreased left lower lobe infiltrate and/or effusion. Mediport catheter. Electronically Signed: Ottoniel Peres MD, GAVI at 10:38 EDT , Physical Exam Const alert Constitutional Narrative: Patient is alert and confused, she does follow some directions Orientation / Consciousness: awake HEENT normocephalic, head/scalp atraumatic and moist oral mucous membranes Eyes PERRL, EOMs intact bilaterally and conjunctivae normal Neck supple, no JVD, thyroid normal and no carotid bruits General: trachea midline Resp normal respiratory effort, no retractions, no use of accessory muscles and clear to auscultation bilaterally Auscultation: Negative for rales, rhonchi or wheezes Cardio regular rate, regular rhythm, S1 normal heart sound, S2 normal heart sound, no murmurs, no rub and no gallops GI normal to inspection, nondistended, normoactive bowel sounds, soft to palpation, non-tender and non-distended Extremity no clubbing, cyanosis or edema Skin no rashes or lesions noted General Skin Exam: no breakdown Neuro CN's II-XII intact bilaterally, no focal motor deficits and no sensory deficits noted Sensorium / Orientation: awake and alert Psych Psych Narrative: Patient appears confused today Assessment & Plan Assessment/Plan (1) COPD (chronic obstructive pulmonary disease): PLAN: Plan 1. Acute hypoxia on a backdrop of chronic hypoxic respiratory failure-patient is currently on 4 L via nasal cannula, it is anticipated if she is medically stable she may be able to go to TCU tomorrow. #2 myelodysplastic syndrome with thrombocytopenia and anemia-CBC will be repeated tomorrow, patient was given 1 unit of packed red blood cells today #3 severe chronic protein and caloric malnutrition in the context of chronic disease/debility-related to inadequate oral intake/acute illness and increased energy expenditure as evidenced by a 6% weight loss over 2 to 3 weeks with p.o. meeting less than 50% of estimated nutritional needs over the past 2 weeks-diet was liberalized to regular/no added salt, patient will receive 120 cc Ensure Plus high-protein 4 times a day with med Pass and Ensure pudding 1 time a day with dinner meal. #4 chronic obstructive pulmonary disease with acute exacerbation-patient is chronically on oxygen at home at 3 to 4 L according to her, continue present medications, due to the patient's confusion, I have decided to stop her corticosteroid administration and reevaluate her tomorrow #5 left lower lobe community-acquired pneumonia-patient remains on Zosyn at this time, I will have her complete 7 days of treatment, chest x-ray today showed a moderate right lower lobe infiltrate, decreased left lower infiltrate was also noted. #6 severe pulmonary hypertension-complicates care, medical course, recovery, and prognosis #7 Moderate aortic stenosis Total clinical time spent by myself addressing the patient's medical issues, reviewing all of her data, and collaborating with patient's care team: 37 minutes Charges/Coding Visit Charges Inpatient E&M: 75998 Subs Hosp L2
[2023-02-19] MEDS: Furosemide 40 MG/4 ML Vial IV (22:12)
[2023-02-19] MEDS: Menthol/Lanolin/Calamine/Znox 113 GM Tube 1 APPLIC TOPICAL (22:13)
[2023-02-19] MEDS: 0.9% Saline Lock 10 ML Syringe IV (22:13)
[2023-02-20] VITALS (8 sets, daily range): BP systolic 101–112; BP diastolic 55–58; PULSE 99–118; RESP 17–23; TEMP 36.6–36.8; O2SAT 90–99
[2023-02-20] MEDS: Ipratropium/Albuterol Sulfate 3 ML AMPUL.NEB INHALATION ×4 (03:05→15:50)
[2023-02-20 05:52] LABS: Hematocrit 30.1 % (37-47); Hemoglobin 9.6 g/dL (12.0-15.0); Mean Corp Hgb Conc 31.9 g/dL (32-36); Mean Corpuscular Hgb 29.6 pg (27.0-32.0); Mean Corpuscular Volume 92.9 fL (81-99); POSITIVE COUNT YES; POSITIVE DIFFERENTIAL YES; POSITIVE MORPHOLOGY YES; Platelet Count 54 K/mm3 (150-450); RBC Distribution Width CV 19.4 % (11.6-14.6); RBC Distribution Width SD 57.7 fl (35.1-43.9); Red Blood Count 3.24 M/mm3 (4.2-5.4)
[2023-02-20 06:05] LABS: Differential Indicated MANUAL DIFF
[2023-02-20 06:40] LABS: ALB/GLOB Ratio 0.8 RATIO (0.9-2.4); AST(SGOT) 24 U/L (15-37); Alanine Aminotransfer ALT/SGPT 43 U/L (13-56); Albumin, Serum 2.2 g/dL (3.2-5.0); Alkaline Phosphatase 59 U/L (45-117); Anion Gap 7 (5-15); BUN 40 mg/dL (7-18); BUN/Creat Ratio 38.8 RATIO (10-20); Calcium,Total 7.3 mg/dL (8.5-10.1); Chloride 97 mmol/L (98-107); Creatinine, Serum 1.03 mg/dL (0.55-1.02); EST Glomerular Filtration Rate 55 mL/min (>60); Est Glom Filt Rate - Afr Amer 67 mL/min (>60); Globulin 2.9 g/dL (2.2-4.2); Glucose 161 mg/dL (74-106); Potassium 3.5 mmol/L (3.5-5.1); Protein, Total 5.1 g/dL (6.4-8.2); Sodium Level 135 mmol/L (136-145)
--- NOTE | 2023-02-20 07:18 | CPS ---
Patient sleeping at of [place]
[2023-02-20 08:08] LABS: Basophil 1 % (0-1); Blast 5 % (0-0); Eosinophil 1 % (0-5); Lymphocyte 8 % (19-41); Metamyelocyte 34 % (0-1); Monocyte 4 % (0-10); Myelocyte 13 % (0-0); Neutrophil-Band 6 % (0-5); Neutrophil-Segmented 27 % (47-70); Nucleated Red Bld Cells,Manual 9 % (0-5); Promyelocyte 1 % (0-0); Total Cells Counted 100 (MANUAL DIFF)
[2023-02-20 08:15] LABS: Corrected WBC 16.6 K/mm3 (4.4-11.0)
[2023-02-20 08:16] LABS: Neutrophil # 13.45 X10^3/uL (2.7-7.7)
[2023-02-20 08:17] LABS: Absolute Lymphocyte Count 1.33 X10^3/uL (0.83-4.51); Absolute Neutrophil Count 13.4 X10^3/uL (2.0-7.7); Lymphocyte # 1.33 X10^3/ul (0.83-4.51)
[2023-02-20 08:18] LABS: Platelet Estimate MOD DEC (ADEQ); Polychromasia RARE; Red Cell Morphology N CYTIC NORMAL (NORM C&C)
[2023-02-20] MEDS: Furosemide 40 MG/4 ML Vial IV (08:53)
[2023-02-20] MEDS: Menthol/Lanolin/Calamine/Znox 113 GM Tube 1 APPLIC TOPICAL (08:53)
[2023-02-20] MEDS: Furosemide 40 MG Tablet PO (08:54)
[2023-02-20] MEDS: 0.9% Saline Lock 10 ML Syringe IV (08:55)
[2023-02-20] MEDS: Ensure Plus High Protein 120 ML LIQUID PO ×3 (08:55→16:36)
[2023-02-20 10:27] LABS: Heparin-Induced Plt Ab 0.123 OD (0.000-0.400)
[2023-02-20] MEDS: Potassium Chloride Oral Tablet 20 MEQ 40 MEQ PO (12:46)
[2023-02-20] MEDS: Metoprolol Tartrate 25 MG Tablet 12.5 MG PO (14:48)
[2023-02-20] MEDS: Acetaminophen 325 MG Tablet 650 MG PO (14:52)
[2023-02-20] MEDS: Furosemide 40 MG Tablet 60 MG PO (16:36)
[2023-02-20] MEDS: Potassium Chloride Oral Tablet 20 MEQ PO (16:36)
[2023-02-21 13:34] LABS: Pathologist Review Reviewed
[2023-02-21 13:40] LABS: Pathologist Review Reviewed
[2023-02-22 09:48] LABS: Pathologist Review Reviewed
== END 2023-02-20 16:44 | disposition skilled nursing facility (03) | DRG 871 ==
LOC: ED 17:00 → PCU 18:26
PROVIDERS: Family Medicine; Internal Medicine; Admitting Provider Family Medicine; Emergency Provider Emergency Medicine; PCP Family Medicine Geriatric Medicine; Visit Provider Internal Medicine
DX: A41.50 Gram-negative sepsis, unspecified (principal); J15.6 Pneumonia due to other Gram-negative bacteria; I50.33 Acute on chronic diastolic (congestive) heart failure; E43 Unspecified severe protein-calorie malnutrition; G93.49 Other encephalopathy; J44.0 Chronic obstructive pulmonary disease with (acute) lower respiratory infection; J96.11 Chronic respiratory failure with hypoxia; J44.1 Chronic obstructive pulmonary disease with (acute) exacerbation; I27.20 Pulmonary hypertension, unspecified; D69.6 Thrombocytopenia, unspecified; D46.9 Myelodysplastic syndrome, unspecified; I11.0 Hypertensive heart disease with heart failure; K21.9 Gastro-esophageal reflux disease without esophagitis; E03.9 Hypothyroidism, unspecified; I35.0 Nonrheumatic aortic (valve) stenosis; Z68.24 Body mass index [BMI] 24.0-24.9, adult; Z99.81 Dependence on supplemental oxygen; Z79.899 Other long term (current) drug therapy; Z85.3 Personal history of malignant neoplasm of breast; Z90.12 Acquired absence of left breast and nipple; Z87.891 Personal history of nicotine dependence
CPT/HCPCS: 36415; 36600; 71045; 80048; 80053; 80202; 82140; 82803; 83605; 83735; 83880; 84100; 84484; 85014; 85018; 85025; 85027; 86022; 86850; 86900; 86901; 86920; 86922; 87040; 87426; 87428; 87449; 93005; 94640; 94668; 94762; 97110; 97162; 97166; 97530; 97535; 99285; J7040; J7050; P9016; A4216; J1940; J2405

== ENCOUNTER 2023-02-20 16:50 | Inpatient (IN) | payer MEDICARE, SELFPAY ==
[2019-12-26 13:03] VITALS: BMI 31.5
[2023-02-20 17:38] VITALS: BP 89/44; PULSE 91; RESP 20; TEMP 36.2; O2SAT 95; BMI 23.9
--- NOTE | 2023-02-20 19:02 | HP.PCM_ITS ---
HPI - General General Date of Admission: 02/20/23 Date of Service: 02/20/23 Chief Complaint: Here for rehabilitation. HPI Narrative 02/13/2023 REBEKAH AVITIA, is a 77 Female who presents to [facility] with change in mental status. 02/13/2023 EKG sinus tachycardia, minimal voltage criteria for LVH, maybe normal variant, nonspecific ST&T wave abnormality. Short of breath, feels unwell. Chest X-ray left sided pneumonia, left pleural effusion. WBC 12.2, Hemoglobin 7.4 Lactate 2.5, BNP 728. Oxygen 6 liters per nasal cannula. IV fluids given for hypotension. Zosyn given for left lower lobe pneumonia. 02/13/2023 Admit to Hospital. Baseline oxygen 3 liters, currently on 15 liters non-rebreather. Pulsox 86% on 10 liters oxygen. Zosyn, Vancomycin for left lower lobe pneumonia. Aerosols, steroids for COPD exacerbation. 02/14/2023 Oxygen for acute hypoxia. Zosyn, Vancomycin for gram negative pneumonia. Transfuse 1 unit PRBC for anemia secondary to myelodysplastic syndrome. 02/14/2023 Dr. Lin recommended supportive transfusion for myelodysplastic syndrome, f/u with Dr. Joyner, her primary oncologist on discharge. 02/14/2023 Lasix 40mg x 1 dose for fluid overload from blood transfusion. 02/15/2023 Hemoglobin 8.1, More awake, interactive. Zosyn, Vancomycin for sepsis, pneumonia. Monitor thrombocytopenia. 02/16/2023 Short of breath at rest, 2 liters oxygen. Lasix for bilateral lower extremity edema. 02/17/2023 Platelets 30, order platelet antibody to rule out HIT. 02/18/2023 Hemoglobin 7.4. Solu-medrol IV for COPD exacerbation. Zosyn IV, stop Vancomycin for left lower lobe pneumonia, blood cultures negative x 2. 02/19/2023 Patient confused, hold transfer to TCU. Stop steroids for confusion. Chest X-ray showed moderate right lower lobe infiltrate, but decreased left lower lobe infiltrate. 02/20/2023 Admit to TCU with debility, here for rehabilitation, strengthening, prior to disposition determination. 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 Breast cancer Breast cancer, left Cancer Chronic pain Congestive heart failure (CHF) COPD (chronic obstructive pulmonary disease) COPD exacerbation Debility Dislocation of right shoulder joint Elevated brain natriuretic peptide (BNP) level Fall with injury Femur fracture, right Former smoker History of myelodysplastic syndrome Hyperlipidemia Hypertension Hypokalemia Hypothyroidism Hypoxia Irregular heart beat Kidney stones Left lower lobe pneumonia MDS (myelodysplastic syndrome) Muscle weakness Osteoporosis Pneumonia Sinus tachycardia Symptomatic anemia Home Medications ascorbic acid (vitamin C) 500 mg capsule 500 mg PO DAILY supplement 01/17/20 [History Last Taken 01/28/23] multivitamin 1 tab PO DAILY HEALTH SUPPLEMENT 08/10/22 [History Last Taken 01/28/23] levothyroxine 50 mcg tablet 50 mcg PO DAILY THYROID 01/28/23 [History Last Taken 01/28/23] metoprolol tartrate 25 mg tablet 12.5 mg PO DAILY BP 02/13/23 [History Last Taken Unknown] pantoprazole 40 mg tablet,delayed release (Protonix) 40 mg PO DAILY ACID REFLUX 02/13/23 [History Last Taken Unknown] acetaminophen 325 mg tablet 650 mg PO Q6H PRN PRN Fever, pain 1-10/10 #0 tabs 02/19/23 [Rx Last Taken Unknown] albuterol sulfate 2.5 mg/3 mL (0.083 %) solution for nebulization 2.5 mg (3 mL) inhalation Q2H PRN PRN Dyspnea, wheezing #0 mL 02/19/23 [Rx Last Taken Unknown] amoxicillin 875 mg-potassium clavulanate 125 mg tablet 1 tab PO BID Antibiotic 02/20/23 [History Last Taken Unknown] ferrous sulfate 325 mg (65 mg iron) tablet 325 mg PO BID Supplement 02/20/23 [History Last Taken Unknown] food supplemt, lactose-reduced 0.08 gram-1.5 kcal/mL oral liquid (Ensure Plus High Protein) 120 ml PO 4X/DAY Supplement 02/20/23 [History Last Taken Unknown] furosemide 40 mg tablet 60 mg PO BIDLX Heart 02/20/23 [History Last Taken Unknown] ipratropium 0.5 mg-albuterol 3 mg (2.5 mg base)/3 mL nebulization soln 3 ml inhalation .Q6HRT SOB 02/20/23 [History Last Taken Unknown] melatonin 3 mg tablet 3 mg PO QHS Sleep 02/20/23 [History Last Taken Unknown] menthol 0.44 %-zinc oxide 20.6 % topical ointment (Calmoseptine) 1 applic topical BID Skin 02/20/23 [History Last Taken Unknown] potassium chloride 20 mEq tablet,extended release(part/cryst) (Klor-Con M) 20 meq PO BIDCM Supplement 02/20/23 [History Last Taken Unknown] Allergy/AdvReac Type Severity Reaction Status Date / Time influenza virus vaccine tv Allergy Unknown Other Verified 02/16/23 11:25 split 2013-14 (5 yr,up) [From Afluria] bacitracin Allergy Rash Verified 02/13/23 15:22 [From Neosporin ([id number])] neomycin Allergy Rash Verified 02/13/23 15:22 [From Neosporin ([id number])] polymyxin B Allergy Rash Verified 02/13/23 15:22 [From Neosporin ([id number])] Family History Sister Breast cancer Father Cardiac arrest Mother Lung disease Surgical History H/O mastectomy H/O: hysterectomy History of hip surgery Hx of tonsillectomy Tubal ligation status Social History (Updated 02/20/23 @ 19:[address] Fish Harris MD) household members: none Smoking Status: Former smoker alcohol intake: never substance use type: does not use ROS Constitutional Constitutional: Denies chills, fever(s) or weight gain ENT HEENT: Denies headache(s), nasal congestion or nasal discharge Cardiovascular Cardiovascular: Denies chest pain or palpitations Respiratory/Chest Respiratory/Chest: Denies cough, excessive phlegm production or shortness of breath with exertion Gastrointestinal Gastrointestinal: Denies abdominal pain, nausea or vomiting Genitourinary Genitourinary: Denies dysuria Musculoskeletal Musculoskeletal: Denies joint pain or joint swelling Integumentary Integumentary: Denies rash or wounds Neurologic Neurologic: Denies focal weakness, numbness or tingling Psychiatric Psychiatric: Denies anxiety, auditory hallucinations, depression, homicidal ideation or suicidal ideation Vital Signs Vital Signs Vital Signs: 02/20/23 17:38 Temperature 97.2 F L Temperature Source Temporal Pulse Rate 91 Respiratory Rate 20 H Blood Pressure 89/44 L Blood Pressure Mean 59 Blood Pressure Source Monitor Blood Pressure Position Semi-Fowlers Blood Pressure Location Right Arm Pulse Ox 95 Oxygen Delivery Method Nasal Cannula Oxygen Flow Rate (L/min) 6 Weight Weight: 55.6 kg Body Mass Index (BMI) 23.9 Physical Exam Const alert General Appearance: cooperative HEENT normocephalic Eyes PERRL and EOMs intact bilaterally Neck supple, no JVD and no carotid bruits Resp clear to auscultation bilaterally Auscultation: rhonchi and wheezes Cardio regular rate and regular rhythm GI normal to inspection, nondistended, normoactive bowel sounds, non-tender and non-distended Extremity normal capillary refill General Extremity: edema bilateral (1+ pitting.) lower extremity Skin no rashes or lesions noted General Skin Exam: no breakdown Psych affect normal Appearance: appropriate Assessment & Plan Assessment/Plan (1) Debility: (2) Acute encephalopathy: (3) Pneumonia: (4) Anemia: (5) COPD exacerbation: (6) Sepsis: (7) Myelodysplastic syndrome: (8) Breast cancer: (9) Hypokalemia: (10) Hypothyroidism: (11) GERD (gastroesophageal reflux disease): (12) Iron deficiency anemia: PLAN: Plan 77 year old female with below past medical history hospitalized for acute encephalopathy secondary to sepsis, pneumonia, COPD exacerbation, complicated by acute anemia secondary to myelodysplastic syndrome, admitted to TCU with debility, here for rehabilitation, strengthening, prior to disposition determination. * Debility - PT/OT. * Pain - Tylenol 1000mg q6h prn pain (1-10). * Bowel - senna/colace 1 tablet bid, Dulcolax 10mg pr x 1 prn, MOM 30ml po x 1 prn. * Adult immunization - Administer pneumonia vaccine, covid19 vaccine, flu vaccine as appropriate. * DVT prophylaxis - Hold, anemia. * COPD - Duoneb 3ml q6h, Albuterol 2.5mg q2H prn, Prednisone taper. * Pneumonia - Augmentin 875mg bid thru 02/24/2023. * Iron deficiency anemia - Ferrex 150mg daily, Vitamin C 500mg daily. * Nutrition - Ensure Plus 120ml 4x/day. * Chronic diastolic heart failure - Metoprolol 12.5mg bid, Fuorsemide 40mg bidlx. * Hypothyroidism - Levothyroxine 50mcg daily. * Insomnia - Melatonin 3mg qhs. * Skin irritation - Calmoseptine topical bid. * GERD - Pantoprazole 40mg daily. * Hypokalemia - KCL ER 20meq bidcm.
[2023-02-20] MEDS: Menthol/Lanolin/Calamine/Znox 113 GM Tube 1 APPLIC TOPICAL (20:39)
[2023-02-20] MEDS: MELATONIN 3 MG TABLET PO (20:40)
[2023-02-20] MEDS: Senna/Docusate Sodium 1 Tablet PO (20:43)
[2023-02-20 22:25] LABS: Bedside Glucose 147 mg/dL (74-106)
[2023-02-21] MEDS: Menthol/Lanolin/Calamine/Znox 113 GM Tube 1 APPLIC TOPICAL (05:06)
[2023-02-21 05:09] VITALS: BP 121/45; PULSE 127
[2023-02-21] MEDS: Pantoprazole Sodium 40 MG Tablet PO (05:09)
[2023-02-21] MEDS: Metoprolol Tartrate 25 MG Tablet 12.5 MG PO (05:09)
[2023-02-21] MEDS: Senna/Docusate Sodium 1 Tablet PO (05:09)
[2023-02-21] MEDS: Levothyroxine 50 MCG Tablet PO (05:10)
[2023-02-21] MEDS: Furosemide 40 MG Tablet PO (05:10)
[2023-02-21 05:42] LABS: Hematocrit 28.2 % (37-47); Mean Corp Hgb Conc 31.9 g/dL (32-36); Mean Corpuscular Hgb 29.5 pg (27.0-32.0); Mean Corpuscular Volume 92.5 fL (81-99); POSITIVE COUNT YES; POSITIVE DIFFERENTIAL YES; POSITIVE MORPHOLOGY YES; Platelet Count 51 K/mm3 (150-450); RBC Distribution Width CV 19.6 % (11.6-14.6); RBC Distribution Width SD 58.4 fl (35.1-43.9); Red Blood Count 3.05 M/mm3 (4.2-5.4)
[2023-02-21 05:43] LABS: Differential Indicated MANUAL DIFF
[2023-02-21 06:00] LABS: Anion Gap 9 (5-15); BUN 49 mg/dL (7-18); BUN/Creat Ratio 38.9 RATIO (10-20); Chloride 93 mmol/L (98-107); Creatinine, Serum 1.26 mg/dL (0.55-1.02); EST Glomerular Filtration Rate 44 mL/min (>60); Est Glom Filt Rate - Afr Amer 53 mL/min (>60); Estimated Creatinine Clearance 27.71 ml/min; Glucose 147 mg/dL (74-106); Potassium 4.2 mmol/L (3.5-5.1); Sodium Level 130 mmol/L (136-145)
[2023-02-21 06:14] LABS: Metamyelocyte 13 % (0-1); Myelocyte 9 % (0-0); Neutrophil-Band 16 % (0-5); Neutrophil-Segmented 22 % (47-70); Promyelocyte 1 % (0-0); Total Cells Counted 100 (MANUAL DIFF)
[2023-02-21 06:15] LABS: Corrected WBC 19.4 K/mm3 (4.4-11.0); Eosinophil 2 % (0-5); Lymphocyte 16 % (19-41); Monocyte 21 % (0-10); Nucleated Red Bld Cells,Manual 6 % (0-5); Platelet Estimate MKD DEC (ADEQ)
[2023-02-21 06:16] LABS: Anisocytosis RARE; Hypochromasia 1+; Macrocytosis RARE
[2023-02-21 06:17] LABS: Absolute Lymphocyte Count 3.11 X10^3/uL (0.83-4.51); Absolute Neutrophil Count 7.4 X10^3/uL (2.0-7.7); Lymphocyte # 3.11 X10^3/ul (0.83-4.51); Neutrophil # 7.39 X10^3/uL (2.7-7.7)
[2023-02-21] MEDS: Ipratropium/Albuterol Sulfate 3 ML AMPUL.NEB INHALATION (06:45)
[2023-02-21 07:25] VITALS: PULSE 88; RESP 16; O2SAT 96
[2023-02-21] MEDS: Iron Polysaccharide Complex 150 MG CAPSULE PO (08:34)
[2023-02-21] MEDS: predniSONE 20 MG Tablet PO (08:34)
[2023-02-21] MEDS: Ascorbic Acid 500 MG Tablet PO (08:35)
[2023-02-21] MEDS: Potassium Chloride Oral Tablet 20 MEQ PO (08:35)
[2023-02-21] MEDS: Amox/Clavulanate 875 MG Tablet PO (08:35)
[2023-02-21 09:12] VITALS: O2SAT 97
[2023-02-21 09:42] LABS: Osmolality, Serum 287 mOsm/KG (280-301)
[2023-02-21 10:00] VITALS: PULSE 105
[2023-02-21] MEDS: Tuberculin,Purif.prot.deriv. 50 TU/ML Vial 0.1 ML ID (11:06)
--- NOTE | 2023-02-21 12:49 | NURSING ---
Pt in chair and pt noted to have increased RR and restless. SpO2 80% 6L NC RR 44 BP 93/55 sitting R Arm Temp 98.8. Pt placed on 12L Non Rebreather pt SpO2 came up to 93%. Dr. Harris notified and N.O. to send to Emergency room. Report called to E.R. nurse and pt transferred. Daughter called and updated on pt.
--- NOTE | 2023-02-22 08:04 | DS.PCM_ITS ---
Providers Date of Admission: 02/20/23 Primary Care Physician: Dr. Fish Harris MD Reason For Visit: PNEUMONIA,HYPOXIA Diagnosis Discharge Diagnosis (1) Debility: Status: Acute Code(s): R53.81 - Other malaise (2) Acute encephalopathy: Status: Acute Code(s): G93.40 - Encephalopathy, unspecified (3) Pneumonia: Status: Acute Code(s): J18.9 - Pneumonia, unspecified organism (4) Anemia: Status: Acute Code(s): D64.9 - Anemia, unspecified (5) COPD exacerbation: Status: Chronic Code(s): J44.1 - Chronic obstructive pulmonary disease with (acute) exacerbation (6) Sepsis: Status: Acute Code(s): A41.9 - Sepsis, unspecified organism (7) Myelodysplastic syndrome: Status: Acute Code(s): D46.9 - Myelodysplastic syndrome, unspecified (8) Breast cancer: Status: Acute Code(s): C50.919 - Malignant neoplasm of unspecified site of unspecified female breast (9) Hypokalemia: Status: Acute Code(s): E87.6 - Hypokalemia (10) Hypothyroidism: Status: Acute Code(s): E03.9 - Hypothyroidism, unspecified (11) GERD (gastroesophageal reflux disease): Status: Acute Code(s): K21.9 - Gastro-esophageal reflux disease without esophagitis (12) Iron deficiency anemia: Status: Acute Code(s): D50.9 - Iron deficiency anemia, unspecified Plan 77 year old female with below past medical history hospitalized for acute e ncephalopathy secondary to sepsis, pneumonia, COPD exacerbation, complicated by acute anemia secondary to myelodysplastic syndrome, admitted to TCU with debility, here for rehabilitation, strengthening, prior to disposition determination. * Debility - PT/OT. * Pain - Tylenol 1000mg q6h prn pain (1-10). * Bowel - senna/colace 1 tablet bid, Dulcolax 10mg pr x 1 prn, MOM 30ml po x 1 prn. * Adult immunization - Administer pneumonia vaccine, covid19 vaccine, flu vaccine as appropriate. * DVT prophylaxis - Hold, anemia. * COPD - Duoneb 3ml q6h, Albuterol 2.5mg q2H prn, Prednisone taper. * Pneumonia - Augmentin 875mg bid thru 02/24/2023. * Iron deficiency anemia - Ferrex 150mg daily, Vitamin C 500mg daily. * Nutrition - Ensure Plus 120ml 4x/day. * Chronic diastolic heart failure - Metoprolol 12.5mg bid, Fuorsemide 40mg bidlx. * Hypothyroidism - Levothyroxine 50mcg daily. * Insomnia - Melatonin 3mg qhs. * Skin irritation - Calmoseptine topical bid. * GERD - Pantoprazole 40mg daily. * Hypokalemia - KCL ER 20meq bidcm. Medications at Discharge Home Medications ascorbic acid (vitamin C) 500 mg capsule 500 mg PO DAILY supplement 01/17/20 levothyroxine 50 mcg tablet 50 mcg PO DAILY THYROID 01/28/23 metoprolol tartrate 25 mg tablet 12.5 mg PO DAILY BP 02/13/23 pantoprazole 40 mg tablet,delayed release (Protonix) 40 mg PO DAILY ACID REFLUX 02/13/23 amoxicillin 875 mg-potassium clavulanate 125 mg tablet 1 tab PO BID Antibiotic 02/20/23 furosemide 40 mg tablet 40 mg PO BIDLX Heart 02/20/23 ipratropium 0.5 mg-albuterol 3 mg (2.5 mg base)/3 mL nebulization soln 3 ml inhalation .Q6HRT SOB 02/20/23 melatonin 3 mg tablet 3 mg PO QHS Sleep 02/20/23 menthol 0.44 %-zinc oxide 20.6 % topical ointment (Calmoseptine) 1 applic topical BID Skin 02/20/23 potassium chloride 20 mEq tablet,extended release(part/cryst) (Klor-Con M) 20 meq PO BIDCM Supplement 02/20/23 polysaccharide iron complex 150 mg iron capsule (Ferrex) 150 mg PO DAILY SUPPLEMENT 02/21/23 prednisone 20 mg tablet 20 mg PO BID 02/21/23 sennosides 8.6 mg-docusate sodium 50 mg tablet (Senokot-S) 1 tab-cap PO BID STOOL SOFTNER 02/21/23 Hospital Course Operations None Procedures None Summary of Care Provided Minutes Spent on Discharge: 30 Hospital Course: 77 year old female with below past medical history hospitalized for acute encephalopathy secondary to sepsis, pneumonia, COPD exacerbation, complicated by acute anemia secondary to myelodysplastic syndrome, admitted to TCU with debility, here for rehabilitation, strengthening, prior to disposition determination. 02/21/2023 Resident with respiratory distress. Discharge to [facility] ED for evaluation, admission to hospital. Consider hospice. Weight / BMI Weight Weight: 55.6 kg Body Mass Index (BMI) 23.9 ABG / Lab / Microbiology Data Result Diagrams: 02/21/23 05:29 02/21/23 05:29 Laboratory: Laboratory Results - last 24 hr 02/21/23 08:46: Serum Osmolality 287 D/C Instructions Discharge Diet: No restrictions Discharge Activity: Return to Normal Activity, May Shower and Use Walker Weight Bearing Status: Weight bearing as tolerated Call your doctor if you observe: Fever of 101 or Higher, Inability to urinate, Inability to have a bowel movement, Shortness of breath, Dizziness, Fainting spells, Swelling in the ankles, Chest pain and Uncontrolled pain Additional Instructions: Discharge to [facility] ED for evaluation, admission to hospital. Consider hospice. Meaningful Use Info Meaningful Use Diagnoses (Choose all that apply): None applicable Discharge Plan Admission Admit Date/Time: 02/20/23 16:50 Primary Reason for Your Visit: Debility. Attending Provider: Fish Harris Chi Primary Care Provider: Fish Harris Chi Instructions Additional Instructions / Restrictions: Discharge to [facility] ED for evaluation, admission to hospital. Consider hospice. Discharge Orders/Prescriptions Prescriptions: No Action ascorbic acid (vitamin C) 500 MG capsule 500 mg PO DAILY levothyroxine 50 mcg tablet 50 mcg PO DAILY Label Comments: TAKE 1 TABLET BY MOUTH EVERY DAY pantoprazole [Protonix] 40 mg tablet,delayed release (DR/EC) 40 mg PO DAILY metoprolol tartrate 25 MG tablet 12.5 mg PO DAILY Rx Instructions: Giv3e 12.5 every morning and at bedtime related to essential (primary) hypertension, check b/p before administering, hold for SBP <100 or HR <60 furosemide 40 mg tablet 40 mg PO BIDLX ipratropium-albuterol 0.5 mg-3 mg(2.5 mg base)/3 mL solution for nebulization 3 ml inhalation .Q6HRT melatonin 3 mg tablet 3 mg PO QHS potassium chloride [Klor-Con M20] 20 mEq tablet,ER particles/crystals 20 meq PO BIDCM amoxicillin-pot clavulanate 875-125 mg tablet 1 tab PO BID Rx Instructions: start on 02/21/23-take for three days, administer with food menthol-zinc oxide [Calmoseptine] 0.44-20.6 % ointment 1 applic topical BID Protocol: *Topical Application Instructions APPLICATION INSTRUCTIONS: apply to affected areas polysaccharide iron complex [Ferrex 150] 150 mg iron Capsule 150 mg PO DAILY prednisone 20 mg Tablet 20 mg PO BID sennosides-docusate sodium [Senokot-S] 8.6-50 mg Tablet 1 tab-cap PO BID Referrals / Follow Up: Fish Harris Chi, MD [Primary Care Provider] - Disposition Disposition (needs filled in before D/C Order can be placed): Acute [facility] Hospital
[2023-02-22 13:25] LABS: Pathologist Review Reviewed
--- NOTE | 2023-03-02 11:33 | MDS.RN ---
Information for the mds was obtained from review of the clinical record, interview of resident, staff, and direct observation of resident's care.
== END 2023-02-21 12:30 | disposition short-term general hospital (02) | DRG 194 ==
PROVIDERS: Admitting Provider Family Medicine Geriatric Medicine; PCP Family Medicine Geriatric Medicine; Visit Provider Family Medicine Geriatric Medicine
DX: J18.9 Pneumonia, unspecified organism (principal); J44.0 Chronic obstructive pulmonary disease with (acute) lower respiratory infection; J44.1 Chronic obstructive pulmonary disease with (acute) exacerbation; I50.32 Chronic diastolic (congestive) heart failure; C50.919 Malignant neoplasm of unspecified site of unspecified female breast; D46.9 Myelodysplastic syndrome, unspecified; I11.0 Hypertensive heart disease with heart failure; K21.9 Gastro-esophageal reflux disease without esophagitis; D50.9 Iron deficiency anemia, unspecified; E78.5 Hyperlipidemia, unspecified; E87.6 Hypokalemia; E03.9 Hypothyroidism, unspecified; Z87.891 Personal history of nicotine dependence; G89.29 Other chronic pain; Z79.899 Other long term (current) drug therapy; Z79.890 Hormone replacement therapy
CPT/HCPCS: 36415; 80048; 82962; 83930; 85025; 94640; 97110; 97162; 97166; 97530; 97535; 97802

== ENCOUNTER 2023-02-21 12:56 | Inpatient (IN) | payer MEDICARE, SELFPAY ==
[2019-12-26 13:03] VITALS: BMI 31.5
[2023-02-21] VITALS (20 sets, daily range): BP systolic 86–108; BP diastolic 46–59; PULSE 100–117; RESP 3–29; TEMP 36.5–37; O2SAT 72–112; BMI 28.2; BMI 28.1
--- NOTE | 2023-02-21 13:29 | ED.RN ---
WHEN PT ARRIVED TO ED FROM TCU PORT SITE ASSESSED. DRESSING ON PORT SITE DIRTY AND LIFTED OFF OF SKIN. DRESSING CHANGED BY THIS RN AND Wally POZO RN AT [id number].
--- NOTE | 2023-02-21 13:37 | EDS_ITS ---
HPI History of Present Illness Chief Complaint: Shortness of Breath Informant: patient and other (TCU nursing staff.) Onset/Context/Timing Onset: Today Current Severity: Moderate Maximum Severity: Moderate Narrative Narrative: 77-year-old female limited informant. History of breast cancer, COPD, hypertension, myelodysplastic syndrome, anemia and CHF. Recently admitted to the hospital for pneumonia and hypoxia. Transferred to transitional care unit yesterday. Today the nurse found her in her room hypoxic at 80% on 6 L. She was also hypotensive at 93/55. They transferred the patient down to the emergency department. 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 Breast cancer Breast cancer, left Cancer Chronic pain Congestive heart failure (CHF) COPD (chronic obstructive pulmonary disease) COPD exacerbation Debility Dislocation of right shoulder joint Elevated brain natriuretic peptide (BNP) level Fall with injury Femur fracture, right Former smoker History of myelodysplastic syndrome Hyperlipidemia Hypertension Hypokalemia Hypothyroidism Hypoxia Irregular heart beat Kidney stones Left lower lobe pneumonia MDS (myelodysplastic syndrome) Muscle weakness Osteoporosis Pneumonia Sinus tachycardia Symptomatic anemia Home Medications ascorbic acid (vitamin C) 500 mg capsule 500 mg PO DAILY supplement 01/17/20 [Hi story Last Taken 02/21/23 08:35] levothyroxine 50 mcg tablet 50 mcg PO DAILY THYROID 01/28/23 [History Last Taken 02/21/23 05:10] metoprolol tartrate 25 mg tablet 12.5 mg PO DAILY BP 02/13/23 [History Last Taken 02/21/23 05:09] pantoprazole 40 mg tablet,delayed release (Protonix) 40 mg PO DAILY ACID REFLUX 02/13/23 [History Last Taken 02/21/23 05:09] amoxicillin 875 mg-potassium clavulanate 125 mg tablet 1 tab PO BID Antibiotic 02/20/23 [History Last Taken 02/21/23 08:35] furosemide 40 mg tablet 40 mg PO BIDLX Heart 02/20/23 [History Last Taken 02/21/23 00:51] ipratropium 0.5 mg-albuterol 3 mg (2.5 mg base)/3 mL nebulization soln 3 ml inhalation .Q6HRT SOB 02/20/23 [History Last Taken 02/21/23 06:45] melatonin 3 mg tablet 3 mg PO QHS Sleep 02/20/23 [History Last Taken 02/20/23 20:40] menthol 0.44 %-zinc oxide 20.6 % topical ointment (Calmoseptine) 1 applic topical BID Skin 02/20/23 [History Last Taken 02/21/23 05:06] potassium chloride 20 mEq tablet,extended release(part/cryst) (Klor-Con M) 20 meq PO BIDCM Supplement 02/20/23 [History Last Taken 02/21/23 08:35] polysaccharide iron complex 150 mg iron capsule (Ferrex) 150 mg PO DAILY SUPPLEMENT 02/21/23 [History Last Taken 02/21/23 08:34] prednisone 20 mg tablet 20 mg PO BID 02/21/23 [History Last Taken 02/21/23 08:34] sennosides 8.6 mg-docusate sodium 50 mg tablet (Senokot-S) 1 tab-cap PO BID STOOL SOFTNER 02/21/23 [History Last Taken 02/21/23 05:09] Allergy/AdvReac Type Severity Reaction Status Date / Time influenza virus vaccine tv Allergy Unknown Other Verified 02/16/23 11:25 split 2013-14 (5 yr,up) [From Afluria] bacitracin Allergy Rash Verified 02/13/23 15:22 [From Neosporin ([id number])] neomycin Allergy Rash Verified 02/13/23 15:22 [From Neosporin ([id number])] polymyxin B Allergy Rash Verified 02/13/23 15:22 [From Neosporin ([id number])] Family History Sister Breast cancer Father Cardiac arrest Mother Lung disease Surgical History H/O mastectomy H/O: hysterectomy History of hip surgery Hx of tonsillectomy Tubal ligation status Social History household members: none Smoking Status: Former smoker alcohol intake: never substance use type: does not use ROS ROS ED ROS Narrative Unable to obtain. Due to the patient's mental status. Review of Systems ROS Unobtainable: due to mental status EXAM Physical Exam Narrative Exam Narrative: 77-year-old female she is hypotensive blood pressure 91/53 on 6 L she is 96%. H EENT exam pupils round at light. Dry mucous membranes. Patient's eyes are open. She does respond but is a very limited informant. Neck nontender. No JVD. Lungs clear to auscultation bilaterally. Heart tachycardic rate about 105 no murmur. Chest nontender. Abdomen soft nontender. Moving all 4 extremities. Neurologically eyes are open. Does respond. She seems subdued. Const Vital Signs: 02/21/23 12:57 02/21/23 13:31 02/21/23 13:32 Temperature 98.6 F 98.3 F Temperature Source Temporal Temporal Pulse Rate 108 H 100 Respiratory Rate 27 H 3 L Respiratory Effort Normal Non-Labored Respiratory Depth Normal Respiratory Pattern Tachypnea Blood Pressure 91/53 L 95/59 L Blood Pressure Mean 65 71 Pulse Ox 96 96 Oxygen Delivery Method Nasal Cannula Nasal Cannula Nasal Cannula Oxygen Flow Rate (L/min) 6 5 5 02/21/23 14:13 02/21/23 14:13 02/21/23 14:13 Temperature 98.3 F Temperature Source Temporal Pulse Rate 104 H 103 H Respiratory Rate 24 H 22 H Respiratory Effort Respiratory Depth Respiratory Pattern Blood Pressure 89/46 L 89/46 L Blood Pressure Mean 60 60 Pulse Ox 91 94 Oxygen Delivery Method Nasal Cannula Nasal Cannula Nasal Cannula Oxygen Flow Rate (L/min) 5 5 5 Positive well nourished, well developed and obese; Negative for cachectic, contractures or unkempt General Appearance ED: well developed; Negative for unkempt, cachectic, contractures, cyanotic, diaphoretic or NAD Nutritional Appearance: obese; Negative for cachectic HEENT Reports dry mucous membranes; Denies moist mucous membranes Negative for trauma or tenderness Mouth ED: Yes dry mucous membranes Mouth: dry mucous membranes Eyes PERRL and EOMs intact bilaterally General Eye ED: Negative for pale conjunctiva or scleral icterus Neck no lymphadenopathy, supple and no JVD General: Negative for tenderness Lymph Lymphatic: Negative for other Chest Wall inspection of chest normal and palpation of chest normal Chest: Negative for other Resp normal respiratory effort and clear to auscultation bilaterally Effort and Inspection: Negative for retractions Auscultation: Negative for rales, rhonchi or wheezes Cardio regular rate, regular rhythm, S1 normal heart sound, S2 normal heart sound and no murmurs GI normal to inspection, nondistended, normoactive bowel sounds, non-tender, non- distended and no masses Inspection: Negative for abdominal distention Auscultation: normoactive bowel sounds Palpation: soft; Negative for tender or guarding Back/Spine no CVA tenderness General Back: Negative for CVA tenderness Cervical Spine: Negative for cervical spine tenderness Thoracic Spine / Upper Back: Negative for thoracic spinal tenderness or paraspinal muscle tenderness Lumbar Spine / Lower Back: Negative for lumbar spinal tenderness Extremity normal to inspection General Extremety ED: Negative for edema or tenderness General Extremity: Negative for edema Neuro oriented x3 Sensorium / Orientation: alert, orientation impaired and lethargic; Negative for stuporous Motor Exam: Negative for strength 5/5 throughout Psych mental status grossly normal Appearance: Negative for unkempt Attitude: No agitated Mood & Affect: Negative for depressed, anxious or tearful Skin no rashes or lesions noted Lesions: No lesion noted Rashes: No rashes noted Trauma: Negative for abrasion MDM MDM MDM Narrative Medical decision making narrative: 77-year-old female recently admitted to the hospital for pneumonia and hypoxia. Presents today from the transitional care unit back to the emergency department hypoxic and hypotensive. She is undergoing a sepsis work-up. She will be treated with a liter normal saline because clinically she looks dehydrated plus she is running a low blood pressure. Clinically patient is dehydrated. She is receiving IV fluids. She has myelodysplastic syndrome as her white count is significantly elevated. Her labs are pretty similar to letting venoms and her BUN and creatinine has been getting worse. She she is received a liter normal saline she is getting a second currently. There is a troponin and D-dimer pending. Spoken to the hospitalist that transferred her to the TCU yesterday. He will readmit her to the hospital. The D-dimer will be checked out today at one of the afternoon physicians. If the D-dimer is elevated she will get a CTA of the chest, if negative, she will be admitted to the progressive care unit. History & Record Review Discussion w/independent historian: Patient (Limited from the patient.) and Other (TCU nursing staff.) Additional record(s) reviewed:: Prior inpatient record, Prior outpatient record, Prior ED visit and Prior labs Lab Data Attestation: I reviewed the patient's lab results. Lab results narrative: CBC shows a white count of 20,500. H&H is 7.5 and 23. Platelet count is low at 46,000. PT/INR PTT are unremarkable. Electrolytes show sodium 129. Her gap is 4. Her BUN is 54 and her creatinine is 1.29 consistent with dehydration. Glucose is 165. Lactic acid is normal at 1.3. I reviewed the patient's prior labs she has had leukocytosis similar to today's. She has had thrombocytopenia and anemia similar today. She has chronic renal insufficiency and today appears dehydrated. Labs: Laboratory Results - last 24 hr 02/21/23 02/21/23 02/21/23 14:01 14:01 14:01 WBC 20.5 H RBC 2.49 L Hgb 7.5 L Hct 23.0 L MCV 92.4 MCH 30.1 MCHC 32.6 RDW Std Deviation 59.7 H RDW Coeff of Kylie 19.7 H Plt Count 46 L* Neut % (Auto) Not Reportable Absolute Neuts (auto) 15.8 H Absolute Lymphs (auto) 1.84 Total Counted 100 Neutrophils % (Manual) 28 L Band Neutrophils % 1 Lymphocytes % (Manual) 9 L Monocytes % (Manual) 12 H Eosinophils % (Manual) 1 Metamyelocytes % 39 H Myelocytes % 7 H Promyelocytes % 2 H Blast Cells % 1 H* Nucleated RBCs/100 WBC 3 Diff Path Review May foll Platelet Estimate MOD DEC Polychromasia RARE Anisocytosis 2+ Microcytosis 1+ Macrocytosis 1+ PT 17.5 H INR 1.5 APTT 29.4 Sodium 129 L Potassium 4.4 Chloride 95 L Carbon Dioxide 30.0 Anion Gap 4 L BUN 54 H Creatinine 1.29 H Estim Creat Clear Calc 27.07 Est GFR (MDRD) Af Amer 52 L Est GFR (MDRD) Non-Af 43 L BUN/Creatinine Ratio 41.9 H Glucose 165 H Lactic Acid Calcium 7.2 L Total Bilirubin 1.90 H AST 14 L ALT 21 Alkaline Phosphatase 47 Total Protein 4.5 L Albumin 1.7 L Globulin 2.8 Albumin/Globulin Ratio 0.6 L 02/21/23 14:05 WBC RBC Hgb Hct MCV MCH MCHC RDW Std Deviation RDW Coeff of Kylie Plt Count Neut % (Auto) Absolute Neuts (auto) Absolute Lymphs (auto) Total Counted Neutrophils % (Manual) Band Neutrophils % Lymphocytes % (Manual) Monocytes % (Manual) Eosinophils % (Manual) Metamyelocytes % Myelocytes % Promyelocytes % Blast Cells % Nucleated RBCs/100 WBC Diff Path Review Platelet Estimate Polychromasia Anisocytosis Microcytosis Macrocytosis PT INR APTT Sodium Potassium Chloride Carbon Dioxide Anion Gap BUN Creatinine Estim Creat Clear Calc Est GFR (MDRD) Af Amer Est GFR (MDRD) Non-Af BUN/Creatinine Ratio Glucose Lactic Acid 1.3 Calcium Total Bilirubin AST ALT Alkaline Phosphatase Total Protein Albumin Globulin Albumin/Globulin Ratio Radiography Chest X-Ray - ED: 1 View, Read by ED Physician, Read by Radiologist, Heart, Mediastinum, Bony Structures, Chronic Changes and Left Effusion Diagnostic Testing: Clinical Impression(s) from Imaging Studies Chest X-Ray 02/21/23 14:10 IMPRESSION: Progressive bibasilar infiltrates worse on the left side with blunting of the left costophrenic angle. Sclerosis and deformity of the right humeral head. Electronically Signed: Saeed Lam MD at 14:27 EDT , Chest x-ray, portable, single view there is a right-sided Mediport. Normal cardiac silhouette. Bilateral infiltrates of the left pleural effusion. Also read by the radiologist we agree. Rhythm Strip Rhythm Strip: Sinus Tach Rate: 102 Ectopy: None EKG Initial EKG: Attestation: I personally reviewed and interpreted this EKG as follows: Interpretation: Sinus Rhythm, No Acute Injury Pattern and Sinus Tachycardia Comments: Sinus tachycardia rate of 102. No acute signs of AL or ischemia. Critical Care Time Critical Care Time: Yes Critical care time (excluding procedures): 30-74 minutes, Including time spent:, Discussing w/Patient &/or Family/Ssn/Ssbn Weapons Equipment Operator, Discussing w/Consultants, Arranging Admission or Transfer and Performing Direct Patient Care at Bedside Discharge Plan Triage Chief Complaint: Shortness of Breath ED Provider: Timi Dexter Dx/Rx/DC Orders Clinical Impression: Acute hypotension, Hypoxia, History of COPD, History of pneumonia, History of myelodysplastic syndrome Prescriptions: No Action ascorbic acid (vitamin C) 500 MG capsule 500 mg PO DAILY levothyroxine 50 mcg tablet 50 mcg PO DAILY Label Comments: TAKE 1 TABLET BY MOUTH EVERY DAY pantoprazole [Protonix] 40 mg tablet,delayed release (DR/EC) 40 mg PO DAILY metoprolol tartrate 25 MG tablet 12.5 mg PO DAILY Rx Instructions: Giv3e 12.5 every morning and at bedtime related to essential (primary) hypertension, check b/p before administering, hold for SBP <100 or HR <60 furosemide 40 mg tablet 40 mg PO BIDLX ipratropium-albuterol 0.5 mg-3 mg(2.5 mg base)/3 mL solution for nebulization 3 ml inhalation .Q6HRT melatonin 3 mg tablet 3 mg PO QHS potassium chloride [Klor-Con M20] 20 mEq tablet,ER particles/crystals 20 meq PO BIDCM amoxicillin-pot clavulanate 875-125 mg tablet 1 tab PO BID Rx Instructions: start on 02/21/23-take for three days, administer with food menthol-zinc oxide [Calmoseptine] 0.44-20.6 % ointment 1 applic topical BID Protocol: *Topical Application Instructions APPLICATION INSTRUCTIONS: apply to affected areas polysaccharide iron complex [Ferrex 150] 150 mg iron Capsule 150 mg PO DAILY prednisone 20 mg Tablet 20 mg PO BID sennosides-docusate sodium [Senokot-S] 8.6-50 mg Tablet 1 tab-cap PO BID Primary Care Provider: Fish Harris Chi Referrals: Fish Harris Chi, MD [Primary Care Provider] - Disposition Disposition: Acute Care Hospital [facility]
[2023-02-21] MEDS: 0.9% Normal Saline 1,000 ML 999 ML IV ×2 (13:50→15:10)
--- NOTE | 2023-02-21 13:51 | EKG12_ITS ---
Test Reason : SOB Blood Pressure : / mmHG Vent. Rate : 102 BPM Atrial Rate : 102 BPM P-R Int : 126 ms QRS Dur : 080 ms QT Int : 376 ms P-R-T Axes : 057 017 074 degrees QTc Int : 490 ms Sinus tachycardia Possible Left atrial enlargement Left ventricular hypertrophy with repolarization abnormality ( Sokolow-Sheets ) Abnormal ECG Confirmed by KAYDEN GRIMES, GRANT ([id number]), science editor GEMMA ANGELES ([id number]) on 02/27/2023 6:51:56 AM Referred By: SARWAT Confirmed By:JUANITA MONIQUE MD
--- NOTE | 2023-02-21 14:10 | RAD_ITS ---
STUDY: X-RAY CHEST REASON FOR EXAM: Female, 77 years old. Hypotension TECHNIQUE: Single AP portable view of the chest. COMPARISON: Comparison is made with prior study of February 19, 2023. FINDINGS: A right-sided Port-A-Cath is seen with the tip at the junction of the superior vena cava and right atrium. EKG electrodes are seen. Surgical clips are seen in the left axillary region. Prior left mastectomy. Progressive bibasilar pulmonary infiltrates. This is worse on the left side. Small left pleural effusion. Findings suggest a very mild degree of CHF. There is mild cardiac enlargement. Normal mediastinum and annika. Normal visualized pulmonary arteries. There is atherosclerotic calcification of the aortic arch with tortuosity. There are diffuse degenerative changes of the visualized thoracic spine. Sclerosis and deformity of the right humeral head. There is no demonstrated abnormality of the visualized soft tissue structures of the upper abdomen. RAD/Chest 1 View (Portable) IMPRESSION: Progressive bibasilar infiltrates worse on the left side with blunting of the left costophrenic angle. Sclerosis and deformity of the right humeral head. Electronically Signed: Saeed Lam MD at 14:27 EDT ,
[2023-02-21 14:15] LABS: Hemoglobin 7.5 g/dL (12.0-15.0); Mean Corp Hgb Conc 32.6 g/dL (32-36); Mean Corpuscular Hgb 30.1 pg (27.0-32.0); Mean Corpuscular Volume 92.4 fL (81-99); POSITIVE COUNT YES; POSITIVE DIFFERENTIAL YES; POSITIVE MORPHOLOGY YES; Platelet Count 46 K/mm3 (150-450); RBC Distribution Width CV 19.7 % (11.6-14.6); RBC Distribution Width SD 59.7 fl (35.1-43.9); Red Blood Count 2.49 M/mm3 (4.2-5.4); White Blood Count 20.5 K/mm3 (4.4-11.0)
[2023-02-21 14:25] LABS: Differential Indicated MANUAL DIFF; International Normalized Ratio 1.5; Prothrombin Time (Protime)PT. 17.5 SECONDS (11.7-14.9)
[2023-02-21 14:26] LABS: Partial Thromboplast Time 29.4 Seconds (24.1-36.2)
[2023-02-21 14:29] LABS: ALB/GLOB Ratio 0.6 RATIO (0.9-2.4); AST(SGOT) 14 U/L (15-37); Alanine Aminotransfer ALT/SGPT 21 U/L (13-56); Albumin, Serum 1.7 g/dL (3.2-5.0); Alkaline Phosphatase 47 U/L (45-117); Anion Gap 4 (5-15); BUN 54 mg/dL (7-18); BUN/Creat Ratio 41.9 RATIO (10-20); Calcium,Total 7.2 mg/dL (8.5-10.1); Chloride 95 mmol/L (98-107); Creatinine, Serum 1.29 mg/dL (0.55-1.02); EST Glomerular Filtration Rate 43 mL/min (>60); Est Glom Filt Rate - Afr Amer 52 mL/min (>60); Estimated Creatinine Clearance 27.07 ml/min; Globulin 2.8 g/dL (2.2-4.2); Glucose 165 mg/dL (74-106); Potassium 4.4 mmol/L (3.5-5.1); Protein, Total 4.5 g/dL (6.4-8.2); Sodium Level 129 mmol/L (136-145)
[2023-02-21 14:43] LABS: Lactic Acid 1.3 mmol/L (0.4-1.9)
[2023-02-21 15:14] LABS: Blast 1 % (0-0); Eosinophil 1 % (0-5); Lymphocyte 9 % (19-41); Metamyelocyte 39 % (0-1); Monocyte 12 % (0-10); Myelocyte 7 % (0-0); Neutrophil-Band 1 % (0-5); Neutrophil-Segmented 28 % (47-70); Nucleated Red Bld Cells,Manual 3 % (0-5); Promyelocyte 2 % (0-0); Total Cells Counted 100 (MANUAL DIFF)
[2023-02-21 15:16] LABS: Absolute Neutrophil Count 15.8 X10^3/uL (2.0-7.7); Lymphocyte # 1.84 X10^3/ul (0.83-4.51); Neutrophil # 15.75 X10^3/uL (2.7-7.7)
[2023-02-21 15:17] LABS: Absolute Lymphocyte Count 1.84 X10^3/uL (0.83-4.51); Platelet Estimate MOD DEC (ADEQ)
[2023-02-21 15:18] LABS: Anisocytosis 2+; Macrocytosis 1+; Microcytosis 1+; Polychromasia RARE
[2023-02-21 15:28] LABS: D-Dimer Quantitative (DVT/PE) 2.52 FEU/ug/m (0.27-0.49)
[2023-02-21 15:30] LABS: Troponin-I HS 43 pg/mL (3.0-54.0)
--- NOTE | 2023-02-21 15:30 | CT_ITS ---
EXAM: CT ANGIOGRAPHY CHEST WITHOUT AND WITH INTRAVENOUS CONTRAST CLINICAL INDICATION: Hypoxia Pneumonia, COPD, history of breast cancer, mastectomy. Hypertension. TECHNIQUE: Helically acquired angiography images were obtained of the chest without and with intravenous contrast. This CT exam was performed using one or more of the following dose reduction techniques: automated exposure control, adjustment of the mA and/or kV according to patient size, and/or use of iterative reconstruction technique. This report was created using [employer] report generation technology. MIP reconstructed images were created and reviewed. CONTRAST: IV 100mL Isovue-370 RADIATION DOSE: CTDIvol = 10.00 mGy, DLP = 406.09 mGy-cm COMPARISON: 9.14.22 FINDINGS: PULMONARY ARTERIES: Unremarkable. No demonstrated pulmonary embolism or arterial dissection. AORTA: There is atherosclerotic calcification of the aortic arch with tortuosity and elongation of the aortic arch and descending thoracic aorta. Normal in caliber. No evidence of dissection. GREAT VESSELS OF AORTIC ARCH: See above. LUNGS AND PLEURAL SPACES: There is bilateral pneumonia. There is a moderate left pleural effusions. There are scattered blebs and bullae. This can be seen in pulmonary emphysema. No mass. HEART: There are calcifications of the coronary arteries. No pericardial effusion. No signs of right heart strain, ratio of right ventricle to left ventricle measures less than 1. MEDIASTINUM: Unremarkable. No mediastinal or hilar adenopathy. Esophagus is unremarkable. No hiatal hernia. THYROID: Unremarkable. No thyroid lesions. BONES/JOINTS: There are degenerative changes of the shoulders. There are multi-level degenerative changes of the thoracic spine. No suspicious lytic or blastic abnormality. TUBES, LINES AND DEVICES: There is a right Port-A-Cath and/or mediport in place. The tip is in the superior vena cava. CT/CTA Chest W/WO Contrast IMPRESSION: 1. No demonstrated pulmonary embolism or arterial dissection. 2. There is bilateral pneumonia. 3. There is a moderate left pleural effusions. Electronically Signed: Ricky Banuelos MD at 16:39 EDT ,
[2023-02-21 15:33] LABS: Bacteria 0 SEEN /hpf (None Seen); Mucous, Urine 0 SEEN /hpf (<or=2+); Red Blood Cells-Urine 0 SEEN /hpf (0-5); Squamous Epithelial Cells - UA 0 SEEN /hpf (5-10); White Blood Cells 0 SEEN /hpf (0-5)
[2023-02-21 15:49] LABS: Color, Urine Yellow (Yellow); Glucose, Dipstick Normal (Normal); Ketone-Dipstick Negative (Negative); Leukocyte Esterase-Dipstick 25 /ul (Negative); Nitrite-Dipstick Negative (Negative); Occult Blood-Urine 10 /ul (Negative); Protein-Dipstick 100 mg/dl (Negative); Specific Gravity, Urine 1.015 (1.002-1.030); Urine Bilirubin Dipstick Negative (Negative); Urine Clarity Cloudy (Clear); Urine Urobilinogen Normal (Normal)
[2023-02-21 16:17] LABS: Amorphous Sediment 3+
--- NOTE | 2023-02-21 17:56 | ED.RN ---
THIS RN CALLED TCU AND SPOKE TO RITU SHEARER. RITU SHEARER TOLD THIS RN THAT PTS DENTURES AND BELONGINGS ARE STILL IN TCU AND THEY ARE PLANNING TO GET THEM TO HER WHEN SHE IS ADMITTED TO PCU. THIS RN GAVE TWO ORAL SWABS TO PT TO SWAB MOUTH AND HELP WITH DRYNESS PRIOR TO ADMISSIONS NURSE TAKING HER TO THE FLOOR. GRANDDAUGHTER AT BEDSIDE DENIES ANY FURTHER QUESTIONS.
--- NOTE | 2023-02-21 19:06 | HP.PCM.HOS_ITS ---
HPI - General General Date of Admission: 02/21/23 Date of Service: 02/21/23 Chief Complaint: Hypoxia, hypotension HPI Narrative REBEKAH AVITIA, is a 77 F who presents to the emergency room at [facility] after being transferred [facility] where she had been admitted yesterday for rehab services following hospitalization at [facility] for pneumonia and hypoxia. Work-up in the emergency room included a CBC which showed an elevated white blood cell count at 20.5, hemoglobin was 7.5, platelet count was 46,000. Patient's D-dimer was elevated at 2.52, chemistry profile showed a sodium of 129, chloride of 95, creatinine of 1.29, and BUN of 54. Glucose was 165. Patient required oxygen via nasal cannula at 5 L to maintain her pulse ox above 90%. Patient had a CTA of her chest performed due to elevated D-dimer, it showed no demonstrated pulmonary embolism or arterial dissection, there was bilateral pne umonia noted and a moderate left pleural effusion. Patient's blood pressure was low in the emergency room, she was given IV fluids. Patient was admitted to PCU for hypotension and hypoxia with pneumonia, I have decided to place her on IV Levaquin, patient will be seen in consultation by pulmonary medicine. I will also have speech evaluate the patient for possible aspiration, she will also be seen by PT during her hospital stay. 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 Breast cancer Breast cancer, left Cancer Chronic pain Congestive heart failure (CHF) COPD (chronic obstructive pulmonary disease) COPD exacerbation Debility Dislocation of right shoulder joint Elevated brain natriuretic peptide (BNP) level Fall with injury Femur fracture, right Former smoker History of myelodysplastic syndrome Hyperlipidemia Hypertension Hypokalemia Hypothyroidism Hypoxia Irregular heart beat Kidney stones Left lower lobe pneumonia MDS (myelodysplastic syndrome) Muscle weakness Osteoporosis Pneumonia Sinus tachycardia Symptomatic anemia Home Medications ascorbic acid (vitamin C) 500 mg capsule 500 mg PO DAILY supplement 01/17/20 [History Last Taken 02/21/23 08:35] levothyroxine 50 mcg tablet 50 mcg PO DAILY THYROID 01/28/23 [History Last Taken 02/21/23 05:10] metoprolol tartrate 25 mg tablet 12.5 mg PO DAILY BP 02/13/23 [History Last Taken 02/21/23 05:09] pantoprazole 40 mg tablet,delayed release (Protonix) 40 mg PO DAILY ACID REFLUX 02/13/23 [History Last Taken 02/21/23 05:09] amoxicillin 875 mg-potassium clavulanate 125 mg tablet 1 tab PO BID Antibiotic 02/20/23 [History Last Taken 02/21/23 08:35] furosemide 40 mg tablet 40 mg PO BIDLX Heart 02/20/23 [History Last Taken 02/21/23 00:51] ipratropium 0.5 mg-albuterol 3 mg (2.5 mg base)/3 mL nebulization soln 3 ml inhalation .Q6HRT SOB 02/20/23 [History Last Taken 02/21/23 06:45] melatonin 3 mg tablet 3 mg PO QHS Sleep 02/20/23 [History Last Taken 02/20/23 20:40] menthol 0.44 %-zinc oxide 20.6 % topical ointment (Calmoseptine) 1 applic topical BID Skin 02/20/23 [History Last Taken 02/21/23 05:06] potassium chloride 20 mEq tablet,extended release(part/cryst) (Klor-Con M) 20 meq PO BIDCM Supplement 02/20/23 [History Last Taken 02/21/23 08:35] polysaccharide iron complex 150 mg iron capsule (Ferrex) 150 mg PO DAILY SUPPLEMENT 02/21/23 [History Last Taken 02/21/23 08:34] prednisone 20 mg tablet 20 mg PO BID 02/21/23 [History Last Taken 02/21/23 08:34] sennosides 8.6 mg-docusate sodium 50 mg tablet (Senokot-S) 1 tab-cap PO BID S TOOL SOFTNER 02/21/23 [History Last Taken 02/21/23 05:09] Allergy/AdvReac Type Severity Reaction Status Date / Time influenza virus vaccine tv Allergy Unknown Other Verified 02/21/23 15:32 split 2012- (5 yr,up) [From Afluria] bacitracin Allergy Rash Verified 02/21/23 15:32 [From Neosporin ([id number])] neomycin Allergy Rash Verified 02/21/23 15:32 [From Neosporin ([id number])] polymyxin B Allergy Rash Verified 02/21/23 15:32 [From Neosporin ([id number])] Family History Sister Breast cancer Father Cardiac arrest Mother Lung disease Surgical History H/O mastectomy H/O: hysterectomy History of hip surgery Hx of tonsillectomy Tubal ligation status Social History household members: none Smoking Status: Former smoker alcohol intake: never substance use type: does not use ROS ROS Narrative Review of systems was unobtainable from the patient due to the fact she is extremely hard of hearing. Vital Signs Vital Signs Vital Signs: 02/21/23 12:57 02/21/23 13:31 02/21/23 13:32 Temperature 98.6 F 98.3 F Temperature Source Temporal Temporal Pulse Rate 108 H 100 Respiratory Rate 27 H 3 L Respiratory Effort Normal Non-Labored Respiratory Depth Normal Respiratory Pattern Tachypnea Blood Pressure 91/53 L 95/59 L Blood Pressure Mean 65 71 Blood Pressure Source Blood Pressure Position Blood Pressure Location Pulse Ox 96 96 Oxygen Delivery Method Nasal Cannula Nasal Cannula Nasal Cannula Oxygen Flow Rate (L/min) 6 5 5 02/21/23 14:13 02/21/23 14:13 02/21/23 14:13 Temperature 98.3 F Temperature Source Temporal Pulse Rate 104 H 103 H Respiratory Rate 24 H 22 H Respiratory Effort Respiratory Depth Respiratory Pattern Blood Pressure 89/46 L 89/46 L Blood Pressure Mean 60 60 Blood Pressure Source Blood Pressure Position Blood Pressure Location Pulse Ox 91 94 Oxygen Delivery Method Nasal Cannula Nasal Cannula Nasal Cannula Oxygen Flow Rate (L/min) 5 5 5 02/21/23 15:11 02/21/23 15:11 02/21/23 15:40 Temperature 98.6 F 98.6 F Temperature Source Temporal Temporal Pulse Rate 111 H 109 H 104 H Respiratory Rate 25 H 25 H 26 H Respiratory Effort Respiratory Depth Respiratory Pattern Blood Pressure 101/53 L 101/53 L 97/48 L Blood Pressure Mean 69 69 64 Blood Pressure Source Blood Pressure Position Blood Pressure Location Pulse Ox 94 90 96 Oxygen Delivery Method Nasal Cannula Nasal Cannula Nasal Cannula Oxygen Flow Rate (L/min) 5 5 5 02/21/23 16:19 02/21/23 16:19 02/21/23 17:03 Temperature 98.0 F 97.7 F L Temperature Source Temporal Temporal Pulse Rate 112 H 112 H 102 H Respiratory Rate 29 H 28 H 21 H Respiratory Effort Respiratory Depth Respiratory Pattern Blood Pressure 92/50 L 92/50 L 93/52 L Blood Pressure Mean 64 64 65 Blood Pressure Source Blood Pressure Position Blood Pressure Location Pulse Ox 86 89 98 Oxygen Delivery Method Nasal Cannula Nasal Cannula Nasal Cannula Oxygen Flow Rate (L/min) 5 5 5 02/21/23 17:03 02/21/23 17:22 02/21/23 17:31 Temperature Temperature Source Pulse Rate 108 H Respiratory Rate 17 Respiratory Effort Respiratory Depth Respiratory Pattern Blood Pressure 93/52 L Blood Pressure Mean 65 Blood Pressure Source Blood Pressure Position Blood Pressure Location Pulse Ox 99 72 90 Oxygen Delivery Method Nasal Cannula Room Air Nasal Cannula Oxygen Flow Rate (L/min) 5 5 02/21/23 18:13 02/21/23 18:13 Temperature 98.4 F 98.4 F Temperature Source Temporal Oral Pulse Rate 116 H 116 H Respiratory Rate 27 H 27 H Respiratory Effort Respiratory Depth Respiratory Pattern Blood Pressure 86/55 L 86/55 L Blood Pressure Mean 65 65 Blood Pressure Source Monitor Blood Pressure Position Semi-Fowlers Blood Pressure Location Right Arm Pulse Ox 90 Oxygen Delivery Method Nasal Cannula Nasal Cannula Oxygen Flow Rate (L/min) 5 Weight Weight: 63.276 kg Body Mass Index (BMI) 28.1 Physical Exam Narrative alert and no apparent distress HEENT head/scalp atraumatic and moist oral mucous membranes Neck supple and no JVD Resp normal respiratory effort and no retractions Resp Narrative: breath sounds distant bilaterally Cardio regular rate, regular rhythm, patient is tachycardic, S1 normal heart sound and S2 normal heart sound GI normal to inspection, nondistended, normoactive bowel sounds, soft to palpation and non-tender Extremity no clubbing, cyanosis or edema Neuro CN's II-XII intact bilaterally and moves all extremities Sensorium / Orientation: awake, patient answers simple questions appropriately but is extremely hard of hearing Psych affect normal Results Lab / Micro Data Result Diagrams: 02/21/23 14:01 02/21/23 14:01 Labs: Laboratory Results - last 24 hr 02/21/23 14:01: WBC 20.5 H, RBC 2.49 L, Hgb 7.5 L, Hct 23.0 L, MCV 92.4, MCH 30 .1, MCHC 32.6, RDW Std Deviation 59.7 H, RDW Coeff of Kylie 19.7 H, Plt Count 46 L*, Neut % (Auto) Not Reportable, Absolute Neuts (auto) 15.8 H, Absolute Lymphs (auto) 1.84, Total Counted 100, Neutrophils % (Manual) 28 L, Band Neutrophils % 1, Lymphocytes % (Manual) 9 L, Monocytes % (Manual) 12 H, Eosinophils % (Manual) 1, Metamyelocytes % 39 H, Myelocytes % 7 H, Promyelocytes % 2 H, Blast Cells % 1 H*, Nucleated RBCs/100 WBC 3, Diff Path Review March, Platelet Estimate MOD DEC, Polychromasia RARE, Anisocytosis 2+, Microcytosis 1+, Macrocytosis 1+ 02/21/23 14:01: PT 17.5 H, INR 1.5, APTT 29.4 02/21/23 14:01: Sodium 129 L, Potassium 4.4, Chloride 95 L, Carbon Dioxide 30.0, Anion Gap 4 L, BUN 54 H, Creatinine 1.29 H, Estim Creat Clear Calc 27.07, Est GFR (MDRD) Af Amer 52 L, Est GFR (MDRD) Non-Af 43 L, BUN/Creatinine Ratio 41.9 H , Glucose 165 H, Calcium 7.2 L, Total Bilirubin 1.90 H, AST 14 L, ALT 21, Alkaline Phosphatase 47, Total Protein 4.5 L, Albumin 1.7 L, Globulin 2.8, Albumin/Globulin Ratio 0.6 L 02/21/23 14:01: D-Dimer Quant (PE/DVT) 2.52 H* 02/21/23 14:05: Lactic Acid 1.3 02/21/23 15:02: Troponin I High Sens 43 02/21/23 15:23: Urine Color Yellow, Urine Clarity Cloudy, Urine pH 5.0, Ur Specific [place] 1.015, Urine Protein 100 H, Urine Glucose (UA) Normal, Urine Ketones Negative, Urine Occult Blood 10 H, Urine Nitrite Negative, Urine Bilirubin Negative, Urine Urobilinogen Normal, Ur Leukocyte Esterase 25 H, Urine RBC 0 SEEN, Urine WBC 0 SEEN, Ur Squamous Epith Cells 0 SEEN, Amorphous Sediment 3+, Urine Bacteria 0 SEEN, Urine Mucus 0 SEEN Rhythm Strip Rhythm Strip: Sinus Tach Rate: 102 Ectopy: None Radiology Impression Chest X-Ray 02/21/23 14:10 IMPRESSION: Progressive bibasilar infiltrates worse on the left side with blunting of the left costophrenic angle. Sclerosis and deformity of the right humeral head. Electronically Signed: Saeed Lam MD at 14:27 EDT , Chest CTA 02/21/23 15:30 IMPRESSION: 1. No demonstrated pulmonary embolism or arterial dissection. 2. There is bilateral pneumonia. 3. There is a moderate left pleural effusions. Electronically Signed: Ricky Banuelos MD at 16:39 EDT , Assessment & Plan Assessment/Plan (1) Acute hypotension: PLAN: Plan 1. Hypotension-this is probably secondary to dehydration, patient was on oral Lasix when she was discharged from the hospital here yesterday. I have elected to hold her Lasix for the time being and provide fluids at 75 cc an hour, patient will be admitted to PCU for further care. #2 pneumonia-etiology unclear, I have elected to place her on meropenem, she will receive aerosol treatments, she will be seen in consultation by pulmonary medicine. I have decided to obtain a respiratory panel on the patient. #3 myelodysplastic syndrome-complicates care, medical course, recovery, and prognosis #4 dehydration-patient again will be administered IV fluids at 75 cc/h, BMP will be rechecked #5 generalized debility-due to multiple medical problems, patient will be seen by PT, I have also consulted speech therapy #6 chronic obstructive pulmonary disease, I do not believe the patient is having exacerbation at this time, I do not believe she needs corticosteroids. Pulmonary medicine will see the patient tomorrow. #7 pulmonary hypertension-patient's Lasix will be held at this time due to her dehydration and hypotension #8 severe chronic protein and caloric malnutrition in the context of chronic disease/debility-related to inadequate oral intake/acute illness and increased energy expenditure as evidenced by a 6% weight loss over 2 to 3 weeks with p.o. meeting less than 50% of estimated nutritional needs over the past 2 weeks- nutritional services will continue to see the patient, she had been on supplementation when she was in the hospital recently #9 chronic hypoxic respiratory failure-patient was on 4 L via nasal cannula at baseline when she was discharged from the hospital yesterday, pulse ox will be monitored, oxygen will be adjusted accordingly Total clinical time spent by myself addressing the patient's medical problems, reviewing all of her data, and collaborating with patient's care team: 75 minutes Charges/Coding Visit Charges Inpatient E&M: 23906 Init Hosp L3
[2023-02-21] MEDS: 0.9% Normal Saline 1,000 ML 75 ML IV (19:21)
--- NOTE | 2023-02-21 20:55 | CPS ---
found pt on venti mask with dyspnea SPO2 82%, started on Airvo with continuous pulse ox, pt WOB improved and O2 increased
[2023-02-21] MEDS: Menthol/Lanolin/Calamine/Znox 113 GM Tube 1 APPLIC TOPICAL (21:44)
[2023-02-21] MEDS: Heparin Injection (Vial) 5,000 UNIT/ML VIAL 5000 UNIT SC (21:44)
[2023-02-21] MEDS: MELATONIN 3 MG TABLET PO (21:45)
[2023-02-21] MEDS: Senna/Docusate Sodium 1 Tablet PO (21:46)
[2023-02-22] VITALS (34 sets, daily range): BP systolic 73–130; BP diastolic 40–101; PULSE 101–128; RESP 20–38; TEMP 36.5–37.1; O2SAT 86–98
[2023-02-22 05:08] LABS: Hematocrit 25.4 % (37-47); Hemoglobin 8.1 g/dL (12.0-15.0); Mean Corp Hgb Conc 31.9 g/dL (32-36); Mean Corpuscular Hgb 29.8 pg (27.0-32.0); Mean Corpuscular Volume 93.4 fL (81-99); POSITIVE COUNT YES; POSITIVE DIFFERENTIAL YES; POSITIVE MORPHOLOGY YES; Platelet Count 51 K/mm3 (150-450); RBC Distribution Width CV 19.9 % (11.6-14.6); RBC Distribution Width SD 60.3 fl (35.1-43.9); Red Blood Count 2.72 M/mm3 (4.2-5.4)
[2023-02-22 05:11] LABS: Differential Indicated MANUAL DIFF
[2023-02-22 05:30] LABS: Anion Gap 9 (5-15); BUN 52 mg/dL (7-18); BUN/Creat Ratio 45.2 RATIO (10-20); Calcium,Total 7.6 mg/dL (8.5-10.1); Chloride 99 mmol/L (98-107); Creatinine, Serum 1.15 mg/dL (0.55-1.02); EST Glomerular Filtration Rate 49 mL/min (>60); Est Glom Filt Rate - Afr Amer 59 mL/min (>60); Estimated Creatinine Clearance 42.22 ml/min; Glucose 111 mg/dL (74-106); Potassium 4.4 mmol/L (3.5-5.1); Sodium Level 130 mmol/L (136-145)
[2023-02-22] MEDS: Levothyroxine 50 MCG Tablet PO (05:44)
[2023-02-22 05:53] LABS: Neutrophil-Segmented 30 % (47-70); Total Cells Counted 100 (MANUAL DIFF)
[2023-02-22 05:54] LABS: Blast 5 % (0-0); Myelocyte 2 % (0-0); Promyelocyte 2 % (0-0)
[2023-02-22 05:55] LABS: Metamyelocyte 11 % (0-1); Neutrophil-Band 5 % (0-5)
--- NOTE | 2023-02-22 05:55 | RAD_ITS ---
STUDY: X-RAY CHEST REASON FOR EXAM: Female, 77 years old. Pneumonia TECHNIQUE: Single AP portable view of the chest. COMPARISON: Comparison is made with prior study dated February 21, 2023. FINDINGS: A right-sided Port-A-Cath is seen with the tip in the right atrium. EKG electrodes are seen. Surgical clips are seen in the left axillary region. Persistent bibasilar infiltrates worse at the left lung base although there has been improvement as compared to prior study. Small left pleural effusion. Normal size heart. Normal mediastinum and annika. Normal visualized pulmonary arteries. Normal visualized aortic arch and descending thoracic aorta. Normal visualized thoracic spine. Sclerosis and deformity of the right humeral head. There is no demonstrated abnormality of the visualized soft tissue structures of the upper abdomen. RAD/Chest 1 View (Portable) IMPRESSION: Residual bilateral infiltrates worse on the left side with a small left pleural effusion. There has been improvement as compared to prior study. Electronically Signed: Saeed Lam MD at 9:27 EDT ,
[2023-02-22 05:56] LABS: Eosinophil 1 % (0-5); Lymphocyte 20 % (19-41); Monocyte 24 % (0-10)
[2023-02-22 05:57] LABS: Nucleated Red Bld Cells,Manual 6 % (0-5); Platelet Estimate MKD DEC (ADEQ)
[2023-02-22 05:58] LABS: Anisocytosis RARE; Hypochromasia 1+; Macrocytosis RARE
[2023-02-22 05:59] LABS: Absolute Lymphocyte Count 0.04 X10^3/uL (0.83-4.51); Absolute Neutrophil Count 7.4 X10^3/uL (2.0-7.7); Lymphocyte # 0.04 X10^3/ul (0.83-4.51)
[2023-02-22] MEDS: Ipratropium/Albuterol Sulfate 3 ML AMPUL.NEB INHALATION ×4 (07:10→19:39)
[2023-02-22] MEDS: 0.9% Normal Saline 1,000 ML 75 ML IV (08:20)
[2023-02-22] MEDS: Iron Polysaccharide Complex 150 MG CAPSULE PO (08:22)
[2023-02-22] MEDS: Pantoprazole Sodium 40 MG Tablet PO (08:22)
[2023-02-22] MEDS: Ascorbic Acid 500 MG Tablet PO (08:22)
[2023-02-22] MEDS: Menthol/Lanolin/Calamine/Znox 113 GM Tube 1 APPLIC TOPICAL ×2 (08:23→20:38)
[2023-02-22] MEDS: Heparin Injection (Vial) 5,000 UNIT/ML VIAL 5000 UNIT SC ×2 (08:23→20:44)
[2023-02-22 09:04] LABS: LDH 668 U/L (84-246)
--- NOTE | 2023-02-22 09:37 | CON.PCM.CC_ITS ---
Assessment & Plan Assessment/Plan (1) Pleural effusion: (2) Acute hypotension: (3) Myelodysplastic syndrome: (4) Acute and chronic respiratory failure with hypoxia: PLAN: Plan RECOMMENDATIONS: 1. Discontinue IV fluids 2. Hold on Lasix for now 3. Obtain diagnostic and therapeutic thoracentesis 4. Wean supplemental oxygen as tolerated 5. Transition to AVAPS (TV 450) with sleep if develops hypoxia 6. Consider discussion about goals of therapy 7. Cannot exclude the need for transfer to intensive care unit over the next 24 to 48 hours IMPRESSIONS: 1. Acute on chronic hypoxic respiratory failure Clinical suspicion for multifactorial etiology. Patient does have pulmonary hypertension, COPD, myelodysplastic syndrome and a new left pleural effusion. Some concern patient may have both risk factors for transudate and exudate etiology. For this reason, will obtain a diagnostic and therapeutic thoracentesis. Patient does have collapse of the left lower lobe, likely adding to current hypoxia. Patient may require positive pressure with sleep if she develops complications. Would discontinue IV fluids as patient does have a history of CHF/cor pulmonale in the past. Hold on diuretics for now given carlos inal blood pressures. Further recommendations once results of thoracentesis is known 2. Myelodysplastic syndrome/generalized debility/malnutrition/advanced age/history of breast cancer Complicates care, management, recovery and prognosis. Patient may require transfusion for intervention, but defer to interventional radiology. Some concern for possible malignant pleural effusion versus parapneumonic effusion. Patient may benefit from iron. Patient does have significant tachypnea and tachycardia at this time. If this does not improve following thoracentesis, could consider consulting cardiology for rate control. HPI Consult Data Date of Consult: 02/22/23 HPI Narrative Reason for Consultation: Hypotension HPI Narrative: REBEKAH AVITIA is a 77 F, with past medical history listed below, who presents to [facility] on 02/21/2023 secondary to hypotension. Patient had recently been in the hospital secondary to pneumonia, hypoxia and pulmonary hypertension. Patient was reportedly found on the TCU with saturations of 80% on 6 L and hypotensive at 93/55, so she was transferred to the ER for further evaluation. Patient is very hard of hearing and a limited informant. Patient had been given Lasix recently secondary to hypoxia. Patient is on metoprolol, Lasix twice daily and had received recent Lasix In the ER, patient was afebrile, tachycardic and hypotensive. Patient was noted to have a heart rate of 108 bpm, but blood pressures of 89/46. Patient was saturating on her 5 to 6 L nasal cannula oxygen. Laboratory data showed a white blood cell count of 20.5, hemoglobin of 7.5 and platelet of 46. INR was slightly elevated at 1.5 with a bicarbonate of 30 and creatinine of 1.3. Total bili was slightly elevated. Albumin and total protein were low. Lactate was within normal limits. Chest x-ray showed progressive bibasilar infiltrates with blunting of the left costophrenic angle. Patient does have myelodysplastic syndrome. Patient was placed on IV fluids and admitted to the floor for further evaluation. A pulmonary consult was obtained secondary to concerns for fluid status and hypoxia. D-dimer in the ER was elevated, so CTA of the chest was o btained prior to transferring patient to the floor. Since being admitted to the hospital, patient has been doing okay. There is been no significant change in respiratory status. Patient's blood pressure is slightly improved compared to previous. Patient is very hard of hearing and a limited informant. Unable to obtain review of systems secondary to these limitations. 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 Breast cancer Breast cancer, left Cancer Chronic pain Congestive heart failure (CHF) COPD (chronic obstructive pulmonary disease) COPD exacerbation Debility Dislocation of right shoulder joint Elevated brain natriuretic peptide (BNP) level Fall with injury Femur fracture, right Former smoker History of myelodysplastic syndrome Hyperlipidemia Hypertension Hypokalemia Hypothyroidism Hypoxia Irregular heart beat Kidney stones Left lower lobe pneumonia MDS (myelodysplastic syndrome) Muscle weakness Osteoporosis Pneumonia Sinus tachycardia Symptomatic anemia Home Medications ascorbic acid (vitamin C) 500 mg capsule 500 mg PO DAILY supplement 01/17/20 [History Last Taken 02/21/23 08:35] levothyroxine 50 mcg tablet 50 mcg PO DAILY THYROID 01/28/23 [History Last Taken 02/21/23 05:10] metoprolol tartrate 25 mg tablet 12.5 mg PO DAILY BP 02/13/23 [History Last Taken 02/21/23 05:09] pantoprazole 40 mg tablet,delayed release (Protonix) 40 mg PO DAILY ACID REFLUX 02/13/23 [History Last Taken 02/21/23 05:09] amoxicillin 875 mg-potassium clavulanate 125 mg tablet 1 tab PO BID Antibiotic 02/20/23 [History Last Taken 02/21/23 08:35] furosemide 40 mg tablet 40 mg PO BIDLX Heart 02/20/23 [History Last Taken 02/21/23 00:51] ipratropium 0.5 mg-albuterol 3 mg (2.5 mg base)/3 mL nebulization soln 3 ml inhalation .Q6HRT SOB 02/20/23 [History Last Taken 02/21/23 06:45] melatonin 3 mg tablet 3 mg PO QHS Sleep 02/20/23 [History Last Taken 02/20/23 20:40] menthol 0.44 %-zinc oxide 20.6 % topical ointment (Calmoseptine) 1 applic topical BID Skin 02/20/23 [History Last Taken 02/21/23 05:06] potassium chloride 20 mEq tablet,extended release(part/cryst) (Klor-Con M) 20 meq PO BIDCM Supplement 02/20/23 [History Last Taken 02/21/23 08:35] polysaccharide iron complex 150 mg iron capsule (Ferrex) 150 mg PO DAILY SUPPLEMENT 02/21/23 [History Last Taken 02/21/23 08:34] prednisone 20 mg tablet 20 mg PO BID 02/21/23 [History Last Taken 02/21/23 08:34] sennosides 8.6 mg-docusate sodium 50 mg tablet (Senokot-S) 1 tab-cap PO BID STOOL SOFTNER 02/21/23 [History Last Taken 02/21/23 05:09] Allergy/AdvReac Type Severity Reaction Status Date / Time influenza virus vaccine tv Allergy Unknown Other Verified 02/21/23 15:32 split 2012-14 (5 yr,up) [From Afluria] bacitracin Allergy Rash Verified 02/21/23 15:32 [From Neosporin ([id number])] neomycin Allergy Rash Verified 02/21/23 15:32 [From Neosporin ([id number])] polymyxin B Allergy Rash Verified 02/21/23 15:32 [From Neosporin ([id number])] Family History Sister Breast cancer Father Cardiac arrest Mother Lung disease Surgical History H/O mastectomy H/O: hysterectomy History of hip surgery Hx of tonsillectomy Tubal ligation status Social History household members: none Smoking Status: Former smoker alcohol intake: never substance use type: does not use Physical Exam Const alert and no apparent distress Constitutional Narrative: Significant conversational dyspnea noted. Airvo in place. Very hard of hearing. General Appearance: cooperative HEENT normocephalic and head/scalp atraumatic General Ear: hearing grossly impaired diffuse Eyes conjunctivae normal and no scleral icterus Neck no lymphadenopathy and supple General: trachea midline Chest Chest: abnormal inspection of the chest increased A-P diameter Resp normal respiratory effort and no use of accessory muscles Resp Narrative: On Airvo Effort and Inspection: able to speak in complete sentences Auscultation: rales and diminished lung sounds; Negative for rhonchi or wheezes Percussion: dullness Mid: left and Lower: left Cardio S1 normal heart sound, S2 normal heart sound and peripheral pulses 2+ throughout Rate: tachycardic Rhythm: abnormal rhythm irregularly irregular GI normal to inspection, nondistended, normoactive bowel sounds, soft to palpation and non-tender Extremity normal capillary refill and no clubbing, cyanosis or edema Skin General Skin Exam: no breakdown Lesions: no lesions Rashes: no rashes Neuro no focal motor deficits and no sensory deficits noted Psych Activity / Motor Behavior: restless Mood & Affect: anxious Medical Records Data Attestation: I reviewed the patient's medical records Lab / Micro Data Attestation: I reviewed the patient's lab results. Result Diagrams: 02/22/23 04:41 02/22/23 04:41 Labs: Laboratory Results - last 24 hr 02/21/23 14:01: WBC 20.5 H, RBC 2.49 L, Hgb 7.5 L, Hct 23.0 L, MCV 92.4, MCH 30.1, MCHC 32.6, RDW Std Deviation 59.7 H, RDW Coeff of Kylie 19.7 H, Plt Count 46 L*, Neut % (Auto) Not Reportable, Absolute Neuts (auto) 15.8 H, Absolute Lymphs (auto) 1.84, Total Counted 100, Neutrophils % (Manual) 28 L, Band Neutrophils % 1, Lymphocytes % (Manual) 9 L, Monocytes % (Manual) 12 H, Eosinophils % (Manual) 1, Metamyelocytes % 39 H, Myelocytes % 7 H, Promyelocytes % 2 H, Blast Cells % 1 H*, Nucleated RBCs/100 WBC 3, Diff Path Review May , Platelet Estimate MOD DEC, Polychromasia RARE, Anisocytosis 2+, Microcytosis 1+, Macrocytosis 1+ 02/21/23 14:01: PT 17.5 H, INR 1.5, APTT 29.4 02/21/23 14:01: Sodium 129 L, Potassium 4.4, Chloride 95 L, Carbon Dioxide 30.0, Anion Gap 4 L, BUN 54 H, Creatinine 1.29 H, Estim Creat Clear Calc 27.07, Est GFR (MDRD) Af Amer 52 L, Est GFR (MDRD) Non-Af 43 L, BUN/Creatinine Ratio 41.9 H , Glucose 165 H, Calcium 7.2 L, Total Bilirubin 1.90 H, AST 14 L, ALT 21, Alkaline Phosphatase 47, Total Protein 4.5 L, Albumin 1.7 L, Globulin 2.8, Albumin/Globulin Ratio 0.6 L 02/21/23 14:01: D-Dimer Quant (PE/DVT) 2.52 H* 02/21/23 14:05: Lactic Acid 1.3 02/21/23 15:02: Troponin I High Sens 43 02/21/23 15:23: Urine Color Yellow, Urine Clarity Cloudy, Urine pH 5.0, Ur Specific [place] 1.015, Urine Protein 100 H, Urine Glucose (UA) Normal, Urine Ketones Negative, Urine Occult Blood 10 H, Urine Nitrite Negative, Urine Bilirubin Negative, Urine Urobilinogen Normal, Ur Leukocyte Esterase 25 H, Urine RBC 0 SEEN, Urine WBC 0 SEEN, Ur Squamous Epith Cells 0 SEEN, Amorphous Sediment 3+, Urine Bacteria 0 SEEN, Urine Mucus 0 SEEN 02/22/23 04:41: WBC INFORMATION SECURITY SPECIALIST, Corrected WBC 20.0 H, RBC 2.72 L, Hgb 8.1 L, Hct 25.4 L, MCV 93.4, MCH 29.8, MCHC 31.9 L, RDW Std Deviation 60.3 H, RDW Coeff of Kylie 19.9 H, Plt Count 51 L, MPV TNP, Neut % (Auto) Not Reportable, Absolute Neuts (auto) 7.4, Absolute Lymphs (auto) 0.04 L, Total Counted 100, Neutrophils % (Manual) 30 L, Band Neutrophils % 5, Lymphocytes % (Manual) 20, Monocytes % (Manual) 24 H, Eosinophils % (Manual) 1, Metamyelocytes % 11 H, Myelocytes % 2 H, Promyelocytes % 2 H, Blast Cells % 5 H*, Nucleated RBCs/100 WBC 6 H, Diff Path Review March, Platelet Estimate MKD DEC, Hypochromasia 1+, Anisocytosis RARE, Mac rocytosis RARE 02/22/23 04:41: Sodium 130 L, Potassium 4.4, Chloride 99, Carbon Dioxide 22.0, Anion Gap 9, BUN 52 H, Creatinine 1.15 H, Estim Creat Clear Calc 42.22, Est GFR (MDRD) Af Amer 59 L, Est GFR (MDRD) Non-Af 49 L, BUN/Creatinine Ratio 45.2 H, Glucose 111 H, Calcium 7.6 L 02/22/23 04:41: Lactate Dehydrogenase 668 H Micro: Microbiology 02/21/23 19:45 Mucosa - Nose Respiratory Panel (PCR) - Final Rhythm Strip Rhythm Strip: Sinus Tach Rate: 102 Ectopy: None Radiology Impression Chest X-Ray 02/21/23 14:10 IMPRESSION: Progressive bibasilar infiltrates worse on the left side with blunting of the left costophrenic angle. Sclerosis and deformity of the right humeral head. Electronically Signed: Saeed Lam MD at 14:27 EDT , Chest CTA 02/21/23 15:30 IMPRESSION: 1. No demonstrated pulmonary embolism or arterial dissection. 2. There is bilateral pneumonia. 3. There is a moderate left pleural effusions. Electronically Signed: Ricky Banuelos MD at 16:39 EDT , Chest X-Ray 02/22/23 05:55 IMPRESSION: Residual bilateral infiltrates worse on the left side with a small left pleural effusion. There has been improvement as compared to prior study. Electronically Signed: Saeed Lam MD at 9:27 EDT , Charges/Coding Visit Charges Inpatient E&M: 80772 Init Hosp L3
[2023-02-22] MEDS: Metoprolol Tartrate 25 MG Tablet 12.5 MG PO (09:50)
--- NOTE | 2023-02-22 11:54 | CASEMGMT ---
SW called pt's daughter, Aisha, regarding discharge planning. She is requesting patient returns to TCU when able. Stephenie Sparks CORE PILER, MOLDING MACHINE OPERATOR HELPER
[2023-02-22] MEDS: hydrOXYzine 50 MG/ML Vial IM (13:09)
[2023-02-22 13:26] LABS: Pathologist Review Reviewed
[2023-02-22 13:26] LABS: Pathologist Review Reviewed
--- NOTE | 2023-02-22 13:28 | PCM.PN.HOSP ---
Reason for Visit Reason for Visit: Diagnoses Hypotension, unspecified (02/21/23) Subjective Subjective Patient was seen and examined today, I talked briefly with pulmonary medicine about her care. Pulmonary medicine advised that she undergo a left thoracentesis, they also recommended that her fluid administration be stopped. Patient has been confused at times today, not been keeping her oxygen on. White blood cell count today was 20,000. Objective Data Objective Data Vital Signs: Vital Signs Temp Pulse Resp BP Pulse Ox O2 Del Method O2 Flow Rate 98.8 F 124 H 34 H 117/60 92 Airvo 50 02/22/23 08:15 02/22/23 09:50 02/22/23 08:15 02/22/23 09:50 02/22/23 08:15 02/22/23 08:15 02/22/23 08:15 FiO2 54 02/22/23 08:15 Oxygen Flow Rate (L/min) 50 Oxygen Delivery Method Airvo Weight: 63.276 kg Body Mass Index (BMI) 28.1 Intake & Output: Intake and Output for Last 24 Hours 02/20/23 02/21/23 02/22/23 23:59 23:59 23:59 Intake Total 1999 1206.25 / 1206.25 Output Total 200 / 200 Balance 1999 1006.25 / 1006.25 Lab / Micro Data Result Diagrams: 02/22/23 04:41 02/22/23 04:41 Labs: Laboratory Results - last 24 hr 02/21/23 14:01: WBC 20.5 H, RBC 2.49 L, Hgb 7.5 L, Hct 23.0 L, MCV 92.4, MCH 30.1, MCHC 32.6, RDW Std Deviation 59.7 H, RDW Coeff of Kylie 19.7 H, Plt Count 46 L*, Neut % (Auto) Not Reportable, Absolute Neuts (auto) 15.8 H, Absolute Lymphs (auto) 1.84, Total Counted 100, Neutrophils % (Manual) 28 L, Band Neutrophils % 1, Lymphocytes % (Manual) 9 L, Monocytes % (Manual) 12 H, Eosinophils % (Manual) 1, Metamyelocytes % 39 H, Myelocytes % 7 H, Promyelocytes % 2 H, Blast Cells % 1 H*, Nucleated RBCs/100 WBC 3, Diff Path Review Reviewed, Platelet Estimate MOD DEC, Polychromasia RARE, Anisocytosis 2+, Microcytosis 1+, Macrocytosis 1+ 02/21/23 14:01: PT 17.5 H, INR 1.5, APTT 29.4 02/21/23 14:01: Sodium 129 L, Potassium 4.4, Chloride 95 L, Carbon Dioxide 30.0, Anion Gap 4 L, BUN 54 H, Creatinine 1.29 H, Estim Creat Clear Calc 27.07, Est GFR (MDRD) Af Amer 52 L, Est GFR (MDRD) Non-Af 43 L, BUN/Creatinine Ratio 41.9 H, Glucose 165 H, Calcium 7.2 L, Total Bilirubin 1.90 H, AST 14 L, ALT 21, Alkaline Phosphatase 47, Total Protein 4.5 L, Albumin 1.7 L, Globulin 2.8, Albumin/Globulin Ratio 0.6 L 02/21/23 14:01: D-Dimer Quant (PE/DVT) 2.52 H* 02/21/23 14:05: Lactic Acid 1.3 02/21/23 15:02: Troponin I High Sens 43 02/21/23 15:23: Urine Color Yellow, Urine Clarity Cloudy, Urine pH 5.0, Ur Specific [place] 1.015, Urine Protein 100 H, Urine Glucose (UA) Normal, Urine Ketones Negative, Urine Occult Blood 10 H, Urine Nitrite Negative, Urine Bilirubin Negative, Urine Urobilinogen Normal, Ur Leukocyte Esterase 25 H, Urine RBC 0 SEEN, Urine WBC 0 SEEN, Ur Squamous Epith Cells 0 SEEN, Amorphous Sediment 3+, Urine Bacteria 0 SEEN, Urine Mucus 0 SEEN 02/22/23 04:41: WBC [employer]ER [employer]OUNT [employer]IST, Corrected WBC 20.0 H, RBC 2.72 L, Hgb 8.1 L, Hct 25.4 L, MCV 93.4, MCH 29.8, MCHC 31.9 L, RDW Std Deviation 60.3 H, RDW Coeff of Kylie 19.9 H, Plt Count 51 L, MPV TNP, Neut % (Auto) Not Reportable, Absolute Neuts (auto) 7.4, Absolute Lymphs (auto) 0.04 L, Total Counted 100, Neutrophils % (Manual) 30 L, Band Neutrophils % 5, Lymphocytes % (Manual) 20, Monocytes % (Manual) 24 H, Eosinophils % (Manual) 1, Metamyelocytes % 11 H, Myelocytes % 2 H, Promyelocytes % 2 H, Blast Cells % 5 H*, Nucleated RBCs/100 WBC 6 H, Diff Path Review Reviewed, Platelet Estimate MKD DEC, Hypochromasia 1+, Anisocytosis RARE, Macrocytosis RARE 02/22/23 04:41: Sodium 130 L, Potassium 4.4, Chloride 99, Carbon Dioxide 22.0, Anion Gap 9, BUN 52 H, Creatinine 1.15 H, Estim Creat Clear Calc 42.22, Est GFR (MDRD) Af Amer 59 L, Est GFR (MDRD) Non-Af 49 L, BUN/Creatinine Ratio 45.2 H, Glucose 111 H, Calcium 7.6 L 02/22/23 04:41: Lactate Dehydrogenase 668 H Micro: Microbiology 02/21/23 15:23 Urine, Catheterized Urine Culture - Preliminary Culture exhibits no growth. 02/21/23 19:45 Mucosa - Nose Respiratory Panel (PCR) - Final Radiography Diagnostic Testing: Radiology Impression Chest X-Ray 02/21/23 14:10 IMPRESSION: Progressive bibasilar infiltrates worse on the left side with blunting of the left costophrenic angle. Sclerosis and deformity of the right humeral head. Electronically Signed: Saeed Lam MD at 14:27 EDT , Chest CTA 02/21/23 15:30 IMPRESSION: 1. No demonstrated pulmonary embolism or arterial dissection. 2. There is bilateral pneumonia. 3. There is a moderate left pleural effusions. Electronically Signed: Ricky Banuelos MD at 16:39 EDT , Chest X-Ray 02/22/23 05:55 IMPRESSION: Residual bilateral infiltrates worse on the left side with a small left pleural effusion. There has been improvement as compared to prior study. Electronically Signed: Saeed Lam MD at 9:27 EDT , Rhythm Strip Rhythm Strip: Sinus Tach Rate: 102 Ectopy: None Physical Exam Const alert Constitutional Narrative: Patient is confused, she appears older than her stated age Orientation / Consciousness: awake HEENT normocephalic, head/scalp atraumatic and moist oral mucous membranes Eyes PERRL, EOMs intact bilaterally and conjunctivae normal Neck supple, no JVD, thyroid normal and no carotid bruits General: trachea midline Resp normal respiratory effort, no retractions and no use of accessory muscles Resp Narrative: Breath sounds are diminished bilaterally Auscultation: Negative for rales, rhonchi or wheezes Cardio regular rate, regular rhythm, S1 normal heart sound, S2 normal heart sound, no murmurs, no rub and no gallops Cardio Narrative: Heart rate and rhythm is tachycardic GI normal to inspection, nondistended, normoactive bowel sounds, soft to palpation, non-tender and non-distended Extremity Extremity Narrative: Patient has generalized edema noted in the upper extremity Skin no rashes or lesions noted General Skin Exam: no breakdown Neuro CN's II-XII intact bilaterally, moves all extremities and no focal motor deficits Neuro Narrative: Patient exhibits confusion, she is hard of hearing Sensorium / Orientation: awake Psych Psych Narrative: Patient is confused and hard of hearing Assessment & Plan Assessment/Plan (1) History of COPD: (2) Acute hypotension: PLAN: Plan 1. Hypotension-this is corrected at this time, I will stop the patient's IV fluid #2 pneumonia-etiology unclear, patient remains on meropenem at this time, she is being seen by pulmonary medicine #3 myelodysplastic syndrome-complicates care, medical course, recovery, and prognosis #4 dehydration-patient's creatinine is minimally improved, BUN is about the same as yesterday, critical care advised not giving the patient any additional fluids due to her left pleural effusion. #5 generalized debility-due to multiple medical problems, patient will be seen by PT, I have also consulted speech therapy #6 chronic obstructive pulmonary disease, I do not believe the patient is having exacerbation at this time, I do not believe she needs corticosteroids. Pulmonary medicine will see the patient tomorrow. #7 pulmonary hypertension-patient's Lasix will be held at this time due to her dehydration #8 severe chronic protein and caloric malnutrition in the context of chronic disease/debility-related to inadequate oral intake/acute illness and increased energy expenditure as evidenced by a 6% weight loss over 2 to 3 weeks with p.o. meeting less than 50% of estimated nutritional needs over the past 2 weeks-nutritional services will continue to see the patient, she had been on supplementation when she was in the hospital recently #9 chronic hypoxic respiratory failure-is currently on 50 L/min Airvo at the present time Total clinical time spent by myself addressing the patient's medical problems, reviewing all of her data, and collaborating with patient's care team: 35 minutes Charges/Coding Visit Charges Inpatient E&M: 74034 Subs Hosp L2
--- NOTE | 2023-02-22 16:27 | PCM.HOSP.N ---
Hospitalist Note I talked with the patient's daughter who is her POA in her room this afternoon, patient has been pulling off her Airvo and the daughter is aware that she could become unresponsive and apneic. The daughter does not want the patient to be on the ventilator, she is okay with comfort meds for the patient's respiratory distress or anxiety. We will try again tomorrow to perform a left thoracentesis if the patient is able to cooperate and is in better medical condition. Patient was made a DNR CC arrest without intubation.
[2023-02-22] MEDS: MELATONIN 3 MG TABLET PO (22:31)
[2023-02-22] MEDS: morphine (oral solution) 10MG/0.5ML Syringe 5 MG SL/PO (23:51)
--- NOTE | 2023-02-23 01:00 | NURSING ---
Family called this evening to update on pts status, this RN advised family to come in and spend time with pt d/t her declining status.
[2023-02-23 01:30] VITALS: O2SAT 94
[2023-02-23] MEDS: morphine (oral solution) 10MG/0.5ML Syringe 5 MG SL/PO (02:05)
[2023-02-23] MEDS: Haloperidol Lactate 10 MG/5 ML UDC 5 MG SL/PO (02:16)
[2023-02-23 03:00] VITALS: BP 101/54; PULSE 116; RESP 38; TEMP 37.1; O2SAT 93
[2023-02-23 03:30] VITALS: O2SAT 95
--- NOTE | 2023-02-23 05:03 | PCM.PN.BLA ---
Progress Note Notified by nursing staff that patient on 02/23/2023 at 0452. Per nurse patient's was confirmed by 2 nurses.
--- NOTE | 2023-02-24 09:31 | EXP.PCM_ITS ---
Preliminary Cause of Preliminary Cause of Preliminary Cause of : Acute on chronic hypoxic respiratory failure secondary to acute on chronic diastolic heart failure and pneumonia Date of Admission: 02/21/23 Date of : 02/23/23 Principle Diagnosis 1. Acute on chronic hypoxic respiratory failure #2 acute on chronic diastolic congestive heart failure #3 hypotension-etiology unclear #4 dehydration #5 pneumonia-suspected to be bacterial in nature #6 severe chronic protein and caloric malnutrition #7 severe pulmonary hypertension #8 chronic obstructive pulmonary disease #9 myelodysplastic syndrome #10 generalized debility secondary to multiple medical problem Problem List: Active and Suspected Problems (Updated 02/22/23 @ 09:[address] Aric Pressley MD) Pleural effusion (Acute) Acute hypotension (Acute) Hypoxia (Acute) History of pneumonia (Acute) History of myelodysplastic syndrome (Acute) Myelodysplastic syndrome (Acute) Hospital Course 77-year-old white female was seen in the emergency room at [facility] after she was transferred from [facility] where she had recently been admitted for inpatient rehab services, she was seen in the emergency room secondary to increasing hypoxia and hypotension. Work-up in the ER revealed the patient's creatinine to be slightly elevated, she required increased supplemental oxygen over her baseline, patient was admitted to PCU, she was noted to be hypotensive and initially was given fluids, she was seen by pulmonary medicine the next day who advised diuresis if possible and thoracentesis to remove fluid from the left pleural space. Patient appeared to be confused and was not able to have a tho racentesis performed due to this. Patient's status declined on 02/22/2023, I had multiple conversations with the patient's family including her POA who was her daughter, it was elected that we should not be aggressive and keep the patient comfortable and continue medical treatment, patient declined despite this, on 02/23/2023 at 4:52 AM, patient was found pulseless and apneic and unresponsive, she was pronounced at that time. Cause of was acute on chronic hypoxic respiratory failure secondary to acute on chronic diastolic CHF with an overlay of pneumonia.
== END 2023-02-23 10:43 | DRG 193 ==
LOC: ED 15:27 → PCU 17:43
PROVIDERS: Internal Medicine Critical Care Medicine; Admitting Provider Internal Medicine; Emergency Provider Emergency Medicine; PCP Family Medicine Geriatric Medicine; Visit Provider Internal Medicine
DX: J15.9 Unspecified bacterial pneumonia (principal); J96.21 Acute and chronic respiratory failure with hypoxia; I50.33 Acute on chronic diastolic (congestive) heart failure; E43 Unspecified severe protein-calorie malnutrition; J44.0 Chronic obstructive pulmonary disease with (acute) lower respiratory infection; J90 Pleural effusion, not elsewhere classified; I27.20 Pulmonary hypertension, unspecified; D46.9 Myelodysplastic syndrome, unspecified; I95.9 Hypotension, unspecified; I11.0 Hypertensive heart disease with heart failure; E86.0 Dehydration; E78.5 Hyperlipidemia, unspecified; R53.81 Other malaise; Z68.28 Body mass index [BMI] 28.0-28.9, adult; Z66 Do not resuscitate; Z79.899 Other long term (current) drug therapy; Z85.3 Personal history of malignant neoplasm of breast; Z87.891 Personal history of nicotine dependence
CPT/HCPCS: 36415; 36591; 71045; 71275; 80048; 80053; 81001; 83605; 83615; 84484; 85025; 85379; 85610; 85730; 87040; 87086; 87633; 92610; 93005; 94002; 94003; 94640; 94660; 94762; 97802; 99285; 99406; J2185; J7030; Q9967; A4216